=== PATIENT | male | born 1970 | race Caucasian/White ===

== ENCOUNTER → 2017-03-02 | Outpatient (CLI) | payer BC ==
[2017-03-02 13:50] LABS: BASOPHILS # (AUTO) 0.1 10^3/uL (0.0-0.1); BASOPHILS % (AUTO) 1 % (0-10); EOSINOPHILS # (AUTO) 0.5 10^3/uL (0.0-0.3); EOSINOPHILS % (AUTO) 5 % (0-10); HEMATOCRIT 34 % (40-54); HEMOGLOBIN 11.5 G/DL (13.3-17.7); LYMPHOCYTES # (AUTO) 2.3 X 10^3 (1.0-4.0); LYMPHOCYTES % (AUTO) 20 % (12-44); MEAN CORPUSCULAR HEMOGLOBIN 29 PG (25-34); MEAN CORPUSCULAR HGB CONC 34 G/DL (32-36); MEAN CORPUSCULAR VOLUME 86 FL (80-99); MEAN PLATELET VOLUME 9.6 FL (7.4-10.4); MONOCYTES # (AUTO) 0.9 X 10^3 (0.0-1.0); MONOCYTES % (AUTO) 8 % (0-12); NEUTROPHILS # (AUTO) 7.7 X 10^3 (1.8-7.8); NEUTROPHILS % (AUTO) 67 % (42-75); PLATELET COUNT 373 10^3/uL (130-400); RED BLOOD COUNT 3.97 10^6/uL (4.35-5.85); RED CELL DISTRIBUTION WIDTH 14.9 % (10.0-14.5); WHITE BLOOD COUNT 11.4 10^3/uL (4.3-11.0)
[2017-03-02 14:13] LABS: ALBUMIN 3.8 GM/DL (3.2-4.5); BILIRUBIN,TOTAL 0.4 MG/DL (0.1-1.0); CALCIUM 10.4 MG/DL (8.5-10.1); CREATININE SERUM 1.51 MG/DL (0.60-1.30); POTASSIUM 4.1 MMOL/L (3.6-5.0)
== END ==
LOC: HH 07:00
PROVIDERS: ATTEND Internal Medicine Infectious Disease
DX: T87.43 Infection of amputation stump, right lower extremity (principal); B96.20 Unspecified Escherichia coli [E. coli] as the cause of diseases classified elsewhere
CPT/HCPCS: 80053; 85025; 86141

== ENCOUNTER → 2017-03-17 | Outpatient (CLI) | payer BC ==
[2017-03-17 11:42] LABS: BASOPHILS % (AUTO) 0 % (0-10); EOSINOPHILS # (AUTO) 0.3 10^3/uL (0.0-0.3); EOSINOPHILS % (AUTO) 3 % (0-10); HEMATOCRIT 36 % (40-54); HEMOGLOBIN 11.9 G/DL (13.3-17.7); LYMPHOCYTES % (AUTO) 21 % (12-44); MEAN CORPUSCULAR HEMOGLOBIN 30 PG (25-34); MEAN CORPUSCULAR HGB CONC 33 G/DL (32-36); MEAN CORPUSCULAR VOLUME 88 FL (80-99); MEAN PLATELET VOLUME 10.2 FL (7.4-10.4); MONOCYTES # (AUTO) 0.9 X 10^3 (0.0-1.0); MONOCYTES % (AUTO) 9 % (0-12); NEUTROPHILS # (AUTO) 6.7 X 10^3 (1.8-7.8); NEUTROPHILS % (AUTO) 68 % (42-75); PLATELET COUNT 408 10^3/uL (130-400); RED BLOOD COUNT 4.04 10^6/uL (4.35-5.85); RED CELL DISTRIBUTION WIDTH 15.1 % (10.0-14.5); WHITE BLOOD COUNT 9.9 10^3/uL (4.3-11.0)
[2017-03-17 12:02] LABS: ERYTHROCYTE SEDIMENTATION RATE 82 MM/HR (0-15)
[2017-03-17 12:03] LABS: ALBUMIN 4.2 GM/DL (3.2-4.5); BILIRUBIN,TOTAL 0.4 MG/DL (0.1-1.0); CALCIUM 10.6 MG/DL (8.5-10.1); CREATININE SERUM 2.01 MG/DL (0.60-1.30); POTASSIUM 4.9 MMOL/L (3.6-5.0); TOTAL PROTEIN 8.3 GM/DL (6.4-8.2)
== END ==
LOC: HH 07:00
PROVIDERS: ATTEND Internal Medicine Infectious Disease
DX: T87.43 Infection of amputation stump, right lower extremity (principal); B96.20 Unspecified Escherichia coli [E. coli] as the cause of diseases classified elsewhere; Z79.899 Other long term (current) drug therapy
CPT/HCPCS: 80053; 82550; 85025; 85652; 86141

== ENCOUNTER → 2017-03-23 | Outpatient (CLI) | payer BC | LOC: HH 07:00 | PROVIDERS: ATTEND Internal Medicine Infectious Disease | DX: T87.43 Infection of amputation stump, right lower extremity (principal); B96.20 Unspecified Escherichia coli [E. coli] as the cause of diseases classified elsewhere; Z79.899 Other long term (current) drug therapy ==

== ENCOUNTER → 2017-03-30 | Outpatient (CLI) | payer BC ==
[2017-03-30 14:32] LABS: BASOPHILS % (AUTO) 1 % (0-10); EOSINOPHILS # (AUTO) 0.3 10^3/uL (0.0-0.3); EOSINOPHILS % (AUTO) 3 % (0-10); HEMATOCRIT 35 % (40-54); HEMOGLOBIN 11.8 G/DL (13.3-17.7); LYMPHOCYTES # (AUTO) 1.9 X 10^3 (1.0-4.0); LYMPHOCYTES % (AUTO) 22 % (12-44); MEAN CORPUSCULAR HEMOGLOBIN 30 PG (25-34); MEAN CORPUSCULAR HGB CONC 34 G/DL (32-36); MEAN CORPUSCULAR VOLUME 89 FL (80-99); MEAN PLATELET VOLUME 10.5 FL (7.4-10.4); MONOCYTES # (AUTO) 0.8 X 10^3 (0.0-1.0); MONOCYTES % (AUTO) 10 % (0-12); NEUTROPHILS # (AUTO) 5.4 X 10^3 (1.8-7.8); NEUTROPHILS % (AUTO) 64 % (42-75); PLATELET COUNT 231 10^3/uL (130-400); RED BLOOD COUNT 3.92 10^6/uL (4.35-5.85); RED CELL DISTRIBUTION WIDTH 14.9 % (10.0-14.5); WHITE BLOOD COUNT 8.5 10^3/uL (4.3-11.0)
[2017-03-30 14:49] LABS: ALBUMIN 4.2 GM/DL (3.2-4.5); BILIRUBIN,TOTAL 0.4 MG/DL (0.1-1.0); CALCIUM 10.6 MG/DL (8.5-10.1); CREATININE SERUM 1.56 MG/DL (0.60-1.30); POTASSIUM 4.2 MMOL/L (3.6-5.0); TOTAL PROTEIN 8.3 GM/DL (6.4-8.2)
[2017-03-30 14:51] LABS: ERYTHROCYTE SEDIMENTATION RATE 80 MM/HR (0-15)
== END ==
LOC: HH 07:00
PROVIDERS: ATTEND Internal Medicine Infectious Disease
DX: T87.44 Infection of amputation stump, left lower extremity (principal); B96.20 Unspecified Escherichia coli [E. coli] as the cause of diseases classified elsewhere; Z79.899 Other long term (current) drug therapy
CPT/HCPCS: 80053; 82550; 85025; 85652; 86141

== ENCOUNTER → 2017-04-06 | Outpatient (CLI) | payer BC ==
[2017-04-06 09:50] LABS: BASOPHILS % (AUTO) 0 % (0-10); EOSINOPHILS # (AUTO) 0.2 10^3/uL (0.0-0.3); EOSINOPHILS % (AUTO) 3 % (0-10); HEMATOCRIT 35 % (40-54); HEMOGLOBIN 11.5 G/DL (13.3-17.7); LYMPHOCYTES # (AUTO) 1.6 X 10^3 (1.0-4.0); LYMPHOCYTES % (AUTO) 22 % (12-44); MEAN CORPUSCULAR HEMOGLOBIN 30 PG (25-34); MEAN CORPUSCULAR HGB CONC 33 G/DL (32-36); MEAN CORPUSCULAR VOLUME 90 FL (80-99); MONOCYTES # (AUTO) 0.7 X 10^3 (0.0-1.0); MONOCYTES % (AUTO) 9 % (0-12); NEUTROPHILS # (AUTO) 4.8 X 10^3 (1.8-7.8); NEUTROPHILS % (AUTO) 65 % (42-75); PLATELET COUNT 230 10^3/uL (130-400); RED BLOOD COUNT 3.83 10^6/uL (4.35-5.85); WHITE BLOOD COUNT 7.4 10^3/uL (4.3-11.0)
[2017-04-06 10:03] LABS: BILIRUBIN,TOTAL 0.4 MG/DL (0.1-1.0); CALCIUM 10.2 MG/DL (8.5-10.1); CREATININE SERUM 1.61 MG/DL (0.60-1.30); POTASSIUM 4.7 MMOL/L (3.6-5.0); TOTAL PROTEIN 7.6 GM/DL (6.4-8.2)
[2017-04-06 10:12] LABS: ERYTHROCYTE SEDIMENTATION RATE 76 MM/HR (0-15)
== END ==
LOC: HH 07:00
PROVIDERS: ATTEND Internal Medicine Infectious Disease
DX: T87.44 Infection of amputation stump, left lower extremity (principal); B96.20 Unspecified Escherichia coli [E. coli] as the cause of diseases classified elsewhere; Z79.899 Other long term (current) drug therapy
CPT/HCPCS: 80053; 82550; 85025; 85652; 86141

== ENCOUNTER → 2017-04-14 | Outpatient (CLI) | payer BC ==
[2017-04-14 14:05] LABS: HEMOGLOBIN 13.5 G/DL (13.3-17.7); MEAN PLATELET VOLUME 10.2 FL (7.4-10.4); RED BLOOD COUNT 4.52 10^6/uL (4.35-5.85); RED CELL DISTRIBUTION WIDTH 14.8 % (10.0-14.5); WHITE BLOOD COUNT 7.7 10^3/uL (4.3-11.0)
[2017-04-14 14:20] LABS: CALCIUM 10.4 MG/DL (8.5-10.1); CREATININE SERUM 1.64 MG/DL (0.60-1.30); POTASSIUM 4.3 MMOL/L (3.6-5.0)
== END ==
LOC: HH 07:00
PROVIDERS: ATTEND Internal Medicine Infectious Disease
DX: T87.44 Infection of amputation stump, left lower extremity (principal); B96.20 Unspecified Escherichia coli [E. coli] as the cause of diseases classified elsewhere; Z16.12 Extended spectrum beta lactamase (ESBL) resistance
CPT/HCPCS: 80048; 85027; 86141

== ENCOUNTER → 2017-04-20 | Outpatient (CLI) | payer BC ==
[2017-04-20 15:44] LABS: HEMOGLOBIN 12.1 G/DL (13.3-17.7); RED BLOOD COUNT 3.95 10^6/uL (4.35-5.85); RED CELL DISTRIBUTION WIDTH 14.5 % (10.0-14.5); WHITE BLOOD COUNT 8.5 10^3/uL (4.3-11.0)
[2017-04-20 15:55] LABS: ALBUMIN 4.1 GM/DL (3.2-4.5); BILIRUBIN,TOTAL 0.3 MG/DL (0.1-1.0); CALCIUM 9.8 MG/DL (8.5-10.1); CREATININE SERUM 1.59 MG/DL (0.60-1.30); POTASSIUM 4.2 MMOL/L (3.6-5.0); TOTAL PROTEIN 8.1 GM/DL (6.4-8.2)
== END ==
LOC: LAB 07:00
PROVIDERS: ATTEND Internal Medicine Infectious Disease
DX: T87.44 Infection of amputation stump, left lower extremity (principal)
CPT/HCPCS: 80053; 82550; 85027; 85652; 86141

== ENCOUNTER → 2017-04-20 | Outpatient (CLI) | payer BC ==
[2017-04-20 15:42] LABS: BILIRUBIN,URINE NEGATIVE (NEGATIVE); CLARITY,URINE CLEAR; COLOR,URINE YELLOW; GLUCOSE, URINE (UA) NEGATIVE (NEGATIVE); KETONES,URINE NEGATIVE (NEGATIVE); LEUKOCYTE ESTERASE ,URINE NEGATIVE (NEGATIVE); NITRITE,URINE NEGATIVE (NEGATIVE); PH,URINE 5 (5-9); PROTEIN,URINE NEGATIVE (NEGATIVE); UROBILINOGEN,URINE NORMAL (NORMAL)
[2017-04-20 16:03] LABS: CALCIUM 9.8 MG/DL (8.5-10.1); CREATININE SERUM 1.59 MG/DL (0.60-1.30); POTASSIUM 4.2 MMOL/L (3.6-5.0)
[2017-04-20 16:04] LABS: ALBUMIN 4.1 GM/DL (3.2-4.5)
[2017-04-20 16:05] LABS: BACTERIA,URINE NEGATIVE /HPF; SQUAMOUS EPITHELIAL CELL,UR RARE /HPF
== END ==
LOC: LAB 07:00
PROVIDERS: ATTEND Internal Medicine
DX: N18.3 Chronic kidney disease, stage 3 (moderate) (principal)
CPT/HCPCS: 80069; 81000; 82570; 84156

== ENCOUNTER 2018-09-11 15:49 | Emergency (ER) | payer BC | END 2018-09-11 17:58 | disposition home or self-care (01) | LOC: ER 15:49 ==

== ENCOUNTER 2018-11-07 17:35 | Emergency (ER) | payer BC ==
[~2018-11-07] VITALS: Ht 175 cm; Wt 120.0 kg
[~2018-11-07 17:35] MED LIST: ALLO100T; ATOR20TA66; CARV25TA; LIRA0.6P3; MONT10TA24; TERB250T16
[2018-11-07] MEDS ORDERED: IRON1CAP34 PO (18:06)
[2018-11-07] MEDS ORDERED: GEMF600T8 PO (18:06)
[2018-11-07] MEDS ORDERED: INSU100V16 SQ (18:06)
[2018-11-07] MEDS ORDERED: AMLO5TAB9 PO (18:06)
[2018-11-07] MEDS ORDERED: INSU300I SQ (18:06)
--- NOTE | 2018-11-07 19:00 | ED Cough/URI ---
General Chief Complaint: Cough/Cold/Flu Symptoms Stated Complaint: SINUS CONGESTION Nursing Triage Note: PT CO OF COLD COUGH FOR 3 WEEKS, PT STATES HAS BEEN SEEN BY EMT INTERMEDIATE APPROX 4 TIMES, HAS BEEN ON CEFDINIR, PT STATES FEELS LIKE HAS HAD FEVER, HAS CACERES, HAS NAUSEA Sepsis Screen: No Definite Risk Source: patient Exam Limitations: no limitations History of Present Illness Date Seen by Provider: Nov 07, 2018 Time Seen by Provider: 18:59 Initial Comments 48-year-old male patient presents to the emergency department with complaints of sinus congestion, sinus headache, and slight cough for 3 weeks. Patient states he was seen by his nurse practitioner at [facility] 4 times for this complaint. He was placed on cefdinir with mild improvement in symptoms. Patient reports this week he did follow-up with his EMT INTERMEDIATE with a nasal culture and CT head obtained. Patient states the CT showed sinusitis and the nasal culture have not come back yet. Timing/Duration: other (3 wk onset) Severity/Quality: dry cough Prior Episodes/Possible Cause: no prior episodes Modifying Factors: Worse With Other (no improvement with mucinex, afrin, saline rinses, vicks vapor.) Allergies and Home Medications Allergies Coded Allergies: No Known Drug Allergies (Unverified , 09/11/18) Home Medications Amlodipine Besylate 5 Mg Tablet, Unknown Dose PO DAILY, (Reported) Doxycycline Hyclate 100 Mg Tablet, 100 MG PO BID Prescribed by: STEPHANIE WATKINS on 11/07/181954 Fluticasone Furoate 5.9 Ml [place].susp, 2 SPRAYS NSEACH DAILY Prescribed by: STEPHANIE WATKINS on 11/07/181954 Insulin Aspart 100 Unit/1 Ml Susp, Unknown Dose SQ AC, (Reported) Patient Home Medication List Home Medication List Reviewed: Yes Review of Systems Review of Systems Constitutional: chills; No dizziness; malaise EENTM: see HPI, nose congestion, throat pain (slight throat pain), other (postnasal drainage); No ear discharge, No ear pain, No hoarseness, No mouth pain, No throat swelling Respiratory: cough; No dyspnea on exertion, No hemoptysis, No phlegm, No short of breath, No stridor, No wheezing Cardiovascular: no symptoms reported Gastrointestinal: No abdominal pain, No constipation, No diarrhea; loss of appetite, nausea; No vomiting Genitourinary: no symptoms reported Musculoskeletal: no symptoms reported Skin: no symptoms reported Psychiatric/Neurological: Headache All Other Systems Reviewed Negative Unless Noted: Yes (Negative excepted noted.) Past Sbjsmif-Huzxkw-Rtwcjr Hx Past Med/Social Hx: Reviewed Nursing Past Med/Soc Hx Patient Social History Alcohol Use: Denies Use Recreational Drug Use: No Smoking Status: Never a Smoker Recent Foreign Travel: No Contact w/Someone Who Travel: No Recent Infectious Disease Expo: No Recent Hopitalizations: No Past Medical History Adenoidectomy, Gallbladder, Orthopedic Respiratory: No Cardiac: Yes High Cholesterol, Hypertension Neurological: No Genitourinary: Yes Renal Failure (stage IV chronic kidney disease) Gastrointestinal: No Musculoskeletal: Yes Amputee Endocrine: Yes Diabetes, Insulin dep, Diabetes, Non-Insulin dep HEENT: No Cancer: No Psychosocial: No Integumentary: No Blood Disorders: No Adverse Reaction/Blood Tranf: No Family Medical History Reviewed Nursing Family Hx No Pertinent Family Hx Physical Exam Vital Signs - First Documented 11/07/18 17:50 Temp 36.6 Pulse 90 Resp 18 B/P (MAP) 131/81 (98) Pulse Ox 97 O2 Delivery Room Air Capillary Refill : Less Than 3 Seconds Height: 5'9.00" Weight: 252lbs. oz. 114.018168rs; 39.00 BMI Method:Stated General Appearance: WD/WN, no apparent distress HEENT: PERRL/EOMI, TMs normal, pharyngeal erythema, other (positive nasal congestion and sinus tenderness.) Neck: non-tender, full range of motion, supple, lymphadenopathy (R), lymphadenopathy (L) Respiratory: lungs clear, normal breath sounds, no respiratory distress, no accessory muscle use Cardiovascular: regular rate, rhythm, no murmur Gastrointestinal: normal bowel sounds, non tender, soft, no organomegaly; No distended Extremities: no pedal edema, normal capillary refill Neurologic/Psychiatric: alert, normal mood/affect, oriented x 3 Skin: normal color, warm/dry; No rash Progress/Results/Core Measures Suspected Sepsis Recent Fever Within 48 Hours: Yes Infection Criteria Present: Suspected New Infection New/Unexplained Altered Menta: No Sepsis Screen: No Definite Risk SIRS Temperature: Pulse: 90 Respiratory Rate: 18 Blood Pressure 131 /81 Mean: 98 Results/Orders My Orders Orders - STEPHANIE WATKINS Ceftriaxone For Im Use (Rocephin For Im (11/07/18 19:15) Lidocaine 1% Inj 20 Ml (Xylocaine 1% Inj (11/07/18 19:15) Rx-Doxycycline Tablet (Rx-Vibramycin Tab (11/07/18 19:12) Rx-Ondansetron Po (Rx-Zofran Po) (11/07/18 19:12) Prednisone Tablet (Deltasone Tablet) (11/07/18 19:15) Medications Given in ED Current Medications Medications Dose Ordered Sig/Ynes Route Start Time Stop Time Status Last Admin Dose Admin Ceftriaxone Sodium 1,000 mg ONCE ONCE IM 11/07/18 19:15 11/07/18 19:16 DC 11/07/18 19:57 1,000 MG Lidocaine HCl 2.1 ml ONCE ONCE INJ 11/07/18 19:15 11/07/18 19:16 DC 11/07/18 19:57 2.1 ML Prednisone 40 mg ONCE ONCE PO 11/07/18 19:15 11/07/18 19:16 DC 11/07/18 19:53 40 MG Vital Signs/I&O 11/07/18 11/07/18 11/07/18 17:50 17:50 20:02 Temp 36.6 36.6 Pulse 90 90 Resp 18 18 B/P (MAP) 131/81 (98) 131/81 (98) Pulse Ox 97 97 O2 Delivery Room Air Room Air Capillary Refill : Less Than 3 Seconds Blood Pressure Mean: 98 Departure Communication (Admissions) Patient seen and evaluated. Patient given 1 g of Rocephin, take home pack of doxycycline, and 1 dose of prednisone 40mg in the ED. plan for dsch to home with f/u as an outpatient with his PCP. Impression Primary Impression: Acute sinusitis Qualified Codes: J01.40 - Acute pansinusitis, unspecified Disposition: HOME, SELF-CARE Condition: Improved Departure-Patient Inst. Decision time for Depature: 19:20 Referrals: SERENITY LAMAR MD (PCP/Family) Primary Care Physician Patient Instructions: Sinusitis in Adults Add. Discharge Instructions: All discharge instructions reviewed with patient and/or family. Voiced understanding. Medications as instructed. Tylenol Extra Strength yuog-wob-ygwoyva as directed for pain or headache. Continue the saline nasal rinse with distilled water only. Nvvc-feb-yerztpe Afrin nasal spray and/or saline nasal spray for symptomatic relief. Follow-up with [facility] for recheck this week, call tomorrow morning for appointment time. Return to the emergency department for worsened symptoms or any other concerns. Scripts Fluticasone Furoate (Flonase Sensimist) 5.9 Ml [place].susp 2 SPRAYS NSEACH DAILY for 7 Days, #1 SPRAY 0 Refills Prov: STEPHANIE WATKINS 11/07/18 Doxycycline Hyclate (Doxycycline Hyclate) 100 Mg Tablet 100 MG PO BID, #20 TAB 0 Refills Prov: STEPHANIE WATKINS 11/07/18 STEPHANIE WATKINS Nov 07, 2018 18:59
--- NOTE | 2018-11-07 19:00 | NUR ---
report recieved from lori, adirana
[2018-11-07] MEDS ORDERED: RX-ONDANSETRON 4 MG ODT (ZOFRAN) PPK #4 PO STA (19:12)
[2018-11-07] MEDS ORDERED: RX-DOXYCYCLINE 100 MG (VIBRAMYCIN) TAB PPK#2 PO STA (19:12)
[2018-11-07] MEDS ORDERED: predniSONE 20 MG TAB PO ONE (19:15)
[2018-11-07] MEDS ORDERED: cefTRIAXone 1,000 MG/2.86 ml vial (IM ONLY) IM ONE (19:15)
[2018-11-07] MEDS ORDERED: LIDOCAINE 1% INJ 20 ML 20 ML VIAL INJ ONE (19:15)
[2018-11-07] MEDS ORDERED: FLUT9.9S16 NSEACH ×2 (19:25→19:55)
[2018-11-07] MEDS ORDERED: DOXY100T2 PO ×2 (19:25→19:55)
[2018-11-07 20:02] VITALS: BP 131/81
== END 2018-11-07 20:03 | disposition home or self-care (01) ==
LOC: EDUNIT# 17:35 → ER 17:37
DX: J01.90 Acute sinusitis, unspecified (principal); E11.22 Type 2 diabetes mellitus with diabetic chronic kidney disease; I12.9 Hypertensive chronic kidney disease with stage 1 through stage 4 chronic kidney disease, or unspecified chronic kidney disease; N18.4 Chronic kidney disease, stage 4 (severe); E78.00 Pure hypercholesterolemia, unspecified; Z79.4 Long term (current) use of insulin; Z90.89 Acquired absence of other organs
CPT/HCPCS: 96372

== ENCOUNTER 2018-12-08 12:21 | Emergency (ER) | payer BC ==
[~2018-12-08] VITALS: Ht 175 cm; Wt 110.5 kg
[~2018-12-08 12:21] MED LIST changes: +AMLO5TAB9 PO; +DOXY100T2 PO; +FLUT9.9S16 NSEACH; +GEMF600T8 PO; +INSU100V16 SQ; +INSU300I SQ; +IRON1CAP34 PO
--- NOTE | 2018-12-08 13:05 | NUR ---
NOTIFIED OF BUSY ER WITH LONG WAIT TIME.
[2018-12-08] MEDS ORDERED: NS IV 1000 ML 1,000 ML IV SCH ×2 (14:46→15:42)
[2018-12-08 14:57] LABS: BASOPHILS % (AUTO) 0 % (0-10); EOSINOPHILS # (AUTO) 0.1 10^3/uL (0.0-0.3); EOSINOPHILS % (AUTO) 0 % (0-10); HEMATOCRIT 36 % (40-54); LYMPHOCYTES # (AUTO) 1.6 X 10^3 (1.0-4.0); LYMPHOCYTES % (AUTO) 10 % (12-44); MEAN CORPUSCULAR HEMOGLOBIN 30 PG (25-34); MEAN CORPUSCULAR HGB CONC 33 G/DL (32-36); MEAN CORPUSCULAR VOLUME 92 FL (80-99); MEAN PLATELET VOLUME 9.6 FL (7.4-10.4); MONOCYTES # (AUTO) 1.8 X 10^3 (0.0-1.0); MONOCYTES % (AUTO) 11 % (0-12); NEUTROPHILS # (AUTO) 12.6 X 10^3 (1.8-7.8); NEUTROPHILS % (AUTO) 79 % (42-75); PLATELET COUNT 263 10^3/uL (130-400); RED CELL DISTRIBUTION WIDTH 15.3 % (10.0-14.5)
[2018-12-08] MEDS ORDERED: ONDANSETRON 4 MG/2 ML (SDV) Z0FRAN IVP ONE (15:00)
--- NOTE | 2018-12-08 15:03 | ED General ---
General Chief Complaint: Abdominal/GI Problems Stated Complaint: N/V;COUGH Nursing Triage Note: COUGH X3 DAYS ET N/V/D STARTING YESTERDAY. PT STATES HE IS VERY WEAK. Nursing Sepsis Screen: No Definite Risk Source of Information: Patient Exam Limitations: No Limitations History of Present Illness Date Seen by Provider: Dec 08, 2018 Time Seen by Provider: 14:50 Initial Comments 48-year-old male presents to the emergency room with 3 days OF nonproductive cough, nasal congestion and general malaise. Patient reports that at 0100 this morning he woke up to a coughing fit and subsequently vomited. Patient reports vomiting twice since then. Patient with reports of subjective fever at home but did not check his temperature with a thermometer. Patient reports was seen here, recently and given a prescription antibiotic which improved his upper respiratory and sinus symptoms. Patient reports completing this antibiotic completely and he felt fine last week. Timing/Duration: 2-3 Days Severity: Mild Associated Systoms: Cough, Malaise, Nausea/Vomiting, Weakness Allergies and Home Medications Allergies Coded Allergies: No Known Drug Allergies (Unverified , 09/11/18) Home Medications Amlodipine Besylate 5 Mg Tablet, Unknown Dose PO DAILY, (Reported) Doxycycline Hyclate 100 Mg Tablet, 100 MG PO BID Prescribed by: STEPHANIE WATKINS on 11/07/181954 Fluticasone Furoate 5.9 Ml [place].susp, 2 SPRAYS NSEACH DAILY Prescribed by: STEPHANIE WATKINS on 11/07/181954 Insulin Aspart 100 Unit/1 Ml Susp, Unknown Dose SQ AC, (Reported) Levalbuterol Tartrate 15 Gm Hfa.aer.ad, 1-2 PUFF INH Q6H Prescribed by: FERNANDO PERRIN on 12/08/181712 Prednisone 20 Mg Tab, 40 MG PO DAILY Prescribed by: FERNANDO PERRIN on 12/08/181712 Prochlorperazine Maleate 10 Mg Tablet, 10 MG PO Q6H Prescribed by: FERNANDO PERRIN on 12/08/181712 Patient Home Medication List Home Medication List Reviewed: Yes Review of Systems Review of Systems Constitutional: no symptoms reported, see HPI EENTM: nose congestion Respiratory: cough Cardiovascular: no symptoms reported, see HPI Gastrointestinal: nausea, vomiting Genitourinary: no symptoms reported, see HPI Musculoskeletal: muscle weakness Skin: no symptoms reported, see HPI Psychiatric/Neurological: No Symptoms Reported, See HPI Hematologic/Lymphatic: No Symptoms Reported, See HPI Immunological/Allergic: no symptoms reported, see HPI All Other Systems Reviewed Negative Unless Noted: Yes Past Tktoyaw-Kdmvnk-Kppxnr Hx Past Med/Social Hx: Reviewed Nursing Past Med/Soc Hx, Reviewed and Corrections made Patient Social History Alcohol Use: Denies Use Recreational Drug Use: No Smoking Status: Never a Smoker Recent Foreign Travel: No Contact w/Someone Who Travel: No Recent Infectious Disease Expo: No Recent Hopitalizations: No Past Medical History Surgeries: Yes (left dypgk-cux-tgvc amputation ) Adenoidectomy, Gallbladder, Orthopedic Respiratory: No Cardiac: Yes High Cholesterol, Hypertension Neurological: No Genitourinary: Yes Renal Failure Gastrointestinal: No Musculoskeletal: Yes Amputee Endocrine: Yes Diabetes, Insulin dep, Diabetes, Non-Insulin dep HEENT: No Cancer: No Psychosocial: No Integumentary: No Blood Disorders: No Adverse Reaction/Blood Tranf: No Family Medical History No Pertinent Family Hx Physical Exam Vital Signs Vital Signs - First Documented 12/08/18 13:05 Temp 36.7 Pulse 88 Resp 16 B/P (MAP) 108/69 (82) Pulse Ox 96 O2 Delivery Room Air Capillary Refill : Less Than 3 Seconds Height, Weight, BMI Height: 5'9.00" Weight: 252lbs. oz. 114.226984wp; 36.00 BMI Method:Stated General Appearance: No Apparent Distress, WD/WN Eyes: Bilateral Eye Normal Inspection, Bilateral Eye PERRL HEENT: PERRL/EOMI, TMs Normal, Normal ENT Inspection, Other (no maxillary or frontal sinus tenderness) Neck: Full Range of Motion, Normal Inspection, Non Tender Respiratory: Chest Non Tender, Lungs Clear, Normal Breath Sounds, No Accessory Muscle Use, No Respiratory Distress Cardiovascular: Regular Rate, Rhythm, No Edema, No JVD, No Murmur Gastrointestinal: Normal Bowel Sounds Rectal: Deferred Back: Normal Inspection Extremity: Normal Capillary Refill, Non Tender, No Calf Tenderness Neurologic/Psychiatric: Alert, Oriented x3, No Motor/Sensory Deficits, Normal Mood/Affect Skin: Normal Color, Warm/Dry Progress/Results/Core Measures Suspected Sepsis Recent Fever Within 48 Hours: No Infection Criteria Present: Suspected New Infection New/Unexplained Altered Menta: No Sepsis Screen: No Definite Risk SIRS Temperature: Pulse: 88 Respiratory Rate: 16 Laboratory Tests 10/30/19 14:30: White Blood Count 16.0H Blood Pressure 108 /69 Mean: 82 Laboratory Tests 12/08/18 14:30: Creatinine 2.71H, Platelet Count 263, Total Bilirubin 0.4 Results/Orders Lab Results Laboratory Tests Test 12/08/18 13:55 12/08/18 14:30 Range/Units Urine Color YELLOW Urine Clarity CLEAR Urine pH 5 5-9 Urine Specific [place] 1.020 1.016-1.022 Urine Protein 3+ H NEGATIVE Urine Glucose (UA) NEGATIVE NEGATIVE Urine Ketones NEGATIVE NEGATIVE Urine Nitrite NEGATIVE NEGATIVE Urine Bilirubin NEGATIVE NEGATIVE Urine Urobilinogen NORMAL NORMAL MG/DL Urine Leukocyte Esterase NEGATIVE NEGATIVE Urine RBC (Auto) NEGATIVE NEGATIVE Urine RBC NONE /HPF Urine WBC NONE /HPF Urine Crystals NONE /LPF Urine Bacteria NEGATIVE /HPF Urine Casts PRESENT /LPF Urine Hyaline Casts 5-10 H /LPF Urine Mucus NEGATIVE /LPF Urine Culture Indicated NO White Blood Count 16.0 H 4.3-11.0 10^3/uL Red Blood Count 3.95 L 4.35-5.85 10^6/uL Hemoglobin 12.0 L 13.3-17.7 G/DL Hematocrit 36 L 40-54 % Mean Corpuscular Volume 92 80-99 FL Mean Corpuscular Hemoglobin 30 25-34 PG Mean Corpuscular Hemoglobin Concent 33 32-36 G/DL Red Cell Distribution Width 15.3 H 10.0-14.5 % Platelet Count 263 130-400 10^3/uL Mean Platelet Volume 9.6 7.4-10.4 FL Neutrophils (%) (Auto) 79 H 42-75 % Lymphocytes (%) (Auto) 10 L 12-44 % Monocytes (%) (Auto) 11 0-12 % Eosinophils (%) (Auto) 0 0-10 % Basophils (%) (Auto) 0 0-10 % Neutrophils # (Auto) 12.6 H 1.8-7.8 X 10^3 Lymphocytes # (Auto) 1.6 1.0-4.0 X 10^3 Monocytes # (Auto) 1.8 H 0.0-1.0 X 10^3 Eosinophils # (Auto) 0.1 0.0-0.3 10^3/uL Basophils # (Auto) 0.0 0.0-0.1 10^3/uL Neutrophils % (Manual) 79 % Lymphocytes % (Manual) 8 % Monocytes % (Manual) 13 % Poikilocytosis SLIGHT Anisocytosis SLIGHT Microcytosis SLIGHT Macrocytosis SLIGHT Sodium Level 135 135-145 MMOL/L Potassium Level 5.1 H 3.6-5.0 MMOL/L Chloride Level 106 98-107 MMOL/L Carbon Dioxide Level 17 L 21-32 MMOL/L Anion Gap 12 5-14 MMOL/L Blood Urea Nitrogen 49 H 7-18 MG/DL Creatinine 2.71 H 0.60-1.30 MG/DL Estimat Glomerular Filtration Rate 25 BUN/Creatinine Ratio 18 Glucose Level 169 H 70-105 MG/DL Calcium Level 10.3 H 8.5-10.1 MG/DL Corrected Calcium 10.0 8.5-10.1 MG/DL Total Bilirubin 0.4 0.1-1.0 MG/DL Aspartate Amino Transf (AST/SGOT) 31 5-34 U/L Alanine Aminotransferase (ALT/SGPT) 51 0-55 U/L Alkaline Phosphatase 96 40-136 U/L Total Protein 8.7 H 6.4-8.2 GM/DL Albumin 4.4 3.2-4.5 GM/DL Amylase Level 66 25-125 U/L Lipase 24 8-78 U/L My Orders Orders - FERNANDO PERRIN [employer]ASS [employer] BENDER Ondansetron Injection (Zofran Injectio (12/08/18 15:00) Cbc With Automated Diff (12/08/18 14:46) Comprehensive Metabolic Panel (12/08/18 14:46) Ua Culture If Indicated (12/08/18 14:46) Ed Iv/Invasive Line Start (12/08/18 14:46) Ns Iv 1000 Ml (Sodium Chloride 0.9%) (12/08/18 14:46) Manual Differential (12/08/18 14:30) Amylase (12/08/18 15:41) Lipase (12/08/18 15:41) Ed Iv/Invasive Line Start (12/08/18 15:42) Ns Iv 1000 Ml (Sodium Chloride 0.9%) (12/08/18 15:42) Methylprednisolone Sod Succ (Solu-Medrol (12/08/18 17:30) Medications Given in ED Current Medications Medications Dose Ordered Sig/Ynes Route Start Time Stop Time Status Last Admin Dose Admin Methylprednisolone Sodium Succinate 125 mg ONCE ONCE IVP 12/08/18 17:30 12/08/18 17:31 DC 12/08/18 17:31 125 MG Ondansetron HCl 4 mg ONCE ONCE IVP 12/08/18 15:00 12/08/18 15:01 DC 12/08/18 15:05 4 MG Vital Signs/I&O 12/08/18 12/08/18 13:05 17:39 Temp 36.7 Pulse 88 86 Resp 16 18 B/P (MAP) 108/69 (82) 143/83 Pulse Ox 96 96 O2 Delivery Room Air Room Air Capillary Refill : Less Than 3 Seconds Blood Pressure Mean: 82 POS Progress Note : Time: 14:50 Progress Note Patient seen and evaluated, will obtain labs, Zofran 4 mg IV and normal saline 1 L per IV. 1545 labs are normal. Patient reports trace improvement in symptoms. We'll give second liter of normal saline per IV. 1650 we'll give Solu-Medrol 125 mg IV. Patient reports to be feeling better. Discussed this is probably viral in nature and no antibiotics are recommended at this point. The patient has not vomited since he has been here and is not coughing. Discharge instructions and return precautions are reviewed with the patient. Departure Impression Primary Impression: Viral URI Additional Impression: Nausea and vomiting Qualified Codes: R11.2 - Nausea with vomiting, unspecified Disposition: 01 HOME, SELF-CARE Condition: Improved Departure-Patient Inst. Decision time for Depature: 16:50 Referrals: SERENITY LAMAR MD (PCP/Family) Primary Care Physician Patient Instructions: Viral Upper Respiratory Infection, Adult (DC), Nausea and Vomiting, Adult (DC) Add. Discharge Instructions: Increase water intake. Adjust insulin demands while taking steroids. Monitor your glucose. Follow-up with your primary care provider if symptoms are not improving or worsen. Inhaler 2 puffs every 4-6 hours as needed. Take Compazine every 6-8 hours as needed for nausea. Return to the emergency department for new, urgent health care needs. All discharge instructions reviewed with patient and/or family. Voiced und erstanding. Scripts Prednisone (Prednisone) 20 Mg Tab 40 MG PO DAILY, #6 TAB 0 Refills Prov: FERNANDO PRERIN 12/08/18 Prochlorperazine Maleate (Compazine) 10 Mg Tablet 10 MG PO Q6H, #12 TAB 0 Refills Prov: FERNANDO PERRIN 12/08/18 Levalbuterol Tartrate (Xopenex Hfa) 15 Gm Hfa.aer.ad 1-2 PUFF INH Q6H, #1 INHALER 0 Refills Prov: FERNANDO PERRIN 12/08/18 FERNANDO PERRIN Dec 08, 2018 15:03 POS
[2018-12-08 15:08] LABS: ALBUMIN 4.4 GM/DL (3.2-4.5); BILIRUBIN,TOTAL 0.4 MG/DL (0.1-1.0); CALCIUM 10.3 MG/DL (8.5-10.1); CREATININE SERUM 2.71 MG/DL (0.60-1.30); POTASSIUM 5.1 MMOL/L (3.6-5.0); TOTAL PROTEIN 8.7 GM/DL (6.4-8.2)
[2018-12-08 15:31] LABS: LYMPHOCYTES % (MANUAL) 8 %; MONOCYTES % (MANUAL) 13 %; NEUTROPHILS % (MANUAL) 79 %
[2018-12-08 15:32] LABS: ANISOCYTOSIS SLIGHT; MICROCYTOSIS SLIGHT; POIKILOCYTOSIS SLIGHT
[2018-12-08 16:02] LABS: AMYLASE 66 U/L (25-125); LIPASE 24 U/L (8-78)
[2018-12-08 16:08] LABS: BILIRUBIN,URINE NEGATIVE (NEGATIVE); CLARITY,URINE CLEAR; COLOR,URINE YELLOW; GLUCOSE, URINE (UA) NEGATIVE (NEGATIVE); KETONES,URINE NEGATIVE (NEGATIVE); LEUKOCYTE ESTERASE ,URINE NEGATIVE (NEGATIVE); NITRITE,URINE NEGATIVE (NEGATIVE); PH,URINE 5 (5-9); PROTEIN,URINE 3+ (NEGATIVE)
[2018-12-08 16:25] LABS: BACTERIA,URINE NEGATIVE /HPF
[2018-12-08] MEDS ORDERED: PRD20T PO (17:13)
[2018-12-08] MEDS ORDERED: NF-XOP-HFA INH (17:13)
[2018-12-08] MEDS ORDERED: PROC-1 PO (17:13)
[2018-12-08] MEDS ORDERED: methylPREDNISolone 125 MG (Solu-MEDROL) VIAL IVP ONE (17:30)
[2018-12-08 17:39] VITALS: BP 143/83
== END 2018-12-08 17:39 | disposition home or self-care (01) ==
LOC: EDUNIT# 12:21 → ER 12:22
DX: J06.9 Acute upper respiratory infection, unspecified (principal); I10 Essential (primary) hypertension; E11.9 Type 2 diabetes mellitus without complications; E78.00 Pure hypercholesterolemia, unspecified; Z79.4 Long term (current) use of insulin; Z90.89 Acquired absence of other organs; Z89.512 Acquired absence of left leg below knee
CPT/HCPCS: 36415; 80053; 81000; 82150; 83690; 85007; 85027; 96361; 96374; 96375

== ENCOUNTER → 2019-09-01 | Outpatient (CLI) | payer MEDICARE, MEDICAID ==
[~2019-09-01] MED LIST changes: -MONT10TA24; +MONT10TA26; +NF-XOP-HFA INH; +PRD20T PO; +PROC-1 PO
== END ==
LOC: WOUNDCARE 13:02
PROVIDERS: ATTEND Orthopaedic Surgery Hand Surgery
DX: L97.212 Non-pressure chronic ulcer of right calf with fat layer exposed (principal); S81.801A Unspecified open wound, right lower leg, initial encounter; I87.2 Venous insufficiency (chronic) (peripheral); E11.622 Type 2 diabetes mellitus with other skin ulcer; D80.4 Selective deficiency of immunoglobulin M [IgM]
CPT/HCPCS: 11042; A6196; G0463

== ENCOUNTER 2019-09-05 14:35 | Emergency (ER) | payer MEDICARE, MEDICAID ==
[~2019-09-05] VITALS: Ht 175 cm; Wt 124.0 kg
[2019-09-05 15:34] LABS: BASOPHILS % (AUTO) 0 % (0-10); EOSINOPHILS # (AUTO) 0.2 10^3/uL (0.0-0.3); EOSINOPHILS % (AUTO) 2 % (0-10); HEMATOCRIT 32 % (40-54); HEMOGLOBIN 10.7 G/DL (13.3-17.7); LYMPHOCYTES # (AUTO) 1.5 X 10^3 (1.0-4.0); LYMPHOCYTES % (AUTO) 21 % (12-44); MEAN CORPUSCULAR HEMOGLOBIN 32 PG (25-34); MEAN CORPUSCULAR HGB CONC 33 G/DL (32-36); MEAN CORPUSCULAR VOLUME 97 FL (80-99); MEAN PLATELET VOLUME 10.6 FL (7.4-10.4); MONOCYTES # (AUTO) 0.6 X 10^3 (0.0-1.0); MONOCYTES % (AUTO) 9 % (0-12); NEUTROPHILS # (AUTO) 4.9 X 10^3 (1.8-7.8); NEUTROPHILS % (AUTO) 68 % (42-75); PLATELET COUNT 201 10^3/uL (130-400); RED CELL DISTRIBUTION WIDTH 13.9 % (10.0-14.5); WHITE BLOOD COUNT 7.2 10^3/uL (4.3-11.0)
--- NOTE | 2019-09-05 15:35 | NUR ---
SEE LIST FOR CURRENT MEDS AND HX
[2019-09-05 15:46] LABS: ALBUMIN 3.9 GM/DL (3.2-4.5); POTASSIUM 5.5 MMOL/L (3.6-5.0)
[2019-09-05 15:47] LABS: CALCIUM 9.8 MG/DL (8.5-10.1)
[2019-09-05 15:48] LABS: TOTAL PROTEIN 7.3 GM/DL (6.4-8.2)
[2019-09-05 15:50] LABS: BILIRUBIN,TOTAL 0.2 MG/DL (0.1-1.0)
[2019-09-05 15:52] LABS: CREATININE SERUM 3.59 MG/DL (0.60-1.30)
--- NOTE | 2019-09-05 15:58 | ED General ---
General Chief Complaint: General Problems/Pain Stated Complaint: SOB;KIDNEY PROBLEMS Nursing Triage Note: PT TO ROOM 3 PT CO OF SOA, TIREDNESS, HAS KIDNEY FAILURE AND HAD TAKEN BACTRIM DS AND SENT TO ED BY NEUROLOGIST TO BE CHECKED. PT HAS L BKA, HAS WOUNDS ON R CALF AND SEES WOUND CARE. Nursing Sepsis Screen: No Definite Risk Source of Information: Patient Exam Limitations: No Limitations History of Present Illness Date Seen by Provider: Sep 05, 2019 Time Seen by Provider: 15:28 Initial Comments Here with report of tiredness and concerned about kidney failure. Does have history of stage III/stage IV kidney disease. Recently he was put on Bactrim DS for skin wound on his right lower extremity. That wound is actually getting better and he is following with wound care. He is feeling a little bit more tired today and talked with his manager library who recommended he follow up for outpatient labs or follow-up in the emergency department as needed. Patient was concerned due to his history and presented here for further evaluation. Denies fever or chills. Timing/Duration: 1-2 Days Severity: Mild Associated Systoms: No Chest Pain, No Cough, No Fever/Chills, No Nausea/Vomiting; Shortness of Air, Other (diarrhea) Allergies and Home Medications Allergies Coded Allergies: No Known Drug Allergies (Unverified , 09/11/18) Home Medications Amlodipine Besylate 5 Mg Tablet, Unknown Dose PO DAILY, (Reported) Doxycycline Hyclate 100 Mg Tablet, 100 MG PO BID Prescribed by: STEPHANIE WATKINS on 11/07/181954 Fluticasone Furoate 5.9 Ml [place].susp, 2 SPRAYS NSEACH DAILY Prescribed by: STEPHANIE WATKINS on 11/07/181954 Insulin Aspart 100 Unit/1 Ml Susp, Unknown Dose SQ AC, (Reported) Levalbuterol Tartrate 15 Gm Hfa.aer.ad, 1-2 PUFF INH Q6H Prescribed by: FERNANDO PERRIN on 12/08/181712 Prednisone 20 Mg Tab, 40 MG PO DAILY Prescribed by: FERNANDO PERRIN on 12/08/181712 Prochlorperazine Maleate 10 Mg Tablet, 10 MG PO Q6H Prescribed by: FERNANDO PERRIN on 12/08/181712 Patient Home Medication List Home Medication List Reviewed: Yes Review of Systems Review of Systems Constitutional: see HPI; No chills, No fever Respiratory: No cough; short of breath Cardiovascular: No chest pain, No edema Gastrointestinal: No abdominal pain; diarrhea; No nausea, No vomiting Genitourinary: No dysuria, No pain Musculoskeletal: no symptoms reported Skin: no symptoms reported All Other Systems Reviewed Negative Unless Noted: Yes Past Nxfrcjv-Ulryyx-Jsztsp Hx Past Med/Social Hx: Reviewed Nursing Past Med/Soc Hx Patient Social History Alcohol Use: Denies Use Recreational Drug Use: No Smoking Status: Never a Smoker Recent Foreign Travel: No Contact w/Someone Who Travel: No Recent Infectious Disease Expo: No Recent Hopitalizations: No Physical Abuse: No Sexual Abuse: No Past Medical History Surgeries: Yes (left [id number] amputation ) Adenoidectomy, Gallbladder, Orthopedic Respiratory: No Cardiac: Yes High Cholesterol, Hypertension Neurological: No Genitourinary: Yes Renal Failure Gastrointestinal: No Musculoskeletal: Yes Amputee Endocrine: Yes Diabetes, Insulin dep, Diabetes, Non-Insulin dep HEENT: No Cancer: No Psychosocial: No Integumentary: No Blood Disorders: No Adverse Reaction/Blood Tranf: No Family Medical History Reviewed Nursing Family Hx No Pertinent Family Hx Physical Exam Vital Signs Vital Signs - First Documented 09/05/19 15:05 Temp 37.2 Pulse 85 Resp 15 B/P (MAP) 113/67 (82) Pulse Ox 98 Capillary Refill : Less Than 3 Seconds Height, Weight, BMI Height: 5'9.00" Weight: 252lbs. oz. [id number]; 40.00 BMI Method:Stated General Appearance: No Apparent Distress, WD/WN HEENT: PERRL/EOMI, Pharynx Normal Neck: Non Tender, Supple Respiratory: Lungs Clear, Normal Breath Sounds Cardiovascular: Regular Rate, Rhythm, No Murmur Gastrointestinal: Non Tender, Soft Neurologic/Psychiatric: Alert, Oriented x3 Skin: Normal Color, Warm/Dry, Other (dressing and compression stocking to the right lower extremity but no red streaks or foul-smelling drainage noted.) Progress/Results/Core Measures Suspected Sepsis Recent Fever Within 48 Hours: No Infection Criteria Present: None New/Unexplained Altered Menta: No Sepsis Screen: No Definite Risk SIRS Temperature: Pulse: 85 Respiratory Rate: 15 Laboratory Tests 09/05/19 15:15: White Blood Count 7.2 Blood Pressure 113 /67 Mean: 82 Laboratory Tests 09/05/19 15:15: Creatinine 3.59H, Platelet Count 201, Total Bilirubin 0.2 Results/Orders Lab Results Laboratory Tests Test 09/05/19 15:15 Range/Units White Blood Count 7.2 4.3-11.0 10^3/uL Red Blood Count 3.32 L 4.35-5.85 10^6/uL Hemoglobin 10.7 L 13.3-17.7 G/DL Hematocrit 32 L 40-54 % Mean Corpuscular Volume 97 80-99 FL Mean Corpuscular Hemoglobin 32 25-34 PG Mean Corpuscular Hemoglobin Concent 33 32-36 G/DL Red Cell Distribution Width 13.9 10.0-14.5 % Platelet Count 201 130-400 10^3/uL Mean Platelet Volume 10.6 H 7.4-10.4 FL Neutrophils (%) (Auto) 68 42-75 % Lymphocytes (%) (Auto) 21 12-44 % Monocytes (%) (Auto) 9 0-12 % Eosinophils (%) (Auto) 2 0-10 % Basophils (%) (Auto) 0 0-10 % Neutrophils # (Auto) 4.9 1.8-7.8 X 10^3 Lymphocytes # (Auto) 1.5 1.0-4.0 X 10^3 Monocytes # (Auto) 0.6 0.0-1.0 X 10^3 Eosinophils # (Auto) 0.2 0.0-0.3 10^3/uL Basophils # (Auto) 0.0 0.0-0.1 10^3/uL Sodium Level 137 135-145 MMOL/L Potassium Level 5.5 H 3.6-5.0 MMOL/L Chloride Level 108 H 98-107 MMOL/L Carbon Dioxide Level 16 L 21-32 MMOL/L Anion Gap 13 5-14 MMOL/L Blood Urea Nitrogen 60 H 7-18 MG/DL Creatinine 3.59 H 0.60-1.30 MG/DL Estimat Glomerular Filtration Rate 18 BUN/Creatinine Ratio 17 Glucose Level 181 H 70-105 MG/DL Calcium Level 9.8 8.5-10.1 MG/DL Corrected Calcium 9.9 8.5-10.1 MG/DL Total Bilirubin 0.2 0.1-1.0 MG/DL Aspartate Amino Transf (AST/SGOT) 59 H 5-34 U/L Alanine Aminotransferase (ALT/SGPT) 62 H 0-55 U/L Alkaline Phosphatase 90 40-136 U/L C-Reactive Protein High Sensitivity 2.13 H 0.00-0.50 MG/DL B-Type Natriuretic Peptide 23.1 <100.0 PG/ML Total Protein 7.3 6.4-8.2 GM/DL Albumin 3.9 3.2-4.5 GM/DL My Orders Orders - MITRA ABBASI MD Cbc With Automated Diff (09/05/19 15:26) Comprehensive Metabolic Panel (09/05/19 15:26) Hs C Reactive Protein (09/05/19 15:26) Ed Iv/Invasive Line Start (09/05/19 15:26) Ekg Tracing (09/05/19 15:) BNP (09/05/19 15:28) Ns Iv 1000 Ml (Sodium Chloride 0.9%) (09/05/19 16:22) Medications Given in ED Current Medications Medications Dose Ordered Sig/Ynes Route Start Time Stop Time Status Last Admin Dose Admin Sodium Chloride 1,000 ml @ 0 mls/hr Q0M ONCE IV 09/05/19 16:22 09/05/19 16:23 DC 09/05/19 16:53 1,000 MLS/HR Vital Signs/I&O 09/05/19 15:05 Temp 37.2 Pulse 85 Resp 15 B/P (MAP) 113/67 (82) Pulse Ox 98 Capillary Refill : Less Than 3 Seconds Blood Pressure Mean: 82 Progress Note : Progress Note Seen and evaluated. IV and labs ordered. EKG ordered. Monitor patient. 1615: Creatinine is elevated. Potassium of 5.5. This is likely related to Bactrim. He's also had some diarrhea which may be contributing with dehydration 2. He completed his Bactrim so will not take anymore of that. We will give a liter of fluid of normal saline IV. I did discuss with the patient regarding options including hydration and sent home with heat to follow-up with his manager library tomorrow versus admission and hydration versus transfer and he would like to try hydration here and then go home and he will continue to drink fluids. His cre atinine has been in a much better range than it is currently per the patient and he states he normally is 1.9-2.3 range. Monitor patient. 1743: Little better. Tolerated fluids well. No respiratory distress. Patient was still like to go home. Discharged home with return precautions. Patient verbalize understanding instructions and agreement with plan. ECG Initial ECG Impression Date: Sep 05, 2019 Initial ECG Impression Time: 15:35 Initial ECG Rate: 80 Initial ECG Rhythm: Normal Sinus Initial ECG Impression: Normal Comment Sinus rhythm with normal axis. No evidence of ST elevation NM. No previous available for comparison. Interpreted by me. Departure Impression Primary Impression: Acute on chronic renal failure Qualified Codes: N17.9 - Acute kidney failure, unspecified; N18.4 - Chronic kidney disease, stage 4 (severe) Disposition: 01 HOME, SELF-CARE Condition: Stable Departure-Patient Inst. Decision time for Depature: 17:44 Referrals: SERENITY LAMAR MD (PCP/Family) Primary Care Physician Patient Instructions: Chronic Kidney Disease (DC) Add. Discharge Instructions: All discharge instructions reviewed with patient and/or family. Voiced underst anding. You need to call your manager library first thing in the morning AND discuss your lab results. You do need repeat creatinine and potassium level ordered. Follow- up with your manager library as instructed. Return for worse pain, fever, vomiting, weakness, breathing problems or other concerns as needed. Drink plenty of fluids. MIRTA ABBASI MD Sep 05, 2019 15:57
[2019-09-05] MEDS ORDERED: NS IV 1000 ML 1,000 ML IV ONE (16:22)
--- OUTSIDE RECORDS SUMMARY | 2019-09-05 17:14 | XMS REPORT | Continuity of Care Document ---
Author Organization Unknown Address Unknown Phone Unavailable Allergies Active Description Code Type Severity Reaction Onset Reported/Identified Relationship to Patient Clinical Status Yes No Known Drug Allergies [id number] Drug Allergy Unknown N/A 09/11/2018 Medications There is no data. Problems Date Dx Coded Attending Type Code Diagnosis Diagnosed By 03/06/2017 SEBASTIÁN MACIAS MD Ot B96. 20 UNSP ESCHERICHIA COLI THE CAUSE OF DI 03/06/2017 SEBASTIÁN MACIAS MD Y Ot T87. 43 INFECTION OF AMPUTATION STUMP, RIGHT LOW 03/13/2017 SEBASTIÁN MACIAS MD Ot B96. 20 UNSP ESCHERICHIA COLI THE CAUSE OF DI 03/13/2017 SEBASTIÁN MACIAS MD Ot T87. 43 INFECTION OF AMPUTATION STUMP, RIGHT LOW 03/16/2017 SEBASTIÁN MACIAS MD Y Ot B96. 20 UNSP ESCHERICHIA COLI THE CAUSE OF DI 03/16/2017 SEBASTIÁN MACIAS MD Ot T87. 43 INFECTION OF AMPUTATION STUMP, RIGHT LOW 03/26/2017 SEBASTIÁN MACIAS MD Ot B96. 20 UNSP ESCHERICHIA COLI THE CAUSE OF DI 03/26/2017 SEBASTIÁN MACIAS MD Y Ot T87. 43 INFECTION OF AMPUTATION STUMP, RIGHT LOW 03/26/2017 SEBASTIÁN MACIAS MD Y Ot Z79.899 OTHER ASSISTED (CURRENT) DRUG THERAPY 03/26/2017 SEBASTIÁN MACIAS MD Y Ot B96. 20 UNSP ESCHERICHIA COLI THE CAUSE OF DI 03/26/2017 SEBASTIÁN MACIAS MD Ot T87. 43 INFECTION OF AMPUTATION STUMP, RIGHT LOW 03/26/2017 SEBASTIÁN MACIAS MD Y Ot Z79.899 OTHER DIRECTOR OF COMPENSATION (CURRENT) DRUG THERAPY 04/01/2017 SEBASTIÁN MACIAS MD Y Ot B96. 20 UNSP ESCHERICHIA COLI THE CAUSE OF DI 04/01/2017 SEBASTIÁN MACIAS MD Y Ot T87. 43 INFECTION OF AMPUTATION STUMP, RIGHT LOW 04/01/2017 NUBIA MACIAS MDORV Y Ot Z79.899 OTHER DIRECTOR OF COMPENSATION (CURRENT) DRUG THERAPY 04/09/2017 SEBASTIÁN MACIAS MD Y Ot B96. 20 UNSP ESCHERICHIA COLI THE CAUSE OF DI 04/09/2017 SEBASTIÁN MACIAS MD Y Ot T87. 44 INFECTION OF AMPUTATION STUMP, LEFT LOWE 04/09/2017 SEBASTIÁN MACIAS MD Y Ot Z79.899 OTHER DIRECTOR OF COMPENSATION (CURRENT) DRUG THERAPY 04/09/2017 SEBASTIÁN MACIAS MD Y Ot B96. 20 UNSP ESCHERICHIA COLI THE CAUSE OF DI 04/09/2017 SEBASTIÁN MACIAS MD Y Ot T87. 44 INFECTION OF AMPUTATION STUMP, LEFT LOWE 04/09/2017 SEBASTIÁN MACIAS MD Y Ot Z79.899 OTHER DIRECTOR OF COMPENSATION (CURRENT) DRUG THERAPY 04/13/2017 SEBASTIÁN MACIAS MD Y Ot B96. 20 UNSP ESCHERICHIA COLI THE CAUSE OF DI 04/13/2017 SEBASTIÁN MACIAS MD Y Ot T87. 44 INFECTION OF AMPUTATION STUMP, LEFT LOWE 04/13/2017 NUBIA MACIAS MDORV Y Ot Z79.899 OTHER ASSISTED (CURRENT) DRUG THERAPY 04/13/2017 SEBASTIÁN MACIAS MD Y Ot B96. 20 UNSP ESCHERICHIA COLI THE CAUSE OF DI 04/13/2017 SEBASTIÁN MACIAS MD Y Ot T87. 44 INFECTION OF AMPUTATION STUMP, LEFT LOWE 04/13/2017 NUBIA MACIAS MDORV Y Ot Z79.899 OTHER DIRECTOR OF COMPENSATION (CURRENT) DRUG THERAPY 04/15/2017 SEBASTIÁN MACIAS MD Y Ot B96. 20 UNSP ESCHERICHIA COLI THE CAUSE OF DI 04/15/2017 SEBASTIÁN MACIAS MD Y Ot T87. 44 INFECTION OF AMPUTATION STUMP, LEFT LOWE 04/15/2017 SEBASTIÁN MACIAS MD Y Ot Z79.899 OTHER ASSISTED (CURRENT) DRUG THERAPY 04/15/2017 SEBASTIÁN MACIAS MD Y Ot B96. 20 UNSP ESCHERICHIA COLI THE CAUSE OF DI 04/15/2017 SEBASTIÁN MACIAS MD Y Ot T87. 44 INFECTION OF AMPUTATION STUMP, LEFT LOWE 04/15/2017 SEBASTIÁN MACIAS MD Y Ot Z16. 12 EXTENDED SPECTRUM BETA LACTAMASE (ESBL) 04/21/2017 GILBERTO DANIELS SEBASTIÁN Y Ot T87. 44 INFECTION OF AMPUTATION STUMP, LEFT LOWE 04/21/2017 BAMBI DANIELS, FARIDA Newman Ot N18.3 CHRONIC KIDNEY DISEASE, STAGE 3 (MODERAT 04/24/2017 GILBERTO DANIELS, SEBASTIÁN Y Ot B96. 20 UNSP ESCHERICHIA COLI THE CAUSE OF DI 04/24/2017 NUBIA MACIAS MDORV Y Ot T87. 44 INFECTION OF AMPUTATION STUMP, LEFT LOWE 04/24/2017 GILBERTO DANIELS SEBASTIÁN Y Ot Z79.899 OTHER DIRECTOR OF COMPENSATION (CURRENT) DRUG THERAPY 04/24/2017 GILBERTO DANIELS SEBASTIÁN Y Ot B96. 20 UNSP ESCHERICHIA COLI THE CAUSE OF DI 04/24/2017 GILBERTO DANIELS SEBASTIÁN Y Ot T87. 44 INFECTION OF AMPUTATION STUMP, LEFT LOWE 04/24/2017 GILBERTO DANIELS SEBASTIÁN Y Ot Z79.899 OTHER ASSISTED (CURRENT) DRUG THERAPY 04/26/2017 GILBERTO DANIELS SEBASTIÁN Y Ot T87. 44 INFECTION OF AMPUTATION STUMP, LEFT LOWE 04/29/2017 GILBERTO DANIELS SEBASTIÁN Y Ot B96. 20 UNSP ESCHERICHIA COLI THE CAUSE OF DI 04/29/2017 NUBIA MACIAS MDORV Y Ot T87. 44 INFECTION OF AMPUTATION STUMP, LEFT LOWE 04/29/2017 GILBERTO DANIELS SEBASTIÁN Y Ot Z16. 12 EXTENDED SPECTRUM BETA LACTAMASE (ESBL) 05/06/2017 GILBERTO DANIELS SEBASTIÁN Y Ot T87. 44 INFECTION OF AMPUTATION STUMP, LEFT LOWE 05/06/2017 BAMBI DANIELS, FARIDA Newman Ot N18.3 CHRONIC KIDNEY DISEASE, STAGE 3 (MODERAT 11/26/2017 GILBERTO DANIELS SEBASTIÁN Y Ot B96. 20 UNSP ESCHERICHIA COLI THE CAUSE OF DI 11/26/2017 GILBERTO DANIELS SEBASTIÁN Y Ot T87. 44 INFECTION OF AMPUTATION STUMP, LEFT LOWE 11/26/2017 GILBERTO DANIELS SEBASTIÁN Y Ot Z16. 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 09/11/2018 DAVID ALAN MEDICAL RECORD ASSISTANT Ot E11.51 TYPE 2 DIABETES W DIABETIC PERIPHERAL AN 09/11/2018 DAVID ALAN APRN Ot E78.00 PURE HYPERCHOLESTEROLEMIA, UNSPECIFIED 09/11/2018 DAVID ALAN APRN Ot I12 .9 HYPERTENSIVE CHRONIC KIDNEY DISEASE W ST 09/11/2018 DAVID ALAN MEDICAL RECORD ASSISTANT Ot K85.90 ACUTE PANCREATITIS WITHOUT NECROSIS OR I 09/11/2018 DAVID ALAN APRN Ot N18 .9 CHRONIC KIDNEY DISEASE, UNSPECIFIED 09/11/2018 DAVID ALAN APRN Ot R11.10 VOMITING, UNSPECIFIED 09/11/2018 DAVID ALAN APRN Ot Z89.512 ACQUIRED ABSENCE OF LEFT LEG BELOW KNEE 09/11/2018 DAVID ALAN APRN Ot Z90.89 ACQUIRED ABSENCE OF OTHER ORGANS 09/11/2018 SEBASTIÁN MACIAS MD Ot B96. 20 UNSP ESCHERICHIA COLI THE CAUSE OF DI 09/11/2018 SEBASTIÁN MACIAS MD Ot T87. 44 INFECTION OF AMPUTATION STUMP, LEFT LOWE 09/11/2018 SEBASTIÁN MACIAS MD Ot B96. 20 UNSP ESCHERICHIA COLI THE CAUSE OF DI 09/11/2018 SEBASTIÁN MACIAS MD Ot T87. 44 INFECTION OF AMPUTATION STUMP, LEFT LOWE 09/11/2018 SEBASTIÁN MACIAS MD Ot Z16. 12 EXTENDED SPECTRUM BETA LACTAMASE (ESBL) 09/11/2018 SEBASTIÁN MACIAS MD Ot Z79.899 OTHER ASSISTED (CURRENT) DRUG THERAPY 09/11/2018 SEBASTIÁN MACIAS MD Ot B96. 20 UNSP ESCHERICHIA COLI THE CAUSE OF DI 09/11/2018 SEBASTIÁN MACIAS MD Ot T87. 44 INFECTION OF AMPUTATION STUMP, LEFT LOWE 09/11/2018 SEBASTIÁN MACIAS MD Ot Z79.899 OTHER ASSISTED (CURRENT) DRUG THERAPY 09/11/2018 SEBASTIÁN MACIAS MD Ot B96. 20 UNSP ESCHERICHIA COLI THE CAUSE OF DI 09/11/2018 SEBASTIÁN MACIAS MD Ot T87. 44 INFECTION OF AMPUTATION STUMP, LEFT LOWE 09/11/2018 SEBASTIÁN MACIAS MD Ot Z79.899 OTHER ASSISTED (CURRENT) DRUG THERAPY 09/11/2018 SEBASTIÁN MACIAS MD Ot B96. 20 UNSP ESCHERICHIA COLI THE CAUSE OF DI 09/11/2018 SEBASTIÁN MACIAS MD Ot T87. 44 INFECTION OF AMPUTATION STUMP, LEFT LOWE 09/11/2018 NUBIA MACIAS MDORV Y Ot Z79.899 OTHER ASSISTED (CURRENT) DRUG THERAPY 09/11/2018 SEBASTIÁN MACIAS MD Ot B96. 20 UNSP ESCHERICHIA COLI THE CAUSE OF DI 09/11/2018 SEBASTIÁN MACIAS MD Y Ot T87. 44 INFECTION OF AMPUTATION STUMP, LEFT LOWE 09/11/2018 NUBIA MACIAS MDORV Y Ot Z79.899 OTHER ASSISTED (CURRENT) DRUG THERAPY 09/11/2018 SEBASTIÁN MACIAS MD Ot B96. 20 UNSP ESCHERICHIA COLI THE CAUSE OF DI 09/11/2018 SEBASTIÁN MACIAS MD Y Ot T87. 44 INFECTION OF AMPUTATION STUMP, LEFT LOWE 09/11/2018 SEBASTIÁN MACIAS MD Y Ot Z16. 12 EXTENDED SPECTRUM BETA LACTAMASE (ESBL) 09/11/2018 NUBIA MACIAS MDORV Y Ot T87. 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 09/15/2018 DAVID ALAN APRN Ot E11.51 TYPE 2 DIABETES W DIABETIC PERIPHERAL AN 09/15/2018 DAVID ALAN APRN Ot E78.00 PURE HYPERCHOLESTEROLEMIA, UNSPECIFIED 09/15/2018 DAVID ALAN APRN Ot I12 .9 HYPERTENSIVE CHRONIC KIDNEY DISEASE W ST 09/15/2018 DAVID ALAN APRN Ot K85.90 ACUTE PANCREATITIS WITHOUT NECROSIS OR I 09/15/2018 DAVID ALAN APRN Ot N18 .9 CHRONIC KIDNEY DISEASE, UNSPECIFIED 09/15/2018 DAVID ALAN APRN Ot R11.10 VOMITING, UNSPECIFIED 09/15/2018 DAVID ALAN APRN Ot Z89.512 ACQUIRED ABSENCE OF LEFT LEG BELOW KNEE 09/15/2018 DAVID ALAN APRN Ot Z90.89 ACQUIRED ABSENCE OF OTHER ORGANS 11/07/2018 STEPHANIE NG Ot 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 11/07/2018 STEPHANIE NG Ot E78.00 PURE HYPERCHOLESTEROLEMIA, UNSPECIFIED 11/07/2018 STEPHANIE NG Ot I12.9 HYPERTENSIVE CHRONIC KIDNEY DISEASE W ST 11/07/2018 STEPHANIE NG Ot J01.90 ACUTE SINUSITIS, UNSPECIFIED 11/07/2018 STEPHANIE NG Ot N18.4 CHRONIC KIDNEY DISEASE, STAGE 4 (SEVERE) 11/07/2018 STEPHANIE NG Ot R 05 COUGH 11/07/2018 STEPHANIE NG Ot Z79.4 ASSISTED (CURRENT) USE OF INSULIN 11/07/2018 STEPHANIE NG Ot Z90.89 ACQUIRED ABSENCE OF OTHER ORGANS 12/08/2018 MARYCHUY, FERNANDO CAFE COOK Ot E11.9 TYPE 2 DIABETES MELLITUS WITHOUT COMPLIC 12/08/2018 MARYCHUY, FERNANDO CAFE COOK Ot E78.00 PURE HYPERCHOLESTEROLEMIA, UNSPECIFIED 12/08/2018 MARYCHUY, FERNANDO CAFE COOK Ot I10 ESSENTIAL (PRIMARY) HYPERTENSION 12/08/2018 MARYCHUY, FERNANDO CAFE COOK Ot J06.9 ACUTE UPPER RESPIRATORY INFECTION, UNSPE 12/08/2018 MARYCHUY, FERNANDO CAFE COOK Ot R11.2 NAUSEA WITH VOMITING, UNSPECIFIED 12/08/2018 MARYCHUY, FERNANDO CAFE COOK Ot Z79.4 ASSISTED (CURRENT) USE OF INSULIN 12/08/2018 MARYCHUY, FERNANDO CAFE COOK Ot Z89.512 ACQUIRED ABSENCE OF LEFT LEG BELOW KNEE 12/08/2018 MARYCHUY, FERNANDO CAFE COOK Ot Z90.89 ACQUIRED ABSENCE OF OTHER ORGANS 12/13/2018 MARYCHUY, FERNANDO CAFE COOK Ot E11.9 TYPE 2 DIABETES MELLITUS WITHOUT COMPLIC 12/13/2018 MARYCHUY, FERNANDO CAFE COOK Ot E78.00 PURE HYPERCHOLESTEROLEMIA, UNSPECIFIED 12/13/2018 MARYCHUY, FERNANDO CAFE COOK Ot I10 ESSENTIAL (PRIMARY) HYPERTENSION 12/13/2018 MARYCHUY, FERNANDO CAFE COOK Ot J06.9 ACUTE UPPER RESPIRATORY INFECTION, UNSPE 12/13/2018 MARYCHUY, FERNANDO CAFE COOK Ot R11.2 NAUSEA WITH VOMITING, UNSPECIFIED 12/13/2018 MARYCHUY, FERNANDO CAFE COOK Ot Z79.4 DIRECTOR OF COMPENSATION (CURRENT) USE OF INSULIN 12/13/2018 MARYCHUY, FERNANDO CAFE COOK Ot Z89.512 ACQUIRED ABSENCE OF LEFT LEG BELOW KNEE 12/13/2018 FERNANDO PERRIN CAFE COOK Ot Z90.89 ACQUIRED ABSENCE OF OTHER ORGANS 09/01/2019 SEBASTIÁN MACAIS MD Y Ot B96. 20 UNSP ESCHERICHIA COLI THE CAUSE OF DI 09/01/2019 NUBIA MACIAS MDORV Y Ot T87. 44 INFECTION OF AMPUTATION STUMP, LEFT LOWE 09/01/2019 SEBASTIÁN MACIAS MD Y Ot B96. 20 UNSP ESCHERICHIA COLI THE CAUSE OF DI 09/01/2019 NUBIA MACIAS MDORV Y Ot T87. 44 INFECTION OF AMPUTATION STUMP, LEFT LOWE 09/01/2019 NUBIA MACIAS MDORV Y Ot Z16. 12 EXTENDED SPECTRUM BETA LACTAMASE (ESBL) 09/01/2019 SEBASTIÁN MACIAS MD Y Ot Z79.899 OTHER DIRECTOR OF COMPENSATION (CURRENT) DRUG THERAPY 09/01/2019 SEBASTIÁN MACIAS MD Y Ot B96. 20 UNSP ESCHERICHIA COLI THE CAUSE OF DI 09/01/2019 SEBASTIÁN MACIAS MD Y Ot T87. 44 INFECTION OF AMPUTATION STUMP, LEFT LOWE 09/01/2019 NUBIA MACIAS MDORV Y Ot Z79.899 OTHER ASSISTED (CURRENT) DRUG THERAPY 09/01/2019 SEBASTIÁN MACIAS MD Y Ot B96. 20 UNSP ESCHERICHIA COLI THE CAUSE OF DI 09/01/2019 NUBIA MACIAS MDORV Y Ot T87. 44 INFECTION OF AMPUTATION STUMP, LEFT LOWE 09/01/2019 NUBIA MACIAS MDORV Y Ot Z79.899 OTHER ASSISTED (CURRENT) DRUG THERAPY 09/01/2019 SEBASTIÁN MACIAS MD Y Ot B96. 20 UNSP ESCHERICHIA COLI THE CAUSE OF DI 09/01/2019 NUBIA MACIAS MDORV Y Ot T87. 44 INFECTION OF AMPUTATION STUMP, LEFT LOWE 09/01/2019 GILBERTO DANIELS SEBASTIÁN Y Ot Z79.899 OTHER ASSISTED (CURRENT) DRUG THERAPY 09/01/2019 NUBIA MACIAS MDORV Y Ot B96. 20 UNSP ESCHERICHIA COLI THE CAUSE OF DI 09/01/2019 GILBERTO DANIELS SEBASTIÁN Y Ot T87. 44 INFECTION OF AMPUTATION STUMP, LEFT LOWE 09/01/2019 NUBIA MACIAS MDORV Y Ot Z79.899 OTHER ASSISTED (CURRENT) DRUG THERAPY 09/01/2019 GILBERTO DANIELS SEBASTIÁN Y Ot B96. 20 UNSP ESCHERICHIA COLI THE CAUSE OF DI 09/01/2019 GILBERTO DANIELS SEBASTIÁN Y Ot T87. 44 INFECTION OF AMPUTATION STUMP, LEFT LOWE 09/01/2019 GILBERTO DANIELS SEBASTIÁN Y Ot Z16. 12 EXTENDED SPECTRUM BETA LACTAMASE (ESBL) 09/01/2019 GILBERTO DANIELS SEBASTIÁN Y Ot T87. 44 INFECTION OF AMPUTATION STUMP, LEFT LOWE 09/01/2019 BAMBI DANIELS, FARIDA Newman Ot N18.3 CHRONIC KIDNEY DISEASE, STAGE 3 (MODERAT 09/01/2019 GILBERTO DANIELS, SEBASTIÁN Y Ot B96. 20 UNSP ESCHERICHIA COLI THE CAUSE OF DI 09/01/2019 GILBERTO DANIELS SEBASTIÁN Y Ot T87. 44 INFECTION OF AMPUTATION STUMP, LEFT LOWE 09/01/2019 GILBERTO DANIELS SEBASTIÁN Y Ot B96. 20 UNSP ESCHERICHIA COLI THE CAUSE OF DI 09/01/2019 GILBERTO DANIELS SEBASTIÁN Y Ot T87. 44 INFECTION OF AMPUTATION STUMP, LEFT LOWE 09/01/2019 GILBERTO DANIELS SEBASTIÁN Y Ot Z16. 12 EXTENDED SPECTRUM BETA LACTAMASE (ESBL) 09/01/2019 GILBERTO DANIELS SEBASTIÁN Y Ot Z79.899 OTHER ASSISTED (CURRENT) DRUG THERAPY 09/01/2019 GILBERTO DANIELS SEBASTIÁN Y Ot B96. 20 UNSP ESCHERICHIA COLI THE CAUSE OF DI 09/01/2019 NUBIA MACIAS MDORV Y Ot T87. 44 INFECTION OF AMPUTATION STUMP, LEFT LOWE 09/01/2019 GILBERTO DANIELS SEBASTIÁN Y Ot Z79.899 OTHER ASSISTED (CURRENT) DRUG THERAPY 09/01/2019 GILBERTO DANIELS SEBASTIÁN Y Ot B96. 20 UNSP ESCHERICHIA COLI THE CAUSE OF DI 09/01/2019 GILBERTO DANIELS SEBASTIÁN Y Ot T87. 44 INFECTION OF AMPUTATION STUMP, LEFT LOWE 09/01/2019 GILBERTO DANIELS SEBASTIÁN Y Ot Z79.899 OTHER DIRECTOR OF COMPENSATION (CURRENT) DRUG THERAPY 09/01/2019 GILBERTO DANIELS SEBASTIÁN Y Ot B96. 20 UNSP ESCHERICHIA COLI THE CAUSE OF DI 09/01/2019 GILBERTO DANIELS SEBASTIÁN Y Ot T87. 44 INFECTION OF AMPUTATION STUMP, LEFT LOWE 09/01/2019 SEBASTIÁN MACIAS MD Ot Z79.899 OTHER DIRECTOR OF COMPENSATION (CURRENT) DRUG THERAPY 09/01/2019 SEBASTIÁN MACIAS MD Ot B96. 20 UNSP ESCHERICHIA COLI THE CAUSE OF DI 09/01/2019 SEBASTIÁN MACIAS MD Ot T87. 44 INFECTION OF AMPUTATION STUMP, LEFT LOWE 09/01/2019 SEBASTIÁN MACIAS MD Ot Z79.899 OTHER DIRECTOR OF COMPENSATION (CURRENT) DRUG THERAPY 09/01/2019 SEBASTIÁN MACIAS MD Y Ot B96. 20 UNSP ESCHERICHIA COLI THE CAUSE OF DI 09/01/2019 SEBASTIÁN MACIAS MD Ot T87. 44 INFECTION OF AMPUTATION STUMP, LEFT LOWE 09/01/2019 SEBASTIÁN MACIAS MD Ot Z16. 12 EXTENDED SPECTRUM BETA LACTAMASE (ESBL) 09/01/2019 SEBASTIÁN MACIAS MD Ot T87. 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 20 UNSP ESCHERICHIA COLI THE CAUSE OF DI 09/05/2019 SEBASTIÁN MACIAS MD Ot T87. 44 INFECTION OF AMPUTATION STUMP, LEFT LOWE 09/05/2019 SEBASTIÁN MACIAS MD Ot B96. 20 UNSP ESCHERICHIA COLI THE CAUSE OF DI 09/05/2019 SEBASTIÁN MACIAS MD Y Ot T87. 44 INFECTION OF AMPUTATION STUMP, LEFT LOWE 09/05/2019 SEBASTIÁN MACIAS MD Ot Z16. 12 EXTENDED SPECTRUM BETA LACTAMASE (ESBL) 09/05/2019 GILBERTO MD, SEBASTIÁN Y Ot Z79.899 OTHER DIRECTOR OF COMPENSATION (CURRENT) DRUG THERAPY 09/05/2019 GILBERTO DANIELS SEBASTIÁN Y Ot B96. 20 UNSP ESCHERICHIA COLI THE CAUSE OF DI 09/05/2019 GILBERTO DANIELS SEBASTIÁN Y Ot T87. 44 INFECTION OF AMPUTATION STUMP, LEFT LOWE 09/05/2019 GILBERTO DANIELS SEBASTIÁN Y Ot Z79.899 OTHER ASSISTED (CURRENT) DRUG THERAPY 09/05/2019 GILBERTO DANIELS SEBASTIÁN Y Ot B96. 20 UNSP ESCHERICHIA COLI THE CAUSE OF DI 09/05/2019 GILBERTO DANIELS SEBASTIÁN Y Ot T87. 44 INFECTION OF AMPUTATION STUMP, LEFT LOWE 09/05/2019 GILBERTO DANIELS SEBASTIÁN Y Ot Z79.899 OTHER DIRECTOR OF COMPENSATION (CURRENT) DRUG THERAPY 09/05/2019 GILBERTO DANIELS SEBASTIÁN Y Ot B96. 20 UNSP ESCHERICHIA COLI THE CAUSE OF DI 09/05/2019 NUBIA MACIAS MDORV Y Ot T87. 44 INFECTION OF AMPUTATION STUMP, LEFT LOWE 09/05/2019 GILBERTO DANIELS SEBASTIÁN Y Ot Z79.899 OTHER DIRECTOR OF COMPENSATION (CURRENT) DRUG THERAPY 09/05/2019 GILBERTO DANIELS SEBASTIÁN Y Ot B96. 20 UNSP ESCHERICHIA COLI THE CAUSE OF DI 09/05/2019 NUBIA MACIAS MDORV Y Ot T87. 44 INFECTION OF AMPUTATION STUMP, LEFT LOWE 09/05/2019 GILBERTO DANIELS SEBASTIÁN Y Ot Z79.899 OTHER ASSISTED (CURRENT) DRUG THERAPY 09/05/2019 GILBERTO DANIELS SEBASTIÁN Y Ot B96. 20 UNSP ESCHERICHIA COLI THE CAUSE OF DI 09/05/2019 GILBERTO DANIELS SEBASTIÁN Y Ot T87. 44 INFECTION OF AMPUTATION STUMP, LEFT LOWE 09/05/2019 GILBERTO DANIELS SEBASTIÁN Y Ot Z16. 12 EXTENDED SPECTRUM BETA LACTAMASE (ESBL) 09/05/2019 NUBIA MACIAS MDORV Y Ot T87. 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 Results Test Result Range Complete blood count (CBC) with automate d white blood cell (WBC) differential - 03/02/17 12:45 Blood leukocytes automated count (number/volume) 11.4 10*3/uL 4.3-11.0 Blood erythrocytes automated count (number/volume) 3.97 10*6/uL 4.35-5.85 Venous blood hemoglobin measurement (mass/volume) 11.5 g/dL 13.3-17.7 Blood hematocrit (volume fraction) 34 % 40-54 Automated erythrocyte mean corpuscular volume 86 [ foz_us] 80-99 Automated erythrocyte mean corpuscular h emoglobin (mass per erythrocyte) 29 pg 25-34 Automated erythrocyte mean corpuscular h emoglobin concentration measurement (mass/volume) 34 g/dL 32-36 Automated erythrocyte distribution width ratio 14. 9 % 10.0- 14.5 Automated blood platelet count (count/volume) 373 10*3/uL 130-400 Automated blood platelet mean volume measurement 9.6 [foz_us] 7.4-10.4 Automated blood neutrophils/100 leukocytes 67 % 42-75 Automated blood lymphocytes/100 leukocytes 20 % 12-44 Blood monocytes/100 leukocytes 8 % 0-12 Automated blood eosinophils/100 leukocytes 5 % 0-10 Automated blood basophils/100 leukocytes 1 % 0-10 Blood neutrophils automated count (number/volume) 7.7 10*3 1.8-7.8 Blood lymphocytes automated count (number/volume) 2.3 10*3 1.0-4.0 Blood monocytes automated count (number/volume) 0. 9 10*3 0.0-1.0 Automated eosinophil count 0.5 10*3/uL 0 .0-0.3 Automated blood basophil count (count/volume) 0.1 10*3/uL 0.0-0.1 Comprehensive metabolic panel - 03/02/17 12:45 Serum or plasma sodium measurement (moles/volume) 139 mmol/L 135-145 Serum or plasma potassium measurement (moles/volume) 4.1 mmol/L 3.6-5.0 Serum or plasma chloride measurement (moles/volume) 103 mmol/L 98-107 Carbon dioxide 21 mmol/L 21-32 Serum or plasma anion gap determination (moles/volume) 15 mmol/L 5-14 Serum or plasma urea nitrogen measurement (mass/volume ) 48 mg/dL 7-18 Serum or plasma creatinine measurement (mass/volume) 1.51 mg/dL 0.60-1.30 Serum or plasma urea nitrogen/creatinine mass ratio 32 NRG Serum or plasma creatinine measurement w ith calculation of estimated glomerular filtration rate 50 NRG Serum or plasma glucose measurement (mass/volume) 80 mg/dL 70-105 Serum or plasma calcium measurement (mass/volume) 10.4 mg/dL 8.5-10.1 Serum or plasma total bilirubin measurement (mass/volu me) 0.4 mg/dL 0.1-1.0 Serum or plasma alkaline phosphatase angelina surement (enzymatic activity/volume) 61 U/L 40-136 Serum or plasma aspartate aminotransfera se measurement (enzymatic activity/volume) 24 U/L 5-34 Serum or plasma alanine aminotransferase measurement (enzymatic activity/volume) 38 U/L 0-55 Serum or plasma protein measurement (mass/volume) 8.0 g/dL 6.4-8.2 Serum or plasma albumin measurement (mass/volume) 3.8 g/dL 3.2-4.5 Serum or plasma C reactive protein measu rement (mass/volume) - 03/02/17 12:45 Serum or plasma C reactive protein measurement (mass/v olume) 2.12 mg/dL 0.00-0.50 Complete blood count (CBC) with automate d white blood cell (WBC) differential - 03/09/17 10:30 Blood leukocytes automated count (number/volume) 7.5 10*3/uL 4.3-11.0 Blood erythrocytes automated count (number/volume) 3.94 10*6/uL 4.35-5.85 Venous blood hemoglobin measurement (mass/volume) 11.4 g/dL 13.3-17.7 Blood hematocrit (volume fraction) 35 % 40-54 Automated erythrocyte mean corpuscular volume 89 [ foz_us] 80-99 Automated erythrocyte mean corpuscular h emoglobin (mass per erythrocyte) 29 pg 25-34 Automated erythrocyte mean corpuscular h emoglobin concentration measurement (mass/volume) 33 g/dL 32-36 Automated erythrocyte distribution width ratio 15. 4 % 10.0- 14.5 Automated blood platelet count (count/volume) 432 10*3/uL 130-400 Automated blood platelet mean volume measurement 9.7 [foz_us] 7.4-10.4 Automated blood neutrophils/100 leukocytes 62 % 42-75 Automated blood lymphocytes/100 leukocytes 23 % 12-44 Blood monocytes/100 leukocytes 10 % 0-12 Automated blood eosinophils/100 leukocytes 4 % 0-10 Automated blood basophils/100 leukocytes 1 % 0-10 Blood neutrophils automated count (number/volume) 4.6 10*3 1.8-7.8 Blood lymphocytes automated count (number/volume) 1.7 10*3 1.0-4.0 Blood monocytes automated count (number/volume) 0. 7 10*3 0.0-1.0 Automated eosinophil count 0.3 10*3/uL 0 .0-0.3 Automated blood basophil count (count/volume) 0.1 10*3/uL 0.0-0.1 Comprehensive metabolic panel - 03/09/17 10:30 Serum or plasma sodium measurement (moles/volume) 140 mmol/L 135-145 Serum or plasma potassium measurement (moles/volume) 4.6 mmol/L 3.6-5.0 Serum or plasma chloride measurement (moles/volume) 105 mmol/L 98-107 Carbon dioxide 22 mmol/L 21-32 Serum or plasma anion gap determination (moles/volume) 13 mmol/L 5-14 Serum or plasma urea nitrogen measurement (mass/volume ) 51 mg/dL 7-18 Serum or plasma creatinine measurement (mass/volume) 1.92 mg/dL 0.60-1.30 Serum or plasma urea nitrogen/creatinine mass ratio 27 NRG Serum or plasma creatinine measurement w ith calculation of estimated glomerular filtration rate 38 NRG Serum or plasma glucose measurement (mass/volume) 112 mg/dL 70-105 Serum or plasma calcium measurement (mass/volume) 10.2 mg/dL 8.5-10.1 Serum or plasma total bilirubin measurement (mass/volu me) 0.4 mg/dL 0.1-1.0 Serum or plasma alkaline phosphatase angelina surement (enzymatic activity/volume) 65 U/L 40-136 Serum or plasma aspartate aminotransfera se measurement (enzymatic activity/volume) 21 U/L 5-34 Serum or plasma alanine aminotransferase measurement (enzymatic activity/volume) 35 U/L 0-55 Serum or plasma protein measurement (mass/volume) 8.1 g/dL 6.4-8.2 Serum or plasma albumin measurement (mass/volume) 3.9 g/dL 3.2-4.5 Serum or plasma creatine kinase measurem ent (enzymatic activity/volume) - 03/09/17 10:30 Serum or plasma creatine kinase measurem ent (enzymatic activity/volume) 97 U/L 30-200 Serum or plasma C reactive protein measu rement (mass/volume) - 03/09/17 10:30 Serum or plasma C reactive protein measurement (mass/v olume) 2.05 mg/dL 0.00-0.50 Erythrocyte sedimentation rate by millie gren method - 03/09/17 10:30 Erythrocyte sedimentation rate by westergren method > mm 0- 15 Complete blood count (CBC) with automate d white blood cell (WBC) differential - 03/17/17 10:30 Blood leukocytes automated count (number/volume) 9.9 10*3/uL 4.3-11.0 Blood erythrocytes automated count (number/volume) 4.04 10*6/uL 4.35-5.85 Venous blood hemoglobin measurement (mass/volume) 11.9 g/dL 13.3-17.7 Blood hematocrit (volume fraction) 36 % 40-54 Automated erythrocyte mean corpuscular volume 88 [ foz_us] 80-99 Automated erythrocyte mean corpuscular h emoglobin (mass per erythrocyte) 30 pg 25-34 Automated erythrocyte mean corpuscular h emoglobin concentration measurement (mass/volume) 33 g/dL 32-36 Automated erythrocyte distribution width ratio 15. 1 % 10.0- 14.5 Automated blood platelet count (count/volume) 408 10*3/uL 130-400 Automated blood platelet mean volume measurement 10.2 [foz_us] 7.4-10.4 Automated blood neutrophils/100 leukocytes 68 % 42-75 Automated blood lymphocytes/100 leukocytes 21 % 12-44 Blood monocytes/100 leukocytes 9 % 0-12 Automated blood eosinophils/100 leukocytes 3 % 0-10 Automated blood basophils/100 leukocytes 0 % 0-10 Blood neutrophils automated count (number/volume) 6.7 10*3 1.8-7.8 Blood lymphocytes automated count (number/volume) 2.0 10*3 1.0-4.0 Blood monocytes automated count (number/volume) 0. 9 10*3 0.0-1.0 Automated eosinophil count 0.3 10*3/uL 0 .0-0.3 Automated blood basophil count (count/volume) 0.0 10*3/uL 0.0-0.1 Erythrocyte sedimentation rate by millie gren method - 03/17/17 10:30 Erythrocyte sedimentation rate by westergren method 82 mm 0- 15 Comprehensive metabolic panel - 03/17/17 10:30 Serum or plasma sodium measurement (moles/volume) 136 mmol/L 135-145 Serum or plasma potassium measurement (moles/volume) 4.9 mmol/L 3.6-5.0 Serum or plasma chloride measurement (moles/volume) 106 mmol/L 98-107 Carbon dioxide 18 mmol/L 21-32 Serum or plasma anion gap determination (moles/volume) 12 mmol/L 5-14 Serum or plasma urea nitrogen measurement (mass/volume ) 60 mg/dL 7-18 Serum or plasma creatinine measurement (mass/volume) 2.01 mg/dL 0.60-1.30 Serum or plasma urea nitrogen/creatinine mass ratio 30 NRG Serum or plasma creatinine measurement w ith calculation of estimated glomerular filtration rate 36 NRG Serum or plasma glucose measurement (mass/volume) 151 mg/dL 70-105 Serum or plasma calcium measurement (mass/volume) 10.6 mg/dL 8.5-10.1 Serum or plasma total bilirubin measurement (mass/volu me) 0.4 mg/dL 0.1-1.0 Serum or plasma alkaline phosphatase angelina surement (enzymatic activity/volume) 64 U/L 40-136 Serum or plasma aspartate aminotransfera se measurement (enzymatic activity/volume) 23 U/L 5-34 Serum or plasma alanine aminotransferase measurement (enzymatic activity/volume) 41 U/L 0-55 Serum or plasma protein measurement (mass/volume) 8.3 g/dL 6.4-8.2 Serum or plasma albumin measurement (mass/volume) 4.2 g/dL 3.2-4.5 Serum or plasma creatine kinase measurem ent (enzymatic activity/volume) - 03/17/17 10:30 Serum or plasma creatine kinase measurem ent (enzymatic activity/volume) 108 U/L 30-200 Serum or plasma C reactive protein measu rement (mass/volume) - 03/17/17 10:30 Serum or plasma C reactive protein measurement (mass/v olume) 0.47 mg/dL 0.00-0.50 Complete blood count (CBC) with automate d white blood cell (WBC) differential - 03/23/17 11:35 Blood leukocytes automated count (number/volume) 7.9 10*3/uL 4.3-11.0 Blood erythrocytes automated count (number/volume) 3.99 10*6/uL 4.35-5.85 Venous blood hemoglobin measurement (mass/volume) 11.9 g/dL 13.3-17.7 Blood hematocrit (volume fraction) 35 % 40-54 Automated erythrocyte mean corpuscular volume 88 [ foz_us] 80-99 Automated erythrocyte mean corpuscular h emoglobin (mass per erythrocyte) 30 pg 25-34 Automated erythrocyte mean corpuscular h emoglobin concentration measurement (mass/volume) 34 g/dL 32-36 Automated erythrocyte distribution width ratio 14. 9 % 10.0- 14.5 Automated blood platelet count (count/volume) 252 10*3/uL 130-400 Automated blood platelet mean volume measurement 10.2 [foz_us] 7.4-10.4 Automated blood neutrophils/100 leukocytes 67 % 42-75 Automated blood lymphocytes/100 leukocytes 22 % 12-44 Blood monocytes/100 leukocytes 7 % 0-12 Automated blood eosinophils/100 leukocytes 4 % 0-10 Automated blood basophils/100 leukocytes 1 % 0-10 Blood neutrophils automated count (number/volume) 5.3 10*3 1.8-7.8 Blood lymphocytes automated count (number/volume) 1.7 10*3 1.0-4.0 Blood monocytes automated count (number/volume) 0. 6 10*3 0.0-1.0 Automated eosinophil count 0.3 10*3/uL 0 .0-0.3 Automated blood basophil count (count/volume) 0.0 10*3/uL 0.0-0.1 Comprehensive metabolic panel - 03/23/17 11:35 Serum or plasma sodium measurement (moles/volume) 136 mmol/L 135-145 Serum or plasma potassium measurement (moles/volume) 4.9 mmol/L 3.6-5.0 Serum or plasma chloride measurement (moles/volume) 106 mmol/L 98-107 Carbon dioxide 19 mmol/L 21-32 Serum or plasma anion gap determination (moles/volume) 11 mmol/L 5-14 Serum or plasma urea nitrogen measurement (mass/volume ) 54 mg/dL 7-18 Serum or plasma creatinine measurement (mass/volume) 1.84 mg/dL 0.60-1.30 Serum or plasma urea nitrogen/creatinine mass ratio 29 NRG Serum or plasma creatinine measurement w ith calculation of estimated glomerular filtration rate 39 NRG Serum or plasma glucose measurement (mass/volume) 181 mg/dL 70-105 Serum or plasma calcium measurement (mass/volume) 10.4 mg/dL 8.5-10.1 Serum or plasma total bilirubin measurement (mass/volu me) 0.4 mg/dL 0.1-1.0 Serum or plasma alkaline phosphatase angelina surement (enzymatic activity/volume) 64 U/L 40-136 Serum or plasma aspartate aminotransfera se measurement (enzymatic activity/volume) 25 U/L 5-34 Serum or plasma alanine aminotransferase measurement (enzymatic activity/volume) 47 U/L 0-55 Serum or plasma protein measurement (mass/volume) 7.9 g/dL 6.4-8.2 Serum or plasma albumin measurement (mass/volume) 4.1 g/dL 3.2-4.5 Serum or plasma creatine kinase measurem ent (enzymatic activity/volume) - 03/23/17 11:35 Serum or plasma creatine kinase measurem ent (enzymatic activity/volume) 120 U/L 30-200 Serum or plasma C reactive protein measu rement (mass/volume) - 03/23/17 11:35 Serum or plasma C reactive protein measurement (mass/v olume) 0.46 mg/dL 0.00-0.50 Erythrocyte sedimentation rate by millie gren method - 03/23/17 11:35 Erythrocyte sedimentation rate by westergren method 69 mm 0- 15 Complete blood count (CBC) with automate d white blood cell (WBC) differential - 03/30/17 13:30 Blood leukocytes automated count (number/volume) 8.5 10*3/uL 4.3-11.0 Blood erythrocytes automated count (number/volume) 3.92 10*6/uL 4.35-5.85 Venous blood hemoglobin measurement (mass/volume) 11.8 g/dL 13.3-17.7 Blood hematocrit (volume fraction) 35 % 40-54 Automated erythrocyte mean corpuscular volume 89 [ foz_us] 80-99 Automated erythrocyte mean corpuscular h emoglobin (mass per erythrocyte) 30 pg 25-34 Automated erythrocyte mean corpuscular h emoglobin concentration measurement (mass/volume) 34 g/dL 32-36 Automated erythrocyte distribution width ratio 14. 9 % 10.0- 14.5 Automated blood platelet count (count/volume) 231 10*3/uL 130-400 Automated blood platelet mean volume measurement 10.5 [foz_us] 7.4-10.4 Automated blood neutrophils/100 leukocytes 64 % 42-75 Automated blood lymphocytes/100 leukocytes 22 % 12-44 Blood monocytes/100 leukocytes 10 % 0-12 Automated blood eosinophils/100 leukocytes 3 % 0-10 Automated blood basophils/100 leukocytes 1 % 0-10 Blood neutrophils automated count (number/volume) 5.4 10*3 1.8-7.8 Blood lymphocytes automated count (number/volume) 1.9 10*3 1.0-4.0 Blood monocytes automated count (number/volume) 0. 8 10*3 0.0-1.0 Automated eosinophil count 0.3 10*3/uL 0 .0-0.3 Automated blood basophil count (count/volume) 0.0 10*3/uL 0.0-0.1 Comprehensive metabolic panel - 03/30/17 13:30 Serum or plasma sodium measurement (moles/volume) 138 mmol/L 135-145 Serum or plasma potassium measurement (moles/volume) 4.2 mmol/L 3.6-5.0 Serum or plasma chloride measurement (moles/volume) 106 mmol/L 98-107 Carbon dioxide 21 mmol/L 21-32 Serum or plasma anion gap determination (moles/volume) 11 mmol/L 5-14 Serum or plasma urea nitrogen measurement (mass/volume ) 44 mg/dL 7-18 Serum or plasma creatinine measurement (mass/volume) 1.56 mg/dL 0.60-1.30 Serum or plasma urea nitrogen/creatinine mass ratio 28 NRG Serum or plasma creatinine measurement w ith calculation of estimated glomerular filtration rate 48 NRG Serum or plasma glucose measurement (mass/volume) 117 mg/dL 70-105 Serum or plasma calcium measurement (mass/volume) 10.6 mg/dL 8.5-10.1 Serum or plasma total bilirubin measurement (mass/volu me) 0.4 mg/dL 0.1-1.0 Serum or plasma alkaline phosphatase angelina surement (enzymatic activity/volume) 62 U/L 40-136 Serum or plasma aspartate aminotransfera se measurement (enzymatic activity/volume) 24 U/L 5-34 Serum or plasma alanine aminotransferase measurement (enzymatic activity/volume) 41 U/L 0-55 Serum or plasma protein measurement (mass/volume) 8.3 g/dL 6.4-8.2 Serum or plasma albumin measurement (mass/volume) 4.2 g/dL 3.2-4.5 Serum or plasma creatine kinase measurem ent (enzymatic activity/volume) - 03/30/17 13:30 Serum or plasma creatine kinase measurem ent (enzymatic activity/volume) 105 U/L 30-200 Serum or plasma C reactive protein measu rement (mass/volume) - 03/30/17 13:30 Serum or plasma C reactive protein measurement (mass/v olume) 1.19 mg/dL 0.00-0.50 Erythrocyte sedimentation rate by millie gren method - 03/30/17 13:30 Erythrocyte sedimentation rate by westergren method 80 mm 0- 15 Complete blood count (CBC) with automate d white blood cell (WBC) differential - 04/06/17 08:59 Blood leukocytes automated count (number/volume) 7.4 10*3/uL 4.3-11.0 Blood erythrocytes automated count (number/volume) 3.83 10*6/uL 4.35-5.85 Venous blood hemoglobin measurement (mass/volume) 11.5 g/dL 13.3-17.7 Blood hematocrit (volume fraction) 35 % 40-54 Automated erythrocyte mean corpuscular volume 90 [ foz_us] 80-99 Automated erythrocyte mean corpuscular h emoglobin (mass per erythrocyte) 30 pg 25-34 Automated erythrocyte mean corpuscular h emoglobin concentration measurement (mass/volume) 33 g/dL 32-36 Automated erythrocyte distribution width ratio 15. 0 % 10.0- 14.5 Automated blood platelet count (count/volume) 230 10*3/uL 130-400 Automated blood platelet mean volume measurement 10.0 [foz_us] 7.4-10.4 Automated blood neutrophils/100 leukocytes 65 % 42-75 Automated blood lymphocytes/100 leukocytes 22 % 12-44 Blood monocytes/100 leukocytes 9 % 0-12 Automated blood eosinophils/100 leukocytes 3 % 0-10 Automated blood basophils/100 leukocytes 0 % 0-10 Blood neutrophils automated count (number/volume) 4.8 10*3 1.8-7.8 Blood lymphocytes automated count (number/volume) 1.6 10*3 1.0-4.0 Blood monocytes automated count (number/volume) 0. 7 10*3 0.0-1.0 Automated eosinophil count 0.2 10*3/uL 0 .0-0.3 Automated blood basophil count (count/volume) 0.0 10*3/uL 0.0-0.1 Comprehensive metabolic panel - 04/06/17 08:59 Serum or plasma sodium measurement (moles/volume) 139 mmol/L 135-145 Serum or plasma potassium measurement (moles/volume) 4.7 mmol/L 3.6-5.0 Serum or plasma chloride measurement (moles/volume) 110 mmol/L 98-107 Carbon dioxide 19 mmol/L 21-32 Serum or plasma anion gap determination (moles/volume) 10 mmol/L 5-14 Serum or plasma urea nitrogen measurement (mass/volume ) 35 mg/dL 7-18 Serum or plasma creatinine measurement (mass/volume) 1.61 mg/dL 0.60-1.30 Serum or plasma urea nitrogen/creatinine mass ratio 22 NRG Serum or plasma creatinine measurement w ith calculation of estimated glomerular filtration rate 46 NRG Serum or plasma glucose measurement (mass/volume) 153 mg/dL 70-105 Serum or plasma calcium measurement (mass/volume) 10.2 mg/dL 8.5-10.1 Serum or plasma total bilirubin measurement (mass/volu me) 0.4 mg/dL 0.1-1.0 Serum or plasma alkaline phosphatase angelina surement (enzymatic activity/volume) 61 U/L 40-136 Serum or plasma aspartate aminotransfera se measurement (enzymatic activity/volume) 26 U/L 5-34 Serum or plasma alanine aminotransferase measurement (enzymatic activity/volume) 36 U/L 0-55 Serum or plasma protein measurement (mass/volume) 7.6 g/dL 6.4-8.2 Serum or plasma albumin measurement (mass/volume) 4.0 g/dL 3.2-4.5 Serum or plasma creatine kinase measurem ent (enzymatic activity/volume) - 04/06/17 08:59 Serum or plasma creatine kinase measurem ent (enzymatic activity/volume) 378 U/L 30-200 Serum or plasma C reactive protein measu rement (mass/volume) - 04/06/17 08:59 Serum or plasma C reactive protein measurement (mass/v olume) 1.03 mg/dL 0.00-0.50 Erythrocyte sedimentation rate by millie gren method - 04/06/17 08:59 Erythrocyte sedimentation rate by westergren method 76 mm 0- 15 Automated blood complete blood count (he mogram) panel - 04/14/17 12:30 Blood leukocytes automated count (number/volume) 7.7 10*3/uL 4.3-11.0 Blood erythrocytes automated count (number/volume) 4.52 10*6/uL 4.35-5.85 Venous blood hemoglobin measurement (mass/volume) 13.5 g/dL 13.3-17.7 Blood hematocrit (volume fraction) 40 % 40-54 Automated erythrocyte mean corpuscular volume 89 [ foz_us] 80-99 Automated erythrocyte mean corpuscular h emoglobin (mass per erythrocyte) 30 pg 25-34 Automated erythrocyte mean corpuscular h emoglobin concentration measurement (mass/volume) 34 g/dL 32-36 Automated erythrocyte distribution width ratio 14. 8 % 10.0- 14.5 Automated blood platelet count (count/volume) 290 10*3/uL 130-400 Automated blood platelet mean volume measurement 10.2 [foz_us] 7.4-10.4 Whole blood basic metabolic panel - 07/27 12:30 Serum or plasma sodium measurement (moles/volume) 138 mmol/L 135-145 Serum or plasma potassium measurement (moles/volume) 4.3 mmol/L 3.6-5.0 Serum or plasma chloride measurement (moles/volume) 105 mmol/L 98-107 Carbon dioxide 20 mmol/L 21-32 Serum or plasma anion gap determination (moles/volume) 13 mmol/L 5-14 Serum or plasma urea nitrogen measurement (mass/volume ) 45 mg/dL 7-18 Serum or plasma creatinine measurement (mass/volume) 1.64 mg/dL 0.60-1.30 Serum or plasma urea nitrogen/creatinine mass ratio 27 NRG Serum or plasma creatinine measurement w ith calculation of estimated glomerular filtration rate 45 NRG Serum or plasma glucose measurement (mass/volume) 129 mg/dL 70-105 Serum or plasma calcium measurement (mass/volume) 10.4 mg/dL 8.5-10.1 Serum or plasma C reactive protein measu rement (mass/volume) - 04/14/17 12:30 Serum or plasma C reactive protein measurement (mass/v olume) 0.59 mg/dL 0.00-0.50 Urine protein/creatinine mass ratio - 11:15 Urine protein measurement (mass/volume) 11 mg/dL 6-12 Urine creatinine measurement (mass/volume) 47 mg/d L 30-125 Urine protein/creatinine mass ratio 0.23 NRG Complete urinalysis with reflex to cultu re - 04/20/17 11:15 Urine color determination YELLOW NRG Urine clarity determination CLEAR NR G Urine pH measurement by test strip 5 5-9 Specific gravity of urine by test strip 1.015 1.016-1.022 Urine protein assay by test strip, semi-quantitative NEGATIVE NEGATIVE Urine glucose detection by automated test strip NE GATIVE NEGATIVE Erythrocytes detection in urine sediment by light micr oscopy NEGATIVE NEGATIVE Urine ketones detection by automated test strip NE GATIVE NEGATIVE Urine nitrite detection by test strip NEGATIVE NEGATIVE Urine total bilirubin detection by test strip NEGA TIVE NEGATIVE Urine urobilinogen measurement by automated test strip (mass/volume) NORMAL NORMAL Urine leukocyte esterase detection by dipstick NEG ATIVE NEGATIVE Automated urine sediment erythrocyte cou nt by microscopy (number/high power field) NONE NRG Automated urine sediment leukocyte count by microscopy (number/high power field) NONE NRG Bacteria detection in urine sediment by light microsco py NEGATIVE NRG Squamous epithelial cells detection in u rine sediment by light microscopy RARE NRG Crystals detection in urine sediment by light microsco py NONE NRG Casts detection in urine sediment by light microscopy NONE NRG Mucus detection in urine sediment by light microscopy NEGATIVE NRG Complete urinalysis with reflex to culture NO NRG Automated blood complete blood count (he mogram) panel - 04/20/17 11:30 Blood leukocytes automated count (number/volume) 8.5 10*3/uL 4.3-11.0 Blood erythrocytes automated count (number/volume) 3.95 10*6/uL 4.35-5.85 Venous blood hemoglobin measurement (mass/volume) 12.1 g/dL 13.3-17.7 Blood hematocrit (volume fraction) 36 % 40-54 Automated erythrocyte mean corpuscular volume 92 [ foz_us] 80-99 Automated erythrocyte mean corpuscular h emoglobin (mass per erythrocyte) 31 pg 25-34 Automated erythrocyte mean corpuscular h emoglobin concentration measurement (mass/volume) 33 g/dL 32-36 Automated erythrocyte distribution width ratio 14. 5 % 10.0- 14.5 Automated blood platelet count (count/volume) 312 10*3/uL 130-400 Automated blood platelet mean volume measurement 11.0 [foz_us] 7.4-10.4 Comprehensive metabolic panel - 04/20/17 11:30 Serum or plasma sodium measurement (moles/volume) 137 mmol/L 135-145 Serum or plasma potassium measurement (moles/volume) 4.2 mmol/L 3.6-5.0 Serum or plasma chloride measurement (moles/volume) 103 mmol/L 98-107 Carbon dioxide 22 mmol/L 21-32 Serum or plasma anion gap determination (moles/volume) 12 mmol/L 5-14 Serum or plasma urea nitrogen measurement (mass/volume ) 43 mg/dL 7-18 Serum or plasma creatinine measurement (mass/volume) 1.59 mg/dL 0.60-1.30 Serum or plasma urea nitrogen/creatinine mass ratio 27 NRG Serum or plasma creatinine measurement w ith calculation of estimated glomerular filtration rate 47 NRG Serum or plasma glucose measurement (mass/volume) 153 mg/dL 70-105 Serum or plasma calcium measurement (mass/volume) 9.8 mg/dL 8.5-10.1 Serum or plasma total bilirubin measurement (mass/volu me) 0.3 mg/dL 0.1-1.0 Serum or plasma alkaline phosphatase angelina surement (enzymatic activity/volume) 67 U/L 40-136 Serum or plasma aspartate aminotransfera se measurement (enzymatic activity/volume) 22 U/L 5-34 Serum or plasma alanine aminotransferase measurement (enzymatic activity/volume) 35 U/L 0-55 Serum or plasma protein measurement (mass/volume) 8.1 g/dL 6.4-8.2 Serum or plasma albumin measurement (mass/volume) 4.1 g/dL 3.2-4.5 Serum or plasma creatine kinase measurem ent (enzymatic activity/volume) - 04/20/17 11:30 Serum or plasma creatine kinase measurem ent (enzymatic activity/volume) 154 U/L 30-200 Serum or plasma C reactive protein measu rement (mass/volume) - 04/20/17 11:30 Serum or plasma C reactive protein measurement (mass/v olume) 0.45 mg/dL 0.00-0.50 Serum or plasma renal function panel (Na , K, Cl, CO2, BUN, Cr, glucose,Ca, phos, alb) - 04/20/17 11:30 Serum or plasma sodium measurement (moles/volume) 137 mmol/L 135-145 Serum or plasma potassium measurement (moles/volume) 4.2 mmol/L 3.6-5.0 Serum or plasma chloride measurement (moles/volume) 103 mmol/L 98-107 Carbon dioxide 22 mmol/L 21-32 Serum or plasma anion gap determination (moles/volume) 12 mmol/L 5-14 Serum or plasma urea nitrogen measurement (mass/volume ) 43 mg/dL 7-18 Serum or plasma creatinine measurement (mass/volume) 1.59 mg/dL 0.60-1.30 Serum or plasma urea nitrogen/creatinine mass ratio 27 NRG Serum or plasma creatinine measurement w ith calculation of estimated glomerular filtration rate 47 NRG Serum or plasma glucose measurement (mass/volume) 153 mg/dL 70-105 Serum or plasma calcium measurement (mass/volume) 9.8 mg/dL 8.5-10.1 Serum or plasma albumin measurement (mass/volume) 4.1 g/dL 3.2-4.5 Serum or plasma phosphate measurement (mass/volume) 3.0 mg/dL 2.3-4.7 Erythrocyte sedimentation rate by millie gren method - 04/20/17 11:30 Erythrocyte sedimentation rate by westergren method 59 mm 0- 15 Complete blood count (CBC) with automate d white blood cell (WBC) differential - 09/11/18 16:20 Blood leukocytes automated count (number/volume) 10.7 10*3/uL 4.3-11.0 Blood erythrocytes automated count (number/volume) 3.86 10*6/uL 4.35-5.85 Venous blood hemoglobin measurement (mass/volume) 12.0 g/dL 13.3-17.7 Blood hematocrit (volume fraction) 36 % 40-54 Automated erythrocyte mean corpuscular volume 94 [ foz_us] 80-99 Automated erythrocyte mean corpuscular h emoglobin (mass per erythrocyte) 31 pg 25-34 Automated erythrocyte mean corpuscular h emoglobin concentration measurement (mass/volume) 33 g/dL 32-36 Automated erythrocyte distribution width ratio 14. 4 % 10.0- 14.5 Automated blood platelet count (count/volume) 271 10*3/uL 130-400 Automated blood platelet mean volume measurement 9.4 [foz_us] 7.4-10.4 Automated blood neutrophils/100 leukocytes 69 % 42-75 Automated blood lymphocytes/100 leukocytes 21 % 12-44 Blood monocytes/100 leukocytes 9 % 0-12 Automated blood eosinophils/100 leukocytes 1 % 0-10 Automated blood basophils/100 leukocytes 0 % 0-10 Blood neutrophils automated count (number/volume) 7.4 10*3 1.8-7.8 Blood lymphocytes automated count (number/volume) 2.2 10*3 1.0-4.0 Blood monocytes automated count (number/volume) 1. 0 10*3 0.0-1.0 Automated eosinophil count 0.1 10*3/uL 0 .0-0.3 Automated blood basophil count (count/volume) 0.0 10*3/uL 0.0-0.1 Comprehensive metabolic panel - 09/11/18 16:20 Serum or plasma sodium measurement (moles/volume) 141 mmol/L 135-145 Serum or plasma potassium measurement (moles/volume) 3.8 mmol/L 3.6-5.0 Serum or plasma chloride measurement (moles/volume) 105 mmol/L 98-107 Carbon dioxide 22 mmol/L 21-32 Serum or plasma anion gap determination (moles/volume) 14 mmol/L 5-14 Serum or plasma urea nitrogen measurement (mass/volume ) 24 mg/dL 7-18 Serum or plasma creatinine measurement (mass/volume) 1.68 mg/dL 0.60-1.30 Serum or plasma urea nitrogen/creatinine mass ratio 14 NRG Serum or plasma creatinine measurement w ith calculation of estimated glomerular filtration rate 44 NRG Serum or plasma glucose measurement (mass/volume) 86 mg/dL 70-105 Serum or plasma calcium measurement (mass/volume) 10.5 mg/dL 8.5-10.1 Serum or plasma total bilirubin measurement (mass/volu me) 0.3 mg/dL 0.1-1.0 Serum or plasma alkaline phosphatase angelina surement (enzymatic activity/volume) 90 U/L 40-136 Serum or plasma aspartate aminotransfera se measurement (enzymatic activity/volume) 82 U/L 5-34 Serum or plasma alanine aminotransferase measurement (enzymatic activity/volume) 79 U/L 0-55 Serum or plasma protein measurement (mass/volume) 8.2 g/dL 6.4-8.2 Serum or plasma albumin measurement (mass/volume) 4.1 g/dL 3.2-4.5 CALCIUM CORRECTED 10.4 mg/dL 8.5-10.1 Lipase - 09/11/18 16:20 Lipase 415 U/L 8-78 Complete urinalysis with reflex to cultu re - 09/11/18 16:23 Urine color determination YELLOW NRG Urine clarity determination CLEAR NR G Urine pH measurement by test strip 5 5-9 Specific gravity of urine by test strip 1.015 1.016-1.022 Urine protein assay by test strip, semi-quantitative 3+ NEGATIVE Urine glucose detection by automated test strip NE GATIVE NEGATIVE Erythrocytes detection in urine sediment by light micr oscopy NEGATIVE NEGATIVE Urine ketones detection by automated test strip NE GATIVE NEGATIVE Urine nitrite detection by test strip NEGATIVE NEGATIVE Urine total bilirubin detection by test strip NEGA TIVE NEGATIVE Urine urobilinogen measurement by automated test strip (mass/volume) NORMAL NORMAL Urine leukocyte esterase detection by dipstick NEG ATIVE NEGATIVE Automated urine sediment erythrocyte cou nt by microscopy (number/high power field) NONE NRG Automated urine sediment leukocyte count by microscopy (number/high power field) RARE NRG Bacteria detection in urine sediment by light microsco py NEGATIVE NRG Squamous epithelial cells detection in u rine sediment by light microscopy RARE NRG Crystals detection in urine sediment by light microsco py NONE NRG Casts detection in urine sediment by light microscopy PRESENT NRG Mucus detection in urine sediment by light microscopy SMALL NRG Complete urinalysis with reflex to culture NO NRG Hyaline casts detection in urine sediment by light ann marie roscopy RARE NRG Complete urinalysis with reflex to cultu re - 12/08/18 13:55 Urine color determination YELLOW NRG Urine clarity determination CLEAR NR G Urine pH measurement by test strip 5 5-9 Specific gravity of urine by test strip 1.020 1.016-1.022 Urine protein assay by test strip, semi-quantitative 3+ NEGATIVE Urine glucose detection by automated test strip NE GATIVE NEGATIVE Erythrocytes detection in urine sediment by light micr oscopy NEGATIVE NEGATIVE Urine ketones detection by automated test strip NE GATIVE NEGATIVE Urine nitrite detection by test strip NEGATIVE NEGATIVE Urine total bilirubin detection by test strip NEGA TIVE NEGATIVE Urine urobilinogen measurement by automated test strip (mass/volume) NORMAL NORMAL Urine leukocyte esterase detection by dipstick NEG ATIVE NEGATIVE Automated urine sediment erythrocyte cou nt by microscopy (number/high power field) NONE NRG Automated urine sediment leukocyte count by microscopy (number/high power field) NONE NRG Bacteria detection in urine sediment by light microsco py NEGATIVE NRG Crystals detection in urine sediment by light microsco py NONE NRG Casts detection in urine sediment by light microscopy PRESENT NRG Mucus detection in urine sediment by light microscopy NEGATIVE NRG Complete urinalysis with reflex to culture NO NRG Hyaline casts detection in urine sediment by light ann marie roscopy 5-10 NRG Complete blood count (CBC) with automate d white blood cell (WBC) differential - 12/08/18 14:30 Blood leukocytes automated count (number/volume) 16.0 10*3/uL 4.3-11.0 Blood erythrocytes automated count (number/volume) 3.95 10*6/uL 4.35-5.85 Venous blood hemoglobin measurement (mass/volume) 12.0 g/dL 13.3-17.7 Blood hematocrit (volume fraction) 36 % 40-54 Automated erythrocyte mean corpuscular volume 92 [ foz_us] 80-99 Automated erythrocyte mean corpuscular h emoglobin (mass per erythrocyte) 30 pg 25-34 Automated erythrocyte mean corpuscular h emoglobin concentration measurement (mass/volume) 33 g/dL 32-36 Automated erythrocyte distribution width ratio 15. 3 % 10.0- 14.5 Automated blood platelet count (count/volume) 263 10*3/uL 130-400 Automated blood platelet mean volume measurement 9.6 [foz_us] 7.4-10.4 Automated blood neutrophils/100 leukocytes 79 % 42-75 Automated blood lymphocytes/100 leukocytes 10 % 12-44 Blood monocytes/100 leukocytes 11 % 0-12 Automated blood eosinophils/100 leukocytes 0 % 0-10 Automated blood basophils/100 leukocytes 0 % 0-10 Blood neutrophils automated count (number/volume) 12.6 10*3 1.8-7.8 Blood lymphocytes automated count (number/volume) 1.6 10*3 1.0-4.0 Blood monocytes automated count (number/volume) 1. 8 10*3 0.0-1.0 Automated eosinophil count 0.1 10*3/uL 0 .0-0.3 Automated blood basophil count (count/volume) 0.0 10*3/uL 0.0-0.1 Comprehensive metabolic panel - 12/08/18 14:30 Serum or plasma sodium measurement (moles/volume) 135 mmol/L 135-145 Serum or plasma potassium measurement (moles/volume) 5.1 mmol/L 3.6-5.0 Serum or plasma chloride measurement (moles/volume) 106 mmol/L 98-107 Carbon dioxide 17 mmol/L 21-32 Serum or plasma anion gap determination (moles/volume) 12 mmol/L 5-14 Serum or plasma urea nitrogen measurement (mass/volume ) 49 mg/dL 7-18 Serum or plasma creatinine measurement (mass/volume) 2.71 mg/dL 0.60-1.30 Serum or plasma urea nitrogen/creatinine mass ratio 18 NRG Serum or plasma creatinine measurement w ith calculation of estimated glomerular filtration rate 25 NRG Serum or plasma glucose measurement (mass/volume) 169 mg/dL 70-105 Serum or plasma calcium measurement (mass/volume) 10.3 mg/dL 8.5-10.1 Serum or plasma total bilirubin measurement (mass/volu me) 0.4 mg/dL 0.1-1.0 Serum or plasma alkaline phosphatase angelina surement (enzymatic activity/volume) 96 U/L 40-136 Serum or plasma aspartate aminotransfera se measurement (enzymatic activity/volume) 31 U/L 5-34 Serum or plasma alanine aminotransferase measurement (enzymatic activity/volume) 51 U/L 0-55 Serum or plasma protein measurement (mass/volume) 8.7 g/dL 6.4-8.2 Serum or plasma albumin measurement (mass/volume) 4.4 g/dL 3.2-4.5 CALCIUM CORRECTED 10.0 mg/dL 8.5-10.1 Manual absolute plasma cell count - 11/11 14:30 Blood monocytes/100 leukocytes 13 % NRG Manual blood segmented neutrophils/100 leukocytes 79 % NRG Manual blood lymphocytes/100 leukocytes 8 % NRG Blood anisocytosis detection by light microscopy S LIGHT NRG Blood macrocytes detection by light microscopy [facility] NRG Blood poikilocytosis detection by light microscopy SLIGHT NRG Blood microcytes detection by light microscopy [facility] NRG Serum or plasma amylase measurement (enz ymatic activity/volume) - 12/08/18 14:30 Serum or plasma amylase measurement (enzymatic activit y/volume) 66 U/L 25-125 Lipase - 12/08/18 14:30 Lipase 24 U/L 8-78 Complete blood count (CBC) with automate d white blood cell (WBC) differential - 09/05/19 15:15 Blood leukocytes automated count (number/volume) 7.2 10*3/uL 4.3-11.0 Blood erythrocytes automated count (number/volume) 3.32 10*6/uL 4.35-5.85 Venous blood hemoglobin measurement (mass/volume) 10.7 g/dL 13.3-17.7 Blood hematocrit (volume fraction) 32 % 40-54 Automated erythrocyte mean corpuscular volume 97 [ foz_us] 80-99 Automated erythrocyte mean corpuscular h emoglobin (mass per erythrocyte) 32 pg 25-34 Automated erythrocyte mean corpuscular h emoglobin concentration measurement (mass/volume) 33 g/dL 32-36 Automated erythrocyte distribution width ratio 13. 9 % 10.0- 14.5 Automated blood platelet count (count/volume) 201 10*3/uL 130-400 Automated blood platelet mean volume measurement 10.6 [foz_us] 7.4-10.4 Automated blood neutrophils/100 leukocytes 68 % 42-75 Automated blood lymphocytes/100 leukocytes 21 % 12-44 Blood monocytes/100 leukocytes 9 % 0-12 Automated blood eosinophils/100 leukocytes 2 % 0-10 Automated blood basophils/100 leukocytes 0 % 0-10 Blood neutrophils automated count (number/volume) 4.9 10*3 1.8-7.8 Blood lymphocytes automated count (number/volume) 1.5 10*3 1.0-4.0 Blood monocytes automated count (number/volume) 0. 6 10*3 0.0-1.0 Automated eosinophil count 0.2 10*3/uL 0 .0-0.3 Automated blood basophil count (count/volume) 0.0 10*3/uL 0.0-0.1 Comprehensive metabolic panel - 09/05/19 15:15 Serum or plasma sodium measurement (moles/volume) 137 mmol/L 135-145 Serum or plasma potassium measurement (moles/volume) 5.5 mmol/L 3.6-5.0 Serum or plasma chloride measurement (moles/volume) 108 mmol/L 98-107 Carbon dioxide 16 mmol/L 21-32 Serum or plasma anion gap determination (moles/volume) 13 mmol/L 5-14 Serum or plasma urea nitrogen measurement (mass/volume ) 60 mg/dL 7-18 Serum or plasma creatinine measurement (mass/volume) 3.59 mg/dL 0.60-1.30 Serum or plasma urea nitrogen/creatinine mass ratio 17 NRG Serum or plasma creatinine measurement w ith calculation of estimated glomerular filtration rate 18 NRG Serum or plasma glucose measurement (mass/volume) 181 mg/dL 70-105 Serum or plasma calcium measurement (mass/volume) 9.8 mg/dL 8.5-10.1 Serum or plasma total bilirubin measurement (mass/volu me) 0.2 mg/dL 0.1-1.0 Serum or plasma alkaline phosphatase angelina surement (enzymatic activity/volume) 90 U/L 40-136 Serum or plasma aspartate aminotransfera se measurement (enzymatic activity/volume) 59 U/L 5-34 Serum or plasma alanine aminotransferase measurement (enzymatic activity/volume) 62 U/L 0-55 Serum or plasma protein measurement (mass/volume) 7.3 g/dL 6.4-8.2 Serum or plasma albumin measurement (mass/volume) 3.9 g/dL 3.2-4.5 CALCIUM CORRECTED 9.9 mg/dL 8.5-10.1 Serum or plasma C reactive protein measu rement (mass/volume) - 09/05/19 15:15 Serum or plasma C reactive protein measurement (mass/v olume) 2.13 mg/dL 0.00-0.50 Serum or plasma lithium measurement (mol es/volume) - 09/05/19 15:15 BNP PT 23.1 pg/mL <100.0 Encounters ACCT No. Visit Date/Time Discharge Status Pt. Type Provider Facility Loc./Unit Complaint [id number] 09/01/2019 13:02:00 23:59:59 CLS Outpatient ZECHARIAH NIETO MD [facility] WOUNDCARE [id number] 12/08/2018 12:22:00 17:39:00 DIS Emergency FERNANDO PERRINP [facility] ER N/V;COUGH [id number] 11/07/2018 17:37:00 20:03:00 DIS Emergency STEPHANIE NG [facility] ER SINUS CONGESTION [id number] 09/11/2018 15:49:00 17:58:00 DIS Emergency DAVID ALAN APRN [facility] ER VOMITING / BACK PAIN [id number] 04/20/2017 07:00:00 018 23:59:59 CLS Outpatient SEBASTIÁN MACIAS MD [facility] INFECTION OF AMPUTATION STUMP LL EXTREMITY [id number] 04/20/2017 07:00:00 018 23:59:59 CLS Outpatient FARIDA LACY MD [facility] CHRONIC KIDNEY DISEASE STG 3 [id number] 04/14/2017 07:00:00 018 23:59:59 CLS Outpatient SEBASTIÁN MACIAS MD [facility] B96.20 [id number] 04/06/2017 07:00:00 018 23:59:59 CLS Outpatient SEBASTIÁN MACIAS MD [facility] LEFT BKA INFECTION,ECOL I,ESBL [id number] 03/30/2017 07:00:00 018 23:59:59 CLS Outpatient SEBASTIÁN MACIAS MD [facility] LT MOE INFECTION,ECOLI [id number] 03/23/2017 07:00:00 018 23:59:59 CLS Outpatient SEBASTIÁN MACIAS MD [facility] LT RKA INFECTION,ECOLI, ESBL, IV THERAPY [id number] 03/17/2017 07:00:00 018 23:59:59 CLS Outpatient SEBASTIÁN MACIAS MD [facility] LEFT BKA INFECTION, ECO LI, ESBL,IV DAPTOMYCIN THER [id number] 03/09/2017 08:00:00 23:59:59 CLS Outpatient SEBASTIÁN MACIAS MD [facility] LEFT BKA INFECTION;E CO LI;ESBL [id number] 03/02/2017 07:00:00 018 23:59:59 CLS Outpatient SEBASTIÁN MACIAS MD [facility] LEFT BKA INFECTION [id number] 09/05/2019 14:37:[address] Emergency MIRTA ABBASI MD [facility] ER SOB;KIDNEY PROBLEMS
[2019-09-05 18:07] VITALS: BP 115/63
== END 2019-09-05 18:05 | disposition home or self-care (01) ==
LOC: EDUNIT# 14:35 → ER 14:37
DX: N17.9 Acute kidney failure, unspecified (principal); E11.22 Type 2 diabetes mellitus with diabetic chronic kidney disease; I12.9 Hypertensive chronic kidney disease with stage 1 through stage 4 chronic kidney disease, or unspecified chronic kidney disease; N18.4 Chronic kidney disease, stage 4 (severe); Z79.51 Long term (current) use of inhaled steroids; Z79.4 Long term (current) use of insulin; Z79.52 Long term (current) use of systemic steroids
CPT/HCPCS: 36415; 80053; 83880; 85025; 86141; 93005

== ENCOUNTER → 2019-09-07 | Outpatient (CLI) | payer MEDICARE, MEDICAID | LOC: WOUNDCARE 13:10 | PROVIDERS: ATTEND Surgery | DX: E11.622 Type 2 diabetes mellitus with other skin ulcer (principal); L97.212 Non-pressure chronic ulcer of right calf with fat layer exposed; I70.232 Atherosclerosis of native arteries of right leg with ulceration of calf; D80.4 Selective deficiency of immunoglobulin M [IgM]; E11.22 Type 2 diabetes mellitus with diabetic chronic kidney disease; N18.4 Chronic kidney disease, stage 4 (severe); E66.01 Morbid (severe) obesity due to excess calories; E11.52 Type 2 diabetes mellitus with diabetic peripheral angiopathy with gangrene | CPT/HCPCS: 11042; G0463 ==

== ENCOUNTER → 2019-09-13 | Outpatient (CLI) | payer MEDICARE, MEDICAID | LOC: WOUNDCARE 13:28 | PROVIDERS: ATTEND Surgery | DX: E11.622 Type 2 diabetes mellitus with other skin ulcer (principal); L97.212 Non-pressure chronic ulcer of right calf with fat layer exposed; D80.4 Selective deficiency of immunoglobulin M [IgM]; E11.22 Type 2 diabetes mellitus with diabetic chronic kidney disease; N18.4 Chronic kidney disease, stage 4 (severe); E66.01 Morbid (severe) obesity due to excess calories; E11.52 Type 2 diabetes mellitus with diabetic peripheral angiopathy with gangrene | CPT/HCPCS: 99213 ==

== ENCOUNTER → 2019-09-27 | Outpatient (CLI) | payer MEDICARE, MEDICAID | LOC: WOUNDCARE 13:15 | PROVIDERS: ATTEND Surgery | DX: E11.622 Type 2 diabetes mellitus with other skin ulcer (principal); E11.22 Type 2 diabetes mellitus with diabetic chronic kidney disease; I87.331 Chronic venous hypertension (idiopathic) with ulcer and inflammation of right lower extremity; L97.212 Non-pressure chronic ulcer of right calf with fat layer exposed; D80.4 Selective deficiency of immunoglobulin M [IgM]; N18.4 Chronic kidney disease, stage 4 (severe); E66.01 Morbid (severe) obesity due to excess calories; Z68.41 Body mass index [BMI] 40.0-44.9, adult | CPT/HCPCS: 99212 ==

== ENCOUNTER 2019-09-29 13:13 | Emergency (ER) | payer MEDICARE, MEDICAID ==
[~2019-09-29] VITALS: Ht 175.2 cm; Wt 122.4 kg
--- NOTE | 2019-09-29 15:07 | Diagnostic Imaging Report ---
INDICATION: Fall. FINDINGS: There is nwupt-vux-ozmu amputation performed. No fracture or dislocation. IMPRESSION: Rflxs-pzb-rpko amputation but no acute abnormality or injury apparent. Dictated by: Dictated on workstation # [id number]
--- NOTE | 2019-09-29 15:19 | ED Lower Extremity ---
General Chief Complaint: Lower Extremity Stated Complaint: FALL INJURY Nursing Triage Note: Pt to ED in wheelchair. Pt has L below the knee amputation. Pt reports prosthetic came apart causing pt to fall directly onto end of amputation. Pt complains of swelling and pain. Nursing Sepsis Screen: No Definite Risk Source: patient Exam Limitations: no limitations History of Present Illness Date Seen by Provider: Sep 29, 2019 Time Seen by Provider: 14:30 Initial Comments 48-year-old male who presents to the emergency room with complaints of left below the knee amputation pain after falling directly onto the stump. He reports that his prosthetic came apart causing him to fall today. Denies other injuries from the fall. Mild swelling to the distal stump. Onset: just prior to arrival Allergies and Home Medications Allergies Coded Allergies: No Known Drug Allergies (Unverified , 09/11/18) Home Medications Amlodipine Besylate 5 Mg Tablet, Unknown Dose PO DAILY, (Reported) Doxycycline Hyclate 100 Mg Tablet, 100 MG PO BID Prescribed by: STEPHANIE WATKINS on 11/07/181954 Fluticasone Furoate 5.9 Ml Troy.susp, 2 SPRAYS NSEACH DAILY Prescribed by: STEPHANIE WATKINS on 11/07/181954 Insulin Aspart 100 Unit/1 Ml Susp, Unknown Dose SQ AC, (Reported) Levalbuterol Tartrate 15 Gm Hfa.aer.ad, 1-2 PUFF INH Q6H Prescribed by: FERNANDO PERRIN on 12/08/181712 Prednisone 20 Mg Tab, 40 MG PO DAILY Prescribed by: FERNANDO PERRIN on 12/08/181712 Prochlorperazine Maleate 10 Mg Tablet, 10 MG PO Q6H Prescribed by: FERNANDO PERRIN on 12/08/181712 Patient Home Medication List Home Medication List Reviewed: Yes Review of Systems Constitutional: see HPI; No chills, No fever Musculoskeletal: see HPI, joint pain (below the knee stump pain) All Other Systems Reviewed Negative Unless Noted: Yes Past Dabzlyd-Mvytju-Ljdbak Hx Past Med/Social Hx: Reviewed Nursing Past Med/Soc Hx Patient Social History Alcohol Use: Denies Use Recreational Drug Use: No 2nd Hand Smoke Exposure: No Recent Foreign Travel: No Contact w/Someone Who Travel: No Recent Infectious Disease Expo: No Recent Hopitalizations: No Past Medical History Surgeries: Yes (left swudj-qwg-pous amputation ) Adenoidectomy, Gallbladder, Orthopedic Respiratory: No Cardiac: Yes High Cholesterol, Hypertension Neurological: No Genitourinary: Yes Renal Failure Gastrointestinal: No Musculoskeletal: Yes Amputee Endocrine: Yes Diabetes, Insulin dep, Diabetes, Non-Insulin dep HEENT: No Cancer: No Psychosocial: No Integumentary: No Blood Disorders: No Adverse Reaction/Blood Tranf: No Family Medical History Reviewed Nursing Family Hx No Pertinent Family Hx Physical Exam Vital Signs Vital Signs - First Documented 09/29/19 13:55 Temp 36.7 Pulse 84 Resp 20 B/P (MAP) 114/66 (82) Pulse Ox 98 O2 Delivery Room Air Capillary Refill : Less Than 3 Seconds Height, Weight, BMI Height: 5'9.00" Weight: 252lbs. oz. 114.148163dt; 39.00 BMI Method:Stated General Appearance: WD/WN, no apparent distress Cardiovascular: normal peripheral pulses, regular rate, rhythm, no edema, no gallop, no JVD, no murmur Respiratory: chest non-tender, lungs clear, normal breath sounds, no respiratory distress, no accessory muscle use Knees: left knee swelling (to the below the knee amputation normal range of motion of the knee) Neurologic/Psychiatric: alert, normal mood/affect, oriented x 3 Skin: normal color, warm/dry Progress/Results/Core Measures Results/Orders My Orders Orders - BEAN BLUM Knee, Left, 3 Views (09/29/19 14:29) Vital Signs/I&O 09/29/19 13:55 Temp 36.7 Pulse 84 Resp 20 B/P (MAP) 114/66 (82) Pulse Ox 98 O2 Delivery Room Air Blood Pressure Mean: 82 Departure Impression Primary Impression: Contusion of knee Disposition: 01 HOME, SELF-CARE Condition: Stable/Unchanged Departure-Patient Inst. Decision time for Depature: 15:17 Referrals: SERENITY LAMAR MD (PCP/Family) Primary Care Physician Patient Instructions: Contusion (DC) Add. Discharge Instructions: You may use ibuprofen and Tylenol as needed for pain relief. Ice to the sore areas at 20 minute intervals. Continue to wear your sleeve to prevent any deformities of the stump. Return back to the emergency room for worsening symptoms or concerns as needed. Follow-up with your primary care provider within 1 week for recheck. All discharge instructions reviewed with patient and/or family. Voiced understanding. BEAN BLUM Sep 29, 2019 15:19
[2019-09-29 15:25] VITALS: BP 114/66
== END 2019-09-29 15:25 | disposition home or self-care (01) ==
LOC: EDUNIT# 13:13 → ER 13:15
DX: S80.02XA Contusion of left knee, initial encounter (principal); E11.9 Type 2 diabetes mellitus without complications; I10 Essential (primary) hypertension; N19 Unspecified kidney failure; Z79.4 Long term (current) use of insulin; Z79.52 Long term (current) use of systemic steroids; Z89.512 Acquired absence of left leg below knee; W18.39XA Other fall on same level, initial encounter
CPT/HCPCS: 73562

== ENCOUNTER → 2019-10-31 | Outpatient (CLI) | payer MEDICARE, MEDICAID ==
[~2019-10-31] VITALS: Ht 175 cm; Wt 123.0 kg
[~2019-10-31] MED LIST changes: +CATHETER FLUSH 10 ML SYR IV PRN; +REGADENOSON 0.4 MG/5 ML SYR (LEXISCAN) IV ONE
[2019-10-31 08:47] VITALS: BP 141/78
--- NOTE | 2019-10-31 11:53 | Cardiology Stress Test Report ---
Stress Test Report Date of Procedure/Referring: Date of Procedure: Oct 31, 2019 PCP Criselda Spangler Aprn Admitting Physician Kd Russ MD Indications: Chest pain Baseline Heart Rate: 81 Baseline Blood Pressure: Blood Pressure Systolic: 141 Blood Pressure Diastolic: 78 Baseline Vitals Vital Signs Date Time Temp Pulse Resp B/P (MAP) Pulse Ox O2 Delivery O2 Flow Rate FiO2 10/31/19 08:47 81 141/78 (99) 99 Baseline EKG: Baseline EKG: normal sinus rhythm Summary After explaining the procedure to the patient, he signed a consent and then brought to the stress nuclear laboratory. Patient received 0.4 mg Lexiscan for stress test, ECG, heart rate and blood pressure were monitored continuously. Resting and stress dose of radio tracer were injected, imaging was acquired and reviewed in short axis, horizontal long axis and vertical long axis views. TID: 1.06 SSS: 1 SDS: 1 EF: 74 1. Patient tolerated Lexiscan well 2. Good radiotracer uptake, no ischemia or infarction on SPECT images 3. Normal left ventricular size, EF 74 percent DHRUV JORDAN MD Oct 31, 2019 11:53
== END ==
LOC: CARD 08:00
PROVIDERS: ATTEND Nurse Practitioner Family
DX: R07.1 Chest pain on breathing (principal)
CPT/HCPCS: 78452; 93017; A9502

== ENCOUNTER 2021-09-09 14:53 | Emergency (ER) | payer MEDICARE, MEDICAID ==
[~2021-09-09] VITALS: Ht 177.8 cm; Wt 120.2 kg
[~2021-09-09 14:53] MED LIST changes: +AMLO-250 PO; -AMLO5TAB9 PO; -CATHETER FLUSH 10 ML SYR IV PRN; -GEMF600T8 PO; +GEMF600T88 PO; +MONT-40; -MONT10TA26; -REGADENOSON 0.4 MG/5 ML SYR (LEXISCAN) IV ONE; -TERB250T16; +TERB250T88
--- NOTE | 2021-09-09 15:14 | ED General ---
General Chief Complaint: General Problems/Pain Stated Complaint: FATIGUE / SORES ON BOTH LEGS Source of Information: Patient Exam Limitations: No Limitations History of Present Illness Date Seen by Provider: Sep 09, 2021 Time Seen by Provider: 15:14 Initial Comments Patient is a 50-year-old male with a history of chronic kidney disease, specific antibody deficiency who presents ED for fatigue. Patient states he was diagnosed with COVID 2 months ago and since then has been feeling fatigued. Worse over the past 2 days. Reports having some intermittent pain bilateral legs. Starts in the buttock and radiates to right lower leg over the past month. Patient states his primary care physician has given him steroids with improvement. 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 History of diabetes. History of kidney disease. Concerning for worsening kidney function. Reports nausea without vomiting, diarrhea. No cough, chest pain, abdominal pain, headache, dizziness or fever. Denies of any urinary symptoms. Concern for sore to his right leg over the past 2-1/2 weeks. Does take Keflex prophylactically and has been applying topical antibiotic ointment Silvadene. He states the wound is superficial. History of wounds in the past. Allergies and Home Medications Allergies Coded Allergies: No Known Drug Allergies (Unverified , 09/11/18) Patient Home Medication List Home Medication List Reviewed: Yes Allopurinol (Allopurinol) 100 Mg Tablet, (Reported) Entered as Reported by: TODD OSBORN on 09/11/181615 Amlodipine Besylate (Amlodipine Besylate) 5 Mg Tablet, Unknown Dose PO DAILY, (Reported) Entered as Reported by: IRINA BLUM on 11/07/18 180 Atorvastatin Calcium (Atorvastatin Calcium) 20 Mg Tablet, (Reported) Entered as Reported by: TODD OSBORN on 09/11/181615 Carvedilol (Carvedilol) 25 Mg Tablet, (Reported) Entered as Reported by: TODD OSBORN on 09/11/181615 Doxycycline Hyclate (Doxycycline Hyclate) 100 Mg Tablet, 100 MG PO BID Prescribed by: STEPHANIE WATKINS on 11/07/181954 Fluticasone Furoate (Flonase Sensimist) 5.9 Ml [place].susp, 2 SPRAYS NSEACH DAILY Prescribed by: STEPHANIE WATKINS on 11/07/181954 Gemfibrozil (Gemfibrozil) 600 Mg Tablet, 600 MG PO, (Reported) Entered as Reported by: IRINA BLUM on 11/07/181805 Insulin Aspart (Novolog) 100 Unit/1 Ml Susp, Unknown Dose SQ AC, (Reported) Entered as Reported by: IRINA BLUM on 11/07/181805 Insulin Glargine,Hum.rec.anlog (Toujeo Solostar) 300 Unit/1 Ml Insuln.pen, Unknown Dose SQ, (Reported) Entered as Reported by: IRINA BLUM on 11/07/181805 Iron Ps Cmplx/Vit B12/FA (Iferex 150 Forte Capsule) 1 Each Capsule, Unknown Dose PO, (Reported) Entered as Reported by: IRINA BLUM on 11/07/181805 Levalbuterol Tartrate (Xopenex Hfa) 15 Gm Hfa.aer.ad, 1-2 PUFF INH Q6H Prescribed by: FERNANDO PERRIN on 12/08/181712 Montelukast Sodium (Montelukast Sodium) 10 Mg Tablet, (Reported) Entered as Reported by: TODD OSBORN on 09/11/18 161 Prednisone (Prednisone) 20 Mg Tab, 40 MG PO DAILY Prescribed by: FERNANDO PERRIN on 12/08/181712 Prochlorperazine Maleate (Compazine) 10 Mg Tablet, 10 MG PO Q6H Prescribed by: FERNANDO PERRIN on 12/08/181712 Review of Systems Review of Systems Constitutional: No chills; malaise, weakness EENTM: No blurred vision, No double vision Respiratory: No cough, No dyspnea on exertion Cardiovascular: No chest pain, No edema Gastrointestinal: No abdominal pain, No diarrhea; nausea Genitourinary: No decreased output, No discharge Musculoskeletal: No back pain, No joint pain; muscle pain Skin: No change in color All Other Systems Reviewed Negative Unless Noted: Yes Past Vzkbqhp-Liczet-Vhkplv Hx Past Medical History Surgeries: Yes (left ozriv-hni-zxpp amputation ) Adenoidectomy, Gallbladder, Orthopedic Respiratory: No Cardiac: Yes High Cholesterol, Hypertension Neurological: No Genitourinary: Yes Renal Failure Gastrointestinal: No Musculoskeletal: Yes Amputee Endocrine: Yes Diabetes, Insulin dep, Diabetes, Non-Insulin dep HEENT: No Cancer: No Psychosocial: No Integumentary: No Blood Disorders: No Adverse Reaction/Blood Tranf: No Family Medical History No Pertinent Family Hx Physical Exam Vital Signs Vital Signs - First Documented 09/09/21 15:02 Temp 36.6 Pulse 92 Resp 18 B/P (MAP) 103/91 (95) Pulse Ox 97 Capillary Refill : Height, Weight, BMI Height: 5'9.00" Weight: 252lbs. oz. 114.732198mm; 40.16 BMI Method:Stated General Appearance: No Apparent Distress, WD/WN Eyes: Bilateral Eye Normal Inspection, Bilateral Eye PERRL, Bilateral Eye EOMI HEENT: PERRL/EOMI, TMs Normal, Normal ENT Inspection, Pharynx Normal Neck: Full Range of Motion, Normal Inspection, Non Tender, Supple Respiratory: Chest Non Tender, Lungs Clear, Normal Breath Sounds, No Accessory Muscle Use, No Respiratory Distress Cardiovascular: Regular Rate, Rhythm, No Edema, No Gallop, No JVD, No Murmur Gastrointestinal: Normal Bowel Sounds, No Organomegaly, No Pulsatile Mass, Non Tender Extremity: Other (Lgiyr-tpa-akcy left amputation. Superficial 4 cm wound to the right lower leg. Very minimal purulent drainage. No fluctuant mass. Normal active range of motion of the right ankle. Neurovascular intact) Neurologic/Psychiatric: Alert, Oriented x3, No Motor/Sensory Deficits, Normal Mood/Affect Skin: Other (Superficial wound to right lower extremity) Progress/Results/Core Measures Suspected Sepsis SIRS Temperature: Pulse: Respiratory Rate: Laboratory Tests 09/09/21 15:08: White Blood Count 11.1H Blood Pressure / Mean: Laboratory Tests 09/09/21 15:08: Creatinine 3.66H, Platelet Count 274, Total Bilirubin 0.3 Results/Orders Lab Results Laboratory Tests Test 09/09/21 15:08 09/09/21 15:46 Range/Units White Blood Count 11.1 H 4.3-11.0 10^3/uL Red Blood Count 4.34 4.30-5.52 10^6/uL Hemoglobin 13.7 13.3-17.7 g/dL Hematocrit 41 40-54 % Mean Corpuscular Volume 94 80-99 fL Mean Corpuscular Hemoglobin 32 25-34 pg Mean Corpuscular Hemoglobin Concent 34 32-36 g/dL Red Cell Distribution Width 13.8 10.0-14.5 % Platelet Count 274 130-400 10^3/uL Mean Platelet Volume 9.4 9.0-12.2 fL Immature Granulocyte % (Auto) 1 % Neutrophils (%) (Auto) 72 42-75 % Lymphocytes (%) (Auto) 19 12-44 % Monocytes (%) (Auto) 8 0-12 % Eosinophils (%) (Auto) 1 0-10 % Basophils (%) (Auto) 0 0-10 % Neutrophils # (Auto) 8.0 H 1.8-7.8 X 10^3 Lymphocytes # (Auto) 2.1 1.0-4.0 X 10^3 Monocytes # (Auto) 0.8 0.0-1.0 X 10^3 Eosinophils # (Auto) 0.1 0.0-0.3 10^3/uL Basophils # (Auto) 0.0 0.0-0.1 10^3/uL Immature Granulocyte # (Auto) 0.1 0.0-0.1 10^3/uL Erythrocyte Sedimentation Rate 45 H 0-30 MM/HR Sodium Level 136 135-145 MMOL/L Potassium Level 4.9 3.6-5.0 MMOL/L Chloride Level 99 98-107 MMOL/L Carbon Dioxide Level 23 21-32 MMOL/L Anion Gap 14 5-14 MMOL/L Blood Urea Nitrogen 77 H 7-18 MG/DL Creatinine 3.66 H 0.60-1.30 MG/DL Estimat Glomerular Filtration Rate 19 BUN/Creatinine Ratio 21 Glucose Level 90 70-105 MG/DL Calcium Level 9.8 8.5-10.1 MG/DL Corrected Calcium 9.6 8.5-10.1 MG/DL Magnesium Level 2.2 1.6-2.4 MG/DL Total Bilirubin 0.3 0.1-1.0 MG/DL Aspartate Amino Transf (AST/SGOT) 19 5-34 U/L Alanine Aminotransferase (ALT/SGPT) 22 0-55 U/L Alkaline Phosphatase 79 40-136 U/L C-Reactive Protein High Sensitivity 1.00 H 0.00-0.50 MG/DL Total Protein 7.5 6.4-8.2 GM/DL Albumin 4.2 3.2-4.5 GM/DL Lipase 19 8-78 U/L Urine Color YELLOW Urine Clarity CLEAR Urine pH 5.5 5-9 Urine Specific [place] 1.020 1.016-1.022 Urine Protein NEGATIVE NEGATIVE Urine Glucose (UA) NEGATIVE NEGATIVE Urine Ketones NEGATIVE NEGATIVE Urine Nitrite NEGATIVE NEGATIVE Urine Bilirubin NEGATIVE NEGATIVE Urine Urobilinogen 0.2 < = 1.0 MG/DL Urine Leukocyte Esterase NEGATIVE NEGATIVE Urine RBC (Auto) NEGATIVE NEGATIVE Urine RBC NONE /HPF Urine WBC NONE /HPF Urine Squamous Epithelial Cells NONE /HPF Urine Crystals NONE /LPF Urine Bacteria NEGATIVE /HPF Urine Casts PRESENT /LPF Urine Hyaline Casts 0-2 H /LPF Urine Mucus NEGATIVE /LPF Urine Culture Indicated NO My Orders Orders - SERA DE JESUS Cbc With Automated Diff (09/09/21 15:13) Comprehensive Metabolic Panel (09/09/21 15:13) Magnesium (09/09/21 15:13) Urinalysis (09/09/21 15:13) Lipase (09/09/21 15:13) Hs C Reactive Protein (09/09/21 15:13) Erythrocyte Sedimentation Rate (09/09/21 15:13) Ns Iv 1000 Ml (Sodium Chloride 0.9%) (09/09/21 15:44) Vital Signs/I&O 09/09/21 09/09/21 15:02 18:41 Temp 36.6 Pulse 92 81 Resp 18 B/P (MAP) 103/91 (95) 129/80 Pulse Ox 97 97 Capillary Refill : Departure Communication (PCP) Superficial wound to the right lower leg appears to be healing. He does take Keflex prophylactically. Does not appear cellulitic. Discussed wound care and dressing. Dorsalis pedis and posterior tibialis pulse noted right leg. Warm extremity, cap refill less than 2. No swelling noted. Stasis dermatitis noted to the right lower leg. Continue with wound care at this time. Patient showed lab work of a creatinine of 3.66 BUN 77, GFR 19. Had lab work drawn on 02 September that had a creatinine of 2.96, BUN of 76, GFR 25. Close to his normal baseline however slight worse today. Patient was given a liter of fluid. Symptoms may be result of his chronic kidney disease which may be worsening. He does have a financial administrative assistant Dr. Lund who he is scheduled to follow-up next month. He has no abdominal pain, chest pain, shortness of breath, cough. He reports some mild na usea. He has been having fatigue since diagnosed with COVID 2 months ago. Unlikely he has COVID at this time. Urinalysis was negative for infection. After discussing patient's results concern for his worsening kidney function which may be contributing to his fatigue. States he has had some fatigue since diagnosed COVID which may be residual. not currently a dialysis candidate. Normal electrolytes. Not concern for cellulitis of the right leg. Discussed following up with wound care which he has followed up in the past for wounds. He does have a wound that is very small but healing to his left amputation as he does have a current prosthetic. This area appears to be healing. Patient states he will follow-up outpatient with his financial administrative assistant. Discussed rechecking his kidney function in the next 2 days. If recommend staying hydrated. He states he is urinating. Due to no chest pain, short of breath or cardiac symptoms cardiac work-up was not drawn at this time. Neuro exam unremarkable. If any worsening symptoms return back to ED for further evaluation. Acute on chronic kidney disease. Patient states his creatinine has been fluctuating between 2 and 3. GFR close to normal baseline. Creatinine close to normal baseline however slightly worse today. Impression Primary Impression: Acute on chronic kidney failure Disposition: HOME, SELF-CARE Condition: Stable Departure-Patient Inst. Decision time for Depature: 17:24 Referrals: SERENITY LAMAR MD (PCP/Family) Primary Care Physician Patient Instructions: Kidney Failure (DC) Add. Discharge Instructions: Need to follow-up with your PCP in 2 to 3 days for recheck of your lab work. If any worsening symptoms return back to ED. Recommend follow-up with your financial administrative assistant. Recommend staying hydrated. If increased weakness return back to ED All discharge instructions reviewed with patient and/or family. Voiced understanding. SERA DE JESUS Sep 09, 2021 15:14
[2021-09-09 15:20] LABS: BASOPHILS % (AUTO) 0 % (0-10); EOSINOPHILS # (AUTO) 0.1 10^3/uL (0.0-0.3); EOSINOPHILS % (AUTO) 1 % (0-10); HEMATOCRIT 41 % (40-54); HEMOGLOBIN 13.7 g/dL (13.3-17.7); LYMPHOCYTES # (AUTO) 2.1 X 10^3 (1.0-4.0); LYMPHOCYTES % (AUTO) 19 % (12-44); MEAN CORPUSCULAR HEMOGLOBIN 32 pg (25-34); MEAN CORPUSCULAR HGB CONC 34 g/dL (32-36); MEAN CORPUSCULAR VOLUME 94 fL (80-99); MEAN PLATELET VOLUME 9.4 fL (9.0-12.2); MONOCYTES # (AUTO) 0.8 X 10^3 (0.0-1.0); MONOCYTES % (AUTO) 8 % (0-12); NEUTROPHILS % (AUTO) 72 % (42-75); PLATELET COUNT 274 10^3/uL (130-400); WHITE BLOOD COUNT 11.1 10^3/uL (4.3-11.0)
[2021-09-09 15:37] LABS: ALBUMIN 4.2 GM/DL (3.2-4.5); BILIRUBIN,TOTAL 0.3 MG/DL (0.1-1.0); CALCIUM 9.8 MG/DL (8.5-10.1); CREATININE SERUM 3.66 MG/DL (0.60-1.30); MAGNESIUM 2.2 MG/DL (1.6-2.4); POTASSIUM 4.9 MMOL/L (3.6-5.0); TOTAL PROTEIN 7.5 GM/DL (6.4-8.2)
[2021-09-09] MEDS ORDERED: NS IV 1000 ML 1,000 ML IV STA (15:44)
[2021-09-09 15:46] LABS: ERYTHROCYTE SEDIMENTATION RATE 45 MM/HR (0-30)
[2021-09-09 15:52] LABS: BILIRUBIN,URINE NEGATIVE (NEGATIVE); CLARITY,URINE CLEAR; COLOR,URINE YELLOW; GLUCOSE, URINE (UA) NEGATIVE (NEGATIVE); KETONES,URINE NEGATIVE (NEGATIVE); LEUKOCYTE ESTERASE ,URINE NEGATIVE (NEGATIVE); NITRITE,URINE NEGATIVE (NEGATIVE); PH,URINE 5.5 (5-9); PROTEIN,URINE NEGATIVE (NEGATIVE)
[2021-09-09 16:12] LABS: BACTERIA,URINE NEGATIVE /HPF
[2021-09-09 16:13] LABS: HYALINE CASTS, URINE 0-2 /LPF
[2021-09-09 18:41] VITALS: BP 129/80
== END 2021-09-09 18:41 | disposition home or self-care (01) ==
LOC: EDUNIT# 14:53 → ER 14:55
DX: N17.9 Acute kidney failure, unspecified (principal); I12.9 Hypertensive chronic kidney disease with stage 1 through stage 4 chronic kidney disease, or unspecified chronic kidney disease; E11.22 Type 2 diabetes mellitus with diabetic chronic kidney disease; N18.9 Chronic kidney disease, unspecified; I87.2 Venous insufficiency (chronic) (peripheral); Z86.16 Personal history of COVID-19; Z89.612 Acquired absence of left leg above knee; Z79.4 Long term (current) use of insulin; Z79.84 Long term (current) use of oral hypoglycemic drugs; Z79.899 Other long term (current) drug therapy
CPT/HCPCS: 36415; 80053; 81000; 83690; 83735; 85025; 85652; 86141

== ENCOUNTER → 2021-09-19 | Outpatient (CLI) | payer MEDICARE, MEDICAID ==
--- NOTE | 2021-09-19 16:21 | Diagnostic Imaging Report ---
INDICATION: Low back pain. FINDINGS: Three views of the lumbar spine demonstrate normal curvature. There appears to be some mild anterolisthesis of L5 on S1. Vertebral body heights are maintained. No acute compression fracture is seen. There is multilevel degenerative disc disease with variable disc space narrowing and marginal spurring. Postop changes of the left hip arthroplasty are noted. IMPRESSION: Lumbar spondylosis. No acute bony abnormality is detected. Dictated by: Dictated on workstation # [id number]
== END ==
LOC: RAD 14:11
PROVIDERS: ATTEND Nurse Practitioner Family
DX: M47.816 Spondylosis without myelopathy or radiculopathy, lumbar region (principal)
CPT/HCPCS: 72100

== ENCOUNTER 2021-11-09 12:47 | Emergency (ER) | payer MEDICARE, MEDICAID ==
[~2021-11-09] VITALS: Ht 175 cm; Wt 120.0 kg
[2021-11-09 13:31] LABS: BILIRUBIN,URINE NEGATIVE (NEGATIVE); CLARITY,URINE CLEAR; COLOR,URINE ORANGE; GLUCOSE, URINE (UA) NEGATIVE (NEGATIVE); KETONES,URINE 1+ (NEGATIVE); LEUKOCYTE ESTERASE ,URINE NEGATIVE (NEGATIVE); NITRITE,URINE NEGATIVE (NEGATIVE); PH,URINE 5.5 (5-9); PROTEIN,URINE TRACE (NEGATIVE)
[2021-11-09 13:39] LABS: BACTERIA,URINE TRACE /HPF; SQUAMOUS EPITHELIAL CELL,UR RARE /HPF
[2021-11-09] MEDS ORDERED: cefTRIAXone 1 GM PRE-MIX 50 ML IV ONE (13:45)
[2021-11-09] MEDS ORDERED: NS IV 1000 ML 1,000 ML IV SCH (13:45)
--- NOTE | 2021-11-09 13:47 | ED GU-Male ---
General Chief Complaint: - Reproductive Stated Complaint: UTI SYMPTOMS Nursing Triage Note: Pt here with burning with urination and hesitancy with urination. Pt also reports "feeling tired" for several days. Pt reports an immune disorder. Source: patient Exam Limitations: no limitations History of Present Illness Date Seen by Provider: Nov 09, 2021 Time Seen by Provider: 13:20 Initial Comments Patient is a 51-year-old male who presents to the emergency department today with a chief complaint of some generalized malaise, chills, mild nausea and burning with urination onset after work yesterday. Patient has never had symptoms like this in the past. He endorses some urgency to urinate. He denies any frequency. He is not sexually active and is not concerned for sexually transmitted infection. He does have a history of a "specific antibody disorder" as well as insulin-dependent diabetes. He is on doxycycline 100 mg daily for his antibiotic disorder. He has had no vomiting. No abdominal pain. No rashes, lesions/sores in his genitalia that he reports. Previous left rxzlr-vlx-loui amputation after a wound. He does get chronic skin wounds. He is a non-smoker, occasional alcohol no drug use. Denies any open wounds to any of his skin at this time. Appetite has been okay. No diarrhea. No blood in his stool or blood in his urine. All other review of systems reviewed and negative except as stated Timing/Duration: yesterday Severity/Quality: moderate Location: urethral Radiation: none Activities at Onset: other (after work) Prior Genitourinary Problems: none Sexual [place] History: not active Associated Symptoms: fever/chills, nausea/vomiting (nausea without vomiting) Allergies and Home Medications Allergies Coded Allergies: Sulfa (Sulfonamide Antibiotics) (Verified Allergy, Unknown, 11/09/21) Patient Home Medication List Home Medication List Reviewed: Yes Allopurinol (Allopurinol) 100 Mg Tablet, (Reported) Entered as Reported by: TODD OSBORN on 09/11/18 161 Amlodipine Besylate (Amlodipine Besylate) 5 Mg Tablet, Unknown Dose PO DAILY, (Reported) Entered as Reported by: IRINA BLUM on 11/07/18 1806 Atorvastatin Calcium (Atorvastatin Calcium) 20 Mg Tablet, (Reported) Entered as Reported by: TODD OSBORN on 09/11/18 1616 Carvedilol (Carvedilol) 25 Mg Tablet, (Reported) Entered as Reported by: TODD OSBORN on 09/11/18 161 Cefdinir (Cefdinir) 300 Mg Capsule, 300 MG PO BID Prescribed by: JERARDO REA on 11/09/21 1443 Doxycycline Hyclate (Doxycycline Hyclate) 100 Mg Tablet, 100 MG PO BID Prescribed by: STEPHANIE WATKINS on 11/07/181954 Fluticasone Furoate (Flonase Sensimist) 5.9 Ml [place].susp, 2 SPRAYS NSEACH DAILY Prescribed by: STEPHANIE WATKINS on 11/07/181954 Gemfibrozil (Gemfibrozil) 600 Mg Tablet, 600 MG PO, (Reported) Entered as Reported by: IRINA BLUM on 11/07/181805 Insulin Aspart (Novolog) 100 Unit/1 Ml Susp, Unknown Dose SQ AC, (Reported) Entered as Reported by: IRINA BLUM on 11/07/181805 Insulin Glargine,Hum.rec.anlog (Toujeo Solostar) 300 Unit/1 Ml Insuln.pen, Unknown Dose SQ, (Reported) Entered as Reported by: IRINA BLUM on 11/07/181805 Iron Ps Cmplx/Vit B12/FA (Iferex 150 Forte Capsule) 1 Each Capsule, Unknown Dose PO, (Reported) Entered as Reported by: IRINA BLUM on 11/07/181805 Levalbuterol Tartrate (Xopenex Hfa) 15 Gm Hfa.aer.ad, 1-2 PUFF INH Q6H Prescribed by: FERNANDO PERRIN on 12/08/181712 Montelukast Sodium (Montelukast Sodium) 10 Mg Tablet, (Reported) Entered as Reported by: TODD OSBORN on 09/11/18 161 Prednisone (Prednisone) 20 Mg Tab, 40 MG PO DAILY Prescribed by: FERNANDO PERRIN on 12/08/181712 Prochlorperazine Maleate (Compazine) 10 Mg Tablet, 10 MG PO Q6H Prescribed by: FERNANDO PERRIN on 12/08/181712 Review of Systems Review of Systems Constitutional: see HPI, chills, fever (subjective), malaise EENTM: no symptoms reported Respiratory: no symptoms reported Cardiovascular: no symptoms reported Gastrointestinal: no symptoms reported Genitourinary: burning Musculoskeletal: back pain (chronic) Skin: no symptoms reported Psychiatric/Neurological: No Symptoms Reported All Other Systemes Reviewed Negative Unless Noted: Yes Past Xsssacj-[place]oyukw-Rffdjt Hx Patient Social History Smoking Status: Never a Smoker Substance use?: No Alcohol Use?: No Past Medical History Surgeries: Yes (left iwppa-pch-eupt amputation ) Adenoidectomy, Gallbladder, Orthopedic Respiratory: No Cardiac: Yes High Cholesterol, Hypertension Neurological: No Genitourinary: Yes Renal Failure Gastrointestinal: No Musculoskeletal: Yes Amputee Endocrine: Yes Diabetes, Insulin dep, Diabetes, Non-Insulin dep HEENT: No Cancer: No Psychosocial: No Integumentary: No Blood Disorders: No Adverse Reaction/Blood Tranf: No Family Medical History No Pertinent Family Hx Physical Exam Vital Signs Vital Signs - First Documented 11/09/21 12:54 Temp 37.0 Pulse 92 Resp 20 B/P (MAP) 94/63 (73) Pulse Ox 95 O2 Delivery Room Air Capillary Refill : Less Than 3 Seconds Height, Weight, BMI Height: 5'9.00" Weight: 252lbs. oz. 114.952020ax; 39.00 BMI Method:Stated General Appearance: WD/WN, no apparent distress HEENT: PERRL/EOMI Neck: normal inspection Cardiovascular: regular rate, rhythm (HR 94), other (BP a little under 100 systolic) Respiratory: lungs clear, normal breath sounds, no respiratory distress, no accessory muscle use Gastrointestinal: normal bowel sounds, non tender, other (obese; ) Extremities: normal range of motion, other (left AKA) Neurologic/Psychiatric: alert, normal mood/affect, oriented x 3 Skin: normal color, warm/dry, pallor (slightly pale) Focused Exam Lactate Level 11/09/21 14:00: Lactic Acid Level 0.64 Lactic Acid Level Laboratory Tests Test 11/09/21 14:00 Lactic Acid Level 0.64 MMOL/L (0.50-2.00) Progress/Results/Core Measures Suspected Sepsis SIRS Temperature: Pulse: 92 Respiratory Rate: 20 Laboratory Tests 11/09/21 13:15: White Blood Count 13.4H Blood Pressure 94 /63 Mean: 73 11/09/21 14:00: Lactic Acid Level 0.64 Laboratory Tests 11/09/21 13:15: Creatinine 2.43H, INR Comment 1.2, Platelet Count 245, Total Bilirubin 0.5 Results/Orders Lab Results Laboratory Tests Test 11/09/21 13:00 11/09/21 13:15 11/09/21 14:00 Range/Units Urine Color ORANGE Urine Clarity CLEAR Urine pH 5.5 5-9 Urine Specific [place] 1.025 H 1.016-1.022 Urine Protein TRACE H NEGATIVE Urine Glucose (UA) NEGATIVE NEGATIVE Urine Ketones 1+ H NEGATIVE Urine Nitrite NEGATIVE NEGATIVE Urine Bilirubin NEGATIVE NEGATIVE Urine Urobilinogen 0.2 < = 1.0 MG/DL Urine Leukocyte Esterase NEGATIVE NEGATIVE Urine RBC (Auto) NEGATIVE NEGATIVE Urine RBC NONE /HPF Urine WBC 10-25 H /HPF Urine Squamous Epithelial Cells RARE /HPF Urine Crystals NONE /LPF Urine Bacteria TRACE /HPF Urine Casts NONE /LPF Urine Mucus NEGATIVE /LPF Urine Culture Indicated YES White Blood Count 13.4 H 4.3-11.0 10^3/uL Red Blood Count 4.07 L 4.30-5.52 10^6/uL Hemoglobin 12.9 L 13.3-17.7 g/dL Hematocrit 38 L 40-54 % Mean Corpuscular Volume 93 80-99 fL Mean Corpuscular Hemoglobin 32 25-34 pg Mean Corpuscular Hemoglobin Concent 34 32-36 g/dL Red Cell Distribution Width 14.1 10.0-14.5 % Platelet Count 245 130-400 10^3/uL Mean Platelet Volume 9.9 9.0-12.2 fL Immature Granulocyte % (Auto) 0 % Neutrophils (%) (Auto) 84 H 42-75 % Lymphocytes (%) (Auto) 9 L 12-44 % Monocytes (%) (Auto) 7 0-12 % Eosinophils (%) (Auto) 0 0-10 % Basophils (%) (Auto) 0 0-10 % Neutrophils # (Auto) 11.2 H 1.8-7.8 10^3/uL Lymphocytes # (Auto) 1.1 1.0-4.0 10^3/uL Monocytes # (Auto) 0.9 0.0-1.0 10^3/uL Eosinophils # (Auto) 0.1 0.0-0.3 10^3/uL Basophils # (Auto) 0.0 0.0-0.1 10^3/uL Immature Granulocyte # (Auto) 0.1 0.0-0.1 10^3/uL Prothrombin Time 15.1 H 12.2-14.7 SEC INR Comment 1.2 0.8-1.4 Activated Partial Thromboplast Time 40 H 24-35 SEC Sodium Level 135 135-145 MMOL/L Potassium Level 4.2 3.6-5.0 MMOL/L Chloride Level 103 98-107 MMOL/L Carbon Dioxide Level 18 L 21-32 MMOL/L Anion Gap 14 5-14 MMOL/L Blood Urea Nitrogen 51 H 7-18 MG/DL Creatinine 2.43 H 0.60-1.30 MG/DL Estimat Glomerular Filtration Rate 31 BUN/Creatinine Ratio 21 Glucose Level 195 H 70-105 MG/DL Calcium Level 10.2 H 8.5-10.1 MG/DL Corrected Calcium 10.2 H 8.5-10.1 MG/DL Total Bilirubin 0.5 0.1-1.0 MG/DL Aspartate Amino Transf (AST/SGOT) 15 5-34 U/L Alanine Aminotransferase (ALT/SGPT) 16 0-55 U/L Alkaline Phosphatase 78 40-136 U/L Total Protein 8.0 6.4-8.2 GM/DL Albumin 4.0 3.2-4.5 GM/DL Lactic Acid Level 0.64 0.50-2.00 MMOL/L My Orders Orders - JERARDO REA MD Ua Culture If Indicated (11/09/21 13:26) Urine Culture (11/09/21 13:00) Cbc With Automated Diff (11/09/21 13:44) Comprehensive Metabolic Panel (11/09/21 13:44) Blood Culture (11/09/21 13:44) Sputum Culture (11/09/21 13:44) Protime With Inr (11/09/21 13:44) Partial Thromboplastin Time (11/09/21 13:44) Chest 1 View, Ap/Pa Only (11/09/21 13:44) Ed Iv/Invasive Line Start (11/09/21 13:44) Ed Iv/Invasive Line Start (11/09/21 13:44) Vital Signs Adult Sepsis Patie Q15M (11/09/21 13:44) O2 (11/09/21 13:44) Remove Rings In Anticipation O (11/09/21 13:44) Lactic Acid Analyzer (11/09/21 13:44) Ns Iv 1000 Ml (Sodium Chloride 0.9%) (11/09/21 13:45) Ceftriaxone 1 Gm Pre-Mix (Rocephin 1 Gm (11/09/21 13:45) Medications Given in ED Current Medications Medications Dose Ordered Sig/Ynes Route Start Time Stop Time Status Last Admin Dose Admin Ceftriaxone Sodium/Dextrose 50 ml @ 100 mls/hr ONCE ONCE IV 11/09/21 13:45 11/09/21 14:14 DC 11/09/21 14:03 100 MLS/HR Vital Signs/I&O 11/09/21 12:54 Temp 37.0 Pulse 92 Resp 20 B/P (MAP) 94/63 (73) Pulse Ox 95 O2 Delivery Room Air Capillary Refill : Less Than 3 Seconds Blood Pressure Mean: 73 Progress Note : Time: 14:40 Progress Note Patient reassessed after fluids and antibiotics. He is comfortable, vitals are stable. I have communicated with him all of his lab results. He does have a mild leukocytosis with evidence of urinary tract infection on urinalysis. Chest x-ray is unremarkable. Lactic acid is 0.6. His renal function is actually a little improved from his last visit at the beginning of September 2021. I discussed the results also with his mother who is at the bedside. He has been given 1 g of Rocephin IV we will send him home on cefdinir 300 mg twice a day for 7 days. He is advised that we will call him if the sensitivities on his culture show a need for an antibiotic change. He has no clinical or objective findings to warrant further stufdy from the ED. No sepsis has been identified. Return precautions are also discussed. All questions are sought and answered. Patient is stable for discharge. Departure Impression Primary Impression: Urinary tract infection Qualified Codes: N30.00 - Acute cystitis without hematuria Additional Impressions: Hyperglycemia due to diabetes mellitus Chronic kidney disease (CKD) Qualified Codes: N18.9 - Chronic kidney disease, unspecified Disposition: 01 HOME, SELF-CARE Condition: Stable Departure-Patient Inst. Decision time for Depature: 14:42 Referrals: SERENITY LAMAR MD (PCP/Family) Primary Care Physician Patient Instructions: Urinary Tract Infection, Adult (DC) Add. Discharge Instructions: Drink plenty of fluids to stay well-hydrated over the next several days while you take your antibiotic course. Omnicef 300 mg twice a day for 7 days. You can start this medication tomorrow on November 10. Svvk-hbh-xyxcojq extra strength Tylenol 2 tablets every 6 hours as needed for any temperature over 100.4, body aches, etc. If after 2 days of antibiotics you are continuing to worsen, develop a fever, nausea vomiting or any other emergent, concerning symptoms please come back to the emergency room for reevaluation. Please follow-up with your kidney specialist as scheduled. Scripts Cefdinir (Cefdinir) 300 Mg Capsule 300 MG PO BID, #14 CAP Prov: JERARDO REA MD 11/09/21 JERARDO REA MD Nov 09, 2021 13:47
[2021-11-09 13:50] LABS: BASOPHILS % (AUTO) 0 % (0-10); EOSINOPHILS # (AUTO) 0.1 10^3/uL (0.0-0.3); EOSINOPHILS % (AUTO) 0 % (0-10); HEMATOCRIT 38 % (40-54); HEMOGLOBIN 12.9 g/dL (13.3-17.7); LYMPHOCYTES # (AUTO) 1.1 10^3/uL (1.0-4.0); LYMPHOCYTES % (AUTO) 9 % (12-44); MEAN CORPUSCULAR HEMOGLOBIN 32 pg (25-34); MEAN CORPUSCULAR HGB CONC 34 g/dL (32-36); MEAN CORPUSCULAR VOLUME 93 fL (80-99); MEAN PLATELET VOLUME 9.9 fL (9.0-12.2); MONOCYTES # (AUTO) 0.9 10^3/uL (0.0-1.0); MONOCYTES % (AUTO) 7 % (0-12); NEUTROPHILS # (AUTO) 11.2 10^3/uL (1.8-7.8); NEUTROPHILS % (AUTO) 84 % (42-75); PLATELET COUNT 245 10^3/uL (130-400); WHITE BLOOD COUNT 13.4 10^3/uL (4.3-11.0)
[2021-11-09 13:56] LABS: INR 1.2 (0.8-1.4); POTASSIUM 4.2 MMOL/L (3.6-5.0); PROTHROMBIN TIME PATIENT 15.1 SEC (12.2-14.7)
[2021-11-09 13:57] LABS: CALCIUM 10.2 MG/DL (8.5-10.1)
[2021-11-09 14:00] LABS: BILIRUBIN,TOTAL 0.5 MG/DL (0.1-1.0)
[2021-11-09 14:02] LABS: CREATININE SERUM 2.43 MG/DL (0.60-1.30)
--- NOTE | 2021-11-09 14:41 | Diagnostic Imaging Report ---
Indication: Dysuria. Comparison: None. Discussion: Single portable upright view of the chest was obtained. Low lung volumes. Cardiomegaly. No consolidation, pleural fluid or pneumothorax. No osseous abnormality. Impression: No acute cardiopulmonary process. Dictated by: Dictated on workstation # [id number]
[2021-11-09] MEDS ORDERED: CEFD300C3 PO ×2 (14:43→14:47)
[2021-11-09 14:52] VITALS: BP 124/67
== END 2021-11-09 14:52 | disposition home or self-care (01) ==
LOC: EDUNIT# 12:47 → ER 12:50
DX: E11.22 Type 2 diabetes mellitus with diabetic chronic kidney disease (principal); I12.9 Hypertensive chronic kidney disease with stage 1 through stage 4 chronic kidney disease, or unspecified chronic kidney disease; N18.9 Chronic kidney disease, unspecified; E11.65 Type 2 diabetes mellitus with hyperglycemia; N39.0 Urinary tract infection, site not specified; Z79.4 Long term (current) use of insulin
CPT/HCPCS: 36415; 71045; 80053; 81000; 83605; 85025; 85610; 85730; 87040; 87077; 87088; 87186

== ENCOUNTER 2021-12-06 22:05 | Observation (INO) | payer MEDICARE, MEDICAID ==
[~2021-12-06] VITALS: Ht 175.3 cm; Wt 115.9 kg
[~2021-12-06 22:05] MED LIST changes: +CEFD300C3 PO
[2021-12-06] MEDS ORDERED: ONDANSETRON 4 MG/2 ML (SDV) Z0FRAN IVP ONE (22:45)
[2021-12-06 22:49] LABS: BILIRUBIN,URINE NEGATIVE (NEGATIVE); CLARITY,URINE CLEAR; COLOR,URINE YELLOW; GLUCOSE, URINE (UA) NEGATIVE (NEGATIVE); KETONES,URINE NEGATIVE (NEGATIVE); LEUKOCYTE ESTERASE ,URINE NEGATIVE (NEGATIVE); NITRITE,URINE NEGATIVE (NEGATIVE); PH,URINE 5.5 (5-9); PROTEIN,URINE 1+ (NEGATIVE)
--- NOTE | 2021-12-06 22:49 | ED Abdominal Pain ---
General Chief Complaint: Abdominal/GI Problems Stated Complaint: MID BACK PAIN,ABD BLOATING/BELCHING,NAUSEA Nursing Triage Note: PT ARRIVAL TO ER VIA WHEELCHAIR VIA PRIVATE VEHICLE WITH COMPLAINTS OF ABDOMINAL PAIN, BACK PAIN, NAUSEA X3 DAYS. PAIN IS A 9/10 AND DESCRIBED SHARP. PATIENT HAS BEEN NAUSEATED, BUT NO VOMITING. NORMAL BOWELS, AND NO DIFFICULTY URINATING. Source of Information: Patient Exam Limitations: No Limitations History of Present Illness Date Seen by Provider: Dec 06, 2021 Time Seen by Provider: 22:40 Initial Comments This 51-year-old gentleman presents to the emergency room with complaints of 3 days of worsening back pain beneath the right shoulder, bloating, gas, belching, and upper abdominal pain. The abdominal pain feels like a constant cramp. He has taken Zofran at home. He has lost his appetite. He has no gallbladder and gives a history of pancreatitis after his cholecystectomy. Allergies and Home Medications Allergies Coded Allergies: Sulfa (Sulfonamide Antibiotics) (Verified Allergy, Unknown, 11/09/21) Patient Home Medication List Home Medication List Reviewed: Yes Allopurinol (Allopurinol) 100 Mg Tablet, (Reported) Entered as Reported by: TODD OSBORN on 09/11/18 161 Amlodipine Besylate (Amlodipine Besylate) 5 Mg Tablet, Unknown Dose PO DAILY, (Reported) Entered as Reported by: IRINA BLUM on 11/07/18 180 Atorvastatin Calcium (Atorvastatin Calcium) 20 Mg Tablet, (Reported) Entered as Reported by: TODD OSBORN on 09/11/18 161 Carvedilol (Carvedilol) 25 Mg Tablet, (Reported) Entered as Reported by: TODD OSBORN on 09/11/18 161 Cefdinir (Cefdinir) 300 Mg Capsule, 300 MG PO BID Prescribed by: JERARDO REA on 11/09/21 1447 Doxycycline Hyclate (Doxycycline Hyclate) 100 Mg Tablet, 100 MG PO BID Prescribed by: STEPHANIE WATKINS on 11/07/181954 Fluticasone Furoate (Flonase Sensimist) 5.9 Ml [place].susp, 2 SPRAYS NSEACH DAILY Prescribed by: STEPHANIE WATKINS on 11/07/181954 Gemfibrozil (Gemfibrozil) 600 Mg Tablet, 600 MG PO, (Reported) Entered as Reported by: IRINA BLUM on 11/07/181805 Insulin Aspart (Novolog) 100 Unit/1 Ml Susp, Unknown Dose SQ AC, (Reported) Entered as Reported by: IRINA BLUM on 11/07/181805 Insulin Glargine,Hum.rec.anlog (Toujeo Solostar) 300 Unit/1 Ml Insuln.pen, Unknown Dose SQ, (Reported) Entered as Reported by: IRINA BLUM on 11/07/181805 Iron Ps Cmplx/Vit B12/FA (Iferex 150 Forte Capsule) 1 Each Capsule, Unknown Dose PO, (Reported) Entered as Reported by: IRINA BLUM on 11/07/181805 Levalbuterol Tartrate (Xopenex Hfa) 15 Gm Hfa.aer.ad, 1-2 PUFF INH Q6H Prescribed by: FERNANDO PERRIN on 12/08/181712 Montelukast Sodium (Montelukast Sodium) 10 Mg Tablet, (Reported) Entered as Reported by: TODD OSBORN on 09/11/18 161 Prednisone (Prednisone) 20 Mg Tab, 40 MG PO DAILY Prescribed by: FERNANDO PERRIN on 12/08/181712 Prochlorperazine Maleate (Compazine) 10 Mg Tablet, 10 MG PO Q6H Prescribed by: FERNANDO PERRIN on 12/08/181712 Review of Systems Review of Systems Constitutional: no symptoms reported EENTM: No Symptoms Reported Respiratory: No Symptoms Reported Cardiovascular: No Symptoms Reported Gastrointestinal: See HPI Genitourinary: No Symptoms Reported Musculoskeletal: no symptoms reported Skin: no symptoms reported Psychiatric/Neurological: No Symptoms Reported Endocrine: No Symptoms Reported Hematologic/Lymphatic: No Symptoms Reported Past Bkwnkyd-Utxuqe-Aobfql Hx Patient Social History Tobacco Use?: No Use of E-Cig and/or Vaping dev: No Substance use?: No Alcohol Use?: No Pt feels they are or have been: No Immunizations Up To Date Influenza Vaccine Up-to-Date: No; Not Current COVID19 Vaccine 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: MODERNRaymundo Past Medical History Surgeries: Yes (left ogqtw-cak-pinw amputation ) Adenoidectomy, Amputation (Left BKA), Eye Surgery, Gallbladder, Orthopedic (Slipped femoral epiphysis, bilateral carpal tunnel) Respiratory: No Cardiac: Yes High Cholesterol, Hypertension Neurological: Yes Neuropathy Genitourinary: Yes Renal Failure (Chronic kidney disease) Gastrointestinal: Yes Pancreatitis Musculoskeletal: Yes Amputee, Arthritis (Psoriatic arthritis), Gout Endocrine: Yes Diabetes, Insulin dep, Diabetes, Non-Insulin dep HEENT: Yes (Diabetic retinopathy) Cancer: No Psychosocial: No Integumentary: Yes (Psoriatic arthritis) Blood Disorders: No Adverse Reaction/Blood Tranf: No Family Medical History No Pertinent Family Hx Physical Exam Vital Signs Vital Signs - First Documented 12/06/21 22:10 Temp 36.5 Pulse 84 Resp 20 B/P (MAP) 146/85 (105) Pulse Ox 98 O2 Delivery Room Air Capillary Refill : Less Than 3 Seconds Height/Weight/BMI Height: 5'9.00" Weight: 252lbs. oz. 114.365066ib; 39.00 BMI Method:Stated General Appearance: WD/WN, mild distress, obese HEENT: PERRL/EOMI, normal ENT inspection Neck: normal inspection Respiratory: lungs clear, normal breath sounds, no respiratory distress Cardiovascular: regular rate, rhythm, no edema, no murmur Gastrointestinal: tenderness (Across the upper abdomen), other (Obese abdomen, somewhat firm) Extremities: other (Left BKA) Back: normal inspection, CVA tenderness (R); No CVA tenderness (L) Neurologic/Psychiatric: no motor/sensory deficits, alert, normal mood/affect, oriented x 3 Skin: normal color, warm/dry Progress/Results/Core Measures Results/Orders Lab Results Laboratory Tests Test 12/06/21 22:20 Range/Units White Blood Count 9.1 4.3-11.0 10^3/uL Red Blood Count 4.12 L 4.30-5.52 10^6/uL Hemoglobin 13.0 L 13.3-17.7 g/dL Hematocrit 39 L 40-54 % Mean Corpuscular Volume 96 80-99 fL Mean Corpuscular Hemoglobin 32 25-34 pg Mean Corpuscular Hemoglobin Concent 33 32-36 g/dL Red Cell Distribution Width 14.8 H 10.0-14.5 % Platelet Count 264 130-400 10^3/uL Mean Platelet Volume 9.8 9.0-12.2 fL Immature Granulocyte % (Auto) 0 % Neutrophils (%) (Auto) 72 42-75 % Lymphocytes (%) (Auto) 16 12-44 % Monocytes (%) (Auto) 9 0-12 % Eosinophils (%) (Auto) 2 0-10 % Basophils (%) (Auto) 1 0-10 % Neutrophils # (Auto) 6.5 1.8-7.8 10^3/uL Lymphocytes # (Auto) 1.5 1.0-4.0 10^3/uL Monocytes # (Auto) 0.8 0.0-1.0 10^3/uL Eosinophils # (Auto) 0.2 0.0-0.3 10^3/uL Basophils # (Auto) 0.1 0.0-0.1 10^3/uL Immature Granulocyte # (Auto) 0.0 0.0-0.1 10^3/uL Urine Color YELLOW Urine Clarity CLEAR Urine pH 5.5 5-9 Urine Specific [place] 1.025 H 1.016-1.022 Urine Protein 1+ H NEGATIVE Urine Glucose (UA) NEGATIVE NEGATIVE Urine Ketones NEGATIVE NEGATIVE Urine Nitrite NEGATIVE NEGATIVE Urine Bilirubin NEGATIVE NEGATIVE Urine Urobilinogen 0.2 < = 1.0 MG/DL Urine Leukocyte Esterase NEGATIVE NEGATIVE Urine RBC (Auto) NEGATIVE NEGATIVE Urine RBC RARE /HPF Urine WBC 2-5 /HPF Urine Crystals NONE /LPF Urine Bacteria FEW H /HPF Urine Casts PRESENT /LPF Urine Hyaline Casts RARE /LPF Urine Mucus NEGATIVE /LPF Urine Culture Indicated YES Sodium Level 135 135-145 MMOL/L Potassium Level 4.8 3.6-5.0 MMOL/L Chloride Level 102 98-107 MMOL/L Carbon Dioxide Level 17 L 21-32 MMOL/L Anion Gap 16 H 5-14 MMOL/L Blood Urea Nitrogen 31 H 7-18 MG/DL Creatinine 1.90 H 0.60-1.30 MG/DL Estimat Glomerular Filtration Rate 42 BUN/Creatinine Ratio 16 Glucose Level 179 H 70-105 MG/DL Calcium Level 9.9 8.5-10.1 MG/DL Corrected Calcium 9.7 8.5-10.1 MG/DL Total Bilirubin 0.4 0.1-1.0 MG/DL Aspartate Amino Transf (AST/SGOT) 21 5-34 U/L Alanine Aminotransferase (ALT/SGPT) 19 0-55 U/L Alkaline Phosphatase 73 40-136 U/L C-Reactive Protein High Sensitivity 3.96 H 0.00-0.50 MG/DL Total Protein 7.4 6.4-8.2 GM/DL Albumin 4.3 3.2-4.5 GM/DL Lipase 226 H 8-78 U/L My Orders Orders - LORETA BAJWA MD Cbc With Automated Diff (12/06/21 22:40) Comprehensive Metabolic Panel (12/06/21 22:40) Hs C Reactive Protein (12/06/21 22:40) Lipase (12/06/21 22:40) Ua Culture If Indicated (12/06/21 22:40) Ed Iv/Invasive Line Start (12/06/21 22:40) Ondansetron Injection (Zofran Injectio (12/06/21 22:45) Fentanyl Inj (Sublimaze Injection) (12/06/21 23:00) Lactated Ringers (Lr 1000 Ml Iv Solution (12/06/21 23:00) Ct Abdomen/Pelvis Wo (12/06/21 22:49) Urine Culture (12/06/21 22:20) Medications Given in ED Current Medications Medications Dose Ordered Sig/Ynes Route Start Time Stop Time Status Last Admin Dose Admin Fentanyl Citrate 75 mcg ONCE ONCE IVP 12/06/21 23:00 12/06/21 23:01 DC 12/06/21 22:56 75 MCG Lactated Ringer's 1,000 ml @ 0 mls/hr Q0M ONCE IV 12/06/21 23:00 12/06/21 23:01 DC 12/06/21 22:55 1,000 MLS/HR Ondansetron HCl 8 mg ONCE ONCE IVP 12/06/21 22:45 12/06/21 22:46 DC 12/06/21 22:55 8 MG Vital Signs/I&O 12/06/21 22:10 Temp 36.5 Pulse 84 Resp 20 B/P (MAP) 146/85 (105) Pulse Ox 98 O2 Delivery Room Air Blood Pressure Mean: 105 Progress Progress Note : Progress Note Symptoms were treated with Zofran and fentanyl with much improvement. CT was obtained which demonstrated some slight perinephric stranding on the right. Although not identified by the radiologist, my interpretation suggests inflammatory changes around the pancreatic head. This correlates with patient's symptoms and elevated lipase. Patient was offered admission for symptom control which he accepted. He was concerned that he would not be able to manage symptoms at home. Patient requested modified CODE STATUS with no cardiac code but intubation permitted. Diagnostic Imaging Diagonstic Imaging: CT Plain Films/CT/US/NM/MRI: abdomen, pelvis Comments CT abdomen pelvis viewed by me and report reviewed. See report below: NAME: CARINA DOWNS III [facility] REC#: [id number] PT STATUS: ADM Mervin : 1970 PHYSICIAN: LORETA BAJWA MD ADMIT DATE: 12/07/21 Draft Date of Exam:12/06/21 CT ABDOMEN/PELVIS WO PROCEDURE: CT abdomen and pelvis without contrast. TECHNIQUE: Multiple contiguous axial images were obtained through the abdomen and pelvis without the use of intravenous contrast. Auto Exposure Controls were utilized during the CT exam to meet ALARA standards for radiation dose reduction. INDICATION: Abdominal pain. Nausea. COMPARISON: 09/11/2018. FINDINGS: Airspace consolidation in the left lung base likely due to atelectasis from elevation of left hemidiaphragm. Diffuse fatty infiltration of the liver. Cholecystectomy. The liver, pancreas, spleen, adrenals, collecting systems and bladder are negative on this noncontrast exam. Mild stranding about the kidneys. No evidence of appendicitis. No free intraperitoneal air or fluid. No lymphadenopathy. No evidence of bowel obstruction. Moderate to advanced spondylotic changes in the lumbar spine likely result in high-grade spinal canal stenosis including L3-L4 and L4-L5. No acute osseous findings. Left TERRANCE. IMPRESSION: 1. Elevation left hemidiaphragm and atelectasis in left lung base. 2. Hepatic steatosis. 3. Nonspecific mild stranding about both kidneys without hydronephrosis. Findings may be chronic or due to infectious/inflammatory process. Recommend correlation with urinalysis. 4. Spondylotic changes likely result in high-grade spinal canal stenosis in the lumbar spine. This could be better evaluated with MRI if clinically warranted. Dictated on workstation # [id number] Dict: 12/07/21720 Trans: 12/07/21730 [id number] Interpreted by: AKIKO SMITH MD Departure Communication (Admissions) Time/Spoke to Admitting Phy: 00:45 Dr. Do Impression Primary Impression: Acute pancreatitis Qualified Codes: K85.90 - Acute pancreatitis without necrosis or infection, unspecified Additional Impressions: Abdominal pain Qualified Codes: R10.10 - Upper abdominal pain, unspecified Nausea Disposition: ADMITTED INPATIENT Condition: Improved Admissions Decision to Admit Reason: Admit from ER (General) Decision to Admit/Date: Dec 07, 2021 Time/Decision to Admit Time: 00:45 Departure-Patient Inst. Referrals: SERENITY LAMAR MD (PCP/Family) Primary Care Physician Copy Copies To 1: SERENITY LAMAR MD, JOSHUA T MD Dec 06, 2021 22:49
[2021-12-06 22:51] LABS: BASOPHILS # (AUTO) 0.1 10^3/uL (0.0-0.1); BASOPHILS % (AUTO) 1 % (0-10); EOSINOPHILS # (AUTO) 0.2 10^3/uL (0.0-0.3); EOSINOPHILS % (AUTO) 2 % (0-10); HEMATOCRIT 39 % (40-54); LYMPHOCYTES # (AUTO) 1.5 10^3/uL (1.0-4.0); LYMPHOCYTES % (AUTO) 16 % (12-44); MEAN CORPUSCULAR HEMOGLOBIN 32 pg (25-34); MEAN CORPUSCULAR HGB CONC 33 g/dL (32-36); MEAN CORPUSCULAR VOLUME 96 fL (80-99); MEAN PLATELET VOLUME 9.8 fL (9.0-12.2); MONOCYTES # (AUTO) 0.8 10^3/uL (0.0-1.0); MONOCYTES % (AUTO) 9 % (0-12); NEUTROPHILS # (AUTO) 6.5 10^3/uL (1.8-7.8); NEUTROPHILS % (AUTO) 72 % (42-75); PLATELET COUNT 264 10^3/uL (130-400); WHITE BLOOD COUNT 9.1 10^3/uL (4.3-11.0)
[2021-12-06 22:59] LABS: BACTERIA,URINE FEW /HPF; HYALINE CASTS, URINE RARE /LPF; RBC,URINE RARE /HPF
[2021-12-06] MEDS ORDERED: fentaNYL INJ 100 MCG/2 ML AMP IVP ONE (23:00)
[2021-12-06] MEDS ORDERED: LACTATED RINGERS 1,000 ML IV ONE (23:00)
[2021-12-06 23:03] LABS: ALBUMIN 4.3 GM/DL (3.2-4.5); BILIRUBIN,TOTAL 0.4 MG/DL (0.1-1.0); CALCIUM 9.9 MG/DL (8.5-10.1); CREATININE SERUM 1.9 MG/DL (0.60-1.30); POTASSIUM 4.8 MMOL/L (3.6-5.0); TOTAL PROTEIN 7.4 GM/DL (6.4-8.2)
[2021-12-07 01:50] VITALS: BP 145/80
[2021-12-07] MEDS: ONDANSETRON 4 MG/2 ML (SDV) Z0FRAN IVP PRN ×5 (02:50→21:21)
[2021-12-07] MEDS: LACTATED RINGERS 1,000 ML IV SCH ×3 (02:50→18:04)
[2021-12-07] MEDS: fentaNYL INJ 100 MCG/2 ML AMP IVP PRN ×5 (02:51→12:12)
[2021-12-07 03:19] VITALS: BP 136/77
[2021-12-07 05:59] LABS: BASOPHILS % (AUTO) 1 % (0-10); EOSINOPHILS # (AUTO) 0.1 10^3/uL (0.0-0.3); EOSINOPHILS % (AUTO) 1 % (0-10); HEMATOCRIT 37 % (40-54); HEMOGLOBIN 12.2 g/dL (13.3-17.7); LYMPHOCYTES # (AUTO) 1.2 10^3/uL (1.0-4.0); LYMPHOCYTES % (AUTO) 17 % (12-44); MEAN CORPUSCULAR HEMOGLOBIN 31 pg (25-34); MEAN CORPUSCULAR HGB CONC 33 g/dL (32-36); MEAN CORPUSCULAR VOLUME 96 fL (80-99); MEAN PLATELET VOLUME 9.6 fL (9.0-12.2); MONOCYTES # (AUTO) 0.6 10^3/uL (0.0-1.0); MONOCYTES % (AUTO) 9 % (0-12); NEUTROPHILS % (AUTO) 72 % (42-75); PLATELET COUNT 216 10^3/uL (130-400)
[2021-12-07 06:15] LABS: ALBUMIN 3.9 GM/DL (3.2-4.5); POTASSIUM 4.6 MMOL/L (3.6-5.0)
[2021-12-07 06:16] LABS: CALCIUM 9.9 MG/DL (8.5-10.1)
[2021-12-07 06:17] LABS: TOTAL PROTEIN 7.4 GM/DL (6.4-8.2)
[2021-12-07 06:19] LABS: BILIRUBIN,TOTAL 0.3 MG/DL (0.1-1.0)
[2021-12-07 06:21] LABS: CREATININE SERUM 1.89 MG/DL (0.60-1.30)
--- NOTE | 2021-12-07 07:32 | Diagnostic Imaging Report ---
PROCEDURE: CT abdomen and pelvis without contrast. TECHNIQUE: Multiple contiguous axial images were obtained through the abdomen and pelvis without the use of intravenous contrast. Auto Exposure Controls were utilized during the CT exam to meet ALARA standards for radiation dose reduction. INDICATION: Abdominal pain. Nausea. COMPARISON: 09/11/2018. FINDINGS: Airspace consolidation in the left lung base likely due to atelectasis from elevation of left hemidiaphragm. Diffuse fatty infiltration of the liver. Cholecystectomy. The liver, pancreas, spleen, adrenals, collecting systems and bladder are negative on this noncontrast exam. Mild stranding about the kidneys. No evidence of appendicitis. No free intraperitoneal air or fluid. No lymphadenopathy. No evidence of bowel obstruction. Moderate to advanced spondylotic changes in the lumbar spine likely result in high-grade spinal canal stenosis including L3-L4 and L4-L5. No acute osseous findings. Left TERRANCE. IMPRESSION: 1. Elevation left hemidiaphragm and atelectasis in left lung base. 2. Hepatic steatosis. 3. Nonspecific mild stranding about both kidneys without hydronephrosis. Findings may be chronic or due to infectious/inflammatory process. Recommend correlation with urinalysis. 4. Spondylotic changes likely result in high-grade spinal canal stenosis in the lumbar spine. This could be better evaluated with MRI if clinically warranted. Dictated by: Dictated on workstation # [id number]
[2021-12-07 08:32] VITALS: BP 158/83
[2021-12-07] MEDS: PROMETHAZINE INJ 25 MG/ML (PHENERGAN) AMP IVP PRN ×2 (10:40→19:01)
[2021-12-07 12:23] VITALS: BP 153/87
[2021-12-07] MEDS: inSUlin ASPART (NovoLOG) 1 UNIT/0.01 ML (CHARGE PER UNIT) SC SCH ×2 (13:54→18:29)
[2021-12-07] MEDS: HYDROmorphone 2 MG/ML VIAL (DILAUDID) IV PRN ×3 (13:55→21:14)
[2021-12-07 15:52] VITALS: BP 137/83
--- NOTE | 2021-12-07 18:41 | History & Physical-Hospitalist ---
History of Present Illness HPI/Chief Complaint Gerardo Vaca III is a 51 year old male with PMH HTN, T2DM on insulin, HLD, CKD 3b, severe spinal stenosis, gout, psoriasis, immunodeficiency, who presented with abdominal pain. He reports a cramping pain in his mid abdomen. He also has had pain in his back. He does not think it was radiation of the abdominal pain. He has also had belching which improved the pain. He had a cholecystectomy in the past and developed pancreatitis afterward. Source: patient Exam Limitations: no limitations Date Seen 12/07/21 Time Seen by a Provider: 11:20 Attending Physician Kd Russ MD PCP Admitting Physician: Angel Luis Estrella MD Attending Physician: Angel Luis Estrella MD Referring Physician Date of Admission Dec 07, 2021 at 00:45 Home Medications & Allergies Home Medications Reviewed patient Home Medication Reconciliation performed by pharmacy medication reconciliations central service technician and/or nursing. Patients Allergies have been reviewed. Allergies Allergies Coded Allergies Sulfa (Sulfonamide Antibiotics) (Verified Allergy, Unknown, 11/09/21) Past Ocimsyp-Wqbomy-Lmxvaa Hx Patient Social History Tobacco Use?: No Smoking Status: Never a Smoker Smokeless Tobacco Frequency: Never a User Use of E-Cig and/or Vaping dev: No Substance use?: No Alcohol Use?: No Pt feels they are or have been: No Immunizations Up To Date Tetanus Booster (TDap): Unknown Hepatitis A: No Hepatitis B: No Current Status Advance Directives: No Communicates: Verbally Primary Language: Bolivian Preferred Spoken Language: Bolivian Is interpretation needed?: No Sensory deficits: Vision impairment Implanted or Applied Medical D: Orthopedic hardware Past Medical History Surgeries: Adenoidectomy, Amputation (Left BKA), Eye Surgery, Gallbladder, Orthopedic (Slipped femoral epiphysis, bilateral carpal tunnel) High Cholesterol, Hypertension Neuropathy Renal Failure (Chronic kidney disease) Pancreatitis Amputee, Arthritis (Psoriatic arthritis), Gout Diabetes, Insulin dep, Diabetes, Non-Insulin dep Blood Disorders: No Adverse Reaction/Blood Tranf: No Family Medical History No Pertinent Family Hx Review of Systems Constitutional: no symptoms reported EENTM: no symptoms reported Respiratory: no symptoms reported Cardiovascular: no symptoms reported Gastrointestinal: abdominal pain, nausea Physical Exam Physical Exam Vital Signs Vital Signs - First Documented 12/06/21 12/07/21 22:10 08:00 Temp 36.5 Pulse 84 Resp 20 B/P (MAP) 146/85 (105) Pulse Ox 98 O2 Delivery Room Air O2 Flow Rate 2.00 Capillary Refill : Less Than 3 Seconds Height, Weight, BMI Height: 5'9.00" Weight: 252lbs. oz. 114.257982ca; 37.71 BMI Method:Stated General Appearance: No Apparent Distress, Obese HEENT: PERRL/EOMI, Pharynx Normal Neck: Normal Inspection, Supple Respiratory: Lungs Clear, No Respiratory Distress Cardiovascular: Regular Rate, Rhythm, No Murmur Gastrointestinal: Normal Bowel Sounds, Soft, Tenderness Extremity: Pedal Edema, Other (left BKA) Neurologic/Psychiatric: Alert, Normal Mood/Affect Skin: Normal Color, Warm/Dry Results Results/Procedures Labs Laboratory Tests 12/06/21 22:20 12/07/21 05:47 Patient resulted labs reviewed. Imaging: Reviewed Imaging Report Assessment/Plan Admission Diagnosis Acute pancreatitis Admission Status: Observation Assessment and Plan Acute pancreatitis Epigastric pain and elevated lipase CT without evidence of pancreatitis, severe spinal stenosis, bilateral mild kidney stranding without hydronephrosis UA negative IV fluids Pain regimen Antiemetics NPO, advance to clears as tolerated Severe spinal stenosis Following with Dr. Damico Surgery planned in January CKD 3b IV fluids Monitor T2DM Sliding scale insulin HTN Gout Immunodeficiency Psoriasis Continue home meds DVT prophylaxis: Lovenox Diagnosis/Problems Diagnosis/Problems (1) Acute pancreatitis Status: Acute Qualifiers: Pancreatitis type: unspecified pancreatitis type Acute pancreatitis complication: no infection or necrosis Qualified Codes: K85.90 - Acute pancreatitis without necrosis or infection, unspecified (2) Spinal stenosis of lumbar region Status: Chronic Qualifiers: Neurogenic claudication status: with neurogenic claudication Qualified Codes: M48.062 - Spinal stenosis, lumbar region with neurogenic claudication (3) Stage 3b chronic kidney disease Status: Chronic (4) T2DM (type 2 diabetes mellitus) Status: Chronic Qualifiers: Diabetes mellitus terminologist insulin use: with terminologist use Diabetes mellitus complication status: with kidney complications Diabetes mellitus complication detail: with chronic kidney disease Chronic kidney disease stage: stage 3 (moderate) Chronic kidney disease stage 3 subtype: stage 3b (GFR 30- 44) Qualified Codes: E11.22 - Type 2 diabetes mellitus with diabetic chronic kidney disease; N18.32 - Chronic kidney disease, stage 3b; Z79.4 - director long term care (current) use of insulin (5) HTN (hypertension) Status: Chronic Qualifiers: Hypertension type: primary hypertension Qualified Codes: I10 - Essential (primary) hypertension (6) Gout Status: Chronic (7) Immunodeficiency Status: Chronic (8) Psoriasis Status: Chronic ANGEL LUIS ESTRELLA MD Dec 07, 2021 18:41
[2021-12-07 20:00] VITALS: BP 163/84
[2021-12-07] MEDS: GABAPENTIN 300 MG (NEURONTIN) CAP PO SCH (20:44)
[2021-12-07] MEDS ORDERED: ENOXAPARIN 40 MG/0.4 ML (LOVENOX) SYR SQ SCH (21:00)
[2021-12-07] MEDS ORDERED: MONTELUKAST 10 MG (SINGULAIR) TAB PO SCH (21:00)
[2021-12-08] MEDS: inSUlin ASPART (NovoLOG) 1 UNIT/0.01 ML (CHARGE PER UNIT) SC SCH ×3 (00:16→12:26)
[2021-12-08] MEDS: LACTATED RINGERS 1,000 ML IV SCH ×2 (00:18→06:53)
[2021-12-08 00:38] VITALS: BP 144/91
[2021-12-08] MEDS: ONDANSETRON 4 MG/2 ML (SDV) Z0FRAN IVP PRN ×3 (01:20→09:04)
[2021-12-08] MEDS: HYDROmorphone 2 MG/ML VIAL (DILAUDID) IV PRN ×2 (01:21→05:28)
[2021-12-08 04:26] VITALS: BP 145/84
[2021-12-08 06:13] LABS: POTASSIUM 4.3 MMOL/L (3.6-5.0)
[2021-12-08 06:14] LABS: BASOPHILS % (AUTO) 0 % (0-10); CALCIUM 10.1 MG/DL (8.5-10.1); EOSINOPHILS # (AUTO) 0.1 10^3/uL (0.0-0.3); EOSINOPHILS % (AUTO) 2 % (0-10); HEMATOCRIT 37 % (40-54); HEMOGLOBIN 12.2 g/dL (13.3-17.7); LYMPHOCYTES # (AUTO) 1.3 10^3/uL (1.0-4.0); LYMPHOCYTES % (AUTO) 23 % (12-44); MEAN CORPUSCULAR HEMOGLOBIN 31 pg (25-34); MEAN CORPUSCULAR HGB CONC 33 g/dL (32-36); MEAN CORPUSCULAR VOLUME 96 fL (80-99); MEAN PLATELET VOLUME 9.6 fL (9.0-12.2); MONOCYTES # (AUTO) 0.6 10^3/uL (0.0-1.0); MONOCYTES % (AUTO) 10 % (0-12); NEUTROPHILS # (AUTO) 3.7 10^3/uL (1.8-7.8); NEUTROPHILS % (AUTO) 64 % (42-75); PLATELET COUNT 227 10^3/uL (130-400); WHITE BLOOD COUNT 5.8 10^3/uL (4.3-11.0)
[2021-12-08 06:18] LABS: CREATININE SERUM 1.63 MG/DL (0.60-1.30)
[2021-12-08 08:00] VITALS: BP 163/95
[2021-12-08] MEDS ORDERED: HYDROXYCHLOROQUINE 200 MG (PLAQUENIL) TAB PO SCH (08:00)
[2021-12-08] MEDS ORDERED: ALLOPURINOL 100 MG (ZYLOPRIM) TAB PO SCH (09:00)
[2021-12-08] MEDS: GABAPENTIN 300 MG (NEURONTIN) CAP PO SCH (11:50)
[2021-12-08 12:00] VITALS: BP 142/85
[2021-12-08] MEDS ORDERED: OXC5T PO (13:03)
[2021-12-08] MEDS ORDERED: ONDA4TAB11 SL (13:03)
--- NOTE | 2021-12-08 21:59 | Discharge Summary ---
Discharge Summary Hospital Course Was the Problem List Reviewed?: Yes Problems/Dx: (1) Acute pancreatitis Status: Acute Qualifiers: Qualified Codes: K85.90 - Acute pancreatitis without necrosis or infection, unspecified (2) Spinal stenosis of lumbar region Status: Chronic Qualifiers: Qualified Codes: M48.062 - Spinal stenosis, lumbar region with neurogenic claudication (3) Stage 3b chronic kidney disease Status: Chronic (4) T2DM (type 2 diabetes mellitus) Status: Chronic Qualifiers: Qualified Codes: E11.22 - Type 2 diabetes mellitus with diabetic chronic kidney disease; N18.32 - Chronic kidney disease, stage 3b; Z79.4 - correction (current) use of insulin (5) HTN (hypertension) Status: Chronic Qualifiers: Qualified Codes: I10 - Essential (primary) hypertension (6) Gout Status: Chronic (7) Immunodeficiency Status: Chronic (8) Psoriasis Status: Chronic Hospital Course Date of Admission: Dec 07, 2021 at 00:45 Admission Diagnosis : Acute pancreatitis Family Physician/Provider: Serenity Russ MD Date of Discharge: 12/08/21 Discharge Diagnosis: Acute pancreatitis Hospital Course: Gerardo Vaca III is a 51 year old male with PMH HTN, T2DM, HLD, psoriasis, immunodeficiency, spinal stenosis, gout, obesity, who presented with abdominal pain and was admitted with acute pancreatitis. He was given IV fluids, pain medicine, antiemetics, and nothing by mouth. His symptoms improved. He was star dov on a clear liquid diet and tolerated this well. His diet was advanced without issue. He was given a small supply of oxycodone and zofran on discharge. He should decrease his Gabapentin dosing from three times daily to twice daily due to his impaired renal function. He should follow up with his PCP within a week. He should follow up with Ortho as scheduled for his spinal stenosis. He was discharged home in stable condition. Labs and Pending Lab Test: Laboratory Tests 12/08/21 00:06: Glucometer 195H 12/08/21 05:19: White Blood Count 5.8, Red Blood Count 3.90L, Hemoglobin 12.2L, Hematocrit 37L, Mean Corpuscular Volume 96, Mean Corpuscular Hemoglobin 31, Mean Corpuscular Hemoglobin Concent 33, Red Cell Distribution Width 14.6H, Platelet Count 227, Mean Platelet Volume 9.6, Immature Granulocyte % (Auto) 0, Neutrophils (%) (Auto) 64, Lymphocytes (%) (Auto) 23, Monocytes (%) (Auto) 10, Eosinophils (%) (Auto) 2, Basophils (%) (Auto) 0, Neutrophils # (Auto) 3.7, Lymphocytes # (Auto) 1.3, Monocytes # (Auto) 0.6, Eosinophils # (Auto) 0.1, Basophils # (Auto) 0.0, Immature Granulocyte # (Auto) 0.0, Sodium Level 136, Potassium Level 4.3, Chloride Level 102, Carbon Dioxide Level 21, Anion Gap 13, Blood Urea Nitrogen 20H, Creatinine 1.63H, Estimat Glomerular Filtration Rate 50, BUN/Creatinine Ratio 12, Glucose Level 176H, Calcium Level 10.1 12/08/21 11:55: Glucometer 193H Microbiology 12/06/21 Urine Culture - Final, Complete Mixed Bacterial Stacy Home Meds Active Ondansetron Odt (Ondansetron) 4 Mg Tab.rapdis 4 Mg SL Q4H PRN 7 Days Oxyir Tablet (Oxycodone HCl) 5 Mg Tab 5 Mg PO Q4H PRN 5 Days Prednisone 20 Mg Tab 40 Mg PO DAILY Compazine (Prochlorperazine Maleate) 10 Mg Tablet 10 Mg PO Q6H Xopenex Hfa (Levalbuterol Tartrate) 15 Gm Hfa.aer.ad 1-2 Puff INH Q6H Flonase Sensimist (Fluticasone Furoate) 5.9 Ml [place].susp 2 Sprays NSEACH DAILY 7 Days Reported Wilfred Delaneyostar (Insulin Glargine,Hum.rec.anlog) 300 Unit/1 Ml Insuln.pen Unknown Dose SQ Amlodipine Besylate 5 Mg Tablet Unknown Dose PO DAILY Iferex 150 Forte Capsule (Iron Ps Cmplx/Vit B12/FA) 1 Each Capsule Unknown Dose PO Gemfibrozil 600 Mg Tablet 600 Mg PO Novolog (Insulin Aspart) 100 Unit/1 Ml Susp Unknown Dose SQ AC Allopurinol 100 Mg Tablet Montelukast Sodium 10 Mg Tablet Carvedilol 25 Mg Tablet Atorvastatin Calcium 20 Mg Tablet Assessment/Pt Instructions See instructions Discharge Planning: >30 minutes discharge planning Discharge Instructions Discharge Diet: ADA Diet Activity as Tolerated: Yes Discharge Physical Examination Vital Signs Vital Signs Date Time Temp Pulse Resp B/P (MAP) Pulse Ox O2 Delivery O2 Flow Rate FiO2 12/08/21 12:00 36.9 99 18 142/85 (104) 95 12/08/21 08:40 NIV CPAP 12/07/21 08:32 2.00 General Appearance: No Apparent Distress, Obese HEENT: PERRL/EOMI, Pharynx Normal Respiratory: Lungs Clear, No Respiratory Distress Cardiovascular: Regular Rate, Rhythm, No Murmur Gastrointestinal: Normal Bowel Sounds, Soft Extremity: Normal Inspection, Pedal Edema Skin: Normal Color, Warm/Dry Neurologic/Psychiatric: Alert, Normal Mood/Affect Allergies: Coded Allergies: Sulfa (Sulfonamide Antibiotics) (Verified Allergy, Unknown, 11/09/21) Copy Copies To 1: SERENITY URSS MD Discharge Summary Date of Admission Dec 07, 2021 at 00:45 Date of Discharge Dec 08, 2021 at 15:30 Discharge Date: Dec 08, 2021 Discharge Time: 15:30 Admission Diagnosis Acute pancreatitis Discharge Diagnosis Acute pancreatitis Severe spinal stenosis CKD 3b T2DM HTN Gout Immunodeficiency Psoriasis (1) Acute pancreatitis Status: Acute Qualifiers: Qualified Codes: K85.90 - Acute pancreatitis without necrosis or infection, unspecified (2) Spinal stenosis of lumbar region Status: Chronic Qualifiers: Qualified Codes: M48.062 - Spinal stenosis, lumbar region with neurogenic claudication (3) Stage 3b chronic kidney disease Status: Chronic (4) T2DM (type 2 diabetes mellitus) Status: Chronic Qualifiers: Qualified Codes: E11.22 - Type 2 diabetes mellitus with diabetic chronic kidney disease; N18.32 - Chronic kidney disease, stage 3b; Z79.4 - medical terminologist (current) use of insulin (5) HTN (hypertension) Status: Chronic Qualifiers: Qualified Codes: I10 - Essential (primary) hypertension (6) Gout Status: Chronic (7) Immunodeficiency Status: Chronic (8) Psoriasis Status: Chronic ANGEL LUIS ESTRELLA MD Dec 08, 2021 21:58
== END 2021-12-08 12:59 | disposition home or self-care (01) ==
LOC: EDUNIT# 22:05 → ER 22:07 → 4TH 22:08 → UNDOADMOB 12-07 00:45 → 4TH 12-07 00:45 → UNDODISOB 12-08 12:59
PROVIDERS: ADMIT Internal Medicine; ATTEND Internal Medicine
DX: K85.90 Acute pancreatitis without necrosis or infection, unspecified (principal); M48.061 Spinal stenosis, lumbar region without neurogenic claudication; E11.40 Type 2 diabetes mellitus with diabetic neuropathy, unspecified; E11.22 Type 2 diabetes mellitus with diabetic chronic kidney disease; I12.9 Hypertensive chronic kidney disease with stage 1 through stage 4 chronic kidney disease, or unspecified chronic kidney disease; N18.32 Chronic kidney disease, stage 3b; M1A.9XX0 Chronic gout, unspecified, without tophus (tophi); D84.9 Immunodeficiency, unspecified; L40.9 Psoriasis, unspecified; E66.9 Obesity, unspecified; Z79.4 Long term (current) use of insulin; Z79.899 Other long term (current) drug therapy; Z68.37 Body mass index [BMI] 37.0-37.9, adult; J98.6 Disorders of diaphragm; J98.11 Atelectasis; K76.0 Fatty (change of) liver, not elsewhere classified; N28.89 Other specified disorders of kidney and ureter
CPT/HCPCS: 74176; 80048; 80053 ×2; 81000; 82947 ×2; 83690 ×2; 85025 ×3; 86141; 87088; 94760 ×2; 96361; 96372; 96375; 96376 ×2; 99284; G0378; 36415

== ENCOUNTER → 2021-12-25 | Outpatient (CLI) | payer MEDICARE, MEDICAID ==
[~2021-12-25] MED LIST changes: +ONDA4TAB11 SL; +OXC5T PO
--- NOTE | 2021-12-25 17:41 | Diagnostic Imaging Report ---
INDICATION: Foot pain. COMPARISON: None FINDINGS: Multiple radiographic views of the right foot were obtained. There is prominent calcified arterial sclerosis. Partially threaded screw is noted traversing the proximal midportion of the 5th metatarsal. The distal portion of the screw is fractured. No unexpected radiopaque foreign bodies are seen. Deformity to the 1st proximal phalanx is noted and has a mixed linear and curvilinear lucent appearance admixed with areas of sclerosis. This suggests nonacute partially healed fracture. There is, however, no prior available for comparison. Joint spaces are maintained. Prominent osteoarthritic changes of the midfoot are also noted. IMPRESSION: 1. Fractured indwelling orthopedic screw within the 5th metatarsal 2. Probable nonacute partially healed comminuted fracture of the 1st proximal phalanx 3. Prominent calcified arterial sclerosis. Correlation with risk factors such as diabetes is recommended. 4. Prominent osteoarthritic changes of the midfoot. Dictated by: Dictated on workstation # [id number]
--- NOTE | 2021-12-25 18:09 | Diagnostic Imaging Report ---
INDICATION: Arthritis, pain. COMPARISON: None available. TECHNIQUE: Six radiographs of bilateral hands dated December 25, 2021. FINDINGS: RIGHT: No acute fracture or dislocation. Tiny 2 mm lucency within the base of the second digit middle phalanx is noted without associated cortical breakthrough or periosteal reaction. Minimal scattered joint space narrowing. No significant osteophyte formation. Carpal alignment is well maintained. Background vascular calcifications. LEFT: No acute fracture or dislocation. 2 mm ovoid lucency is noted involving the base of the third digit middle phalanx without periosteal reaction or cortical breakthrough. Chronic appearing fracture involving the ulnar styloid. Widening of the scapholunate interval with mild proximal migration of the capitate. Background vascular calcifications. No suspicious radiopaque foreign body. IMPRESSION: No acute osseous abnormality with mild scattered degenerative changes present. Tiny lucencies involving the middle phalanges within the bilateral hands as described above. These are nonspecific. Findings may relate to subchondral cyst formation. Alternatively, this could relate to underlying erosive changes from underlying erosive arthropathy. SLAC wrist configuration on the left (scapholunate advanced collapse), consistent with prior injury to the scapholunate ligament. This is associated with a chronic ulnar styloid fracture. Dictated by: Dictated on workstation # [id number]
--- NOTE | 2021-12-25 18:17 | Diagnostic Imaging Report ---
EXAMINATION: Sacroiliac joint radiographs, 3 views. COMPARISON: CT abdomen and pelvis December 06, 2021. HISTORY: 51-year-old male, sacroiliac pain. FINDINGS: There is a left total hip prosthesis. There are very mild bilateral sacroiliac degenerative related changes. There is no identified bone erosion. There is no identified bone ankylosis. There is moderate to severe disc height loss at L4-L5. There are advanced facet degenerative changes of the lower lumbar spine. IMPRESSION: 1. Mild bilateral sacroiliac degenerative related changes. No findings to specifically suggest a seronegative spondyloarthropathy involving the sacroiliac joints. 2. Advanced disc and facet degenerative changes of the lower lumbar spine. Dictated by: Dictated on workstation # [id number]
== END ==
LOC: RAD 13:54
PROVIDERS: ATTEND Internal Medicine
DX: M53.3 Sacrococcygeal disorders, not elsewhere classified (principal); M47.816 Spondylosis without myelopathy or radiculopathy, lumbar region; L40.9 Psoriasis, unspecified; M19.041 Primary osteoarthritis, right hand; M19.042 Primary osteoarthritis, left hand; M19.071 Primary osteoarthritis, right ankle and foot; S92.351A Displaced fracture of fifth metatarsal bone, right foot, initial encounter for closed fracture; X58.XXXA Exposure to other specified factors, initial encounter; Z87.39 Personal history of other diseases of the musculoskeletal system and connective tissue
CPT/HCPCS: 72202; 73630

== ENCOUNTER 2022-01-17 | Inpatient (IN) | payer MEDICARE, MEDICAID ==
[~2022-01-17] VITALS: Ht 175.3 cm; Wt 118.6 kg
[~2022-01-17] MED LIST changes: -ALLO100T; +ALLO100T PO; -ATOR20TA66; +ATOR20TA66 PO; -CARV25TA; +CARV25TA PO; -MONT-40; +MONT-40 PO
[2022-01-17] MEDS ORDERED: ICOS1CAP PO (09:44)
[2022-01-17] MEDS ORDERED: FOSI40TA65 PO (09:44)
[2022-01-17] MEDS ORDERED: L.AC1CAP6 PO (09:44)
[2022-01-17] MEDS ORDERED: DOCU-143 PO (09:44)
[2022-01-17] MEDS ORDERED: CYCL10TA25 PO (09:44)
[2022-01-17] MEDS ORDERED: GABA300C PO (09:44)
[2022-01-17] MEDS ORDERED: GEMF600T88 PO (09:44)
[2022-01-17] MEDS ORDERED: TR1C15 TOP (09:44)
[2022-01-17] MEDS ORDERED: OMEP40CA6 PO (09:44)
[2022-01-17] MEDS ORDERED: IRON150C3 PO (09:44)
[2022-01-17] MEDS ORDERED: OXC5T PO (09:44)
[2022-01-17] MEDS ORDERED: PROM25TA14 PO (09:44)
[2022-01-17] MEDS ORDERED: ASCO-262 PO (09:44)
[2022-01-17] MEDS ORDERED: GUAI-367 PO (09:44)
[2022-01-17] MEDS ORDERED: FURO40TA4 PO (09:44)
[2022-01-17] MEDS ORDERED: INSU500I SC (09:44)
[2022-01-17] MEDS ORDERED: HYDR200T46 PO (09:44)
--- OUTSIDE RECORDS SUMMARY | 2022-01-17 11:05 | XMS REPORT | Encounter Summary ---
Author Author [facility] Organization [facility] Address Unknown Phone Unavailable Care Team Providers Care Adoption Specialist Name Role Phone Ignacio Justice MD PCP Encounter Details Care Team Description Date Type Department Provider, Not In System 01/15/2022 Documentation [facility] [address] [place], [place] [id number] Social History Date Tobacco Use Types Packs/Day Years Used Smoking Tobacco: Never Smokeless Tobacco: Never Comments Alcohol Use Standard Drinks/Week social Yes 0 (1 standard drink = 0.6 o z pure alcohol) Sex Assigned at Date Recorded Not on file documented as of this encounter Plan of Treatment Care Team Description Date Type Specialty Jessika Diaz, [address] [place] [address] 02/17/2022 Tele[place] [address] [place], [place] [address] 02/26/2022 Initial consult Medical Oncology documented as of this encounter Visit Diagnoses Not on filedocumented in this encounter Additional Health Concerns Onset Date Resolved Time Infection Last Indicated 02/22/2017 MRSA 02/22/2017 Comment: wound positive 02/18/2017 documented as of this encounter Care Teams Start Date End Date Adoption Specialist Relationship Specialty 03/23/17 Ignacio Justice MD PCP - General [facility] [address] [place] [address] documented as of this encounter
--- OUTSIDE RECORDS SUMMARY | 2022-01-17 11:05 | XMS REPORT | Encounter Summary ---
Author Author [facility] Organization [facility] Address Unknown Phone Unavailable Care Team Providers Care Chemical Manager Name Role Phone Kd Russ MD PCP Reason for Referral * Radiology Services (Routine) - Authorized Diagnoses / Procedures Referred By Contact Referred To Conta ct Specialty Diagnoses Disease of spinal cord (HCC) Procedures SCOLIOSIS EOS WHOLEBODY W/O LEG MEASUREMENT Vita Quiñonez MD [address] [place] [address] Radiology Referral ID Status Reason Start Date Expiration Visits Vi sits Date Requested Authorized [id number] Authorized 01/10/2022 01/10/2023 1 1 CAL ASSISTANT OB GYN Encounter Details Care Team Description Date Type Department Vita Quiñonez MD [address] [place] [address] Disease of spinal cord (HCC) (Primary Dx ) 01/10/2022 Orders Only [facility]: [address] [place], [facility] [address] [facility], [address] [place] [address] Social History Date Tobacco Use Types Packs/Day Years Used Smoking Tobacco: Never Smokeless Tobacco: Never Comments Alcohol Use Standard Drinks/Week No 0 (1 standard drink = 0.6 o z pure alcohol) Sex Assigned at Date Recorded Male 09/04/2019 8:02 AM CDT documented as of this encounter Functional Status Date of Assessment Functional Status Response 05/01/2016 Does the patient have a hearing impairment: No 05/01/2016 Does the patient have a visual impairment: No 05/01/2016 Does the patient have impaired ambulation: Yes 05/01/2016 Does the patient have an activity of daily living Ye s (ADL) impairment: 05/01/2016 Does the patient have an instrumental activity of Ye s daily living (IADL) impairment: Date of Assessment Cognitive Status Response 05/01/2016 Does the patient have a cognitive impairment: No documented as of this encounter Plan of Treatment Order Schedule Name Type Priority Associated Diag noses Expected: 02/04/2022 (Approximate), Expi res: 01/10/2023 SCOLIOSIS EOS WHOLEBODY Imaging Routine Diseas e of spinal cord W/O LEG MEASUREMENT (HCC) documented as of this encounter Visit Diagnoses Diagnosis Disease of spinal cord (HCC) - Primary Unspecified disease of spinal cord documented in this encounter Additional Health Concerns Noted Time Assessment 10/19/2018 10:49 AM CDT A fall risk assessment has been complet ed for the patient documented as of this encounter Care Teams Start Date End Date Chemical Manager Relationship Specialty 02/03/19 Kd Russ MD PCP - General Family [address] [facility] [place] [address] documented as of this encounter
--- OUTSIDE RECORDS SUMMARY | 2022-01-17 11:05 | XMS REPORT | Clinical Summary ---
Author Author [facility] Organization [facility] Address Unknown Phone Unavailable Care Team Providers Care Water Hauler Name Role Phone None PCP Unavailable Allergies Not on File Medications Not on file Active Problems Not on file Encounters Not on filefrom Last 3 Months Immunizations Not on file Social History Date Tobacco Use Types Packs/Day Years Used Smoking Tobacco: Never Assessed Sex Assigned at Date Recorded Not on file Last Filed Vital Signs Not on file Plan of Treatment Health Maintenance Due Date Last Done Comments [facility] COVID-19 Vaccine (#1) 04/13/1971 Annual FOBT: Colon Cancer 2018 Screening Colonoscopy 2018 Goals Not on file Medical Devices Not on file Procedures Not on filefrom Last 3 Months Results Not on filefrom Last 3 Months Additional Health Concerns Not on file Insurance Type Payer Benefit Subscriber ID Effective Phone Address Plan / Dates Group MC USE ONLY COVID19 MC USE Effective [address] [place]INS[place] ONLY for all [id number] COVID19 dates [place] [id number] Care Teams Start Date End Date Water Hauler Relationship Specialty 06/17/21 NONE PCP - General
--- OUTSIDE RECORDS SUMMARY | 2022-01-17 11:05 | XMS REPORT | Encounter Summary ---
Author Author [facility] Organization [facility] Address Unknown Phone Unavailable Care Team Providers Care Log Manager Name Role Phone Ignacio Justice MD PCP Reason for Referral * Consultation (Routine) - Authorized Diagnoses / Procedures Referred By [facility] Left sided sciatica Kd Russ MD [address] [facility] [address] [facility] Rheumatology Cl [address] [place] [address] Rheumatology Referral ID Status Reason Start Date Expiration Visits Vi sits Date Requested Authorized [id number] Authorized Specialty Services 12/26/2021 06/25/2022 1 1 Required BASKET MAKER Encounter Details Care Team Description Date Type Department Ni Salvador RN Left sided sciatica (Primary Dx) 12/26/2021 Transcribe [facility] [address] [place] [address] Social History Date Tobacco Use Types Packs/Day Years Used Smoking Tobacco: Never Smokeless Tobacco: Never Comments Alcohol Use Standard Drinks/Week social Yes 0 (1 standard drink = 0.6 o z pure alcohol) Sex Assigned at Date Recorded Not on file documented as of this encounter Plan of Treatment Care Team Description Date Type Specialty Jessika Diaz DO [address] [place] [address] 02/17/2022 Tele[place] [address] [facility] [address] [place] [address] 02/26/2022 Initial consult Medical Oncology Order Schedule Name Type Priority Associated Diag noses 1 Occurrences starting 12/26/2021 until 06/25/2022 Amb [facility] Referral documented as of this encounter Visit Diagnoses Diagnosis Left sided sciatica - Primary Sciatica documented in this encounter Additional Health Concerns Onset Date Resolved Time Infection Last Indicated 02/22/2017 MRSA 02/22/2017 Comment: wound positive 02/18/2017 documented as of this encounter Care Teams Start Date End Date Log Manager Relationship Specialty 03/23/17 Ignacio Justice MD PCP - General [address] [address] documented as of this encounter
--- OUTSIDE RECORDS SUMMARY | 2022-01-17 11:05 | XMS REPORT | Clinical Summary ---
Author Author [facility] Organization [facility] Address Unknown Phone Unavailable Care Team Providers Care Business Intelligence Analyst Name Role Phone Ignacio Justice MD PCP Allergies Comments Active Allergy Reactions Severity Noted Date Dyspnea and rash Hydrocodone Medium 02/17/2017 topical Sulfa (Sulfonamide Rash Low 07/22/2015 Antibiotics) Medications End Date Status Medication Sig Dispensed Refills Start Date Active furosemide (LASIX) 40 MG Take 40 mg by 11 07/10 tablet mouth daily. 6 Active fosinopril (MONOPRIL) 40 Take 40 mg by 1 07/10 MG tablet mouth daily. 6 Active cetirizine (ZYRTEC) 10 MG Take 10 mg by 0 tablet mouth daily. Active loratadine (CLARITIN) 10 Take 10 mg by 0 mg tablet mouth daily. Active ranitidine (ZANTAC) 150 TK 1 C PO QD 3 MG capsule 7 Active metformin (GLUCOPHAGE) TAKE 1 TABLET 180 tablet 3 0 1000 mg tablet BY MOUTH 7 TWICE DAILY WITH MEALS Active therapeutic multivitamin Take 1 tablet 0 (THERAGRAN) tablet by mouth daily. With zinc Active LACTOBAC NO.41/BIFIDOBACT Take 1 0 NO.7 (PROBIOTIC-10 ORAL) capsule by mouth daily. Active LACTOSE-REDUCED FOOD Take by mouth 0 (PROTEIN NUTRITIONAL 2 (two) times SHAKE ORAL) a day. 30grams protein shake BID Active acetaminophen (TYLENOL) Take 2 0 500 MG tablet tablets 8 (1,000 mg total) by mouth every 8 (eight) hours as needed. Active polyethylene glycol Take 1 packet 14 each 0 02/09 (GLYCOLAX) 17 gram packet (17 g total) 8 by mouth 2 (two) times a day. Active oxyCODONE-acetaminophen Take 1 tablet 90 tablet 0 (PERCOCET) 5-325 mg per by mouth 8 tablet every 4 (four) hours as needed. Active atorvastatin (LIPITOR) 20 1 MG tablet 8 Active linezolid (ZYVOX) 600 mg 0 tablet 8 Active LORazepam (ATIVAN) 0.5 MG 1 tablet 8 Active NOVOLOG FLEXPEN U-100 INJECT 20 20 3 12/11 INSULIN 100 unit/mL pen UNITS Pre-filled 8 SUBCUTANEOUSL Pen Syringe Y THREE TIMES DAILY WITH MEALS Active carvedilol (COREG) 12.5 5 MG tablet 8 Active metformin (GLUCOPHAGE-XR) 0 24 hr tablet 500 mg 8 Active glimepiride (AMARYL) 2 MG 4 tablet 8 Active TOUJEO SOLOSTAR U-300 INJECT 40 12 0 01/10 INSULIN 300 unit/mL (1.5 UNITS SUB-Q Pre-filled 8 mL) pen TWICE DAILY Pen Syringe Active Problems Problem Noted Date Slow transit constipation 02/20/2017 Last Assessment & Plan: Formatting of t his note might be different from the original. Likely due to poor mobility and narcoti cs BM Thursday -Encouraged oral fluid intake. Bowel re gimen with miralax and pericolace BID -Increase fluids/fiber Immunosuppression 02/18/2017 Overview: some type of hereditary immunosuppessio n, follows with [facility] Last Assessment & Plan: Formatting of t his note might be different from the original. Follows with Dr. Yosis Sanford with [facility]. 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 Attempting to get insurance coverage for outpatient IVIG, denied initially but attempting appeal. Low grade fever, normal WBC -Patient would like all records sent to Dr. Sanford's office at completion of hospitalization. -ID ordered IVIG on 02/19 at the recomme ndation of Dr. Sanford's office. 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 POD 2 I&D WBC normal -ID consulted, appreciate recs: - Continue vancomycin while in the hosp ital - PICC line placement. Risks and benefi ts were discussed. - When D/C, switch antibiotic to daptom ycin 420mg IV daily, through 03/22/17 (4 weeks) - Weekly labs - CBC, CMP, CRP - Fax to [phone] Dimitry Zamudio MD - Routine PICC line care - Follow up with Dr. Zamudio by 03/22/17 Stage 3 chronic kidney disease 02/18/2017 Last Assessment & Plan: Formatting of t his note might be different from the original. Chronic, stable Baseline Cr 1.3-1.6. . Avoid nephrotoxic agents Keep MAP>65 to maintain adequate renal perfusion. Pharmacy to [place] dose all medication s. Obesity (BMI 30-39.9) 07/27/2015 Last Assessment & Plan: Formatting of t his note might be different from the original. Counseled on importance of weight loss with diet and exercise Essential hypertension Last Assessment & Plan: Formatting of t his note might be different from the original. Normotensive. Continue fosinopril -Planning to hold lasix on DC and f/u w [facility] PCP Hyperlipidemia Last Assessment & Plan: Formatting of t his note might be different from the original. Continue statin Type 2 diabetes mellitus with complicat ion, with long-term current use of insulin Last Assessment & Plan: Formatting of t his note might be different from the original. Patient concerned glucose elevated, rev iewed with him: most < 180 few elevated over 200s Plan: -Increase Lispro from 5u AC to 7 units AC +SSI#4 AC and Lantus 16u BID -ACHS accu checks, Hypoglycemia protoco l, CC diet -Trend BS closely and titrate as needed . -Continue metformin (resumed 02/23) Resolved Problems Problem Noted Date Resolved Date Periorbital edema of left eye 02/20/2017 02/23/19 Last Assessment & Plan: Formatting of t his note might be different from the original. May relate to recent laser retinopathy surgery. No conjunctival hyperemia or scleral injection, or purulent drain age to suggest infection. Suspect inflammatory process. -Instructed patient to inform ID and [facility] office for recommendations -Monitor, on exam has EOMI, no signs of any ocular emergency H/O eye surgery 02/18/2017 02/24/2017 Last Assessment & Plan: Formatting of t his note might be different from the original. 02/17 right eye; last week left eye for d iabetic retinopathy. -patient to discuss further management with outpatient eye surgeon Hyperkalemia 02/18/2017 02/19/2017 Last Assessment & Plan: Formatting of t his note might be different from the original. K 5.4. Suspect due to dehydration +/- A CEi -Hold fosinopril, IVF, trend with repea t BMP in AM Chronic right shoulder pain 02/18/2017 02/23/2017 Last Assessment & Plan: Formatting of t his note might be different from the original. Worse in the past month, suspect r/t OA +/- use of walker/pushing wheelchair with new amputation. -Hold NSAIDS with CKD -Pain control per primary team. Add top ical agents (heat/ice, sarna lotion and lidocaine patch prn) -Recommended f/u with PCP for further m anagement. Encounters Care Team Description Date Type Specialty Provider, Not In System 01/15/2022 Documentation Medical Oncology Ni Salvador RN Left sided sciatica (Primary Dx) 12/26/2021 Transcribe Infusion Therapy Orders from Last 3 Months Family History Medical History Relation Name Comments Diabetes Father Heart disease Father Hypertension Father Myelodysplastic syndrome Father Relation Name Status Comments Father Social History Date Tobacco Use Types Packs/Day Years Used Smoking Tobacco: Never Smokeless Tobacco: Never Tobacco Cessation: Counseling Given: No Comments Alcohol Use Standard Drinks/Week social Yes 0 (1 standard drink = 0.6 o z pure alcohol) Sex Assigned at Date Recorded Not on file Last Filed Vital Signs Reading Time Taken Comments Vital Sign 157/86 01/18/2018 4:54 PM ANSWERER Blood Pressure 77 02/03/2019 2:53 PM ANSWERER Pulse 36.8 C (98.2 F) 02/03/2019 2:53 PM ANSWERER Temperature 19 02/24/2017 8:06 AM ANSWERER Respiratory Rate 98% 02/03/2019 2:53 PM ANSWERER Oxygen Saturation - - Inhaled Oxygen Concentration 114.3 kg (252 lb) 02/03/2019 2:53 PM ANSWERER Weight 175.3 cm (5' 9") 02/03/2019 2:53 PM ANSWERER Height 37.21 02/03/2019 2:53 PM ANSWERER Body Mass Index Plan of Treatment Care Team Description Date Type Specialty Jessika Diaz DO [address] [place], [place] [id number] 02/17/2022 Telemedicine [place] [id number] [address] [place] [address] 02/26/2022 Initial consult Medical Oncology Health Maintenance Due Date Last Done Comments Colonoscopy 1968 Colorectal Cancer 1968 Screening FIT-DNA 1968 Fecal Occult Blood or FIT 1968 Hepatitis C Screen 1968 Medicare Annual Wellness 1968 Sigmoidoscopy 1968 Td/Tdap# 1968 COVID-19 Vaccine (#1) 04/13/1969 Pneumococcal Vaccine: 1974 Pediatrics (0 to 5 Years) and At-Risk Patients (6 to 64 Years) (1 - PCV) Zoster Vaccine# (1 of 2) 10/15/1987 Diabetes Mellitus 07/11/2015 07/10/2014 Ophthalmology Exam (Previously Completed at Different Location) Lipid Screening 09/04/2016 09/05/2015 Diabetes Mellitus 11/07/2017 05/07/2017, Hemoglobin A1C 08/19/2016, 03/07/2016 Diabetes Mellitus Foot 05/07/2018 05/07/2017, Exam 08/19/2016, 11/13/2015, Additional history exists Social Determinants of 02/09/2021 Health# Influenza Vaccine (#1) 2021 11/19/2007 Results Not on filefrom Last 3 Months Additional Health Concerns Onset Date Last Indicated Infection 02/22/2017 02/22/2017 MRSA Comment: wound positive 02/18/2017 Insurance Type Payer Benefit Subscriber ID Effective Phone Address Plan / Dates Group Medicare MEDICARE MEDICARE [id number] 2019- [phone] [employer] A B Present ATTN CLAIMS DEPT [address] [place] [address] Advance Directives For more information, please contact: [phone] Date Inactivated Comments Code Status Date Activated 02/24/2017 5:52 PM Full Code 02/18/2017 6:35 AM Care Teams Start Date End Date Business Intelligence Analyst Relationship Specialty 03/23/17 Ignacio Justice MD PCP - General Family [address] [place] [address]
--- OUTSIDE RECORDS SUMMARY | 2022-01-17 11:05 | XMS REPORT | Clinical Summary ---
Author Author [facility] Organization [facility] Address Unknown Phone Unavailable Care Team Providers Care Clinical Dietician Name Role Phone Kd Russ MD PCP Source Comments Some departments are not documenting in the electronic medical record. If you d o not see the information that you expected, contact Release of Information in [facility] [employer] Information Management department at [phone] for further assistan ce in locating additional records.[facility] Allergies Comments Active Allergy Reactions Severity Noted Date Topical product Bacitracin REDNESS Low 04/22/2016 Dyspnea and rash Dyspnea and rash Hydrocodone UNKNOWN Medium 02/17/2017 Ulilb-Udfak-Jdymvti-Pramo RASH Medium 06/09 xine Arthralgia, myalgia Seasonal Allergies SNEEZING Low 04/22/2016 Renal failure Sulfa (Sulfonamide RASH, SEE Medium 03/04/2019 Antibiotics) COMMENTS Medications End Date Status Medication Sig Dispensed Refills Start Date Active insulin glargine (TOUJEO Inject 40 0 SOLOSTAR) 300 unit/mL Units under (1.5 mL) injectable the skin twice daily. Active fosinopril (MONOPRIL) 40 Take 40 mg by 0 mg tablet mouth daily. Active furosemide (LASIX) 40 mg Take 40 mg by 0 tablet mouth daily. Active atorvastatin (LIPITOR) 20 Take 20 mg by 0 mg tablet mouth daily. Active cetirizine (ZYRTEC) 10 mg Take 10 mg by 0 tablet mouth daily. Active insulin aspart (NOVOLOG Inject 0-10 0 FLEXPEN) 100 unit/mL Units under injection PEN the skin three times daily with meals. Sliding scale Active Ranitidine HCl 150 mg cap Take 1 Cap by 0 mouth daily. Active loratadine (CLARITIN) 10 Take 10 mg by 0 mg tablet mouth daily. Active docusate sodium (COLACE) Take 50 mg by 0 50 mg capsule mouth twice daily. Active naproxen sodium (ALEVE) Take 2 Tabs 0 220 mg tablet by mouth twice daily. Take with food. Active ketoconazole (NIZORAL) 2 Apply 0 % topical cream topically to affected area daily as needed. Active naloxegol (MOVANTIK) 25 Take 25 mg by 0 mg tablet mouth daily. Active polyethylene glycol 3350 Take 1 Packet 12 Each 0 (MIRALAX) 17 g packet by mouth 7 twice daily as needed (constipation ). To be picked up at preferred pharmacy over the counter Active acetaminophen (TYLENOL) Take 2 Tabs 0 500 mg tablet by mouth four 7 times daily. AFTER one week taking it as scheduled, you may transition to use as needed. Do not take more than 4 grams (4,000 mg) in 24 hours. Active oxyCODONE (ROXICODONE, Take 1-2 Tabs 30 Tab 0 0 OXY-IR) 5 mg tablet by mouth 7 every 3 hours as needed for Pain Active nepafenac (ILEVRO) 0.3 % Place 1 drop 3 mL 1 drps into or 0 around eye(s) daily. Operative eye - start 1 day prior to surgery Active difluprednate (DUREZOL) Place one 5 mL 1 0.05 % ophthalmic drop drop into or 0 around eye(s) four times daily. Start 1 day prior to surgery in operative eye Active gemfibrozil (LOPID) 600 Take 600 mg 0 mg tablet by mouth twice daily. Pt unsure of dosage Active doxycycline (VIBRAMYCIN) Take one 30 capsule 3 0 100 mg capsule capsule by 0 mouth daily. Active insulin regular U-500 0 (HUMULIN R U-500 (CONC) 0 KWIKPEN) 500 unit/mL (3 mL) injection PEN Active Problems Problem Noted Date Vitreous degeneration, right 06/21/2019 Last Assessment & Plan: Formatting of t his note might be different from the original. New floater OD after CEIOL Dilated exam performed today to evaluat e for tear or RD, no new hemorrhage The findings were discussed with the luis ronquillo. Examination today reveals no retinal te ar or detachment The patient was educated on the signs/s ymptoms of retinal detachment, and will call immediately with any changes or concerns Pseudophakia 03/22/2019 Overview: OD: 03/22/19 - SA60WF 20.0 - goal -1.50 OS: 04/05/19 - SA60WF 19.5 - goal -1.50 Last Assessment & Plan: Formatting of t his note might be different from the original. ASSESSMENT: POW#1 s/p CEIOL OS -lens implant is centered -VA at goal PLAN: Continue durezol twice daily and ilevro once daily for one more week and stop No shield needed NEXT VISIT: See Dr. 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 Does the patient have Diabetes? Yes, a nd the patient HAS evidence of retinopathy and/or macular edema today. Good visual acuity, non centered edema (mild) OD, mild thickening OS Recommend glucose/BP control and return if symptoms worse 6 months Exophoria of right eye 02/12/2018 Overview: Diagnosed with double vision 15 years a go and wore prisms - only for a short period Last Assessment & Plan: Formatting of t his note might be different from the original. Alternating - pt understands this will not be resolved after cataract surgery, but may help control Recurrent infections 07/08/2017 Overview: Formatting of this note is di fferent from the original. H/o recurrent lower extremity non-heali ng wounds that then become infected and sometimes, but not always, lead to osteomyelitis, sepsis, and/or other need for hospitalizations for IV antibi otics and amputations. These infections are newly occurring in the p ast few years with no prior h/o recurrent, severe, or unusual infection s previously. He has a h/o DM with multiple complications of diabetes incl uding nephropathy with CKD, retinopathy, and neuropathy. At this time, his immune evaluation is unremarkable except for a low, but not absent, IgM level. - CBC with differential normal except f or mild normocytic anemia with hemoglobin 12.3 - CMP normal except for creatinine 2.15 and GFR reduced at 33 mL/min - IgG normal, actual value was 1266 mg/ DL and in the upper half of our labs normal reference range - IgA normal - IgE normal - IgM 12 mg/DL (more range 38-328) - Neutrophil oxidative burst normal - Total hemolytic complement normal - Absolute CD19 and CD3 counts were nor mal - Tetanus toxoid IgG antibody appropria tely positive - He makes 17/23 pneumococcal IgG serot ypes above the reference range at [facility]. This is considered a jude l response per our practice parameters. (Emilia Ziegler et al. "Prac wu parameters for the diagnosis and management of primary immunodeficie ncy." EUSEBIO Vol 136. No 5 (2015): 1205.e34).) We discussed that our practice paramete rs, referenced above, does not list "selective IgM deficiency" as a separat e primary immune deficiency. We discussed that a common textbook used b y her allergists/immunologists in training and in practice, [employer], only mentions selective IgM deficiency a couple of times in passing , primarily when in reference to association with increased risk of lupu s or other autoimmune disorders, but does not discuss it in detail, includin g no diagnostic criteria or management recommendations of low IgM l evels. We discussed I have reviewed the up-to-date article "selective IgM d eficiency", and the few journal articles I could find on selective IgM deficiency as well, and it is my understanding from everything I could r ead about this, that the majority of patients with selective IgM deficiency do not seem to be particularly bothered by recurrent/severe/unusual in fections, but when they are the most common manifestation is recurrent, main ly bacterial, otosinopulmonary infections, as opposed to recurrent ski n infections or non-healing wounds on distal extremities. If patients hav e this lab abnormality and do seem to be bothered by recurrent infections, the primary management recommendation in these articles seems to be prophylactic antibiotics, at least by these authors were writing the se articles. There is mention of IgG supplementation only if the patient fails prophylactic antibiotics, but when I tried to review the original art icles that mention use of IgG supplementation in patients with low Ig M levels, it appeared to me that those patients in those articles also s eem to have concurrent Specific Antibody Deficiency, which is suboptima l response to vaccinations, which is a separate kind of immune issue for [facility] prophylactic antibiotics and/or IgG supplementation are established rec ommendations for in practice guidelines. Mr. Vaca has a robust lev el of IgG on his own, in the upper half of normal already, and normal resp onses to vaccinations, so it's not clear to me if the information regardin g use of IVIG in low IgM can be extrapolated to patients who have isola dov low IgM levels, and normal IgG and normal response to vaccinations. U nfortunately, there is no replacement product on the [place] market fo r low IgM, and IVIG is only supplementing IgG levels, not IgM, and he has normal IgG. IVIG has numerous potential risks including radha k box warning for kidney failure which may be increased risk in patients with pre-existing kidney disease like Mr. Vaca has, black box warning f or thromboembolic diseases such as PE/DVT/CVA, aseptic meningitis, TRALI, chills, fever, flushing, flu-like muscle pains or joint pains, feeling ti red, having nausea, vomiting, headache, and allergic-type reactions, rashes, and low blood counts. Because it's not clear to me that IgG s upplementation is a recommended therapy for low IgM with normal levels/ functioning IgG by experts who write articles on low IgM, at this juncture I wonder if the potential risks of IgG supplementation would outweigh the potential benefits? We also discussed that given his history of kno wn diabetes with multiple complications of such (diabetic retinop athy, diabetic nephropathy, diabetic neuropathy, etc.), and although I am no t a specialist in diabetes, it is my understanding that patients who have di abetes can develop complications of nonhealing wounds of their extremities that can become infected, I wonder if perhaps his history of nonhealing wo unds to get infected could be related to his history of diabetes? Junaid maria this being discussed, if he feels very concerned that his low IgM level i s pre-disposing him to recurrent infections, particularly skin or non-he aling wounds, and he wouldn't feel satisfied with his visit with me unless we tried a therapeutic intervention, we could trial prophylact ic antibiotics. We had a long discussion regarding potential risks an d merits of prophylactic antibiotics including side effects, allergic reacti ons, induction of bacterial resistance, or induction of secondary i nfections such as Candidiasis or C.diff colitis. There's no 1 best known prophylactic antibiotic regimen, several are proposed in the literature. The goal of using these would be to reduce frequency of bacterial, mainly o tosinopulmonary, infections, and may not reduce frequency of non-healing wou nds or skin infections, which may not be related to his low IgM level. I answered all of Mr. Vaca's questions and concerns to his satisfact ion. He wished to trial doxycycline 100 mg daily as a prophylactic antibiot ic regimen, but hasn't found it to be helpful to reduce skin infections. He doesn't wish to trial a different prophylactic antibiotic regimen at this juncture. He feels strongly that IVIG prescribed by Dr. Sanford in the p ast was helpful, and it's his preference today to reach out to Dr. Mark melendez to transfer care back to him, and for consideration of resuming IVIG with Dr. Sanford. S/P total hip arthroplasty 04/28/2016 Resolved Problems Problem Noted Date Resolved Date Combined form of age-related cataract, left eye 03/04/2019 04/13/2019 Last Assessment & Plan: Formatting of t his note might be different from the original. I am recommending that we proceed with cataract extraction with intraocular lens implantation. I reviewed the risks benefits and alternatives of this procedure which include but are not goel ited to bleeding, pain, infection, loss of vision, anesthesia related risk s, and the potential need for further surgery. The use of eyeglasses after cataract surgery is also reviewed. The patient understands these risks and agrees to surgery. The surgery will be scheduled for the near future. Trauma: NN LASIK: N Flomax: N Anticoagulation: N Vigamox allergy: N Dilates: good but will use shugar Other Considerations: PDR OU - will nee d injection prior if >10 weeks from last injection 02/15/2019; IgM deficiency , low possibility of blue Target: -1.50 - pt understands he still may need glasses for best vision near and far and there could be refract rodrigo surprise due to PDR ILEVRO/durezol We will operate on the both eyes. Anest hesia: topical Y Right eye first Neel Jensen MD, PGY-3 Primary osteoarthritis of left hip 03/14/201603/2016 Encounters Care Team Description Date Type Specialty Vita Quiñonez MD Disease of spinal cord (HCC) (Primary Dx ) 01/10/2022 Orders Only Neurosurgery from Last 3 Months Immunizations Name Administration Dates Next Due FLU VACCINE >3YO 11/19/2007 (Preservative Free) Surgical History Surgery Date Site/Laterality Comments FOOT FRACTURE SURGERY Right HIP SURGERY Left pinned femoral head ; hardware later removed HX ADENOIDECTOMY REVISION TOTAL HIP 04/28/2016 Hip/Left LEFT UNCEME NTED TOTAL HIP ARTHROPLASTY performed ARTHROPLASTY by Jeff Tavares MD at [facility] Medical devices from this surgery are i n the Medical Devices section. HX BELOW KNEE AMPUTATION 02/10/2016 - Left 02/08/2017 CHOLECYSTECTOMY CATARACT REMOVAL 02/09/2019 - Right 02/09/2020 CATARACT REMOVAL WITH 03/22/2019 Eye/Right MANUAL/ MECHANICAL EXTRACAPSULAR CATARACT REMOVAL IMPLANT WITH INSERTION INTRAOCULAR LENS PROSTHESIS - 1 STAGE performed by Verenice Augustin MD a t [facility] Medical devices from this surgery are i n the Medical Devices section. CATARACT REMOVAL WITH 04/05/2019 Eye/Left MANUAL/ MECHANICAL EXTRACAPSULAR CATARACT REMOVAL IMPLANT WITH INSERTION INTRAOCULAR LENS PROSTHESIS - 1 STAGE performed by Verenice Augustin MD a t [facility] Medical devices from this surgery are i n the Medical Devices section. Medical History Medical History Date Comments Hypertension Hyperlipidemia Arthritis DM (diabetes mellitus) (HCC) fasting sugars 107-130 's VIVI on CPAP Psoriasis Neuropathy feet and ankles CKD (chronic kidney disease), stage II Diabetic retinopathy associated with type 2 diabetes mellitus (HCC) IgM deficiency (HCC) Gout Covid-19 Family History Medical History Relation Name Comments Bleeding Disorders Father myelodysplastic syn drome Stroke Maternal Grandfather Arthritis-rheumatoid Mother Relation Name Status Comments Father Maternal Grandfather Mother Social History Date Tobacco Use Types Packs/Day Years Used Smoking Tobacco: Never Smokeless Tobacco: Never Tobacco Cessation: Counseling Given: Yes Comments Alcohol Use Standard Drinks/Week No 0 (1 standard drink = 0.6 o z pure alcohol) Sex Assigned at Date Recorded Male 09/04/2019 8:02 AM CDT Obstetrics History Last Filed Vital Signs Reading Time Taken Comments Vital Sign 113/71 04/05/2019 11:45 AM CREATIVE ARTS THERAPIST Blood Pressure 72 04/05/2019 11:45 AM CREATIVE ARTS THERAPIST Pulse 36.7 C (98 F) 04/05/2019 11:45 AM CREATIVE ARTS THERAPIST Temperature 17 02/03/2019 11:19 AM CREATIVE ARTS THERAPIST Respiratory Rate 98% 04/05/2019 11:45 AM CREATIVE ARTS THERAPIST Oxygen Saturation - - Inhaled Oxygen Concentration 117.9 kg (260 lb) 08/09/2021 1:30 PM CDT Weight 177.8 cm (5' 10") 08/09/2021 1:30 PM CDT Height 37.31 08/09/2021 1:30 PM CDT Body Mass Index Plan of Treatment Health Maintenance Due Date Last Done Comments MEDICARE ANNUAL WELLNESS 1968 VISIT HIV SCREENING 10/15/1983 DTAP/TDAP VACCINES (1 - 1986 Tdap) FOOT EXAM 1986 HEPATITIS C SCREENING 1986 PHYSICAL (COMPREHENSIVE) 1986 EXAM COLORECTAL CANCER 2013 SCREENING HBA1C 10/23/2016 04/22/2016, 03/14/2016 SHINGLES RECOMBINANT 2018 VACCINE (1 of 2) DEPRESSION SCREENING 02/09/2021 COVID-19 VACCINE (4 - 04/26/2021 03/01/2021, Booster for Moderna 06/29/2020, series) 05/31/2020 INFLUENZA VACCINE (#1) 2021 DILATED EYE EXAM 08/09/2022 08/09/2021, 08/09/2021, 12/25/2020, Additional history exists PNEUMOCOCCAL VACCINE (DM) Completed 02/23/2019 Medical Devices Device Identifier Shelf Expiration Date Model / Serial / L ot Implanted Type Area Manufactur er Hip Hip Scew Screw Right: Foot 01/08/2021 [id number] / N/A / [id number] Head Femoral Articul/Salvador Biolox Left: Hip JandJ :DEPU Delta +5mm 12/14 Taper Od36mm Hip Y:DEPUY Implanted: Qty: 1 on 04/28/2016 by ORTHOPEDIC Jeff Tavares MD at [facility] 07/10/2023 SA60WF.200 / [id number] / NA Lens Iol 0 D +20 Diopter Mod L Right: Eye ALEIDA Biconvex 13mm 6mm Uv Absorb - LABORATORI [id number] [employer] Implanted: Qty: 1 on 03/22/2019 by Verenice Augustin MD at [place] 08/09/2023 SA60WF.195 / [id number] / NA Lens Iol 0 D +19.5 Diopter Mod L Left: Eye ALCO N Biconvex 13mm 6mm Uv Absorb - LAB[employer]ATOR[employer] [id number] [employer] Implanted: Qty: 1 on 04/05/2019 by Verenice Augustin MD at [place] Results Not on filefrom Last 3 Months Insurance Type Payer Benefit Subscriber ID Effective Phone Address Plan / Dates Group Medicare MEDICARE MEDICARE [id number] 2018- [phone] Present [address] [place] [address] [employer] [id number] 2021-P [phone] BENEFITS-A resent [address] [facility] [address] AETNA MEDICAID AETNA [id number] 2018- [phone] [address] [address] [place] [phone] Advance Directives Patient Community Organization Director Explanation Type Date Recorded Advance 04/28/2016 7:55 AM Directive/DPOA Date Inactivated Comments Code Status Date Activated 05/01/2016 7:39 PM Full Code 04/28/2016 8:34 AM Provider has discussed Code Status Yes w/Patient or Family? Care Teams Start Date End Date Clinical Dietician Relationship Specialty 02/03/19 Kd Russ MD PCP - General Family [address] [place] [address]
--- OUTSIDE RECORDS SUMMARY | 2022-01-17 11:06 | XMS REPORT ---
Author Author [facility] Organization [facility] Address Unknown Phone Unavailable Care Team Providers Care Clinic Manager Name Role Phone CLAUDIA BLANC MD, FACP Unavailable [phone] PROBLEMS Type Condition ICD9-CM Code MOO75-QZ Code Onset Dates Condition S tatus W/U Status Risk SNOMED Code Notes Problem Chronic kidney disease, stage 4 (severe) N18.4 confirmed 138595703 Problem Essential (primary) hypertension I10 conf irmed [id number] Problem Type 2 diabetes mellitus with diabetic chronic kidney disease E11.22 confirmed 144409052227 Problem 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 con firmed 866009181 Problem Hyperparathyroidism, secondary renal N25.81 confirmed [id number] ALLERGIES Allergen (clinical drug ingredient) Drug/Non Drug Allergy do cumented on EMR Reaction Allergy Type Onset Date Status sulfamethoxazole / trimethoprim Sulfamethoxazole/Trimethoprim Un known Drug Allergy Active Sulfonamide (substance) Sulfa Antibiotics Unknown Drug Allergy Active ENCOUNTERS from 1968 to 2021-12-24 Encounter Location Date Provider Diagnosis [facility], [place] [address] [place] [address] Dec, CLAUDIA PINO IMMUNIZATIONS No Information SOCIAL HISTORY Sex Assigned At : Social History Observation Description Sex Assigned At Unknown REASON FOR REFERRAL No Information VITAL SIGNS No information MEDICATIONS Medication SIG (Take, Route, Frequency, Duration) Notes Start Da te End Date Status Cetirizine HCl 10 MG 1 tablet Orally Once a day Active Hydroxychloroquine Sulfate 200 MG 1 (one) Orally Twice a Day Active Fexofenadine HCl 180 MG 1 tablet Orally Once a day Active methylPREDNISolone 4 MG 3 tablets Orally Every day Not-Taking Allopurinol 100 MG 1 tablet Orally Twice a Day Active Doxycycline Hyclate 100 MG 1 capsule Orally Once a day Not-Taking Furosemide 40 MG 1 tablet Orally Once a day Not-Taking Multivitamins Plus Zinc One per day Active Sildenafil Citrate 25 MG 1 tablet as needed Orally Once a day Not-Taking Atorvastatin Calcium 20 MG 1 tablet Orally Once a day Active Omeprazole 40 MG 1 capsule 30 minutes before morning meal Orally On ce a day Active Coreg 25 MG 1 tablet with food Orally Twice a day Active Stool Softener 100 MG 1 capsule as needed Orally Once a day Active HumuLIN R U-500 (CONCENTRATED) 500 UNIT/ML 110ml Subcutaneous with me als Active Montelukast Sodium 10 MG 1 tablet Orally Once a day Active Probiotic - as directed Orally Activ e Fosinopril Sodium 40 MG 1 tablet Orally Once a day Active Mucinex 600 MG 1 tablet as needed Orally every 12 hrs Not-Taking Gemfibrozil 600 MG 1 tablet 30 minutes before m orning and evening meals Orally Twice a day Active Lasix 20 MG 0.5(1/2) Orally Twice a Day Active Toujeo SoloStar 300 UNIT/ML as directed Subcutaneous Not-Taking Vascepa 1 GM 2 capsules with meals Orally Twice a day Active Vitamin C 500 MG 1 (one) Orally Twice a day Active Ferrex 150 150 MG 1 capsule Orally BID Active PROCEDURES No Information RESULTS No Results REASON FOR VISIT CT? MEDICAL (GENERAL) HISTORY Type Description Date Medical History Rectal bleeding Medical History Anxiety Medical History Hearing loss Medical History Tinnitus Medical History Psoriasis Medical History Type 2 diabetes mellitus Medical History Gout/hyperuricemia Medical History Psoriatic arthritis Medical History CKD, Stage 4 Medical History Gastroesophageal reflux disease Medical History Erectile dysfunction Medical History Anemia Medical History Hypertension Medical History Edema Medical History Hyperlipidemia Medical History Diabetic retinopathy Medical History Diabetic neuropathy Medical History Hyperkalemia Medical History Hyperparathyroidism Medical History Common variable immunodeficiency Medical History Secondary hyperparathyroidism Medical History Metabolic acidosis Medical History Obstructive sleep apnea Medical History Pancreatitis, Oct, 2018 Surgical History Surgery for right foot fracture, 2009 Surgical History Left hip replacement, 04/2016 Surgical History Amputation of multiple left toes, 2016 Surgical History Adenoidectomy, 1974 Surgical History Left [id number] amputation, 10/2016 Surgical History Cholecystectomy, 11/2016 Surgical History Laser eye surgery, bilateral Surgical History Revision of left stump, 11/2016, 02/2017 Surgical History Cataract surgery, 2019 Surgical History Carpal tunnel release, bilateral Hospitalization History No Hospitalization history informati on Goals Section No Information Health Concerns No Information MEDICAL EQUIPMENT No Information MENTAL STATUS No Information FUNCTIONAL STATUS No Information ASSESSMENTS No Information PLAN OF TREATMENT Next Appt Details Provider Name:CLAUDIA HUFFMAN MD [facility], 2022-03-27 02:45:00 PM, [address], [place], [address], Insurance Providers Payer Name Payer Address Payer Phone Insured Name Patient Relati onship to Insured Coverage Start Date Coverage End Date Subscriber Number Group Nu mber AETNA [facility] [address] [address] [facility] [phone] Gerardo Vaca Self - patient is the insured 2020 [id number] MEDICARE [address] [facility] [phone] Gerardo Vaca Self - patient is the insured 2018 [id number]
--- OUTSIDE RECORDS SUMMARY | 2022-01-17 11:06 | XMS REPORT ---
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 [id number] Problem 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 con firmed [id number] Problem Hyperparathyroidism, secondary renal N25.81 confirmed [id number] ALLERGIES Allergen (clinical drug ingredient) Drug/Non Drug Allergy do cumented on EMR Reaction Allergy Type Onset Date Status sulfamethoxazole / trimethoprim Sulfamethoxazole/Trimethoprim Un known Drug Allergy Active Sulfonamide (substance) Sulfa Antibiotics Unknown Drug Allergy Active ENCOUNTERS from 1968 to 2021-12-19 Encounter Location Date Provider Diagnosis [facility] [address] [facility] [address] [place] [id number] Dec, CLAUDIA PINO Type 2 diabetes mellitus wit h diabetic chronic kidney disease E11.22 ; Chronic kidney disease, stage 4 (severe) N18.4 ; 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 ; Hyperuricemia without signs of inflammatory arthritis and tophaceous disease E79.0 ; Hyperparathyroidism, secondary renal N25.81 ; Essential (primary) hypertension I10 and Hyperkalemia E87.5 IMMUNIZATIONS No Information SOCIAL HISTORY Sex Assigned At : Social History Observation Description Sex Assigned At Unknown REASON FOR REFERRAL No Information VITAL SIGNS Height 69 in Dec, Weight 256 lbs Dec, BMI 37.8 kg/m2 Dec, MEDICATIONS Medication SIG (Take, Route, Frequency, Duration) [...] Information RESULTS No Results REASON FOR VISIT [place]/3mo CKD, DM MEDICAL (GENERAL) HISTORY Type Description Date Medical [...] Surgical History Adenoidectomy, 1974 Surgical History Left wjari-ffh-bjaf amputation, 10/2016 Surgical History Cholecystectomy, 11/2016 Surgical History Laser eye surgery, bilateral Surgical History Revision of left stump, 11/2016, 02/2017 Surgical History Cataract surgery, 2019 Surgical History Carpal tunnel release, bilateral Hospitalization History No Hospitalization history informati on Goals Section No Information Health Concerns No Information MEDICAL EQUIPMENT No Information MENTAL STATUS No Information FUNCTIONAL STATUS No Information ASSESSMENTS Encounter Date Diagnosis Assessment Notes Treatment Notes Treatm ent Clinical Notes Dec, Type 2 diabetes mellitus wit h diabetic chronic kidney disease (ICD- 10 - E11.22) Dec, Chronic kidney disease, stage 4 (severe) (ICD-10 - N18.4) Dec, Anemia secondary to renal failure (ICD-1 0 - D63.1) Dec, Hyperuricemia without signs of inflammatory arthritis and tophaceous disease (ICD-10 - E79.0) Dec, Hyperparathyroidism, secondary renal (IC D-10 - N25.81) Dec, Essential (primary) hypertension (ICD-10 - I10) Dec, Hyperkalemia (ICD-10 - E87.5) PLAN OF TREATMENT Pending Tests Test Name Order Date IRON PROFILE 2021-12-19 ALBUMIN, RANDOM URINE (W/CREATININE) 2021-12-19 PROTEIN, TOTAL W/CREAT, RANDOM URINE 2021-12-19 CBC (H/H, RBC, INDICES, WBC, PLT) 2021-12-19 FERRITIN 2021-12-19 RENAL FUNCTION PANEL 2021-12-19 URIC ACID 2021-12-19 URINALYSIS, COMPLETE W/REFLEX TO CULTURE 2021-12-19 PTH, INTACT WITHOUT CALCIUM 2021-12-19 Next Appt Details 3 Months Reason: Insurance Providers Payer Name Payer Address Payer Phone Insured Name Patient Relati onship to Insured Coverage Start Date Coverage End Date Subscriber Number Group Nu mber MEDICARE [address] [facility] [id number] Gerardo Vaca Self - patient is the insured 2018 [id number] [facility] [address] [address] [facility] [id number] Gerarod Vaca Self - patient is the insured 2020 [id number] 36
--- NOTE | 2022-01-17 11:18 | Physical Therapy Evaluation ---
PT Evaluation-General Medical Diagnosis Admission Date Jan 17, 2022 at 10:35 Medical Diagnosis: S/P L4,L5, TLIF Onset Date: Jan 15, 2022 Therapy Diagnosis Therapy Diagnosis: Impaired Mobility Height/Weight Height (Feet): 5 Height (Inches): 9.00 Weight (Pounds): 252 Precautions Precautions/Isolations: Standard Precautions Weight Bear Status Right Lower Extremity: Right Full Weight Bearing Left Lower Extremity: Left Full Weight Bearing Referral Physician: Eboni Reason for Referral: Evaluation/Treatment Medical History Additional Medical History Surgeries: Yes (left uwafn-bae-rubw amputation ) Adenoidectomy, Amputation (Left BKA), Eye Surgery, Gallbladder, Orthopedic (Slipped femoral epiphysis, bilateral carpal tunnel) Respiratory: No Cardiac: Yes High Cholesterol, Hypertension Neurological: Yes Neuropathy Genitourinary: Yes Renal Failure (Chronic kidney disease) Gastrointestinal: Yes Pancreatitis Musculoskeletal: Yes Amputee, Arthritis (Psoriatic arthritis), Gout Endocrine: Yes Diabetes, Insulin dep, Diabetes, Non-Insulin dep HEENT: Yes (Diabetic retinopathy) Cancer: No Psychosocial: No Integumentary: Yes (Psoriatic arthritis) Blood Disorders: No Adverse Reaction/Blood Tranf: No Current History Patient came from [place] by car transport by his mother. Reviewed History: Yes Social History Home: Single Level Current Living Status: Other Family (mother) Entry Into Home: Ramp Prior Prior Level of Function SCALE: Activities may be completed with or without assistive devices. 7-Hdmnfdicxj-pwqqbsg completes the activity by him/herself with no assistance from a helper. 5-Set-up or Clean-up Assistance-helper sets up or cleans up; patient completes activity. [place] assists only prior to or following the activity. 4-Supervision or Touching Assistance-helper provides verbal cues and/or touching/steadying and/or contact guard assistance as patient completes activity. Assistance may be provided throughout the activity or intermittently. 3-Partial/Moderate Assistance-helper does LESS THAN HALF the effort. [place] lifts, holds or supports trunk or limbs, but provides less than half the effort. 2-Substantial/Maximal Assistance-helper does MORE THAN HALF the effort. [place] lifts or holds trunk or limbs and provides more than half the effort. 2-Qifljsqtb-jwbgsj does ALL the effort. Patient does none of the effort to complete the activity. Or, the assistance of 2 or more helpers is required for the patient to complete the activity. If activity was not attempted, code reason: 7-Patient Refused. 9-Not Applicable-not attempted and the patient did not perform the activity before the current illness, exacerbation or injury. 10-Not Attempted due to Environmental Limitations-(lack of equipment, weather restraints, etc.). 88-Not Attempted due to Medical Conditions or Safety Concerns. Bed Mobility: 6 Transfers (B,C,W/C): 6 Gait: 6 Stairs: 6 Indoor Mobility (Ambulation): Independent Stairs: Independent Prior Devices Use: Orthotics/Prosthetics (transtibial prosthetic) Prior Device Use: cane and has used a walker before too PT Evaluation-Current Subjective Patient met at hospital front driven by mother, reports pain in LB 8/10, agrees to PT. Will co-treat with OT due to patient's increase risk of fall, previous L transtibial amputation, recent back Sx, decreased endurance, and safety. Pain Section J - Health Conditions 1. Rarely or not at all 2. Occasionally 3. Frequently 4. Almost constantly 8. Unable to answer Pain Effect on Sleep: 1 Pain Interference with Therapy: 1 Pain Interference w/Day-to-Day: 1 Pt/Family Goals Return to independence at home Objective Patient Orientation: Person, Place, Situation Attachments: Drains (back) ROM/Strength ROM Lower Extremities RLE grossly WNL, LLE WNL knee and above Strength Lower Extremities RLE grossly 5/5, LLE (hip flexion 3+/5, knee flexion 4+/5, knee extension 4+/5) Neuromuscular (Tone, Coordination, Reflexes) coordination intact Sensory Vision: Wears Glasses Hearing: Functional Sensation Right Lower Extremit: Impaired ( diminshed below knee, absent below ankle) Sensation Left Lower Extremity: Intact Transfers Roll Left & Right (QC): 4 (SBA) Sit to Lying (QC): 3 (Min A with prosthesis on, SBA without prosthesis on) Lying to Sitting/Side of Bed(Q: 4 (SBA) Sit to Stand (QC): 3 (Mod A erd-vy-glskx out of a car, CGA out of a regular chair or W/C) Chair/Fzm-dh-Lmgqm Xfer(QC): 4 (CGA) Toilet Transfer (QC): 3 (Min A) Car Transfer (QC): 3 (Mod A) Gait Does the Patient Walk?: Yes Mode of Locomotion: Walk Anticipated Mode of Locomotion: Walk Walk 10 feet (QC): 4 Walk 50 ft with 2 Turns(QC): 4 Walk 150 ft (QC): 88 Walking 10ft/uneven surface-QC: 4 Distance: 100' Gait Assistive Device: FWW Comments/Gait Description CGA with ambulation, patient walks steady with FWW and slow gait speed. Wheelchair Training Does the Pt Use a Wheelchair?: Yes Distance: 150' Wheel 50 ft with 2 turns (QC): 4 (SBA) Wheel 150 ft (QC): 4 (SBA) Type of Wheelchair: Manual SBA Stairs #of Steps: 1 1 Step (curb) (QC): 4 4 Steps (QC): 88 12 Steps (QC): 88 Walking Assistive Device: Walker CGA with stairs Balance Sitting Static: Normal Sitting Dynamic: Normal Standing Static: Normal Standing Dynamic: Fair Picking up an Object (QC): 4 Treatment PT did ambulation, W/C mobility, bed mobility, stairs, transfers, tinetti 22/28 Moderate Fall Risk, LE positioning, and safety while OT did safety and UE positioning. OT did bathing, toileting, oral hygiene, UE positioning and safety, while PT did LE positoning and safety. Assessment/Needs Patient walks steady with FWW, good with W/C mobility, good posture, but has decreased endurance and strength BLE. Patient in recliner post-tx with Speech Therapist in room, nurse call in reach, phone, tray, all needs met. Rehab Potential: Fair PT Short Term Goals Short Term Goals Time Frame: Jan 24, 2022 Sit to lyin (SBA) Sit to stand: 4 (SBA) Chair/pnb-yi-nggof transfer: 4 (SBA) Toilet transfer: 4 (SBA) Car transfer: 4 (SBA) Walk 10 feet: 4 (SBA) Walk 50 feet with two turns: 4 (SBA) Walk 150 feet: 4 (SBA) Walking 10ft on uneven surface: 4 (SBA) 1 step (curb): 4 (SBA) 4 steps: 4 (CGA) Picking up objects: 4 (SBA with long term care pharmacist) PT Snf Goals Escrow Manager Goals PT Escrow Manager Goals Time Frame: Feb 07, 2022 Roll Left to Right (QC): 6 Sit to Lying (QC): 6 Lying-Sitting on Side/Bed(QC): 6 Sit to Stand (QC): 6 Chair/Usd-xd-[place]ak[place] Xfer(QC): 6 Toilet/Commode Transfer (QC): 6 Car Transfer (QC): 6 Walk 10 feet (QC): 6 Walk 10ft-Uneven Surface(QC): 6 Walk 50ft with 2 Turns (QC): 6 Walk 150 ft (QC): 6 Wheel 50 feet with 2 turns (QC: 6 Wheel 150 feet: 6 Type: Manual 1 Step (curb) (QC): 6 4 Steps (QC): 6 12 Steps (QC): 4 (SBA-CGA) Picking up an Object (QC): 6 (independent with long term care pharmacist) PT Plan Problem List Problem List: Activity Tolerance, Functional Strength, Safety, Balance, Gait, Transfer, Bed Mobility, ROM Treatment/Plan Treatment Plan: Continue Plan of Care Treatment Plan: Bed Mobility, Education, Functional Activity Jane, Functional Strength, Group Therapy, Gait, Safety, Therapeutic Exercise, Transfers Treatment Duration: Feb 07, 2022 Frequency: At least 5 of 7 days/Wk (IRF) Estimated Hrs Per Day: 1.5 hours per day Patient and/or Family Agrees t: Yes Safety Risks/Education Patient Education: Gait Training, Transfer Techniques, Steps, Correct Positioning, W/C Management, Safety Issues Teaching Recipient: Patient Teaching Methods: Demonstration, Discussion Response to Teaching: Reinforcement Needed Discharge Recommendations Therapy Discharge Recommendati: Home & Family, Post Acute PT Time Time In: 1025 Time Out: 1150 DATE: Jan 17, 2022 Total Billed Treatment Time: 75 Total Billed Treatment 1 visit EV 10' PT Eval [id number] OT Eval [id number] Co-treat from [id number] FA x 4 65 min KAI LEBLANC PT Jan 17, 2022 11:18
--- NOTE | 2022-01-17 11:23 | PM&R Post Admission Assessment ---
PM&R HP Date of Visit: Jan 17, 2022 Time of Visit: 12:00 History of Present Illness CC: Debility S/P spinal fusion HPI: Gerardo Vaca (Eddie) is a 51yo M admitted to ARU room 229, with an admitting diagnosis of Lumbar Fusion, on 01/17/2022 from [facility]. He has a H/o Diabetic neuropathy, and amputation(BKA) of left leg. He was in good spirits and ready to start therapy, he hasnt had a bowel movement for a couple days. He said his pain is pretty severe at around 8/10 and on pain medication its still around 4/10. Denied any n/v/d but mentioned low grade fever and chills last night. PMH: Cardiac: High Cholesterol, Hypertension Neurological: Neuropathy Genitourinary: Renal Failure Gastrointestinal: Pancreatitis Musculoskeletal: Amputee, Arthritis, Gout Endocrine: Diabetes, Insulin dep, Diabetes, Non-Insulin dep History of Blood Disorders: No Adverse Reaction to Blood [place]: No PSH: Adenoidectomy, Amputation (Left BKA), Eye Surgery(diabetic retinopathy), Gallbladder, Orthopedic (Slipped femoral epiphysis, bilateral carpal tunnel) All: Sulfa (Sulfonamide Antibiotics) (Verified Allergy, Unknown, 11/09/21) Meds: Allopurinol (Allopurinol), 100 MG PO DAILY, (Reported) Ascorbate Calcium (Vitamin C), 500 MG PO DAILY, (Reported) Atorvastatin Calcium (Atorvastatin Calcium), 20 MG PO DAILY, (Reported) Carvedilol (Carvedilol), 25 MG PO BID WITH MEALS, (Reported) Cyclobenzaprine HCl (Cyclobenzaprine HCl), 10 MG PO HS, (Reported) Fosinopril Sodium (Fosinopril Sodium), 40 MG PO DAILY, (Reported) Furosemide (Furosemide), 20 MG PO BID, (Reported) Gabapentin (Neurontin), 300 MG PO TID, (Reported) Gemfibrozil (Gemfibrozil), 600 MG PO BID, (Reported) Guaifenesin/Dextromethorphan (Mucinex Dm ER 600-30 mg Tablet), 1 EACH PO Q12H, (Reported) Hydroxychloroquine Sulfate (Hydroxychloroquine Sulfate), 200 MG PO BID, (Reported) Icosapent Ethyl (Vascepa), 2 GM PO BID WITH MEALS, (Reported) Insulin Regular, Human (Humulin R U-500 Kwikpen), UNITS SC ACHS, (Reported) Iron Polysaccharide Complex (Ferrex 150), 150 MG PO BID, (Reported) L.acidoph & Paracasei,B.lactis (Probiotic), 1 EACH PO DAILY, (Reported) Montelukast Sodium (Montelukast Sodium), 10 MG PO DAILY, (Reported) Omeprazole (Omeprazole), 40 MG PO DAILY, (Reported) Scheduled PRN Docusate Sodium (Colace), 100 MG PO BID PRN for CONSTIPATION-1ST LINE, (Reported) Oxycodone Hcl (Oxyir Tablet), 5 MG PO Q4H PRN for PAIN-SEVERE (8-10), (Reported) Promethazine HCl (Promethazine Tablet), 25 MG PO Q6H PRN for NAUSEA/VOMITING-2ND LINE, (Reported) Triamcinolone Acet (Triamcinolone Acetonide 0.1% Cream), 1 APPLIC TOP BID PRN for SKIN CONDITION, (Reported) SH: 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 FH: no pertinent family Hx ROS: Constitutional: see HPI EENTM: No blurred vision, No double vision Respiratory: No cough, short of breath with exertion Cardiovascular: No chest pain, No palpitations, Gastrointestinal: constipation, No diarrhea; no melena, no vomiting Genitourinary: had catheter removed after surgery still not voiding as much as he used to. Musculoskeletal: back pain 2/2 surgery Skin: Diabetic lesions/discoloration on right leg Psychiatric/Neurological: Neuropathy of left leg, Denies Headache, Denies [place], admits to slight anxiety. Exams: V/S: T(36.9) HR(111) RR(18) BP(130/66) SpO2(98 RA) General Appearance: no acute Distress, WD/WN Neck: Full Range of Motion, Normal Inspection Respiratory: Chest Non Tender, Lungs Clear Cardiovascular: Regular Rate, Rhythm, No Murmur,rubs, or gallops Gastrointestinal: Normal Bowel Sounds, Non Tender, Soft Extremity: Normal Capillary Refill, Non Tender, No Pedal Edema, 2+ distal pulses, numbness to entire right leg Neurologic/Psychiatric: Alert, Oriented x3, NL mood, anxious affect Skin: Warm/Dry, Labs: glucometer(318) A: S/P spinal fusion DM w/ hyperglycemia Back pain Debility P: Aggressive OT/PT therapy insulin control w/ diet plan Pain regimen MACIEL MILIAN Jan 17, 2022 14:54 Past [id number]-Gysryz Hx Past Med/Social Hx: Reviewed Nursing Past Med/Soc Hx, Reviewed and Corrections made Patient Social History Marrital Status: single Employed/Student: part-time employed Alcohol Use: Denies Use Smoking Status: Former Smoker 2nd Hand Smoke Exposure: No Recent Hopitalizations: No Past Medical History Surgeries: Adenoidectomy, Amputation, Eye Surgery, Gallbladder, Orthopedic Cardiac: High Cholesterol, Hypertension Neurological: Neuropathy Genitourinary: Renal Failure Gastrointestinal: Pancreatitis Musculoskeletal: Amputee, Arthritis, Gout Endocrine: Diabetes, Insulin dep, Diabetes, Non-Insulin dep History of Blood Disorders: No Adverse Reaction to Blood [place]: No Family History No Pertinent Family Hx PM&R Allergy/Meds/Data Review Allergies Coded Allergies: bacitracin (Verified Allergy, Mild, Rash, 01/17/22) neomycin (Verified Allergy, Mild, Rash, 01/17/22) sulfamethoxazole (Verified Allergy, Mild, Rash, 01/17/22) trimethoprim (Verified Allergy, Mild, Rash, 01/17/22) Sulfa (Sulfonamide Antibiotics) (Verified Allergy, Unknown, 11/09/21) Home Medications Scheduled Allopurinol (Allopurinol), 100 MG PO DAILY, (Reported) Ascorbate Calcium (Vitamin C), 500 MG PO DAILY, (Reported) Atorvastatin Calcium (Atorvastatin Calcium), 20 MG PO DAILY, (Reported) Carvedilol (Carvedilol), 25 MG PO BID WITH MEALS, (Reported) Cyclobenzaprine HCl (Cyclobenzaprine HCl), 10 MG PO HS, (Reported) Fosinopril Sodium (Fosinopril Sodium), 40 MG PO DAILY, (Reported) Furosemide (Furosemide), 20 MG PO BID, (Reported) Gabapentin (Neurontin), 300 MG PO TID, (Reported) Gemfibrozil (Gemfibrozil), 600 MG PO BID, (Reported) Guaifenesin/Dextromethorphan (Mucinex Dm ER 600-30 mg Tablet), 1 EACH PO Q12H, (Reported) Hydroxychloroquine Sulfate (Hydroxychloroquine Sulfate), 200 MG PO BID, (Reported) Icosapent Ethyl (Vascepa), 2 GM PO BID WITH MEALS, (Reported) Insulin Regular, Human (Humulin R U-500 Kwikpen), UNITS SC ACHS, (Reported) Iron Polysaccharide Complex (Ferrex 150), 150 MG PO BID, (Reported) L.acidoph & Paracasei,B.lactis (Probiotic), 1 EACH PO DAILY, (Reported) Montelukast Sodium (Montelukast Sodium), 10 MG PO DAILY, (Reported) Omeprazole (Omeprazole), 40 MG PO DAILY, (Reported) Scheduled PRN Docusate Sodium (Colace), 100 MG PO BID PRN for CONSTIPATION-1ST LINE, (Reported) Oxycodone Hcl (Oxyir Tablet), 5 MG PO Q4H PRN for PAIN-SEVERE (8-10), (Reported) Promethazine HCl (Promethazine Tablet), 25 MG PO Q6H PRN for NAUSEA/VOMITING-2ND LINE, (Reported) Triamcinolone Acet (Triamcinolone Acetonide 0.1% Cream), 1 APPLIC TOP BID PRN for SKIN CONDITION, (Reported) Discontinued Medications Amlodipine Besylate (Amlodipine Besylate), Unknown Dose PO DAILY, (Reported) Discontinued Reason: Duplicate Order Fluticasone Furoate (Flonase Sensimist), 2 SPRAYS NSEACH DAILY Discontinued Reason: Duplicate Order Gemfibrozil (Gemfibrozil), 600 MG PO, (Reported) Discontinued Reason: Duplicate Order Insulin Aspart (Novolog), Unknown Dose SQ AC, (Reported) Discontinued Reason: Duplicate Order Insulin Glargine,Hum.rec.anlog (Toujeo Solostar), Unknown Dose SQ, (Reported) Discontinued Reason: Duplicate Order Iron Ps Cmplx/Vit B12/FA (Iferex 150 Forte Capsule), Unknown Dose PO, (Reported) Discontinued Reason: Duplicate Order Levalbuterol Tartrate (Xopenex Hfa), 1-2 PUFF INH Q6H Discontinued Reason: Duplicate Order Ondansetron (Ondansetron Odt), 4 MG SL Q4H PRN for NAUSEA/VOMITING Discontinued Reason: Duplicate Order Oxycodone Hcl (Oxyir Tablet), 5 MG PO Q4H PRN for PAIN-SEVERE (8-10) Discontinued Reason: Duplicate Order Prednisone (Prednisone), 40 MG PO DAILY Discontinued Reason: Duplicate Order Prochlorperazine Maleate (Compazine), 10 MG PO Q6H Discontinued Reason: Duplicate Order Current Medications Current Medications Reviewed Review of Systems Constitutional: see HPI, malaise, weakness EENTM: no symptoms reported Respiratory: no symptoms reported Cardiovascular: no symptoms reported Gastrointestinal: constipation Genitourinary: no symptoms reported Musculoskeletal: back pain, joint pain Psychiatric/Neurological: No Symptoms Reported All Other Systems Reviewed Negative Unless Noted: Yes Physical Exam Physical Exam Vital Signs Capillary Refill : Height, Weight, BMI Height: 5'9.00" Weight: 252lbs. oz. [phone]; 37.71 BMI Method:Stated General Appearance: No Apparent Distress, WD/WN, Chronically ill, Obese Eyes: Bilateral Eye Normal Inspection, Bilateral Eye PERRL HEENT: PERRL/EOMI, Normal ENT Inspection, Pharynx Normal Neck: Full Range of Motion, Normal Inspection, Non Tender, Supple, Carotid Bruit Respiratory: Chest Non Tender, Lungs Clear, Normal Breath Sounds, No Accessory Muscle Use, No Respiratory Distress Cardiovascular: Regular Rate, Rhythm, No Edema, No Gallop, No JVD, No Murmur, Normal Peripheral Pulses Gastrointestinal: Normal Bowel Sounds, No Organomegaly, No Pulsatile Mass, Non Tender, Soft Back: Normal Inspection, Decreased Range of Motion, Muscle Spasm, Vertebral Tenderness Extremity: Normal Capillary Refill, Normal Inspection, Normal Range of Motion, Non Tender, No Calf Tenderness, No Pedal Edema, Other (left BKA) Neurologic/Psychiatric: Alert, Oriented x3, No Motor/Sensory Deficits, Normal Mood/Affect Skin: Normal Color, Warm/Dry Lymphatic: No Adenopathy PM&R Medical Assessment & Plan REHAB/MEDICAL ASSESSMENT AND PLAN: REHAB IMPAIRMENT GROUP: Lumbar spine surgery ETIOLOGIC DIAGNOSIS: Lumbar spine surgery The comorbidities that impact the patients function and/or functional outcome b y: Left BKA, DM, CKD Stage IV, HTN, obesity REHAB PLAN: The patient is being admitted to our comprehensive inpatient rehabilitation facility and can tolerate the intensity of service consisting of at least: 180 minutes of therapy a day, 5 out of 7 days a week Rehab treatment will consist of: PT OT will focus on regaining function with use of AD in order to regain independence in ADL's in order to return home The patient/family has a good understanding of our discharge process and will benefit from an interdisciplinary inpatient rehabilitation program. The patient has potential to make improvement and is in need of at least two of the following multidisciplinary therapies including but not limited to physical, occupational, speech, and prosthetics and orthotics. Additionally the patient will need services from respiratory, nutritional services, wound care, psychology, etc. (Customize this to each patient). Given the patients complex condition and risk of further medical complications, rehabilitation services cannot be safely or effectively provided at a lower level of care such as a senior care facility. BARRIERS TO DISCHARGE: Left BKA with spine surgery recovery ESTIMATED LOS: 10 days DISPOSITION: Home RELEVANT CHANGES SINCE PREADMISSION SCREENING: I have compared the patients medical and functional status at the time of the preadmission screening and there are: no changes PROGNOSIS: Good REHABILITATION GOALS: 1. PT OT will focus on regaining function with use of AD in order to regain independence in ADL's in order to return home All the above goals were reviewed with the patient and he/she is in agreement. By signing this document, I acknowledge that I have personally performed a full physical examination on this patient within 24 hours of admission to this inpatient rehabilitation facility and have determined the patient to be able to tolerate the above course of treatment at an intensive level for a reasonable period of time. I will be completing a detailed individualized Plan of Care for this patient by day #4 of the patients stay based upon the Preadmission Screen, the Post-Admission Evaluation, and the therapy evaluations. Admission Dx/Comorbidities: (1) H/O lumbosacral spine surgery ICD Codes: Z98.890 - Other specified postprocedural states (2) Stage 3b chronic kidney disease Status: Chronic ICD Codes: N18.32 - Chronic kidney disease, stage 3b (3) Psoriasis Status: Chronic ICD Codes: L40.9 - Psoriasis, unspecified (4) Gout Status: Chronic ICD Codes: M10.9 - Gout, unspecified (5) T2DM (type 2 diabetes mellitus) Status: Chronic ICD Codes: E11.9 - Type 2 diabetes mellitus without complications (6) HTN (hypertension) Status: Chronic ICD Codes: I10 - Essential (primary) hypertension (7) Spinal stenosis of lumbar region Status: Chronic ICD Codes: M48.061 - Spinal stenosis, lumbar region without neurogenic claudication Assessment/Plan Assessment and Plan Assess & Plan/Chief Complaint Assessment: s/p lumbar spine surgery due to spinal stenosis with myelopathy CKD Stage IV DM Obesity Post op constipation HTN HLP Psoriasis h/o pancreatitis Gout h/o left BKA Plan: PT OT Monitor creat Pain control KATINA MORAN DO Jan 17, 2022 11:23
[2022-01-17] MEDS ORDERED: MELATONIN 3 MG TABLET PO PRN (11:30)
[2022-01-17] MEDS ORDERED: LOPERAMIDE 2 MG (IMODIUM) TABLET PO PRN (11:30)
[2022-01-17] MEDS ORDERED: FLEET ENEMA ADULT 1 EA BTL PR PRN (11:30)
[2022-01-17] MEDS ORDERED: diphenhydrAMINE 25 MG TAB (BENADRYL) PO PRN (11:30)
[2022-01-17] MEDS ORDERED: guaiFENesin/CODEINE (ROBITUSSIN AC) 10ML UDC PO PRN (11:30)
[2022-01-17] MEDS ORDERED: LACTULOSE SYRUP 10GM/15ML (ENULOSE) 30ML UDC PO PRN (11:30)
[2022-01-17] MEDS ORDERED: ALPRAZolam 0.25 MG (XANAX) TAB PO PRN (11:30)
[2022-01-17] MEDS ORDERED: ACETAMINOPHEN 325 MG TABLET PO PRN (11:30)
[2022-01-17] MEDS ORDERED: CALCIUM CARBONATE 500 MG (TUMS) TAB.CHEW PO PRN (11:30)
[2022-01-17] MEDS ORDERED: DOCUSATE SODIUM 100 MG (COLACE) CAP PO PRN ×2 (11:30→11:45)
[2022-01-17] MEDS ORDERED: NON-FORMULARY MEDICATION 1 EA EA (Guaifenesin/Dextromethorphan (Mucinex Dm ER 600-30 mg Ta PO SCH (11:45)
[2022-01-17] MEDS ORDERED: TRIAMCINOLONE 0.1% CR (KENALOG) 15 GM TUBE TOP PRN (11:45)
--- NOTE | 2022-01-17 11:45 | ST Cognitive Linguistic Eval ---
Speech Evaluation-General Medical Diagnosis Acute Pancreatitis Onset Date: Jan 17, 2022 Therapy Diagnosis Therapy Diagnosis: Intact (Baseline) Cognitive Linguistic Skills Precautions Precautions: Fall Precautions/Isolations: Fall Prevention, Standard Precautions Referral Referring Physician: Dr. Lyn Reason for Referral: Evaluation/Treatment Medical History Current History The patient is a 51 year-old male with a past medical history of a left BKA, left hip replacement, CKD, DM, gout, HTN, neuropathy, and arthritis, who present ed to the acute rehabilitation unit following a TILF/PSIF L4-5 on 01/15/22. Reviewed History: Yes Social History Current Living Status: Other Family (mother) Speech PLF-Current Status Prior Level of Function The patient denied concerns or difficulties with his current speech, language, cognition or swallowing skills. Subjective The patient was seated upright in his recliner, awake and alert, upon entrance to his room by the clinician. The patient greeted the clinician appropriately and was agreeable to participation in the cognitive linguistic treatment session. Language Eval: Auditory Comprehends Simple Yes/No Ques: Functional Indent/Objects Multiple Ponce: Functional Follows 1-Step Commands: Functional Follows Complex Directions: Functional Follows General Conversations: Functional Language Eval: Verbal Language Completes Spontaneous Greeting: Functional Produces Auto, Serial Info: Functional Imitates Simple Words/Phrases: Functional Word Finding: Functional Requests Basic Needs: Functional States Basic Personal Info: Functional Expresses Complex Ideas: Functional Language Evaluation: Reading Follows Simple Written Direct: Functional Language Evaluation: Writing Writes to Simple Dictation: Functional Cognitive Patient Orientation The patient was independently oriented to self, location, month, day of the week, and year. Objective Cognitive Domain Attention: WNL Memory: WNL Problem Solving: Functional Executive Functions: WNL Visuospatial Skills: WNL Composite Severity Rating: WNL Clock Drawing Severity Rating: WNL Objective Formal/Standardized Tests [facility] Mental Status Exam (UMS) Results The patient demonstrated a result of +30/30 on the SLUMS correlating to a score within normal limits. Oral Motor/Speech Production The patient does not display dysarthria or apraxia of speech at this time. The patient is 100% intelligible in known and unknown contexts. Impression The patient demonstrated intact and baseline neurocognitive skills. Speech-Plan Treatment Plan Speech Therapy Treatment Plan: Discontinue ST Treatment Duration: Jan 17, 2022 Frequency: 1 time per week Estimated Hrs Per Day: .5 hour per day Rehab Potential: Good Pt/Family Agrees to Plan: Yes Safety Risks/Education Teaching Recipient: Patient Teaching Methods: Discussion Response to Teaching: Verbalize Understanding Education Topics Provided: Results, Recommendations, Plan of Care Time Speech Therapy Time In: 11:50 Speech Therapy Time Out: 12:20 DATE: Jan 17, 2022 Total Billed Time: 30 Billed Treatment Time 1, AMY ARREDONDO ELIZAB[address] ST Jan 17, 2022 11:45
[2022-01-17 11:47] VITALS: BP 130/66
[2022-01-17 12:50] VITALS: BP 113/71
--- NOTE | 2022-01-17 12:53 | Occupational Therapy Eval ---
OT Evaluation-General/PLF Medical Diagnosis Admission Date Jan 17, 2022 at 10:35 Medical Diagnosis: S/P L4,L5, TLIF Onset Date: Jan 15, 2022 Therapy Diagnosis Therapy Diagnosis: decreased ADL status Height/Weight Height (Feet): 5 Height (Inches): 9.00 Weight (Pounds): 252 Precautions Precautions/Isolations: Fall Prevention, Standard Precautions Comments Back brace when OOB, back precautions. No showering instructions in pt's discharge paperwork from [facility], clarification needed from surgeon on instructions. Referral Physician: Eboni Referral Reason: Evaluation/Treatment Medical History Additional Medical History adenoidectomy, L BKA, L hip replacement, CKD, DM, Gout, HTN, neuropathy, arthritis Current History 01/15/22 s/p TILF/PSIF L4-5 Social History Home: Single Level Current Living Status: Other Family (mother & sister) Entry Into Home: [facility] ADL-Prior Level of Function SCALE: Activities may be completed with or without assistive devices. 7-Pszcgdufrz-gmcqeow completes the activity by him/herself with no assistance from a helper. 5-Set-up or Clean-up Assistance-helper sets up or cleans up; patient completes activity. [place] assists only prior to or following the activity. 4-Supervision or Touching Assistance-helper provides verbal cues and/or touching/steadying and/or contact guard assistance as patient completes activity. Assistance may be provided throughout the activity or intermittently. 3-Partial/Moderate Assistance-helper does LESS THAN HALF the effort. [place] lifts, holds or supports trunk or limbs, but provides less than half the effort. 2-Substantial/Maximal Assistance-helper does MORE THAN HALF the effort. [place] lifts or holds trunk or limbs and provides more than half the effort. 4-Hkoqbnlue-kfbodp does ALL the effort. Patient does none of the effort to complete the activity. Or, the assistance of 2 or more helpers is required for the patient to complete the activity. If activity was not attempted, code reason: 7-Patient Refused. 9-Not Applicable-not attempted and the patient did not perform the activity before the current illness, exacerbation or injury. 10-Not Attempted due to Environmental Limitations-(lack of equipment, weather restraints, etc.). 88-Not Attempted due to Medical Conditions or Safety Concerns. ADL PLOF Comments Pt reports IND with ADLs and functional mobility at [facility]. He has a LLE prosthesis after his BKA. He typically doesn't ambulate with a walker/cane, and is able to manage with just LLE prosthesis. Over the last several months pt has been using a cane due to worsening back pain. When pt is home in the evenings, he sometimes manages with a w/c, no LLE prosthesis. He has a tub/shower with a SC. Typically he doffs the LLE prosthesis at w/c level, then slides from w/c to tub ledge, then tub ledge to SC. Self Care: Independent Functional Cognition: Independent DME/Equipment: Bath Chair, Tub/Shower DME/Equipment Comments w/c, FWW, cane, LLE prosthesis, SC OT Current Status Subjective Pt agreeable to OT evaluation followed by OT/PT cotreat. Mental Status/Objective Patient Orientation: Person, Place, Time, Situation Attachments: Other-See Comments (LLE prosthesis) Current Glasses/Contacts: Yes Hearing Aids: No Dentures/Partials: No Hand Dominance: Right Upper Extremity ROM WFL, BUE shoulder flexion to approx 160 degrees Upper Extremity Coordination WFL Upper Extremity Sensation pt reports some numbness in fingertips due to neuropathy Upper Extremity Strength not formally tested due to back precautions, grossly WFL. ADL-Treatment Eating (QC): 6 Oral Hygiene (QC): 6 Shower/Bathe Self (QC): 3 (Min A overall.) Upper Body Dressing (QC): 3 (Min A with back brace.) Lower Body Dressing (QC): 3 (Min A with pant hike.) On/Off Footwear (QC): 2 (Max A with RLE sock/shoe, and LLE prosthesis) Toileting Hygiene (QC): 3 (Min A with clothing management.) Other Treatments OT evaluation complete. OT/PT cotreat due to skill of 2 clinicians required which a cardiac rehab nurse could not perform in order to coordinate UE/LEs, decrease fall risk, and due to pt's limitations in strength, activity tolerance, mobility. OT focused on ADLs, UE placement, and cues for sequencing/safety, PT focused on LE placement, gross overall movement, transfers and mobility. Pt completed functional transfers including steps, bed mobility and w/c mobility. Pt then completed ADLs at [facility] including dressing and sponge bath. Nurse present to assess back dressing and laceration to anterior portion of RLE. Pt reports laceration was from tape at the other hospital, his skin is very thing and tears easily. Pt had difficulty completing footwear, RLE he is able to use figure 4 method but difficulty reaching toes for threading sock/shoe. LLE he is unable to perform external rotation due to prior hip replacement, causing difficulty reaching forward far enough to don LLE socks/prosthesis, and difficulty with using knobs/buttons on prosthesis to don/doff. With donning pants, pt stood at FWW, CGA, standing on RLE only (pt had not donned LLE prosthesis yet), min A with pant hike. Pt transferred to recliner. Post tx, pt in recliner, call light in reach and all needs met. Min A supine to/from sit, CGA sit to/from stand from regular surfaces, mod A from lower surfaces, SBA w/c mobility. Education OT Patient Education: Correct positioning, Energy conservation, Instructions don/doff splint/brace, Modified ADL techniques, Progress toward Goal/Update tx plan, Purpose of tx/functional activities, Reviewed precautions, Safety issues, Transfer techniques, W/C management Teaching Recipient: Patient Teaching Methods: Discussion Response to Teaching: Verbalize Understanding BIMS CAM BIMS Expression of Ideas and Wants: Without Difficulty Understanding Verbal Content: Understands Brief Interview/Mental Status: Yes IRF SINDHU BIMS: IRF SINDHU BIMS Response (Comments) Value Repitition of Three Words Three 3 Recalls Socks Yes, No Cue Required 2 Recalls Blue Yes, No Cue Required 2 Recalls Bed Yes, No Cue Required 2 Year Correct 3 Month Accurate Within 5 Days 2 Day Correct 1 Total 15 Should Staff Asses. Mental St[address] No CAM Mental Status Change/Baseline: 0 Inattention: 0 Disorganized thinkin Altered level of consciousness: 0 OT Short Term Goals Short Term Goals Time Frame: Jan 24, 2022 Toileting hygiene: 4 Shower/bathe self: 4 Upper body dressin Lower body dressin Putting on/taking off footwear: 4 OT Correction Goals Correction Goals Time Frame: Feb 07, 2022 Acute change in mental status: 0 Inattention: 0 Disorganized thinkin Altered level of consciousness: 0 Eating (QC): 6 Oral Hygiene (QC): 6 Toileting Hygiene (QC): 6 Shower/Bathe Self (QC): 5 Upper Body Dressing (QC): 6 Lower Body Dressing (QC): 6 On/Off Footwear (QC): 6 Additional Goals: 1-Demonstrate ADL Tasks, 2-Verbalize Understanding, 3-ImproveStrength/Jane 1=Demonstrate adherence to instructed precautions during ADL tasks. 2=Patient will verbalize/demonstrate understanding of assistive devices/modifications for ADL. 3=Patient will improve strength/tolerance for activity to enable patient to perform ADL's. OT Education/Plan Problem List/Assessment Assessment: Decreased Activ Tolerance, Decreased UE Strength, Impaired Funct Balance, Impaired I ADL's, Impaired Self-Care Skills Discharge Recommendations Plan/Recommendations: Continue POC Treatment Plan/Plan of Care Patient would benefit from OT for education, treatment and training to promote independence in ADL's, mobility, safety and/or upper extremity function for ADL's. Plan of Care: ADL Retraining, Functional Mobility, Group Exercise/Act as Ind, UE Funct Exercise/Act Treatment Duration: Feb 07, 2022 Frequency: At least 5 of 7 days/Wk (IRF) Estimated Hrs Per Day: 1.5 hours per day Agreement: Yes Rehab Potential: Fair Time Start Time: 10:35 Stop Time: 11:50 DATE: Jan 17, 2022 Total Time Billed (hr/min): 75 Billed Treatment Time 9989-9790 OT eval (10'), [id number] Cotreat (65') 1, EVM (10'), FA (15'), ADL 3 (50') DANIEL HERNANDEZ OT Jan 17, 2022 12:53
[2022-01-17] MEDS: GABAPENTIN 300 MG (NEURONTIN) CAP PO SCH ×2 (13:18→20:29)
--- NOTE | 2022-01-17 14:54 | Progress Note ---
MACIEL MILIAN 01/17/22 1454: Progress Note CC: Debility S/P spinal fusion HPI: Gerardo Vaca (Eddie) is a 51yo M admitted to ARU room 229, with an admitting diagnosis of Lumbar Fusion, on 01/17/2022 from [facility]. He has a H/o Diabetic neuropathy, and amputation(BKA) of left leg. He was in good spirits and ready to start therapy, he hasnt had a bowel movement for a couple days. He said his pain is pretty severe at around 8/10 and on pain medication its still around 4/10. Denied any n/v/d but mentioned low grade fever and chills last night. PMH: Cardiac: High Cholesterol, Hypertension Neurological: Neuropathy Genitourinary: Renal Failure Gastrointestinal: Pancreatitis Musculoskeletal: Amputee, Arthritis, Gout Endocrine: Diabetes, Insulin dep, Diabetes, Non-Insulin dep History of Blood Disorders: No Adverse Reaction to Blood [place]: No PSH: Adenoidectomy, Amputation (Left BKA), Eye Surgery(diabetic retinopathy), Gallbladder, Orthopedic (Slipped femoral epiphysis, bilateral carpal tunnel) All: Sulfa (Sulfonamide Antibiotics) (Verified Allergy, Unknown, 11/09/21) Meds: Allopurinol (Allopurinol), 100 MG PO DAILY, (Reported) Ascorbate Calcium (Vitamin C), 500 MG PO DAILY, (Reported) Atorvastatin Calcium (Atorvastatin Calcium), 20 MG PO DAILY, (Reported) Carvedilol (Carvedilol), 25 MG PO BID WITH MEALS, (Reported) Cyclobenzaprine HCl (Cyclobenzaprine HCl), 10 MG PO HS, (Reported) Fosinopril Sodium (Fosinopril Sodium), 40 MG PO DAILY, (Reported) Furosemide (Furosemide), 20 MG PO BID, (Reported) Gabapentin (Neurontin), 300 MG PO TID, (Reported) Gemfibrozil (Gemfibrozil), 600 MG PO BID, (Reported) Guaifenesin/Dextromethorphan (Mucinex Dm ER 600-30 mg Tablet), 1 EACH PO Q12H, (Reported) Hydroxychloroquine Sulfate (Hydroxychloroquine Sulfate), 200 MG PO BID, (Reported) Icosapent Ethyl (Vascepa), 2 GM PO BID WITH MEALS, (Reported) Insulin Regular, Human (Humulin R U-500 Kwikpen), UNITS SC ACHS, (Reported) Iron Polysaccharide Complex (Ferrex 150), 150 MG PO BID, (Reported) L.acidoph & Paracasei,B.lactis (Probiotic), 1 EACH PO DAILY, (Reported) Montelukast Sodium (Montelukast Sodium), 10 MG PO DAILY, (Reported) Omeprazole (Omeprazole), 40 MG PO DAILY, (Reported) Scheduled PRN Docusate Sodium (Colace), 100 MG PO BID PRN for CONSTIPATION-1ST LINE, (Reported) Oxycodone Hcl (Oxyir Tablet), 5 MG PO Q4H PRN for PAIN-SEVERE (8-10), (Reported) Promethazine HCl (Promethazine Tablet), 25 MG PO Q6H PRN for NAUSEA/VOMITING-2ND LINE, (Reported) Triamcinolone Acet (Triamcinolone Acetonide 0.1% Cream), 1 APPLIC TOP BID PRN for SKIN CONDITION, (Reported) SH: 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 FH: no pertinent family Hx ROS: Constitutional: see HPI EENTM: No blurred vision, No double vision Respiratory: No cough, short of breath with exertion Cardiovascular: No chest pain, No palpitations, Gastrointestinal: constipation, No diarrhea; no melena, no vomiting Genitourinary: had catheter removed after surgery still not voiding as much as he used to. Musculoskeletal: back pain 2/2 surgery Skin: Diabetic lesions/discoloration on right leg Psychiatric/Neurological: Neuropathy of left leg, Denies Headache, Denies Weakness, admits to slight anxiety. Exams: V/S: T(36.9) HR(111) RR(18) BP(130/66) SpO2(98 RA) General Appearance: no acute Distress, WD/WN Neck: Full Range of Motion, Normal Inspection Respiratory: Chest Non Tender, Lungs Clear Cardiovascular: Regular Rate, Rhythm, No Murmur,rubs, or gallops Gastrointestinal: Normal Bowel Sounds, Non Tender, Soft Extremity: Normal Capillary Refill, Non Tender, No Pedal Edema, 2+ distal pulses, numbness to entire right leg Neurologic/Psychiatric: Alert, Oriented x3, NL mood, anxious affect Skin: Warm/Dry, Labs: glucometer(318) A: S/P spinal fusion DM w/ hyperglycemia Back pain Debility P: Aggressive OT/PT therapy insulin control w/ diet plan Pain regimen ANAHI MORAN DO 01/18/22 0618: Supervisory-Addendum Brief Verification & Attestation Participated in pt care: history, MDM, physical Personally performed: exam, history, MDM, supervision of care Care discussed with: Medical Student Procedures: n/a Results interpretation: Verified all documentation Verification and Attestation of Medical Student E/M Service A medical student performed and documented this service in my presence. I reviewed and verified all information documented by the medical student and made modifications to such information, when appropriate. I personally performed the physical exam and medical decision making. Anahi Moran Jan 18, 2022,06:18 MACIEL MILIAN Jan 17, 2022 14:54 ANAHI MORAN DO Jan 18, 2022 06:18
[2022-01-17] MEDS ORDERED: inSUlin (REGULAR) HUMAN 1 UNIT/0.01 ML (CHARGE PER UNIT) SC PRN (15:45)
[2022-01-17] MEDS ORDERED: PATIENT MAY USE OWN MEDS, ALL PO SCH (16:30)
[2022-01-17] MEDS: inSUlin (REGULAR) HUMAN 1 UNIT/0.01 ML (CHARGE PER UNIT) SC SCH ×2 (17:23→20:29)
[2022-01-17] MEDS: ICOSAPENT ETHYL 1 GM PO SCH (17:25)
[2022-01-17] MEDS: guaiFENesin/DM (ROBITUSSIN DM) 10 ML UDC PO SCH (17:53)
[2022-01-17] MEDS: GEMFIBROZIL 600 MG (LOPID) TAB PO SCH (20:29)
[2022-01-17] MEDS: SENNA W/DOCUSATE (SENOKOT S) TABLET PO SCH (20:29)
[2022-01-17] MEDS: IRON POLYSAC 150 MG CAP (NIFEREX) PO SCH (20:29)
[2022-01-17] MEDS: FUROSEMIDE 20 MG (LASIX) TAB PO SCH (20:29)
[2022-01-17 20:30] VITALS: BP 111/59
[2022-01-17] MEDS: CYCLOBENZAPRINE 10 MG (FLEXERIL) TAB PO SCH (20:30)
[2022-01-17] MEDS: HYDROXYCHLOROQUINE 200 MG (PLAQUENIL) TAB PO SCH (20:30)
[2022-01-17] MEDS: DOCUSATE SODIUM 100 MG (COLACE) CAP PO SCH (20:30)
[2022-01-17] MEDS: polyethylene glycoL POWDER 17 GM (MIRALAX) PACK PO SCH (20:30)
[2022-01-18 06:13] LABS: BASOPHILS % (AUTO) 0 % (0-10); EOSINOPHILS # (AUTO) 0.1 10^3/uL (0.0-0.3); EOSINOPHILS % (AUTO) 2 % (0-10); HEMATOCRIT 23 % (40-54); HEMOGLOBIN 7.6 g/dL (13.3-17.7); LYMPHOCYTES % (AUTO) 14 % (12-44); MEAN CORPUSCULAR HEMOGLOBIN 31 pg (25-34); MEAN CORPUSCULAR HGB CONC 33 g/dL (32-36); MEAN CORPUSCULAR VOLUME 95 fL (80-99); MEAN PLATELET VOLUME 9.7 fL (9.0-12.2); MONOCYTES # (AUTO) 0.8 10^3/uL (0.0-1.0); MONOCYTES % (AUTO) 11 % (0-12); NEUTROPHILS # (AUTO) 5.4 10^3/uL (1.8-7.8); NEUTROPHILS % (AUTO) 73 % (42-75); PLATELET COUNT 204 10^3/uL (130-400); WHITE BLOOD COUNT 7.3 10^3/uL (4.3-11.0)
[2022-01-18 06:38] LABS: ALBUMIN 3.2 GM/DL (3.2-4.5); BILIRUBIN,TOTAL 0.4 MG/DL (0.1-1.0); CALCIUM 9.1 MG/DL (8.5-10.1); CREATININE SERUM 3.44 MG/DL (0.60-1.30); POTASSIUM 3.9 MMOL/L (3.6-5.0); TOTAL PROTEIN 6.1 GM/DL (6.4-8.2)
--- NOTE | 2022-01-18 06:42 | PM&R Progress Note ---
Subjective HPI/CC On Admission Date Seen by Provider: Jan 18, 2022 Time Seen by Provider: 13:00 Subjective/Events-last exam 01/18/2022: Patient doing really well Settling into rehab Therapy had a good session with him Slept really well last night Pain is controlled Creatinine 3.4 Review of Systems General: Fatigue, Malaise Musculoskeletal: back pain Objective Exam Vital Signs Vital Signs Date Time Temp Pulse Resp B/P (MAP) Pulse Ox O2 Delivery O2 Flow Rate FiO2 01/18/22 09:00 Room Air 01/18/22 07:11 37.6 98 20 115/66 (82) 95 Capillary Refill : General Appearance: No Apparent Distress, WD/WN, Chronically ill, Obese HEENT: PERRL/EOMI, Normal ENT Inspection, Pharynx Normal Neck: Full Range of Motion, Normal Inspection, Non Tender, Supple, Carotid Bruit Respiratory: Chest Non Tender, Lungs Clear, Normal Breath Sounds, No Accessory Muscle Use, No Respiratory Distress Cardiovascular: Regular Rate, Rhythm, No Edema, No Gallop, No JVD, No Murmur, Normal Peripheral Pulses Gastrointestinal: Normal Bowel Sounds, No Organomegaly, No Pulsatile Mass, Non Tender, Soft Back: Normal Inspection, Decreased Range of Motion, Muscle Spasm, Vertebral Tenderness Extremity: Normal Capillary Refill, Normal Inspection, Normal Range of Motion, Non Tender, No Calf Tenderness, No Pedal Edema, Other (left BKA) Neurologic/Psychiatric: Alert, Oriented x3, No Motor/Sensory Deficits, Normal Mood/Affect Skin: Normal Color, Warm/Dry Lymphatic: No Adenopathy Results/Procedures Lab Laboratory Tests 01/18/22 05:51 Patient resulted labs reviewed. FIM Transfers Therapy Code Descriptions/Definitions Functional [place] Measure: 0=Not Assessed/NA 4=Minimal Assistance 1=Total Assistance 5=Supervision or Setup 2=Maximal Assistance 6=Modified [place] 3=Moderate Assistance 7=Complete IndependenceSCALE: Activities may be completed with or without assistive devices. 2-Mgdgqcoqhi-uvcdakw completes the activity by him/herself with no assistance from a helper. 5-Set-up or Clean-up Assistance-helper sets up or cleans up; patient completes activity. [place] assists only prior to or following the activity. 4-Supervision or Touching Assistance-helper provides verbal cues and/or touching/steadying and/or contact guard assistance as patient completes activity. Assistance may be provided throughout the activity or intermittently. 3-Partial/Moderate Assistance-helper does LESS THAN HALF the effort. [place] lifts, holds or supports trunk or limbs, but provides less than half the effort. 2-Substantial/Maximal Assistance-helper does MORE THAN HALF the effort. [place] lifts or holds trunk or limbs and provides more than half the effort. 7-Mymbclncc-qymeie does ALL the effort. Patient does none of the effort to complete the activity. Or, the assistance of 2 or more helpers is required for the patient to complete the activity. If activity was not attempted, code reason: 7-Patient Refused. 9-Not Applicable-not attempted and the patient did not perform the activity before the current illness, exacerbation or injury. 10-Not Attempted due to Environmental Limitations-(lack of equipment, weather restraints, etc.). 88-Not Attempted due to Medical Conditions or Safety Concerns. Roll Left to Right (QC): 4 (SBA) Sit to Lying (QC): 3 (Min A with prosthesis on, SBA without prosthesis on) Sit to Stand (QC): 3 (Mod A meu-mr-ebnwv out of a car, CGA out of a regular chair or W/C) Chair/Aij-kq-Qsxko Xfer(QC): 4 (CGA) Car Transfer (QC): 3 (Mod A) Gait Training Does the Patient Walk?: Yes Walk 10 feet (QC): 4 Walk 50 ft with 2 Turns(QC): 4 Walk 150 ft (QC): 88 Walking 10ft/uneven surface-QC: 4 Gait Assistive Device: FWW Wheelchair Training Does the Pt Use a Wheelchair?: Yes Distance: 150' Wheel 50 ft with 2 turns (QC): 4 (SBA) Wheel 150 ft (QC): 4 (SBA) Type of Wheelchair: Manual Stair Training #of Steps: 1 1 Step (curb) (QC): 4 4 Steps (QC): 88 12 Steps (QC): 88 Balance Picking up an Object (QC): 4 ADL-Treatment Eating (QC): 6 Oral Hygiene (QC): 6 Shower/Bathe Self (QC): 3 (Min A overall.) Upper Body Dressing (QC): 3 (Min A with back brace.) Lower Body Dressing (QC): 3 (Min A with pant hike.) On/Off Footwear (QC): 2 (Max A with RLE sock/shoe, and LLE prosthesis) Toileting Hygiene (QC): 3 (Min A with clothing management.) Assessment/Plan Assessment and Plan Assess & Plan/Chief Complaint Assessment: s/p lumbar spine surgery due to spinal stenosis with myelopathy CKD Stage IV DM Obesity Post op constipation HTN HLP Psoriasis h/o pancreatitis Gout h/o left BKA Plan: PT OT Monitor creat Pain control 01/18/2022: Aggressive bowel regimen Monitor creatinine (1) H/O lumbosacral spine surgery (2) Stage 3b chronic kidney disease Status: Chronic (3) Psoriasis Status: Chronic (4) Gout Status: Chronic (5) T2DM (type 2 diabetes mellitus) Status: Chronic (6) HTN (hypertension) Status: Chronic (7) Spinal stenosis of lumbar region Status: Chronic KATINA MORAN DO Jan 18, 2022 06:42
--- NOTE | 2022-01-18 06:42 | Individualized Plan of Care ---
Individualized Plan of Care Rehab Nursing IPOC Order Admission Date Jan 17, 2022 at 10:35 Current Orders Orders Admission Arrival Bed Request (01/17/22 10:35) Admission Order(Inpt,Obs,Sdc) (01/17/22 11:19) Vital Signs: Per Unit Policy ( 08,16,00 (01/17/22 11:19) Gui Gaitan (01/17/22 11:19) Sequential Compression Device (01/17/22 11:19) Oil Process [place]-Inpt Rehab Con (01/17/22 11:19) Rehab Nursing Orders-Ipoc (01/17/22 11:19) Physical Therapy Rehab Orders (01/17/22 11:19) Occupational Therapy Rehab Ord (01/17/22 11:19) Speech Therapy Rehab Orders (01/17/22 11:19) Cbc With Automated Diff (01/18/22 06:00) Comprehensive Metabolic Panel (01/18/22 06:00) Precautions (Aru) (01/17/22 11:19) Weekly Weight WEEK (01/17/22 11:19) Rehab-Intensity Of Therapy (01/17/22 11:19) Initiate Admission Nursing Pro .admission (01/17/22 11:19) Alprazolam Tablet (Xanax Tablet) (01/17/22 11:30) Calcium Carbonate Chew Tablet (Antacid C (01/17/22 11:30) Diphenhydramine Tablet (Benadryl Tablet) (01/17/22 11:30) Docusate Sodium Capsule (Colace Capsule) (01/17/22 21:00) Docusate Sodium Capsule (Colace Capsule) (01/17/22 11:30) Bisacodyl Suppository (Dulcolax Supposit (01/17/22 11:30) Lactulose Oral Solution (Enulose Oral So (01/17/22 11:30) Na Phos/Na Biphos Enema (Fleet Enema Timothy (01/17/22 11:30) Guaifenesin/Codeine Syrup (Robitussin Ac (01/17/22 11:30) Loperamide Tablet (Imodium Tablet) (01/17/22 11:30) Melatonin Tablet (Melatonin Tablet) (01/17/22 11:30) Polyethylene Glycol Powder Pkt (Miralax (01/17/22 21:00) Ondansetron Oral Dissolve Tab (Zofran (01/17/22 11:30) Senna S Tablet (Senokot S Tablet) (01/17/22 21:00) Acetaminophen Tablet/Caplet (Tylenol T (01/17/22 11:30) Code/Resuscitation (01/17/22 11:19) Initiate Admission Nursing Pro .admission (01/17/22 11:19) Allopurinol Tablet (Zyloprim Tablet) (01/18/22 09:00) Atorvastatin Tablet (Lipitor Tablet) (01/18/22 09:00) Docusate Sodium Capsule (Colace Capsule) (01/17/22 11:45) Gabapentin Capsule/Tablet (Neurontin Cap (01/17/22 13:00) Gemfibrozil Tablet (Lopid Tablet) (01/17/22 21:00) Hydroxychloroquine Sulfate (Plaquenil) (01/17/22 21:00) Icosapent Ethyl (Non-Formulary (Vascepa (01/17/22 18:00) Iron Polysaccaride Capsule (Niferex Caps (01/17/22 21:00) Montelukast Tablet (Singulair Tablet) (01/18/22 09:00) Oxycodone Immediate Rel Tablet (Oxyir Ta (01/17/22 11:45) Promethazine Tablet (Phenergan Tablet) (01/17/22 11:45) Triamcinolone 0.1% Cream 15 Gm (Kenalog (01/17/22 11:45) Ascorbic Acid Tablet (Vitamin C Tablet) (01/18/22 09:00) Carvedilol Tablet (Coreg Tablet) (01/17/22 18:00) (Nf) Fosinopril Sodium (01/18/22 09:00) (Nf) Guaifenesin/Dextromethorphan (Mucin (01/17/22 11:45) Lactobacillus Acidophilus Cap (Acidophil (01/18/22 09:00) (Nf) Omeprazole (01/18/22 09:00) Cyclobenzaprine Tablet (Flexeril Tablet) (01/17/22 21:00) Patient Visit (01/17/22 ) Speech Sound Lang Comp (01/17/22 ) Treat. Speech/Lang/Voice (01/17/22 ) Furosemide Tablet (Lasix Tablet) (01/17/22 21:00) Pantoprazole Tablet (Protonix Tablet) (01/18/22 09:00) Lisinopril Tablet (Zestril Tablet) (01/18/22 09:00) Accucheck Achs ACHS (01/17/22 12:58) Cho 60g/M 1snack (16-2000 Earle) (01/17/22 Lunch) Patient Visit (01/17/22 ) Pt Eval High Complexity (01/17/22 ) Functional Activities, Ea 15 (01/17/22 ) Insulin Determir (Per Unit) (Levemir (Pe (01/17/22 16:00) Insulin Determir (Per Unit) (Levemir (Pe (01/17/22 21:00) Insulin (Regular) Human (Novolin R (Per (01/17/22 16:00) Insulin (Regular) Human (Novolin R (Per (01/17/22 15:45) Patient May Use Own Meds, All (Patient M (01/17/22 16:30) Incentive Spirometry Initial (01/17/22 16:21) Incentive Spirometry (Nursing) Q2H (01/17/22 16:21) Incentive Spirometry (Nursing) Q2H (01/17/22 16:21) Communication For Respiratory (01/17/22 16:40) Guaifenesin/Dm Syrup (Robitussin Dm Syru (01/17/22 17:45) Bisacodyl Suppository (Dulcolax Supposit (01/18/22 11:45) Bisacodyl Suppository (Dulcolax Supposit (01/18/22 11:45) Insulin Determir (Per Unit) (Levemir (Pe (01/18/22 21:00) Iron Test (Fe) (01/18/22 11:44) Vitamin B 12 (01/18/22 11:44) Patient Visit (01/18/22 ) Gait Training, Ea 15 Min (01/18/22 ) Rehab Nursing Orders: Ongoing Assess. of Function Status, Bladder Management, Bladder Scan, Bladder Training, Bowel Management, Bowel Training, Disease Management & Educaiton, DVT Prophylaxis, Fall Prevention, Fluid/Electrolyte/Nutrition Mgmt, Infection Prevention, Medication Management & Education, Management of Risks & Complications, Management of Skin Intergrity, Nutrition Management, Pain Management, Safety Management, Weight Bearing Precaution, Wound Management Intensity of Therapy to be met Patient to be seen: Min.3h per day/5 of 7d PT IPOC Problem List: Activity Tolerance, Functional Strength, Safety, Balance, Gait, Transfer, Bed Mobility, ROM Treatment Plan: Continue Plan of Care Bed Mobility, Education, Functional Activity Jane, Functional Strength, Group Therapy, Gait, Safety, Therapeutic Exercise, Transfers Treatment Duration: Feb 07, 2022 Frequency: At least 5 of 7 days/Wk (IRF) Estimated Hrs Per Day: 1.5 hours per day OT IPOC Problems: Decreased Activ Tolerance, Decreased UE Strength, Impaired Funct Balance, Impaired I ADL's, Impaired Self-Care Skills OT Treatment, Training and Edu: Yes Plan of Care: ADL Retraining, Functional Mobility, Group Exercise/Act as Ind, UE Funct Exercise/Act Treatment Duration: Feb 07, 2022 Frequency: At least 5 of 7 days/Wk (IRF) Estimated Hrs Per Day: 1.[address] IPOC Speech Therapy Treatment Plan: Discontinue ST Treatment Duration: Jan 17, 2022 Frequency: 1 time per week Estimated Hrs Per Day: .5 hour per day Oil Process [place]/Case Mgmt Oil Process [place]/Case Managemen: Discharge Planning Dietitian/Honeycomb Blanket Maker Dietitian/Honeycomb Blanket Maker to monitor nutritional status and make changes and/or recommendations as needed and work with speech pathology on dietary upgrades as the occur. Physician IPOC Medical Issues being managed closely and that require the 24 hour availability of a physician: Patient with multiple comorbidities including diabetes iga-qw-hyqmkbq due to noncompliance and chronic kidney disease with creatinine of 3.4 with stage IIIb chronic kidney disease in addition to postop constipation and hypertension will require close monitoring to decrease chance of decompensation Medical Issues: Bowel/Bladder Function, DVT Prophylaxis, Falls Precautions, Fluid/Electrolyte/Nutrition Balance, Infection Protection, Pain Management, Wound Care Brief Synthesis of Preadmission Screen, Post-Admission Evaluation, and Therapy Evaluations: PT and OT will help focus on regaining function with assistive devices and accommodating the left BKA and choices of assistive devices in order to prevent falls and increase stamina and increase independence in ADLs in order to return home with mother Medical Prognosis: Good Anticipated Length of Stay: 7 days KATINA MORAN DO Jan 18, 2022 06:42
[2022-01-18] MEDS: guaiFENesin/DM (ROBITUSSIN DM) 10 ML UDC PO SCH ×2 (06:49→17:05)
[2022-01-18] MEDS: inSUlin (REGULAR) HUMAN 1 UNIT/0.01 ML (CHARGE PER UNIT) SC SCH ×4 (06:49→21:25)
[2022-01-18 07:11] VITALS: BP 115/66
[2022-01-18] MEDS: LACTOBACILLUS ACIDOPHILUS (PROBIOTIC) CAPSULE PO SCH (08:45)
[2022-01-18] MEDS: PANTOPRAZOLE 40 MG (PROTONIX) TAB PO SCH (08:45)
[2022-01-18] MEDS: SENNA W/DOCUSATE (SENOKOT S) TABLET PO SCH ×2 (08:45→19:46)
[2022-01-18] MEDS: lisINopril 40 MG (PRINIVIL) TABLET PO SCH (08:45)
[2022-01-18] MEDS: polyethylene glycoL POWDER 17 GM (MIRALAX) PACK PO SCH ×2 (08:45→19:46)
[2022-01-18] MEDS: DOCUSATE SODIUM 100 MG (COLACE) CAP PO SCH ×2 (08:45→19:45)
[2022-01-18] MEDS: GEMFIBROZIL 600 MG (LOPID) TAB PO SCH ×2 (08:45→19:45)
[2022-01-18] MEDS: MONTELUKAST 10 MG (SINGULAIR) TAB PO SCH (08:45)
[2022-01-18] MEDS: ALLOPURINOL 100 MG (ZYLOPRIM) TAB PO SCH (08:45)
[2022-01-18] MEDS: ASCORBIC ACID (VIT C) 500 MG TABLET PO SCH (08:45)
[2022-01-18] MEDS: HYDROXYCHLOROQUINE 200 MG (PLAQUENIL) TAB PO SCH ×2 (08:45→19:46)
[2022-01-18] MEDS: FUROSEMIDE 20 MG (LASIX) TAB PO SCH ×2 (08:45→19:46)
[2022-01-18] MEDS: GABAPENTIN 300 MG (NEURONTIN) CAP PO SCH ×3 (08:45→19:46)
[2022-01-18] MEDS: IRON POLYSAC 150 MG CAP (NIFEREX) PO SCH ×2 (08:46→19:45)
[2022-01-18] MEDS: ICOSAPENT ETHYL 1 GM PO SCH ×2 (08:49→17:05)
[2022-01-18] MEDS ORDERED: FOSINOPRIL SODIUM 40 MG PO SCH (09:00)
[2022-01-18] MEDS ORDERED: NON-FORMULARY MEDICATION 1 EA EA (Omeprazole 40 MG) PO SCH (09:00)
--- NOTE | 2022-01-18 11:16 | Physical Therapy Daily Note ---
PT Daily Note-Current Subjective Pt. and present. supportive. Pt agrees to Rx and up in chair. Pain Location: No Pain Reported Section J - Health Conditions 1. Rarely or not at all 2. Occasionally 3. Frequently 4. Almost constantly 8. Unable to answer Pain Effect on Sleep: 1 Pain Interference with Therapy: 1 Pain Interference w/Day-to-Day: 1 Mental Status Patient Orientation: Normal For Age Attachments: Gabriel Catheter Transfers SCALE: Activities may be completed with or without assistive devices. 7-Vsqectfeit-vqemmfx completes the activity by him/herself with no assistance from a helper. 5-Set-up or Clean-up Assistance-helper sets up or cleans up; patient completes activity. [place] assists only prior to or following the activity. 4-Supervision or Touching Assistance-helper provides verbal cues and/or touching/steadying and/or contact guard assistance as patient completes activity. Assistance may be provided throughout the activity or intermittently. 3-Partial/Moderate Assistance-helper does LESS THAN HALF the effort. [place] lifts, holds or supports trunk or limbs, but provides less than half the effort. 2-Substantial/Maximal Assistance-helper does MORE THAN HALF the effort. [place] lifts or holds trunk or limbs and provides more than half the effort. 2-Zfqarrwle-ghtpnu does ALL the effort. Patient does none of the effort to complete the activity. Or, the assistance of 2 or more helpers is required for the patient to complete the activity. If activity was not attempted, code reason: 7-Patient Refused. 9-Not Applicable-not attempted and the patient did not perform the activity before the current illness, exacerbation or injury. 10-Not Attempted due to Environmental Limitations-(lack of equipment, weather restraints, etc.). 88-Not Attempted due to Medical Conditions or Safety Concerns. Roll Left & Right (QC): 4 Lying to Sitting/Side of Bed(Q: 3 Sit to Stand (QC): 3 Chair/Ppy-qf-Ppygx Xfer(QC): 2 multiple sit to stand TRFs mod assist bilat with assist to stabilize left knee into extension as well as to prevent L foot from slipping/sliding out in front of pt. SPT toward left with pt. exhibiting" pusher syndrome" resisting the TRF to right right side, much education to pt, and regarding pts response etc. Weight Bearing Right Lower Extremity: Right Full Weight Bearing Left Lower Extremity: Left Full Weight Bearing Gait Training attempted side steps to left to end of bend with mod to max assist of 2 to align pt. stabilize left knee and advance left leg, pt. retropulsive and needs mod to max assist for alignment and balance Exercises Supine Ex: Ankle pumps, Quad Set, Rolling, Heel Slides, Short Arc Quads, Scooting, Straight leg raise, Hip abd/add Supine Reps: 15 Seated Therapy Exercises: Ankle pumps, Sit to stand, Long arc quads, Hip flexion Seated Reps: 15 Treatments bed mob, LE therex sup and sit, TRFs , sitting balance with min assist, sit to stands mod asst, standing balance mod asst, SPT mod to max assist.up in recliner after with education to pt. and regarding use of recliner /head back etc, some ex in recliner Assessment Current Status: Good Progress pt. gives good effort, supportive, retropulsive, pusher syndrome sometimes difficult to overcome, impulsive PT Short Term Goals Short Term Goals Time Frame: Jan 24, 2022 Sit to lyin (SBA) Sit to stand: 4 (SBA) Chair/hxe-rh-oqutz transfer: 4 (SBA) Toilet transfer: 4 (SBA) Car transfer: 4 (SBA) Walk 10 feet: 4 (SBA) Walk 50 feet with two turns: 4 (SBA) Walk 150 feet: 4 (SBA) Walking 10ft on uneven surface: 4 (SBA) 1 step (curb): 4 (SBA) 4 steps: 4 (CGA) Picking up objects: 4 (SBA with water jet operator) PT Upper Cutter Out Goals Upper Cutter Out Goals PT Half-Way Goals Time Frame: Feb 07, 2022 Roll Left & Right (QC): 6 Sit to Lying (QC): 6 Lying-Sitting on Side/Bed(QC): 6 Sit to Stand (QC): 6 Chair/Kvg-qv-Xwgqr Xfer(QC): 6 Toilet Transfer (QC): 6 Car Transfer (QC): 6 Does the Patient Walk: No and Walking Goal IS indicated Walk 10 feet (QC): 6 Walk 50ft with 2 Turns (QC): 6 Walk 150 ft (QC): 6 Walking 10ft on Uneven Surface: 6 1 Step (curb) (QC): 6 4 Steps (QC): 6 12 Steps (QC): 4 (SBA-CGA) Picking up an Object (QC): 6 (independent with water jet operator) Wheel 50 feet with 2 turns (QC: 6 Wheel 150 feet: 6 Type: Manual PT Plan Treatment/Plan Treatment Plan: Continue Plan of Care Treatment Plan: Bed Mobility, Education, Functional Activity Jane, Functional Strength, Group Therapy, Gait, Safety, Therapeutic Exercise, Transfers Treatment Duration: Feb 07, 2022 Frequency: At least 5 of 7 days/Wk (IRF) Estimated Hrs Per Day: 1.5 hours per day Patient and/or Family Agrees t: Yes Safety Risks/Education Patient Education: Transfer Techniques, Reviewed Precautions, Correct Positioning, Disease Process, Safety Issues Teaching Recipient: Patient, Significant Other Teaching Methods: Demonstration, Discussion Response to Teaching: Unable to Return Demonstration, Reinforcement Needed Time Time In: 1030 Time Out: 1110 DATE: Jan 18, 2022 Total Billed Treatment Time: 40 Total Billed Treatment 1,EX15m,FA25m JIGAR ELIZABETH STUNT DOUBLE Jan 18, 2022 11:16
--- NOTE | 2022-01-18 11:29 | Physical Therapy Daily Note ---
PT Daily Note-Current Subjective This inspiring gentleman agrees to Rx, knows himself and his challenges and goals and gives full effort. Pt. guides this therapist through donning of his prosthesis and states he realizes that his greatest challenge is going to be donning and doffing this prosthesis while following back precautions... Pain Numeric Pain Scale: 6 Location: Medial Location Body Site: Back Pain Description: Pressure Section J - Health Conditions 1. Rarely or not at all 2. Occasionally 3. Frequently 4. Almost constantly 8. Unable to answer Pain Effect on Sleep: 1 Pain Interference with Therapy: 2 Pain Interference w/Day-to-Day: 1 Mental Status Patient Orientation: Normal For Age Attachments: Other-See Comments (back brace, [place], prosth) Transfers SCALE: Activities may be completed with or without assistive devices. 7-Ykblseyhxd-gmptxde completes the activity by him/herself with no assistance from a helper. 5-Set-up or Clean-up Assistance-helper sets up or cleans up; patient completes activity. [place] assists only prior to or following the activity. 4-Supervision or Touching Assistance-helper provides verbal cues and/or touching/steadying and/or contact guard assistance as patient completes activity. Assistance may be provided throughout the activity or intermittently. 3-Partial/Moderate Assistance-helper does LESS THAN HALF the effort. [place] lifts, holds or supports trunk or limbs, but provides less than half the effort. 2-Substantial/Maximal Assistance-helper does MORE THAN HALF the effort. [place] lifts or holds trunk or limbs and provides more than half the effort. 2-Nzgqvpwrh-ynnpeb does ALL the effort. Patient does none of the effort to complete the activity. Or, the assistance of 2 or more helpers is required for the patient to complete the activity. If activity was not attempted, code reason: 7-Patient Refused. 9-Not Applicable-not attempted and the patient did not perform the activity before the current illness, exacerbation or injury. 10-Not Attempted due to Environmental Limitations-(lack of equipment, weather restraints, etc.). 88-Not Attempted due to Medical Conditions or Safety Concerns. Sit to Stand (QC): 4 Chair/Vrb-rx-Iaaiw Xfer(QC): 4 cushioning was provided in w/c and recliner to assist pt. with safer sit to stand and less bending , this was helpful Weight Bearing Right Lower Extremity: Right Full Weight Bearing Left Lower Extremity: Left Full Weight Bearing Gait Training Does the Patient Walk?: Yes Walk 10 feet (QC): 4 Walk 50 ft with 2 Turns(QC): 4 Walk 150 ft (QC): 4 Gait Persons Needed: 1 Gait Assistive Device: FWW good use of FWW no LOB, motivated to walk stating it feels the best Exercises Seated Therapy Exercises: Sit to stand, Long arc quads, Hip abd/add Seated Reps: 12 Treatments assisted pt in donning prosth, pt. explaining in detail. sup to sit min assist , sit to stand CGA, cushioning provided in w/c and chair for easier sit to stand, gait 50 ft x 4, 75 ft x 3, 100 ft x 1, pt. fatigues but no LOB or pain c/o Assessment Current Status: Good Progress gaining in function,motivated, biggest challenge is donning and doffing brace while trying to adhere to back restrictions of too much flexion and lateral flexion PT Short Term Goals Short Term Goals Time Frame: Jan 24, 2022 Sit to lyin (SBA) Sit to stand: 4 (SBA) Chair/ihm-yu-vcnuo transfer: 4 (SBA) Toilet transfer: 4 (SBA) Car transfer: 4 (SBA) Walk 10 feet: 4 (SBA) Walk 50 feet with two turns: 4 (SBA) Walk 150 feet: 4 (SBA) Walking 10ft on uneven surface: 4 (SBA) 1 step (curb): 4 (SBA) 4 steps: 4 (CGA) Picking up objects: 4 (SBA with quahogger) PT Detention Goals Embroidery Worker Goals PT Detention Goals Time Frame: Feb 07, 2022 Roll Left & Right (QC): 6 Sit to Lying (QC): 6 Lying-Sitting on Side/Bed(QC): 6 Sit to Stand (QC): 6 Chair/Uwx-so-Axxxu Xfer(QC): 6 Toilet Transfer (QC): 6 Car Transfer (QC): 6 Does the Patient Walk: No and Walking Goal IS indicated Walk 10 feet (QC): 6 Walk 50ft with 2 Turns (QC): 6 Walk 150 ft (QC): 6 Walking 10ft on Uneven Surface: 6 1 Step (curb) (QC): 6 4 Steps (QC): 6 12 Steps (QC): 4 (SBA-CGA) Picking up an Object (QC): 6 (independent with quahogger) Wheel 50 feet with 2 turns (QC: 6 Wheel 150 feet: 6 Type: Manual PT Plan Treatment/Plan Treatment Plan: Continue Plan of Care Treatment Plan: Bed Mobility, Education, Functional Activity Jane, Functional Strength, Group Therapy, Gait, Safety, Therapeutic Exercise, Transfers Treatment Duration: Feb 07, 2022 Frequency: At least 5 of 7 days/Wk (IRF) Estimated Hrs Per Day: 1.5 hours per day Patient and/or Family Agrees t: Yes Safety Risks/Education Patient Education: Gait Training, Transfer Techniques, Correct Positioning, Disease Process, Safety Issues Teaching Recipient: Patient Teaching Methods: Demonstration, Discussion Response to Teaching: Verbalize Understanding, Return Demonstration, Reinforcement Needed Time Time In: 950 Time Out: 1025 DATE: Jan 18, 2022 Total Billed Treatment Time: 35 Total Billed Treatment 1,GT35m JIGAR ELIZABETH HATCHERY MANAGER Jan 18, 2022 11:29
[2022-01-18] MEDS ORDERED: BISACODYL 10 MG SUPP (DULCOLAX) PR ONE (11:45)
[2022-01-18] MEDS ORDERED: BISACODYL 10 MG SUPP (DULCOLAX) PR PRN (11:45)
[2022-01-18] MEDS: CYCLOBENZAPRINE 10 MG (FLEXERIL) TAB PO SCH (19:46)
[2022-01-18 19:58] VITALS: BP 87/55
[2022-01-18 20:30] VITALS: BP 110/68
[2022-01-19] MEDS: inSUlin (REGULAR) HUMAN 1 UNIT/0.01 ML (CHARGE PER UNIT) SC SCH ×4 (06:24→20:55)
[2022-01-19] MEDS: guaiFENesin/DM (ROBITUSSIN DM) 10 ML UDC PO SCH ×2 (06:25→17:23)
--- NOTE | 2022-01-19 06:33 | PM&R Progress Note ---
Subjective HPI/CC On Admission Date Seen by Provider: Jan 19, 2022 Time Seen by Provider: 12:00 Subjective/Events-last exam 01/19/2022: Cant urinate Retention was noted last time he was in the hospital when he had pancreatitis Urecholine and Flomax and in/out caths ordered along with UA in case this is UTI Pain an issue Very weak at times Minimal BM 01/18/2022: Patient doing really well Settling into rehab Therapy had a good session with him Slept really well last night Pain is controlled Creatinine 3.4 Review of Systems General: Fatigue, Malaise Gastrointestinal: Constipation Genitourinary: Retention Musculoskeletal: back pain Objective Exam Vital Signs Vital Signs Date Time Temp Pulse Resp B/P (MAP) Pulse Ox O2 Delivery O2 Flow Rate FiO2 01/19/22 09:00 Room Air 01/19/22 08:00 36.5 80 20 109/58 (75) 96 Capillary Refill : General Appearance: No Apparent Distress, WD/WN, Chronically ill, Obese HEENT: PERRL/EOMI, Normal ENT Inspection, Pharynx Normal Neck: Full Range of Motion, Normal Inspection, Non Tender, Supple, Carotid Bruit Respiratory: Chest Non Tender, Lungs Clear, Normal Breath Sounds, No Accessory Muscle Use, No Respiratory Distress Cardiovascular: Regular Rate, Rhythm, No Edema, No Gallop, No JVD, No Murmur, Normal Peripheral Pulses Gastrointestinal: Normal Bowel Sounds, No Organomegaly, No Pulsatile Mass, Non Tender, Soft Back: Normal Inspection, Decreased Range of Motion, Muscle Spasm, Vertebral Tenderness Extremity: Normal Capillary Refill, Normal Inspection, Normal Range of Motion, Non Tender, No Calf Tenderness, No Pedal Edema, Other (left BKA) Neurologic/Psychiatric: Alert, Oriented x3, No Motor/Sensory Deficits, Normal Mood/Affect Skin: Normal Color, Warm/Dry Lymphatic: No Adenopathy Results/Procedures Lab Patient resulted labs reviewed. FIM Transfers Therapy Code Descriptions/Definitions Functional [place] Measure: 0=Not Assessed/NA 4=Minimal Assistance 1=Total Assistance 5=Supervision or Setup 2=Maximal Assistance 6=Modified [place] 3=Moderate Assistance 7=Complete IndependenceSCALE: Activities may be completed with or without assistive devices. 5-Ifuebwujkj-wnuueqr completes the activity by him/herself with no assistance from a helper. 5-Set-up or Clean-up Assistance-helper sets up or cleans up; patient completes activity. [place] assists only prior to or following the activity. 4-Supervision or Touching Assistance-helper provides verbal cues and/or touching/steadying and/or contact guard assistance as patient completes activity. Assistance may be provided throughout the activity or intermittently. 3-Partial/Moderate Assistance-helper does LESS THAN HALF the effort. [place] lifts, holds or supports trunk or limbs, but provides less than half the effort. 2-Substantial/Maximal Assistance-helper does MORE THAN HALF the effort. [place] lifts or holds trunk or limbs and provides more than half the effort. 4-Yejhcbrws-vqkbsn does ALL the effort. Patient does none of the effort to complete the activity. Or, the assistance of 2 or more helpers is required for the patient to complete the activity. If activity was not attempted, code reason: 7-Patient Refused. 9-Not Applicable-not attempted and the patient did not perform the activity before the current illness, exacerbation or injury. 10-Not Attempted due to Environmental Limitations-(lack of equipment, weather restraints, etc.). 88-Not Attempted due to Medical Conditions or Safety Concerns. Roll Left to Right (QC): 4 Sit to Lying (QC): 3 (Min A with prosthesis on, SBA without prosthesis on) Sit to Stand (QC): 4 Chair/Zcs-ps-Flnqb Xfer(QC): 4 Car Transfer (QC): 3 (Mod A) Gait Training Does the Patient Walk?: Yes Walk 10 feet (QC): 4 Walk 50 ft with 2 Turns(QC): 4 Walk 150 ft (QC): 4 Walking 10ft/uneven surface-QC: 4 Gait Persons Needed: 1 Gait Assistive Device: FWW Wheelchair Training Does the Pt Use a Wheelchair?: Yes Distance: 150' Wheel 50 ft with 2 turns (QC): 4 (SBA) Wheel 150 ft (QC): 4 (SBA) Type of Wheelchair: Manual Stair Training #of Steps: 1 1 Step (curb) (QC): 4 4 Steps (QC): 88 12 Steps (QC): 88 Balance Picking up an Object (QC): 4 ADL-Treatment Eating (QC): 6 Oral Hygiene (QC): 6 Shower/Bathe Self (QC): 3 (Min A overall.) Upper Body Dressing (QC): 3 (Min A with back brace.) Lower Body Dressing (QC): 3 (Min A with pant hike.) On/Off Footwear (QC): 2 (Max A with RLE sock/shoe, and LLE prosthesis) Toileting Hygiene (QC): 3 (Min A with clothing management.) Assessment/Plan Assessment and Plan Assess & Plan/Chief Complaint Assessment: s/p lumbar spine surgery due to spinal stenosis with myelopathy CKD Stage IV DM Obesity Post op constipation HTN HLP Psoriasis h/o pancreatitis Gout h/o left BKA Acute urinary retention 01/19/22 Plan: PT OT Monitor creat Pain control 01/18/2022: Aggressive bowel regimen Monitor creatinine 01/19/2022: In/out caths prn Urecholine and Flomax (1) H/O lumbosacral spine surgery (2) Stage 3b chronic kidney disease Status: Chronic (3) Psoriasis Status: Chronic (4) Gout Status: Chronic (5) T2DM (type 2 diabetes mellitus) Status: Chronic (6) HTN (hypertension) Status: Chronic (7) Spinal stenosis of lumbar region Status: Chronic KATINA MORAN DO Jan 19, 2022 06:33
[2022-01-19 08:00] VITALS: BP 109/58
[2022-01-19] MEDS: ONDANSETRON 4 MG (ZOFRAN) ORAL DISSOLVE TAB PO PRN (08:48)
[2022-01-19] MEDS: HYDROXYCHLOROQUINE 200 MG (PLAQUENIL) TAB PO SCH ×2 (09:00→21:32)
[2022-01-19] MEDS: GABAPENTIN 300 MG (NEURONTIN) CAP PO SCH ×3 (09:00→21:32)
[2022-01-19] MEDS ORDERED: SCOPOLAMINE 1.5 MG (TRANSDERM-SCOP) PATCH TD ONE (12:00)
[2022-01-19] MEDS ORDERED: CATHETER FLUSH 10 ML SYR IVP PRN (12:45)
[2022-01-19] MEDS: LACTOBACILLUS ACIDOPHILUS (PROBIOTIC) CAPSULE PO SCH (13:08)
[2022-01-19] MEDS: DOCUSATE SODIUM 100 MG (COLACE) CAP PO SCH ×2 (13:08→21:32)
[2022-01-19] MEDS: SENNA W/DOCUSATE (SENOKOT S) TABLET PO SCH ×2 (13:08→21:32)
[2022-01-19] MEDS: BETHANECHOL 25 MG (URECHOLINE) TAB PO SCH ×3 (13:08→21:32)
[2022-01-19] MEDS: PANTOPRAZOLE 40 MG (PROTONIX) TAB PO SCH (13:09)
[2022-01-19] MEDS: IRON POLYSAC 150 MG CAP (NIFEREX) PO SCH ×2 (13:09→21:32)
[2022-01-19] MEDS: FUROSEMIDE 20 MG (LASIX) TAB PO SCH ×2 (13:10→21:32)
[2022-01-19] MEDS: GEMFIBROZIL 600 MG (LOPID) TAB PO SCH ×2 (13:10→21:32)
[2022-01-19] MEDS: TAMSULOSIN 0.4 MG (FLOMAX) CAP PO SCH ×2 (13:10→21:32)
[2022-01-19] MEDS: ICOSAPENT ETHYL 1 GM PO SCH ×2 (13:11→17:34)
[2022-01-19] MEDS: ASCORBIC ACID (VIT C) 500 MG TABLET PO SCH (13:13)
[2022-01-19] MEDS: ALLOPURINOL 100 MG (ZYLOPRIM) TAB PO SCH (13:13)
[2022-01-19] MEDS: MONTELUKAST 10 MG (SINGULAIR) TAB PO SCH (13:13)
[2022-01-19] MEDS: PROMETHAZINE 25 MG (PHENERGAN) TAB PO PRN (13:20)
[2022-01-19] MEDS: CATHETER FLUSH 10 ML SYR IVP SCH ×2 (13:20→21:36)
[2022-01-19] MEDS: polyethylene glycoL POWDER 17 GM (MIRALAX) PACK PO SCH ×2 (13:24→21:30)
[2022-01-19] MEDS: lisINopril 40 MG (PRINIVIL) TABLET PO SCH (13:26)
[2022-01-19 14:48] LABS: CLARITY,URINE SL CLOUDY; COLOR,URINE ORANGE; GLUCOSE, URINE (UA) TRACE (NEGATIVE); KETONES,URINE NEGATIVE (NEGATIVE); LEUKOCYTE ESTERASE ,URINE NEGATIVE (NEGATIVE); NITRITE,URINE NEGATIVE (NEGATIVE); PH,URINE 5.5 (5-9); PROTEIN,URINE 1+ (NEGATIVE)
[2022-01-19 15:12] LABS: BILIRUBIN,URINE 1+ (NEGATIVE)
[2022-01-19 15:13] LABS: AMORPHOUS SEDIMENT,UR RARE AMOR URATES /LPF; BACTERIA,URINE NEGATIVE /HPF; SQUAMOUS EPITHELIAL CELL,UR RARE /HPF; WBC,URINE 0-2 /HPF
[2022-01-19 17:22] VITALS: BP 108/59
[2022-01-19 20:05] VITALS: BP 106/58
[2022-01-19] MEDS: CYCLOBENZAPRINE 10 MG (FLEXERIL) TAB PO SCH (21:32)
--- NOTE | 2022-01-20 04:26 | PM&R Progress Note ---
Subjective HPI/CC On Admission Date Seen by Provider: Jan 20, 2022 Time Seen by Provider: 08:30 Subjective/Events-last exam 01/20/2022: Patient having urinary retention Became drowsy over the afternoon check labs creatinine increased to 4.7 Patient requiring catheterizations and thus he is limiting his fluid intake Will reach out to nephrology in the morning Urology will see him in the morning 01/19/2022: Cant urinate Retention was noted last time he was in the hospital when he had pancreatitis Urecholine and Flomax and in/out caths ordered along with UA in case this is UTI Pain an issue Very weak at times Minimal BM 01/18/2022: Patient doing really well Settling into rehab Therapy had a good session with him Slept really well last night Pain is controlled Creatinine 3.4 Review of Systems General: Fatigue, Malaise Objective Exam Vital Signs Vital Signs Date Time Temp Pulse Resp B/P (MAP) Pulse Ox O2 Delivery O2 Flow Rate FiO2 01/20/22 20:40 NIV CPAP 01/20/22 20:15 36.6 86 16 114/62 (79 94 Capillary Refill : General Appearance: No Apparent Distress, WD/WN, Chronically ill, Obese HEENT: PERRL/EOMI, Normal ENT Inspection, Pharynx Normal Neck: Full Range of Motion, Normal Inspection, Non Tender, Supple, Carotid B ruit Respiratory: Chest Non Tender, Lungs Clear, Normal Breath Sounds, No Accessory Muscle Use, No Respiratory Distress Cardiovascular: Regular Rate, Rhythm, No Edema, No Gallop, No JVD, No Murmur, Normal Peripheral Pulses Gastrointestinal: Normal Bowel Sounds, No Organomegaly, No Pulsatile Mass, Non Tender, Soft Back: Normal Inspection, Decreased Range of Motion, Muscle Spasm, Vertebral Tenderness Extremity: Normal Capillary Refill, Normal Inspection, Normal Range of Motion, Non Tender, No Calf Tenderness, No Pedal Edema, Other (left BKA) Neurologic/Psychiatric: Alert, Oriented x3, No Motor/Sensory Deficits, Normal Mood/Affect Skin: Normal Color, Warm/Dry Lymphatic: No Adenopathy Results/Procedures Lab Laboratory Tests 01/20/22 15:24 Patient resulted labs reviewed. FIM Transfers Therapy Code Descriptions/Definitions Functional [place] Measure: 0=Not Assessed/NA 4=Minimal Assistance 1=Total Assistance 5=Supervision or Setup 2=Maximal Assistance 6=Modified [place] 3=Moderate Assistance 7=Complete IndependenceSCALE: Activities may be completed with or without assistive devices. 8-Njhsppsgth-rmctsbg completes the activity by him/herself with no assistance from a helper. 5-Set-up or Clean-up Assistance-helper sets up or cleans up; patient completes activity. [place] assists only prior to or following the activity. 4-Supervision or Touching Assistance-helper provides verbal cues and/or touching/steadying and/or contact guard assistance as patient completes activity. Assistance may be provided throughout the activity or intermittently. 3-Partial/Moderate Assistance-helper does LESS THAN HALF the effort. [place] lifts, holds or supports trunk or limbs, but provides less than half the effort. 2-Substantial/Maximal Assistance-helper does MORE THAN HALF the effort. [place] lifts or holds trunk or limbs and provides more than half the effort. 8-Jrsjfwrcc-fssudj does ALL the effort. Patient does none of the effort to complete the activity. Or, the assistance of 2 or more helpers is required for the patient to complete the activity. If activity was not attempted, code reason: 7-Patient Refused. 9-Not Applicable-not attempted and the patient did not perform the activity before the current illness, exacerbation or injury. 10-Not Attempted due to Environmental Limitations-(lack of equipment, weather re straints, etc.). 88-Not Attempted due to Medical Conditions or Safety Concerns. Roll Left to Right (QC): 4 Sit to Lying (QC): 3 (Min A with prosthesis on, SBA without prosthesis on) Sit to Stand (QC): 4 Chair/Ulo-ce-Liflj Xfer(QC): 4 Car Transfer (QC): 3 (Mod A) Gait Training Does the Patient Walk?: Yes Walk 10 feet (QC): 4 Walk 50 ft with 2 Turns(QC): 4 Walk 150 ft (QC): 4 Walking 10ft/uneven surface-QC: 4 Gait Persons Needed: 1 Gait Assistive Device: FWW Wheelchair Training Does the Pt Use a Wheelchair?: Yes Distance: 150' Wheel 50 ft with 2 turns (QC): 4 (SBA) Wheel 150 ft (QC): 4 (SBA) Type of Wheelchair: Manual Stair Training #of Steps: 1 1 Step (curb) (QC): 4 4 Steps (QC): 88 12 Steps (QC): 88 Balance Picking up an Object (QC): 4 ADL-Treatment Eating (QC): 6 Oral Hygiene (QC): 6 Shower/Bathe Self (QC): 3 (Min A overall.) Upper Body Dressing (QC): 3 (Min A with back brace.) Lower Body Dressing (QC): 3 (Min A with pant hike.) On/Off Footwear (QC): 2 (Max A with RLE sock/shoe, and LLE prosthesis) Toileting Hygiene (QC): 3 (Min A with clothing management.) Assessment/Plan Assessment and Plan Assess & Plan/Chief Complaint Assessment: s/p lumbar spine surgery due to spinal stenosis with myelopathy CKD Stage IV with worsening on 01/20/2022 with creatinine 4.7 nonoliguric due to poor intake DM Obesity Post op constipation HTN HLP Psoriasis h/o pancreatitis Gout h/o left BKA Acute urinary retention 01/19/22 Plan: PT OT Monitor creat Pain control 01/18/2022: Aggressive bowel regimen Monitor creatinine 01/19/2022: In/out caths prn Urecholine and Flomax 01/20/2022: Start gentle IV fluids Catheterization required (1) H/O lumbosacral spine surgery (2) Stage 3b chronic kidney disease Status: Chronic (3) Psoriasis Status: Chronic (4) Gout Status: Chronic (5) T2DM (type 2 diabetes mellitus) Status: Chronic (6) HTN (hypertension) Status: Chronic (7) Spinal stenosis of lumbar region Status: Chronic KATINA MORAN DO Jan 20, 2022 04:25
[2022-01-20] MEDS: BETHANECHOL 25 MG (URECHOLINE) TAB PO SCH ×4 (06:53→21:11)
[2022-01-20] MEDS: inSUlin (REGULAR) HUMAN 1 UNIT/0.01 ML (CHARGE PER UNIT) SC SCH ×4 (06:53→20:54)
[2022-01-20] MEDS: CATHETER FLUSH 10 ML SYR IVP SCH ×3 (06:53→21:15)
[2022-01-20] MEDS: guaiFENesin/DM (ROBITUSSIN DM) 10 ML UDC PO SCH ×2 (06:53→16:54)
[2022-01-20 07:36] VITALS: BP 122/61
[2022-01-20 07:51] VITALS: BP 122/61
[2022-01-20] MEDS: HYDROXYCHLOROQUINE 200 MG (PLAQUENIL) TAB PO SCH ×2 (08:32→21:13)
[2022-01-20] MEDS: FUROSEMIDE 20 MG (LASIX) TAB PO SCH ×2 (08:32→21:13)
[2022-01-20] MEDS: GEMFIBROZIL 600 MG (LOPID) TAB PO SCH ×2 (08:32→21:13)
[2022-01-20] MEDS: ALLOPURINOL 100 MG (ZYLOPRIM) TAB PO SCH (08:32)
[2022-01-20] MEDS: IRON POLYSAC 150 MG CAP (NIFEREX) PO SCH ×2 (08:32→21:13)
[2022-01-20] MEDS: GABAPENTIN 300 MG (NEURONTIN) CAP PO SCH ×3 (08:33→21:13)
[2022-01-20] MEDS: TAMSULOSIN 0.4 MG (FLOMAX) CAP PO SCH ×2 (08:33→21:11)
[2022-01-20] MEDS: MONTELUKAST 10 MG (SINGULAIR) TAB PO SCH (08:33)
[2022-01-20] MEDS: SENNA W/DOCUSATE (SENOKOT S) TABLET PO SCH ×2 (08:33→21:12)
[2022-01-20] MEDS: polyethylene glycoL POWDER 17 GM (MIRALAX) PACK PO SCH ×2 (08:33→21:15)
[2022-01-20] MEDS: lisINopril 40 MG (PRINIVIL) TABLET PO SCH (08:33)
[2022-01-20] MEDS: DOCUSATE SODIUM 100 MG (COLACE) CAP PO SCH ×2 (08:33→21:12)
[2022-01-20] MEDS: ASCORBIC ACID (VIT C) 500 MG TABLET PO SCH (08:33)
[2022-01-20] MEDS: LACTOBACILLUS ACIDOPHILUS (PROBIOTIC) CAPSULE PO SCH (08:33)
[2022-01-20] MEDS: PANTOPRAZOLE 40 MG (PROTONIX) TAB PO SCH (08:33)
[2022-01-20] MEDS: ICOSAPENT ETHYL 1 GM PO SCH ×2 (08:36→17:02)
--- NOTE | 2022-01-20 10:06 | Physical Therapy Daily Note ---
PT Daily Note-Current Subjective Pt had been given pain med before HIV NURSE arrives and pt is very drowsy. Pt agrees to PT. Pain Section J - Health Conditions 1. Rarely or not at all 2. Occasionally 3. Frequently 4. Almost constantly 8. Unable to answer Pain Effect on Sleep: 1 Pain Interference with Therapy: 2 Pain Interference w/Day-to-Day: 1 Mental Status Patient Orientation: Person, Place, Situation Attachments: Other-See Comments (TLSO Brace & Prosetic) Transfers SCALE: Activities may be completed with or without assistive devices. 2-Wauscznuum-uhmdoeb completes the activity by him/herself with no assistance from a helper. 5-Set-up or Clean-up Assistance-helper sets up or cleans up; patient completes activity. [place] assists only prior to or following the activity. 4-Supervision or Touching Assistance-helper provides verbal cues and/or touching/steadying and/or contact guard assistance as patient completes activity. Assistance may be provided throughout the activity or intermittently. 3-Partial/Moderate Assistance-helper does LESS THAN HALF the effort. [place] lifts, holds or supports trunk or limbs, but provides less than half the effort. 2-Substantial/Maximal Assistance-helper does MORE THAN HALF the effort. [place] lifts or holds trunk or limbs and provides more than half the effort. 6-Fbicdbmoj-cajppj does ALL the effort. Patient does none of the effort to complete the activity. Or, the assistance of 2 or more helpers is required for the patient to complete the activity. If activity was not attempted, code reason: 7-Patient Refused. 9-Not Applicable-not attempted and the patient did not perform the activity before the current illness, exacerbation or injury. 10-Not Attempted due to Environmental Limitations-(lack of equipment, weather restraints, etc.). 88-Not Attempted due to Medical Conditions or Safety Concerns. Sit to Stand (QC): 4 Elevated bed height for increased indep. of standing. Weight Bearing Right Lower Extremity: Right Full Weight Bearing Left Lower Extremity: Left Full Weight Bearing Gait Training Distance: 5' Gait Assistive Device: FWW Exercises Supine Ex: Ankle pumps, Quad Set, Glut sets, Heel Slides, Short Arc Quads, Hip abd/add Supine Reps: 15 Seated Therapy Exercises: Ankle pumps, Long arc quads, Hip flexion Seated Reps: 15 Treatments Pt practices Bed Mobility as well as sit to stands for improved mobility. Pt TF to recliner and completes both Seated & Supine EX as pt is very drowsy. Pt resting at end of tx w/all needs met, call light in hand. Assessment Current Status: Fair Progress Pt fatigues easily and takes extended time to complete tasks. Pt is also very drowsy today after rec. pain med. & difficult to keep awake. PT Short Term Goals Short Term Goals Time Frame: Jan 24, 2022 Sit to lyin (SBA) Sit to stand: 4 (SBA) Chair/auk-ga-sqopf transfer: 4 (SBA) Toilet transfer: 4 (SBA) Car transfer: 4 (SBA) Walk 10 feet: 4 (SBA) Walk 50 feet with two turns: 4 (SBA) Walk 150 feet: 4 (SBA) Walking 10ft on uneven surface: 4 (SBA) 1 step (curb): 4 (SBA) 4 steps: 4 (CGA) Picking up objects: 4 (SBA with electronics engineering technician) PT Environmental Inspector Goals Environmental Inspector Goals PT Environmental Inspector Goals Time Frame: Feb 07, 2022 Roll Left & Right (QC): 6 Sit to Lying (QC): 6 Lying-Sitting on Side/Bed(QC): 6 Sit to Stand (QC): 6 Chair/Jld-un-Ujagq Xfer(QC): 6 Toilet Transfer (QC): 6 Car Transfer (QC): 6 Does the Patient Walk: No and Walking Goal IS indicated Walk 10 feet (QC): 6 Walk 50ft with 2 Turns (QC): 6 Walk 150 ft (QC): 6 Walking 10ft on Uneven Surface: 6 1 Step (curb) (QC): 6 4 Steps (QC): 6 12 Steps (QC): 4 (SBA-CGA) Picking up an Object (QC): 6 (independent with electronics engineering technician) Wheel 50 feet with 2 turns (QC: 6 Wheel 150 feet: 6 Type: Manual PT Plan Problem List Problem List: Activity Tolerance, Functional Strength, Transfer Treatment/Plan Treatment Plan: Continue Plan of Care Treatment Plan: Bed Mobility, Education, Functional Activity Jane, Functional Strength, Group Therapy, Gait, Safety, Therapeutic Exercise, Transfers Treatment Duration: Feb 07, 2022 Frequency: At least 5 of 7 days/Wk (IRF) Estimated Hrs Per Day: 1.5 hours per day Patient and/or Family Agrees t: Yes Safety Risks/Education Patient Education: Transfer Techniques, Issued Written HEP, Reviewed Precautions, Correct Positioning, Reviewed Don/Doff Brace, Safety Issues Teaching Recipient: Patient Teaching Methods: Discussion Response to Teaching: Verbalize Understanding Time Time In: 900 Time Out: 1000 DATE: Jan 20, 2022 Total Billed Treatment Time: 60 Total Billed Treatment 1, FA x2 (30m) & EX x2 (30m) JESÚS MCCARTHY PTA Jan 20, 2022 10:06
[2022-01-20] MEDS ORDERED: HYPOCHLOROUS ACID/NaCl (VASHE) 250 ML IR PRN (11:00)
--- NOTE | 2022-01-20 12:02 | Occupational Ther Daily Note ---
OT Current Status-Daily Note Subjective Pt lethargic throughout tx, difficulty keeping his eyes open. Pt required frequent verbal and tactile cues to attend to task and keep eyes open. Pt required frequent cues for sequencing of tasks. Pt states he has already had lunch (pt had a late breakfast but no lunch yet), unable to redirect pt to it only being noon, and lunch has not been served yet. Pain Numeric Pain Scale: 8 Location: Lower Location Body Site: Back Mental Status/Objective Patient Orientation: Person, Place, Situation, Listless ADL-Treatment Therapy Code Descriptions/Definitions Functional [place] Measure: 0=Not Assessed/NA 4=Minimal Assistance 1=Total Assistance 5=Supervision or Setup 2=Maximal Assistance 6=Modified [place] 3=Moderate Assistance 7=Complete IndependenceSCALE: Activities may be completed with or without assistive devices. 8-Cymdjdwkav-vyfvtya completes the activity by him/herself with no assistance from a helper. 5-Set-up or Clean-up Assistance-helper sets up or cleans up; patient completes activity. [place] assists only prior to or following the activity. 4-Supervision or Touching Assistance-helper provides verbal cues and/or touching/steadying and/or contact guard assistance as patient completes ac tivity. Assistance may be provided throughout the activity or intermittently. 3-Partial/Moderate Assistance-helper does LESS THAN HALF the effort. [place] lifts, holds or supports trunk or limbs, but provides less than half the effort. 2-Substantial/Maximal Assistance-helper does MORE THAN HALF the effort. [place] lifts or holds trunk or limbs and provides more than half the effort. 6-Gonytlhqo-kckjbx does ALL the effort. Patient does none of the effort to complete the activity. Or, the assistance of 2 or more helpers is required for the patient to complete the activity. If activity was not attempted, code reason: 7-Patient Refused. 9-Not Applicable-not attempted and the patient did not perform the activity before the current illness, exacerbation or injury. 10-Not Attempted due to Environmental Limitations-(lack of equipment, weather restraints, etc.). 88-Not Attempted due to Medical Conditions or Safety Concerns. Upper Body Dressing (QC): 3 (Min A) Other Treatment Pt in recliner, agreeable to OT Tx. Pt lethargic throughout tx, difficulty keeping eyes open and attending to tx. Pt stood from recliner, taking 3 attempts to get upright, min A. Pt used FWW to perform functional mobility into bathroom, CGA, slow pace. Upon reaching the door to the bathroom, ~8', pt states urgent need to sit, sitting into w/c abruptly. Pt sat at sink to complete UE dressing and sponge bath. Pt required frequent cues to attend to task, and for sequencing of task. Nurse present to change dressings during sponge bath. Pt able to wash UEs, chest and abdomen, OT washed RLE. Other body parts not washed and LE dressing not attempted due to safety concerns with pt being lethargic. Pt then performed functional mobility in w/c around [facility] common area and back to his room. Pt frequently stopped and closed his eyes, requiring verbal and tactile cues to open eyes and continue with tx. Pt declined transferring to recliner, requests to stay up in w/c. OT informed pt of lunch arriving soon, he states he has already had lunch (pt has not had lunch, just a late breakfast). Post tx, pt in w/c, call light in reach and all needs met. Education OT Patient Education: Correct positioning, Modified ADL techniques, Progress toward Goal/Update tx plan, Purpose of tx/functional activities Teaching Recipient: Patient Teaching Methods: Discussion Response to Teaching: Reinforcement Needed OT Short Term Goals Short Term Goals Time Frame: Jan 24, 2022 Toileting hygiene: 4 Shower/bathe self: 4 Upper body dressin Lower body dressin Putting on/taking off footwear: 4 OT Processing Mgr Goals Processing Mgr Goals Time Frame: Feb 07, 2022 Acute change in mental status: 0 Inattention: 0 Disorganized thinkin Altered level of consciousness: 0 Eating (QC): 6 Oral Hygiene (QC): 6 Toileting Hygiene (QC): 6 Shower/Bathe Self (QC): 5 Upper Body Dressing (QC): 6 Lower Body Dressing (QC): 6 On/Off Footwear (QC): 6 Additional Goals: 1-Demonstrate ADL Tasks, 2-Verbalize Understanding, 3- ImproveStrength/Jane 1=Demonstrate adherence to instructed precautions during ADL tasks. 2=Patient will verbalize/demonstrate understanding of assistive devices/modifications for ADL. 3=Patient will improve strength/tolerance for activity to enable patient to perform ADL's. OT Education/Plan Problem List/Assessment Assessment: Decreased Activ Tolerance, Decreased Safety Aware, Decreased UE Strength, Impaired Cognition, Impaired Funct Balance, Impaired I ADL's, Impaired Self-Care Skills Discharge Recommendations Plan/Recommendations: Continue POC Treatment Plan/Plan of Care Patient would benefit from OT for education, treatment and training to promote independence in ADL's, mobility, safety and/or upper extremity function for ADL's. Plan of Care: ADL Retraining, Functional Mobility, Group Exercise/Act as Ind, UE Funct Exercise/Act Treatment Duration: Feb 07, 2022 Frequency: At least 5 of 7 days/Wk (IRF) Estimated Hrs Per Day: 1.5 hours per day Agreement: Yes Rehab Potential: Good Time Start Time: 10:30 Stop Time: 12:00 DATE: Jan 20, 2022 Total Time Billed (hr/min): 90 Billed Treatment Time 1, ADL 5 (70'), FA (20') DANIEL HERNANDEZ OT Jan 20, 2022 12:02
--- NOTE | 2022-01-20 12:03 | Progress Note ---
MACIEL MILIAN 01/20/22 1203: Progress Note S: Gerardo Vaca (Eddie) is a 51yo M admitted to ARU room 229, with an admitting diagnosis of Lumbar Fusion, on 01/17/2022 from [facility]. He has a H/o Diabetic neuropathy, and amputation(BKA) of left leg. He was in good spirits and ready to start therapy, he hasnt had a bowel movement for a couple days. He said his pain is pretty severe at around 8/10 and on pain medication its still around 4/10. Denied any n/v/d but mentioned low grade fever and chills last night. Today Buster was woken from sleeping and reported that hes feeling pretty good, but he has been having concerns for going to the bathroom. He had a BM yesterday, but said that he also had bad naseua and chills. Back is still in pain but he is managing treatments and says that he feels like hes recovering well. He will be continued to monitored for voiding frequency, anemia, and blood sugars. Said that his deputy commonwealth's attorney is Dr. Vaughn in [facility]. O: V/S: T(36.5) HR(87) RR(18) BP(122/61) SpO2(93 RA) General Appearance: no acute Distress, WD/WN Neck: Full Range of Motion, Normal Inspection Respiratory: Chest Non Tender, Lungs Clear Cardiovascular: Regular Rate, Rhythm, No Murmur,rubs, or gallops Gastrointestinal: Normal Bowel Sounds, Non Tender, Soft Extremity: Normal Capillary Refill, Non Tender, No Pedal Edema, 2+ distal pulses, numbness to entire right leg Neurologic/Psychiatric: Alert, Oriented x3, NL mood, anxious affect Skin: Warm/Dry, Labs: glucometer(150) Hgb(7.6) A: S/P spinal fusion DM w/ hyperglycemia Back pain Debility Urinary retention Nasuea P: Aggressive OT/PT therapy insulin control w/ diet plan Pain regimen Catheterization Zofran administration ANAHI MORAN DO 01/21/22 0457: Supervisory-Addendum Brief Verification & Attestation Participated in pt care: history, MDM, physical Personally performed: exam, history, MDM, supervision of care Care discussed with: Medical Student Procedures: n/a Results interpretation: Verified all documentation Verification and Attestation of Medical Student E/M Service A medical student performed and documented this service in my presence. I reviewed and verified all information documented by the medical student and made modifications to such information, when appropriate. I personally performed the physical exam and medical decision making. Anahi Moran, Jan 21, 2022,04:56 MACIEL MILIAN Jan 20, 2022 12:03 ANAHI MORAN DO Jan 21, 2022 04:57
--- NOTE | 2022-01-20 12:08 | Wound Care Assessment ---
Wound Care Assessment Date Seen by Provider: Jan 20, 2022 Time Seen by Provider: 12:02 Chief Complaint RLE ulcer HPI This pleasant 51 year old gentleman was admitted to our facility following lumbar fusion on 01-17-[address] PMH significant for DM2 (well controlled), h/o LLE amputation (osteomyelitis), IgM immunodeficiency, chronic refractory anemia, psoriasis (no recent flares), and CKD stage 4. He notes that the shallow wound on his anterior R. hansen began after some tape was removed following surgery. He does appear to have some hemosiderinosis, shiney skin and lack of hair in the area which would make venous hypertension a possibility. He does have some moderate lymphedema to this area as well. He has a long h/o DM2 but states that it is currently well controlled with continuous glucose monitoring. His latest A1C was <7. He does have a h/o psoriasis but has not had a flair to the area of concern in many years. He has significant anemia which is chronic. It is unclear how much of his current Hgb is due to renal dise ase, postop blood loss or other underlying medical ailments. Buster is quite fatigued during exam today, falling asleep on occasion mid-conversation. He has been treating the ulcer with Medihoney (which has worked well for him in the past). I will continue this currently with daily dressing changes. Should he fail to improve, will plan for outpatient follow up in our clinic. Past Medical History: Admits Diabetes Type II L. BKA, Gout, peripheral neuropathy, lymphedema, IgM immunodeficiency, refractory anemia (chronic), CKD stage 4, psoriasis Smoking Status: Former Smoker Recreational Drug Use: No Alcohol Use: Denies Use Review of Systems General: Fatigue Cardiovascular: Edema Neurological: Weakness Exam Vital Signs Date Time Temp Pulse Resp B/P (MAP) Pulse Ox O2 Delivery O2 Flow Rate FiO2 01/20/22 09:36 Room Air 01/20/22 07:51 36.7 87 18 122/61 (81) 93 Capillary Refill : General Appearance: WD/WN, no apparent distress, other (somnalent (falling asleep during conversation at times)) Neck: full range of motion Respiratory: no respiratory distress, no accessory muscle use Extremities: pedal edema Neurologic/Psychiatric: alert, normal mood/affect, oriented x 3 Skin: warm/dry Skin Problem Location: lower extremities Skin Character: swelling R. anterior tibia wound: The epithelialization is none. There is no tunneling or undermining. Drainage is medium and serous. Granulation is none. Necrotic is large and eschar. There is hyperpigmentation, shiney skin and lack of hair in the periwound. Results Laboratory Tests 01/19/22 14:30: Urine Color ORANGE, Urine Clarity SL CLOUDY, Urine pH 5.5, Urine Specific [place] >=1.030, Urine Protein 1+H, Urine Glucose (UA) TRACEH, Urine Ketones NEGATIVE, Urine Nitrite NEGATIVE, Urine Bilirubin 1+H, Urine Urobilinogen 0.2, Urine Leukocyte Esterase NEGATIVE, Urine RBC (Auto) NEGATIVE, Urine RBC NONE, Urine WBC 0-2, Urine Squamous Epithelial Cells RARE, Urine Crystals PRESENTH, Urine Amorphous Sediment RARE NAVI URATESH, Urine Bacteria NEGATIVE, Urine Casts PRESENT, Urine Hyaline Casts 10-25H, Urine Mucus NEGATIVE, Urine Culture Indicated NO 01/19/22 16:21: Glucometer 106 01/19/22 20:50: Glucometer 131H 01/20/22 05:52: Glucometer 164H 01/20/22 08:25: Glucometer 153H 01/20/22 10:51: Glucometer 150H Assessment/Plan/Dx Assessment: 1. Anterior R. tibial wound 2. DM2- well controlled per patient 3. CKD stage 4 4. Chronic refractory anemia 5. Lymphedema 6. H/o BKA on left 7. Obesity 8. h/o psoriasis 9. h/o IgM immunodeficiency Plan: 1. Cleanse daily with Vashe. Apply medihoney to wound bed daily, cover with gauze and secure with roller gauze and medipore tape. Change daily. 2. Agree with need for close monitoring and good glycemic control 3. Defer to primary team 4. Defer to primary team. Significant anemia likely to delay wound healing. 5. If ulcer fails to improve, further evaluation would be warranted and compression dressings if so indicated. We would be happy to follow as an outpatient if so desired 6. Defer to primary 7. Weight loss indicated 8. No current outbreak noted 9. Defer to primary. Close monitoring for signs infection. ISAC GREER MD Jan 20, 2022 12:07
--- NOTE | 2022-01-20 13:19 | Physical Therapy Daily Note ---
PT Daily Note-Current Subjective Pt asleep Supine in bed and had not finished lunch upon arrival. Pt agrees to PT but difficult to keep awake again in afternoon tx. Pain Location Body Site: Back Pain Description: Ache Comment: Reports but doesn't rate Section J - Health Conditions 1. Rarely or not at all 2. Occasionally 3. Frequently 4. Almost constantly 8. Unable to answer Pain Effect on Sleep: 1 Pain Interference with Therapy: 2 Pain Interference w/Day-to-Day: 1 Mental Status Patient Orientation: Person, Place, Time, Situation Attachments: Drains, Other-See Comments (TLSO Brace as well as Prosthetic) Transfers SCALE: Activities may be completed with or without assistive devices. 7-Ccgarsukuf-sodzqfv completes the activity by him/herself with no assistance from a helper. 5-Set-up or Clean-up Assistance-helper sets up or cleans up; patient completes activity. [place] assists only prior to or following the activity. 4-Supervision or Touching Assistance-helper provides verbal cues and/or touching/steadying and/or contact guard assistance as patient completes activity. Assistance may be provided throughout the activity or intermittently. 3-Partial/Moderate Assistance-helper does LESS THAN HALF the effort. [place] lifts, holds or supports trunk or limbs, but provides less than half the effort. 2-Substantial/Maximal Assistance-helper does MORE THAN HALF the effort. [place] lifts or holds trunk or limbs and provides more than half the effort. 5-Qnotedchl-bjynzt does ALL the effort. Patient does none of the effort to complete the activity. Or, the assistance of 2 or more helpers is required for the patient to complete the activity. If activity was not attempted, code reason: 7-Patient Refused. 9-Not Applicable-not attempted and the patient did not perform the activity before the current illness, exacerbation or injury. 10-Not Attempted due to Environmental Limitations-(lack of equipment, weather restraints, etc.). 88-Not Attempted due to Medical Conditions or Safety Concerns. Weight Bearing Right Lower Extremity: Right Full Weight Bearing Left Lower Extremity: Left Full Weight Bearing Exercises Supine Ex: Ankle pumps, Quad Set, Glut sets, Heel Slides, Short Arc Quads, Straight leg raise, Hip abd/add Supine Reps: 15 Treatments TRIMMER BUFFING WHEEL wakes pt although pt doesn't stay awake long. Pt completes Supine Ex in bed as TRIMMER BUFFING WHEEL continually has to awaken pt to complete. Pt resting at end of tx. All needs met, call light next to pt. Assessment Current Status: Fair Progress Pt has been very drowsy all day, difficult to keep awake and moves very slowly during tx. PT Short Term Goals Short Term Goals Time Frame: Jan 24, 2022 Sit to lyin (SBA) Sit to stand: 4 (SBA) Chair/zvb-ei-wdlzm transfer: 4 (SBA) Toilet transfer: 4 (SBA) Car transfer: 4 (SBA) Walk 10 feet: 4 (SBA) Walk 50 feet with two turns: 4 (SBA) Walk 150 feet: 4 (SBA) Walking 10ft on uneven surface: 4 (SBA) 1 step (curb): 4 (SBA) 4 steps: 4 (CGA) Picking up objects: 4 (SBA with chemical dependency nurse) PT Pta Goals Pta Goals PT Pta Goals Time Frame: Feb 07, 2022 Roll Left & Right (QC): 6 Sit to Lying (QC): 6 Lying-Sitting on Side/Bed(QC): 6 Sit to Stand (QC): 6 Chair/Cfr-zg-Oelqh Xfer(QC): 6 Toilet Transfer (QC): 6 Car Transfer (QC): 6 Does the Patient Walk: No and Walking Goal IS indicated Walk 10 feet (QC): 6 Walk 50ft with 2 Turns (QC): 6 Walk 150 ft (QC): 6 Walking 10ft on Uneven Surface: 6 1 Step (curb) (QC): 6 4 Steps (QC): 6 12 Steps (QC): 4 (SBA-CGA) Picking up an Object (QC): 6 (independent with chemical dependency nurse) Wheel 50 feet with 2 turns (QC: 6 Wheel 150 feet: 6 Type: Manual PT Plan Problem List Problem List: Activity Tolerance, Functional Strength, Transfer Treatment/Plan Treatment Plan: Continue Plan of Care Treatment Plan: Bed Mobility, Education, Functional Activity Jane, Functional Strength, Group Therapy, Gait, Safety, Therapeutic Exercise, Transfers Treatment Duration: Feb 07, 2022 Frequency: At least 5 of 7 days/Wk (IRF) Estimated Hrs Per Day: 1.5 hours per day Patient and/or Family Agrees t: Yes Safety Risks/Education Patient Education: Transfer Techniques, Correct Positioning Teaching Recipient: Patient Teaching Methods: Discussion Response to Teaching: Verbalize Understanding Time Time In: 1310 Time Out: 1340 DATE: Jan 20, 2022 Total Billed Treatment Time: 30 Total Billed Treatment 1, EX x2 (30m) JESÚS MCCARTHY PTA Jan 20, 2022 13:19
[2022-01-20 14:46] VITALS: BP 123/64
[2022-01-20] MEDS ORDERED: LIDOCAINE UROJET 2% GEL 10 ML PKG ONE (14:56)
[2022-01-20 15:33] LABS: BASOPHILS % (AUTO) 0 % (0-10); EOSINOPHILS # (AUTO) 0.1 10^3/uL (0.0-0.3); EOSINOPHILS % (AUTO) 2 % (0-10); HEMATOCRIT 22 % (40-54); HEMOGLOBIN 7.5 g/dL (13.3-17.7); LYMPHOCYTES # (AUTO) 0.8 X 10^3 (1.0-4.0); LYMPHOCYTES % (AUTO) 11 % (12-44); MEAN CORPUSCULAR HEMOGLOBIN 32 pg (25-34); MEAN CORPUSCULAR HGB CONC 34 g/dL (32-36); MEAN CORPUSCULAR VOLUME 95 fL (80-99); MONOCYTES # (AUTO) 0.8 X 10^3 (0.0-1.0); MONOCYTES % (AUTO) 11 % (0-12); NEUTROPHILS # (AUTO) 5.1 X 10^3 (1.8-7.8); NEUTROPHILS % (AUTO) 75 % (42-75); PLATELET COUNT 300 10^3/uL (130-400); WHITE BLOOD COUNT 6.9 10^3/uL (4.3-11.0)
[2022-01-20 15:38] LABS: ABG BASE EXCESS -6.5 MMOL/L (-2.5-2.5); ABG OXYGEN SATURATION 94 % (94-100); ABG PCO2 42 MMHG (35-45); ABG PO2 76 MMHG (79-93); ABG TCO2 20.4 MMOL/L (21.0-31.0)
[2022-01-20 15:40] LABS: ALBUMIN 3.3 GM/DL (3.2-4.5)
[2022-01-20 15:40] LABS: ABG PH 7.28 (7.37-7.43); ALLENS TEST YES-POS; INSPIRED O2 ROOM AIR; VENTILATOR NO
[2022-01-20 15:41] LABS: POTASSIUM 4.5 MMOL/L (3.6-5.0)
[2022-01-20 15:42] LABS: CALCIUM 9.5 MG/DL (8.5-10.1)
[2022-01-20 15:43] LABS: TOTAL PROTEIN 6.7 GM/DL (6.4-8.2)
[2022-01-20 15:45] LABS: BILIRUBIN,TOTAL 0.3 MG/DL (0.1-1.0)
[2022-01-20 15:46] LABS: CREATININE SERUM 4.77 MG/DL (0.60-1.30)
[2022-01-20] MEDS: NS IV 1000 ML 1,000 ML IV SCH (16:21)
[2022-01-20 17:03] VITALS: BP 112/60
[2022-01-20 20:15] VITALS: BP 114/62
[2022-01-20] MEDS: CYCLOBENZAPRINE 10 MG (FLEXERIL) TAB PO SCH (21:12)
[2022-01-21] MEDS: CATHETER FLUSH 10 ML SYR IVP SCH ×3 (05:03→20:01)
[2022-01-21] MEDS: BETHANECHOL 25 MG (URECHOLINE) TAB PO SCH ×4 (05:47→20:58)
[2022-01-21] MEDS: guaiFENesin/DM (ROBITUSSIN DM) 10 ML UDC PO SCH ×2 (05:47→17:22)
[2022-01-21] MEDS: NS IV 1000 ML 1,000 ML IV SCH ×2 (05:47→17:25)
[2022-01-21] MEDS: inSUlin (REGULAR) HUMAN 1 UNIT/0.01 ML (CHARGE PER UNIT) SC SCH ×4 (06:03→20:57)
--- NOTE | 2022-01-21 06:12 | PM&R Progress Note ---
Subjective HPI/CC On Admission Date Seen by Provider: Jan 21, 2022 Time Seen by Provider: 08:30 Subjective/Events-last exam 01/21/2022: Complications have occurred Urinary retention will require Gabriel catheter per nephrology Urology will see him also Pain is an issue Kidney function is slightly improved with IV fluid 01/20/2022: Patient having urinary retention Became drowsy over the afternoon check labs creatinine increased to 4.7 Patient requiring catheterizations and thus he is limiting his fluid intake Will reach out to nephrology in the morning Urology will see him in the morning 01/19/2022: Cant urinate Retention was noted last time he was in the hospital when he had pancreatitis Urecholine and Flomax and in/out caths ordered along with UA in case this is UTI Pain an issue Very weak at times Minimal BM 01/18/2022: Patient doing really well Settling into rehab Therapy had a good session with him Slept really well last night Pain is controlled Creatinine 3.4 Review of Systems General: Fatigue, Malaise Genitourinary: Retention Objective Exam Vital Signs Vital Signs Date Time Temp Pulse Resp B/P (MAP) Pulse Ox O2 Delivery O2 Flow Rate FiO2 01/21/22 20:19 36.8 93 16 113/56 (75) 94 Room Air Capillary Refill : General Appearance: No Apparent Distress, WD/WN, Chronically ill, Obese HEENT: PERRL/EOMI, Normal ENT Inspection, Pharynx Normal Neck: Full Range of Motion, Normal Inspection, Non Tender, Supple, Carotid Bruit Respiratory: Chest Non Tender, Lungs Clear, Normal Breath Sounds, No Accessory Muscle Use, No Respiratory Distress Cardiovascular: Regular Rate, Rhythm, No Edema, No Gallop, No JVD, No Murmur, Normal Peripheral Pulses Gastrointestinal: Normal Bowel Sounds, No Organomegaly, No Pulsatile Mass, Non Tender, Soft Back: Normal Inspection, Decreased Range of Motion, Muscle Spasm, Vertebral Te nderness Extremity: Normal Capillary Refill, Normal Inspection, Normal Range of Motion, Non Tender, No Calf Tenderness, No Pedal Edema, Other (left BKA) Neurologic/Psychiatric: Alert, Oriented x3, No Motor/Sensory Deficits, Normal Mood/Affect Skin: Normal Color, Warm/Dry Lymphatic: No Adenopathy Results/Procedures Lab Laboratory Tests 01/21/22 06:35 Patient resulted labs reviewed. FIM Transfers Therapy Code Descriptions/Definitions Functional [place] Measure: 0=Not Assessed/NA 4=Minimal Assistance 1=Total Assistance 5=Supervision or Setup 2=Maximal Assistance 6=Modified [place] 3=Moderate Assistance 7=Complete IndependenceSCALE: Activities may be completed with or without assistive devices. 4-Aioriolhhf-btjeuxs completes the activity by him/herself with no assistance from a helper. 5-Set-up or Clean-up Assistance-helper sets up or cleans up; patient completes activity. [place] assists only prior to or following the activity. 4-Supervision or Touching Assistance-helper provides verbal cues and/or touching/steadying and/or contact guard assistance as patient completes activity. Assistance may be provided throughout the activity or intermittently. 3-Partial/Moderate Assistance-helper does LESS THAN HALF the effort. [place] lifts, holds or supports trunk or limbs, but provides less than half the effort. 2-Substantial/Maximal Assistance-helper does MORE THAN HALF the effort. [place] lifts or holds trunk or limbs and provides more than half the effort. 2-Bhpsbmasl-prrhcc does ALL the effort. Patient does none of the effort to complete the activity. Or, the assistance of 2 or more helpers is required for the patient to complete the activity. If activity was not attempted, code reason: 7-Patient Refused. 9-Not Applicable-not attempted and the patient did not perform the activity before the current illness, exacerbation or injury. 10-Not Attempted due to Environmental Limitations-(lack of equipment, weather restraints, etc.). 88-Not Attempted due to Medical Conditions or Safety Concerns. Roll Left to Right (QC): 4 Sit to Lying (QC): 3 (Min A with prosthesis on, SBA without prosthesis on) Sit to Stand (QC): 4 Chair/Mul-tz-Ntisd Xfer(QC): 4 Car Transfer (QC): 3 (Mod A) Gait Training Does the Patient Walk?: Yes Distance: 5' Walk 10 feet (QC): 4 Walk 50 ft with 2 Turns(QC): 4 Walk 150 ft (QC): 4 Walking 10ft/uneven surface-QC: 4 Gait Persons Needed: 1 Gait Assistive Device: FWW Wheelchair Training Does the Pt Use a Wheelchair?: Yes Distance: 150' Wheel 50 ft with 2 turns (QC): 4 (SBA) Wheel 150 ft (QC): 4 (SBA) Type of Wheelchair: Manual Stair Training #of Steps: 1 1 Step (curb) (QC): 4 4 Steps (QC): 88 12 Steps (QC): 88 Balance Picking up an Object (QC): 4 ADL-Treatment Eating (QC): 6 Oral Hygiene (QC): 6 Shower/Bathe Self (QC): 3 (Min A overall.) Upper Body Dressing (QC): 3 (Min A) Lower Body Dressing (QC): 3 (Min A with pant hike.) On/Off Footwear (QC): 2 (Max A with RLE sock/shoe, and LLE prosthesis) Toileting Hygiene (QC): 3 (Min A with clothing management.) Assessment/Plan Assessment and Plan Assess & Plan/Chief Complaint Assessment: s/p lumbar spine surgery due to spinal stenosis with myelopathy CKD Stage IV with worsening on 01/20/2022 with creatinine 4.7 nonoliguric due to poor intake DM Obesity Post op constipation HTN HLP Psoriasis h/o pancreatitis Gout h/o left BKA Acute urinary retention 01/19/22 Plan: PT OT Monitor creat Pain control 01/18/2022: Aggressive bowel regimen Monitor creatinine 01/19/2022: In/out caths prn Urecholine and Flomax 01/20/2022: Start gentle IV fluids Catheterization required 01/21/2022: Nephrology consult Urology consult (1) H/O lumbosacral spine surgery (2) Stage 3b chronic kidney disease Status: Chronic (3) Psoriasis Status: Chronic (4) Gout Status: Chronic (5) T2DM (type 2 diabetes mellitus) Status: Chronic (6) HTN (hypertension) Status: Chronic (7) Spinal stenosis of lumbar region Status: Chronic KATINA MORAN DO Jan 21, 2022 06:12
[2022-01-21 06:46] LABS: BASOPHILS % (AUTO) 0 % (0-10); EOSINOPHILS # (AUTO) 0.1 10^3/uL (0.0-0.3); EOSINOPHILS % (AUTO) 2 % (0-10); HEMATOCRIT 21 % (40-54); HEMOGLOBIN 7.1 g/dL (13.3-17.7); LYMPHOCYTES # (AUTO) 1.2 10^3/uL (1.0-4.0); LYMPHOCYTES % (AUTO) 19 % (12-44); MEAN CORPUSCULAR HEMOGLOBIN 32 pg (25-34); MEAN CORPUSCULAR HGB CONC 34 g/dL (32-36); MEAN CORPUSCULAR VOLUME 94 fL (80-99); MEAN PLATELET VOLUME 9.2 fL (9.0-12.2); MONOCYTES # (AUTO) 0.8 10^3/uL (0.0-1.0); MONOCYTES % (AUTO) 12 % (0-12); NEUTROPHILS % (AUTO) 65 % (42-75); PLATELET COUNT 267 10^3/uL (130-400); WHITE BLOOD COUNT 6.1 10^3/uL (4.3-11.0)
[2022-01-21 06:55] LABS: ALBUMIN 2.9 GM/DL (3.2-4.5); POTASSIUM 4.2 MMOL/L (3.6-5.0)
[2022-01-21 06:57] LABS: TOTAL PROTEIN 5.9 GM/DL (6.4-8.2)
[2022-01-21 06:59] LABS: BILIRUBIN,TOTAL 0.2 MG/DL (0.1-1.0)
[2022-01-21 07:01] LABS: CREATININE SERUM 4.28 MG/DL (0.60-1.30)
[2022-01-21 07:36] VITALS: BP 100/62
[2022-01-21] MEDS: PANTOPRAZOLE 40 MG (PROTONIX) TAB PO SCH (08:13)
[2022-01-21] MEDS: DOCUSATE SODIUM 100 MG (COLACE) CAP PO SCH ×2 (08:13→20:58)
[2022-01-21] MEDS: LACTOBACILLUS ACIDOPHILUS (PROBIOTIC) CAPSULE PO SCH (08:13)
[2022-01-21] MEDS: GABAPENTIN 300 MG (NEURONTIN) CAP PO SCH ×3 (08:13→20:58)
[2022-01-21] MEDS: IRON POLYSAC 150 MG CAP (NIFEREX) PO SCH ×2 (08:13→20:58)
[2022-01-21] MEDS: GEMFIBROZIL 600 MG (LOPID) TAB PO SCH ×2 (08:13→20:58)
[2022-01-21] MEDS: ASCORBIC ACID (VIT C) 500 MG TABLET PO SCH (08:13)
[2022-01-21] MEDS: SENNA W/DOCUSATE (SENOKOT S) TABLET PO SCH ×2 (08:13→20:58)
[2022-01-21] MEDS: TAMSULOSIN 0.4 MG (FLOMAX) CAP PO SCH ×2 (08:14→20:58)
[2022-01-21] MEDS: MONTELUKAST 10 MG (SINGULAIR) TAB PO SCH (08:14)
[2022-01-21] MEDS: ALLOPURINOL 100 MG (ZYLOPRIM) TAB PO SCH (08:14)
[2022-01-21] MEDS: FUROSEMIDE 20 MG (LASIX) TAB PO SCH (08:14)
[2022-01-21] MEDS: polyethylene glycoL POWDER 17 GM (MIRALAX) PACK PO SCH ×2 (08:17→20:57)
[2022-01-21] MEDS: HYDROXYCHLOROQUINE 200 MG (PLAQUENIL) TAB PO SCH (08:33)
[2022-01-21] MEDS: lisINopril 40 MG (PRINIVIL) TABLET PO SCH (08:33)
[2022-01-21] MEDS: IRON SUCROSE 200 MG/10 ML (VENOFER) VIAL IV SCH ×3 (08:45→10:05)
[2022-01-21] MEDS ORDERED: LIDOCAINE JELLY 2% 6 ML SYRINGE ONE (09:33)
--- NOTE | 2022-01-21 09:44 | Physical Therapy Daily Note ---
PT Daily Note-Current Subjective Pt laying Supine in bed visiting with Mother upon arrival. Pt agrees to PT. Pt is much more awake during tx today. Pain Numeric Pain Scale: 7 Location: Incisional Location Body Site: Back Pain Description: Ache, Tightness Section J - Health Conditions 1. Rarely or not at all 2. Occasionally 3. Frequently 4. Almost constantly 8. Unable to answer Pain Effect on Sleep: 1 Pain Interference with Therapy: 2 Pain Interference w/Day-to-Day: 1 Mental Status Patient Orientation: Person, Place, Time, Situation Attachments: Drains, IV Transfers SCALE: Activities may be completed with or without assistive devices. 0-Huyvzzpnyi-upmmhvd completes the activity by him/herself with no assistance from a helper. 5-Set-up or Clean-up Assistance-helper sets up or cleans up; patient completes activity. [place] assists only prior to or following the activity. 4-Supervision or Touching Assistance-helper provides verbal cues and/or touching /steadying and/or contact guard assistance as patient completes activity. Assistance may be provided throughout the activity or intermittently. 3-Partial/Moderate Assistance-helper does LESS THAN HALF the effort. [place] lifts, holds or supports trunk or limbs, but provides less than half the effort. 2-Substantial/Maximal Assistance-helper does MORE THAN HALF the effort. [place] lifts or holds trunk or limbs and provides more than half the effort. 5-Myuxjutgx-zfacha does ALL the effort. Patient does none of the effort to complete the activity. Or, the assistance of 2 or more helpers is required for the patient to complete the activity. If activity was not attempted, code reason: 7-Patient Refused. 9-Not Applicable-not attempted and the patient did not perform the activity before the current illness, exacerbation or injury. 10-Not Attempted due to Environmental Limitations-(lack of equipment, weather restraints, etc.). 88-Not Attempted due to Medical Conditions or Safety Concerns. Sit to Lying (QC): 3 Lying to Sitting/Side of Bed(Q: 3 Sit to Stand (QC): 3 Weight Bearing Right Lower Extremity: Right Full Weight Bearing Left Lower Extremity: Left Full Weight Bearing Gait Training Does the Patient Walk?: Yes Distance: 5' Gait Assistive Device: FWW Exercises Seated Therapy Exercises: Ankle pumps, Long arc quads, Hip flexion, Glut set Seated Reps: 15 Standing: Sit to Stand Treatments Nurse gives morning meds to start tx. BP is monitored as pt reports it had been low in morning. BP in Supine is 117/63 & O2 is 93%. Pt TF from Supine to EOB. EQUITY STRUCTURER assists with donning prosthetic & TLSO brace. TF to standing and BP is 108/54 after short stand and return to sitting. This is repeated a couple times for practice and bed needs to be elevated for independence. TF to recliner and rests then Nursing asks for return to bed as pt needs cath. inserted. Pt returns to bed and EQUITY STRUCTURER assists w/lifting R LE into bed. All needs met, call light in hand. Assessment Current Status: Fair Progress Pt is much more awake during tx. today. Pt is gaining independence with transfe rs but elevated surfaces still needed. Still unable to come up with way for pt to keep back precautions and still don prosthetic independently. Mother is given instruction today. PT Short Term Goals Short Term Goals Time Frame: Jan 24, 2022 Sit to lyin (SBA) Sit to stand: 4 (SBA) Chair/cfp-ph-wkwte transfer: 4 (SBA) Toilet transfer: 4 (SBA) Car transfer: 4 (SBA) Walk 10 feet: 4 (SBA) Walk 50 feet with two turns: 4 (SBA) Walk 150 feet: 4 (SBA) Walking 10ft on uneven surface: 4 (SBA) 1 step (curb): 4 (SBA) 4 steps: 4 (CGA) Picking up objects: 4 (SBA with manager fast food) PT Group Home Goals Group Home Goals PT Group Home Goals Time Frame: Feb 07, 2022 Roll Left & Right (QC): 6 Sit to Lying (QC): 6 Lying-Sitting on Side/Bed(QC): 6 Sit to Stand (QC): 6 Chair/Pau-nv-Qktbq Xfer(QC): 6 Toilet Transfer (QC): 6 Car Transfer (QC): 6 Does the Patient Walk: No and Walking Goal IS indicated Walk 10 feet (QC): 6 Walk 50ft with 2 Turns (QC): 6 Walk 150 ft (QC): 6 Walking 10ft on Uneven Surface: 6 1 Step (curb) (QC): 6 4 Steps (QC): 6 12 Steps (QC): 4 (SBA-CGA) Picking up an Object (QC): 6 (independent with manager fast food) Wheel 50 feet with 2 turns (QC: 6 Wheel 150 feet: 6 Type: Manual PT Plan Problem List Problem List: Activity Tolerance, Functional Strength, Gait Treatment/Plan Treatment Plan: Continue Plan of Care Treatment Plan: Bed Mobility, Education, Functional Activity Jane, Functional Strength, Group Therapy, Gait, Safety, Therapeutic Exercise, Transfers Treatment Duration: Feb 07, 2022 Frequency: At least 5 of 7 days/Wk (IRF) Estimated Hrs Per Day: 1.5 hours per day Patient and/or Family Agrees t: Yes Safety Risks/Education Patient Education: Transfer Techniques, Reviewed Precautions, Correct Positioning, Reviewed Don/Doff Brace, Safety Issues Teaching Recipient: Patient, Family Teaching Methods: Demonstration, Discussion Response to Teaching: Verbalize Understanding, Return Demonstration Time Time In: 800 Time Out: 930 DATE: Jan 21, 2022 Total Billed Treatment Time: 90 Total Billed Treatment 1, EX x2 (35m), FA x3 (45m) & GT (10m) JESÚS MCCARTHY EQUITY STRUCTURER Jan 21, 2022 09:44
[2022-01-21] MEDS: ICOSAPENT ETHYL 1 GM PO SCH ×2 (09:59→17:54)
--- NOTE | 2022-01-21 11:15 | CONSULTATION REPORT ---
DATE OF SERVICE: 01/21/2022 ATTENDING PHYSICIAN: Dr. Lyn. SUMMARY: A 51-year-old man recovering from a spinal fusion complicated by urinary retention and renal failure. He has had Gabriel catheter that was removed, but he was voiding with small amounts and retention, catheter was reinserted. Dr. Lyn consulted Nephrology about the kidney functions. He had a previous history of retention with his pancreatitis apparently and did fine with Flomax b.i.d. and Urecholine [address] Lyn started him on these. Catheter was reinserted as mentioned. IMPRESSION: Urinary retention and renal failure. PLAN: Continue Nephrology care for the renal failure. Once he will not need a catheter, we will give him trial of voiding and manage accordingly. Job ID: [id number] DocumentID: [id number] Dictated Date: 01/21/2022 10:59:58 Advocacy Director Date: 01/21/2022 11:14:00 Dictated By: ARISTEO MELENDREZ MD
--- NOTE | 2022-01-21 11:23 | Occupational Ther Daily Note ---
OT Current Status-Daily Note Subjective Pt in bed, just had catheter placed due to difficulty voiding. Pt agreeable to OT Tx. ADL-Treatment Therapy Code Descriptions/Definitions Functional [place] Measure: 0=Not Assessed/NA 4=Minimal Assistance 1=Total Assistance 5=Supervision or Setup 2=Maximal Assistance 6=Modified [place] 3=Moderate Assistance 7=Complete IndependenceSCALE: Activities may be completed with or without assistive devices. 0-Teihgfiwws-gdtgmlf completes the activity by him/herself with no assistance from a helper. 5-Set-up or Clean-up Assistance-helper sets up or cleans up; patient completes activity. [place] assists only prior to or following the activity. 4-Supervision or Touching Assistance-helper provides verbal cues and/or touching/steadying and/or contact guard assistance as patient completes activity. Assistance may be provided throughout the activity or intermittently. 3-Partial/Moderate Assistance-helper does LESS THAN HALF the effort. [place] lift s, holds or supports trunk or limbs, but provides less than half the effort. 2-Substantial/Maximal Assistance-helper does MORE THAN HALF the effort. [place] lifts or holds trunk or limbs and provides more than half the effort. 0-Taghveqyv-ljybeb does ALL the effort. Patient does none of the effort to complete the activity. Or, the assistance of 2 or more helpers is required for the patient to complete the activity. If activity was not attempted, code reason: 7-Patient Refused. 9-Not Applicable-not attempted and the patient did not perform the activity before the current illness, exacerbation or injury. 10-Not Attempted due to Environmental Limitations-(lack of equipment, weather restraints, etc.). 88-Not Attempted due to Medical Conditions or Safety Concerns. Oral Hygiene (QC): 6 Shower/Bathe Self (QC): 3 (assist washing buttocks.) Upper Body Dressing (QC): 3 (Min A managing shirt down trunk.) Lower Body Dressing (QC): 3 (Mod A. Pt required assistance with pant hike, and slight assistance with threading RLE) On/Off Footwear: 2 (Max A overall R shoe and L prosthesis) Toileting Hygiene (QC): 3 (Mod A. Pt requires assistance with hygiene and pant hike.) Other Treatment Pt in bed, mod A supine to sit EOB with skilled instruction for UE placement and log roll technique. Pt transferred from EOB to W/C without LLE prosthesis, min A. Pt able to place L knee in w/c seat to assist with balance during transfer. Pt propelled w/c to bathroom, sat at sink to complete sponge bath and dressing. Pt required min-CGA with sit to stand transfers, skilled VCs and education provided for UE placement with transfers. He then propelled w/c around ARU common area. SPT from w/c to recliner, min A, pt again placed L knee in seat of chair during transfer. Post tx, pt in recliner, call light in reach and all needs met. Pt's mother present at start and end of tx, education provided on level of assistance with ADLs, and recommendation of assistance with LLE prosthesis upon returning home due to pt's back precautions. She verbalized understanding. Education OT Patient Education: Correct positioning, Energy conservation, Modified ADL techniques, Progress toward Goal/Update tx plan, Purpose of tx/functional activities, Rehab process, Safety issues Teaching Recipient: Patient Teaching Methods: Discussion Response to Teaching: Verbalize Understanding OT Short Term Goals Short Term Goals Time Frame: Jan 24, 2022 Toileting hygiene: 4 Shower/bathe self: 4 Upper body dressin Lower body dressin Putting on/taking off footwear: 4 OT Group Home Goals Group Home Goals Time Frame: Feb 07, 2022 Acute change in mental status: 0 Inattention: 0 Disorganized thinkin Altered level of consciousness: 0 Eating (QC): 6 Oral Hygiene (QC): 6 Toileting Hygiene (QC): 6 Shower/Bathe Self (QC): 5 Upper Body Dressing (QC): 6 Lower Body Dressing (QC): 6 On/Off Footwear (QC): 6 Additional Goals: 1-Demonstrate ADL Tasks, 2-Verbalize Understanding, 3- ImproveStrength/Jane 1=Demonstrate adherence to instructed precautions during ADL tasks. 2=Patient will verbalize/demonstrate understanding of assistive devices/modif ications for ADL. 3=Patient will improve strength/tolerance for activity to enable patient to perform ADL's. OT Education/Plan Problem List/Assessment Assessment: Decreased Activ Tolerance, Decreased Safety Aware, Decreased UE Strength, Impaired Bed Mobility, Impaired Funct Balance, Impaired I ADL's, Impaired Self-Care Skills Discharge Recommendations Plan/Recommendations: Continue POC Treatment Plan/Plan of Care Patient would benefit from OT for education, treatment and training to promote independence in ADL's, mobility, safety and/or upper extremity function for ADL's. Plan of Care: ADL Retraining, Functional Mobility, Group Exercise/Act as Ind, UE Funct Exercise/Act Treatment Duration: Feb 07, 2022 Frequency: At least 5 of 7 days/Wk (IRF) Estimated Hrs Per Day: 1.5 hours per day Agreement: Yes Rehab Potential: Good Time Start Time: 10:00 Stop Time: 11:30 DATE: Jan 21, 2022 Total Time Billed (hr/min): 90 Billed Treatment Time 1, ADL 5 (75'), FA (15') DANIEL HERNANDEZ OT Jan 21, 2022 11:23
--- NOTE | 2022-01-21 12:03 | Progress Note ---
MACIEL MILIAN 01/21/22 1203: Progress Note S: Gerardo Vaca (Eddie) is a 51yo M admitted to ARU room 229, with an admitting diagnosis of Lumbar Fusion, on 01/17/2022 from [facility]. He has a H/o Diabetic neuropathy, and amputation(BKA) of left leg. He was in good spirits and ready to start therapy, he hasnt had a bowel movement for a couple days. He said his pain is pretty severe at around 8/10 and on pain medication its still around 4/10. Denied any n/v/d but mentioned low grade fever and chills last night. Buster was seen today laying in bed he appeared to have a depressed affect, and was upset about having to have a catheter placed. He was seen with his mom, and both mentioned his low pain tolerance. He asked questions about his kidney functions and anemia, and was told that urology, nephrology would be consulted but that he looked stable for now. He is still tolerating therapy well, but we will monitor for depressive mood, and kidney injury. denies any chills n/v/d. O: V/S: T(36.4) HR(74) RR(20) BP(111/62) SpO2(96 RA) General Appearance: no acute Distress, WD/WN Neck: Full Range of Motion, Normal Inspection Respiratory: Chest Non Tender, Lungs Clear Cardiovascular: Regular Rate, Rhythm, No Murmur,rubs, or gallops Gastrointestinal: Normal Bowel Sounds, Non Tender, Soft Extremity: Normal Capillary Refill, Non Tender, No Pedal Edema, 2+ distal pulses, numbness to entire right leg Neurologic/Psychiatric: Alert, Oriented x3, NL mood, anxious affect Skin: Warm/Dry, Labs: glucometer(155) Hgb(7.1) blood pH(7.28) BUN(76) Creatinine(4.28) A: S/P spinal fusion DM w/ hyperglycemia Back pain Debility Urinary retention [place]uea Anemia CKD Metabolic Acidosis Gout(hyperuricemia) P: Aggressive OT/PT therapy insulin control w/ diet plan Pain regimen Catheterization Zofran administration IV fluids Consult nephrology and Urology Iron supplementation ANAHI LYN DO 01/21/222035: Supervisory-Addendum Brief Verification & Attestation Participated in pt care: history, MDM, physical Personally performed: exam, history, MDM, supervision of care Care discussed with: Medical Student Procedures: n/a Results interpretation: Verified all documentation Verification and Attestation of Medical Student E/M Service A medical student performed and documented this service in my presence. I reviewed and verified all information documented by the medical student and made modifications to such information, when appropriate. I personally performed the physical exam and medical decision making. Anahi Lyn, Jan 21, 2022,20:36 MACIEL MILIAN Jan 21, 2022 12:03 ANAHI LYN DO Jan 21, 2022 20:36
--- NOTE | 2022-01-21 12:42 | Consultation ---
History of Present Illness History of Present Illness Patient Consulted On(tamiko/time) 01/21/22 12:41 Date Seen by Provider: Jan 21, 2022 Time Seen by Provider: 12:41 Reason for Visit: jonathan on [id number] History of Present Illness Mr. Vaca is a very pleasant 51 y/o WM with h/o spinal fusion 01/17/22 complicated by urinary retention, h/o DM complicated by neuropathy/pvd s/p amputation, CKD 3b, and HTN who was noted to have a rise in creatinine in rehab. Based on labs, 12/06/21 creatinine was 1.9 with eGFR 42ml. Pt notes baseline is typically around 2.5 creatinine. He follows with Dr. Hendricks. Has not self cath'd in the past. Had to receive straight cath from Thursday to today. Creatinine is better after straight cath yesterday removed 1L of urine. Saldana was placed today. Allergies and Home Medications Allergies Coded Allergies: bacitracin (Verified Allergy, Mild, Rash, 01/17/22) hydrocodone (Verified Allergy, Mild, UNKNOWN, 01/20/22) neomycin (Verified Allergy, Mild, Rash, 01/17/22) sulfamethoxazole (Verified Allergy, Mild, Rash, 01/17/22) trimethoprim (Verified Allergy, Mild, Rash, 01/17/22) Sulfa (Sulfonamide Antibiotics) (Verified Allergy, Unknown, 11/09/21) Uncoded Allergies: [id number]-IQLASFO-PRAMOXINE (Allergy, Mild, RASH, 01/20/22) Patient Home Medication List Home Medication List Reviewed: Yes Allopurinol (Allopurinol) 100 Mg Tablet, 100 MG PO DAILY, (Reported) Entered as Reported by: TODD OSBORN on 09/11/181615 Last Action: Continued Ascorbate Calcium (Vitamin C) 500 Mg Tablet, 500 MG PO DAILY, (Reported) Entered as Reported by: SMITH MÁRQUEZ on 01/17/22 0944 Last Action: Converted Atorvastatin Calcium (Atorvastatin Calcium) 20 Mg Tablet, 20 MG PO DAILY, (Reported) Entered as Reported by: TODD OSBORN on 09/11/181615 Last Action: Continued Carvedilol (Carvedilol) 25 Mg Tablet, 25 MG PO BID WITH MEALS, (Reported) Entered as Reported by: TODD OSBORN on 09/11/181615 Last Action: Converted Cyclobenzaprine HCl (Cyclobenzaprine HCl) 10 Mg Tablet, 10 MG PO HS, (Reported) Entered as Reported by: SMITH MÁRQUEZ on 01/17/22943 Last Action: Continued Docusate Sodium (Colace) 100 Mg Capsule, 100 MG PO BID PRN for CONSTIPATION-1ST LINE, (Reported) Entered as Reported by: SMITH MÁRQUEZ on 01/17/22943 Last Action: Continued Fosinopril Sodium (Fosinopril Sodium) 40 Mg Tablet, 40 MG PO DAILY, (Reported) Entered as Reported by: SMITH MÁRQUEZ on 01/17/22943 Last Action: Converted Furosemide (Furosemide) 40 Mg Tablet, 20 MG PO BID, (Reported) Entered as Reported by: SMITH MÁRQUEZ on 01/17/22943 Last Action: Continued Gabapentin (Neurontin) 300 Mg Capsule, 300 MG PO TID, (Reported) Entered as Reported by: SMITH MÁRQUEZ on 01/17/22943 Last Action: Continued Gemfibrozil (Gemfibrozil) 600 Mg Tablet, 600 MG PO BID, (Reported) Entered as Reported by: SMITH MÁRQUEZ on 01/17/22943 Last Action: Continued Guaifenesin/Dextromethorphan (Mucinex Dm ER 600-30 mg Tablet) 600 Mg-30 Mg Tab.er.12h, 1 EACH PO Q12H, (Reported) Entered as Reported by: SMITH MÁRQUEZ on 01/17/22943 Last Action: Converted Hydroxychloroquine Sulfate (Hydroxychloroquine Sulfate) 200 Mg Tablet, 200 MG PO BID, (Reported) Entered as Reported by: SMITH MÁRQUEZ on 01/17/22943 Last Action: Continued Icosapent Ethyl (Vascepa) 1 Gram Capsule, 2 GM PO BID WITH MEALS, (Reported) Entered as Reported by: SMITH MÁRQUEZ on 01/17/22943 Last Action: Continued Insulin Regular, Human (Humulin R U-500 Kwikpen) 500/Ml (3) Insuln.pen, UNITS SC ACHS, (Reported) Entered as Reported by: SMITH MÁRQUEZ on 01/17/22943 Last Action: Held Iron Polysaccharide Complex (Ferrex 150) 150 Mg Iron Capsule, 150 MG PO BID, (Reported) Entered as Reported by: SMITH MÁRQUEZ on 01/17/22943 Last Action: Continued L.acidoph & Paracasei,B.lactis (Probiotic) 10 Billion Cell Capsule, 1 EACH PO DAILY, (Reported) Entered as Reported by: SMITH MÁRQUEZ on 01/17/22943 Last Action: Converted Montelukast Sodium (Montelukast Sodium) 10 Mg Tablet, 10 MG PO DAILY, (Reported) Entered as Reported by: TODD OSBORN on 09/11/181615 Last Action: Continued Omeprazole (Omeprazole) 40 Mg Capsule.dr, 40 MG PO DAILY, (Reported) Entered as Reported by: SMITH MÁRQUEZ on 01/17/22943 Last Action: Converted Oxycodone Hcl (Oxyir Tablet) 5 Mg Tab, 5 MG PO Q4H PRN for PAIN-SEVERE (8-10), (Reported) Entered as Reported by: SMITH MÁRQUEZ on 01/17/22943 Last Action: Continued Promethazine HCl (Promethazine Tablet) 25 Mg Tablet, 25 MG PO Q6H PRN for NAUSEA/VOMITING-2ND LINE, (Reported) Entered as Reported by: SMITH MÁRQUEZ on 01/17/22943 Last Action: Continued Triamcinolone Acet (Triamcinolone Acetonide 0.1% Cream) 0.1 % Cr, 1 APPLIC TOP BID PRN for SKIN CONDITION, (Reported) Entered as Reported by: SMITH MÁRQUEZ on 01/17/22943 Last Action: Continued Discontinued Medications Amlodipine Besylate (Amlodipine Besylate) 5 Mg Tablet, Unknown Dose PO DAILY, (Reported) Discontinued Reason: Duplicate Order Entered as Reported by: IRINA BLUM on 11/07/181805 Last Action: Discontinued Fluticasone Furoate (Flonase Sensimist) 5.9 Ml [place].susp, 2 SPRAYS NSEACH DAILY Discontinued Reason: Duplicate Order Prescribed by: STEPHANIE WATKINS on 11/07/181954 Last Action: Discontinued Gemfibrozil (Gemfibrozil) 600 Mg Tablet, 600 MG PO, (Reported) Discontinued Reason: Duplicate Order Entered as Reported by: IRINA BLUM on 11/07/181805 Last Action: Discontinued Insulin Aspart (Novolog) 100 Unit/1 Ml Susp, Unknown Dose SQ AC, (Reported) Discontinued Reason: Duplicate Order Entered as Reported by: IRINA BLUM on 11/07/181805 Last Action: Discontinued Insulin Glargine,Hum.rec.anlog ([place]le Solostar) 300 Unit/1 Ml Insuln.pen, Unknown Dose SQ, (Reported) Discontinued Reason: Duplicate Order Entered as Reported by: IRINA BLUM on 11/07/181805 Last Action: Discontinued Iron Ps Cmplx/Vit B12/FA (Iferex 150 Forte Capsule) 1 Each Capsule, Unknown Dose PO, (Reported) Discontinued Reason: Duplicate Order Entered as Reported by: IRINA BLUM on 11/07/181805 Last Action: Discontinued Levalbuterol Tartrate (Xopenex Hfa) 15 Gm Hfa.aer.ad, 1-2 PUFF INH Q6H Discontinued Reason: Duplicate Order Prescribed by: FERNANDO PERRIN on 12/08/181712 Last Action: Discontinued Ondansetron (Ondansetron Odt) 4 Mg Tab.rapdis, 4 MG SL Q4H PRN for NAUSEA/VOMITING Discontinued Reason: Duplicate Order Prescribed by: ANGEL LUIS ESTRELLA on 12/08/21 130 Last Action: Discontinued Oxycodone Hcl (Oxyir Tablet) 5 Mg Tab, 5 MG PO Q4H PRN for PAIN-SEVERE (8-10) Discontinued Reason: Duplicate Order Prescribed by: ANGEL LUIS ESTRELLA on 12/08/21 1304 Last Action: Discontinued Prednisone (Prednisone) 20 Mg Tab, 40 MG PO DAILY Discontinued Reason: Duplicate Order Prescribed by: FERNANDO PERRIN on 12/08/181712 Last Action: Discontinued Prochlorperazine Maleate (Compazine) 10 Mg Tablet, 10 MG PO Q6H Discontinued Reason: Duplicate Order Prescribed by: FERNANDO PERRIN on 12/08/181712 Last Action: Discontinued Past Ztjhyeh-Cecgog-Lriisl Hx Patient Social History Tobacco Use?: No Smoking Status: Former Smoker Use of E-Cig and/or Vaping dev: No Substance use?: No Alcohol Use?: No Pt feels they are or have been: No Immunizations Up To Date Influenza Vaccine Up-to-Date: No; Not Current Past Medical History Surgeries: Yes (left [id number] amputation ) Adenoidectomy, Amputation, Eye Surgery, Gallbladder, Orthopedic Respiratory: No Cardiac: Yes High Cholesterol, Hypertension Neurological: Yes Neuropathy Genitourinary: Yes Renal Failure Gastrointestinal: Yes Pancreatitis Musculoskeletal: Yes Amputee, Arthritis, Gout Endocrine: Yes Diabetes, Insulin dep, Diabetes, Non-Insulin dep HEENT: Yes (Diabetic retinopathy) Cancer: No Psychosocial: No Integumentary: Yes (Psoriatic arthritis) Blood Disorders: No Adverse Reaction/Blood Tranf: No Family Medical History No Pertinent Family Hx Review of Systems-General Constitutional: see HPI Physical Exam-General Problems Physical Exam Vital Signs Vital Signs - First Documented 01/17/22 11:47 Temp 36.9 Pulse 111 Resp 18 B/P (MAP) 130/66 (87) Pulse Ox 98 O2 Delivery Room Air Capillary Refill : General Appearance: no apparent distress HEENT: PERRL/EOMI Respiratory: no respiratory distress Cardiovascular: no JVD Neurologic/Psychiatric: oriented x 3 Assessment/Plan Assessment/Plan Admission Diagnosis/Plan CKD 3b with JONATHAN due to retention baseline creatinine 2.5 urinary retention after spinal fusion recommend saldana placement today and anticipate improvement match intake with outpt may have high outpt due to post obstructive diuresis pt is aware to avoid nsaids agree with urology consultation HTN low normal this am monitor for low bp avoid use of acei/arb monitor orthostatics spinal stenosis s/p spinal fusion rehab DM encourage adequate control JOSÉ MIGUEL MARTINEZ MD Jan 21, 2022 12:42
[2022-01-21 17:52] VITALS: BP 126/64
[2022-01-21] MEDS: BISACODYL 10 MG SUPP (DULCOLAX) PR PRN (17:55)
[2022-01-21 20:19] VITALS: BP 113/56
[2022-01-21] MEDS: CYCLOBENZAPRINE 10 MG (FLEXERIL) TAB PO SCH (20:57)
[2022-01-21] MEDS: SODIUM BICARBONATE 650 MG TABLET PO SCH (22:21)
[2022-01-22] MEDS: CATHETER FLUSH 10 ML SYR IVP SCH ×3 (05:47→21:05)
[2022-01-22] MEDS: guaiFENesin/DM (ROBITUSSIN DM) 10 ML UDC PO SCH ×2 (05:48→18:19)
[2022-01-22] MEDS: BETHANECHOL 25 MG (URECHOLINE) TAB PO SCH ×4 (05:48→21:01)
[2022-01-22] MEDS: inSUlin (REGULAR) HUMAN 1 UNIT/0.01 ML (CHARGE PER UNIT) SC SCH ×4 (05:48→21:05)
[2022-01-22] MEDS: NS IV 1000 ML 1,000 ML IV SCH (05:48)
--- NOTE | 2022-01-22 06:06 | PM&R Progress Note ---
Subjective HPI/CC On Admission Date Seen by Provider: Jan 22, 2022 Time Seen by Provider: 08:30 Subjective/Events-last exam 01/22/2022: Slower participation with therapy noted Patient began to have more difficulty with tasks when mother arrived 2 days ago Urinary retention managed with Gabriel catheter in order to monitor output Creat improved so will DC IVF 01/21/2022: Complications have occurred Urinary retention will require Gabriel catheter per nephrology Urology will see him also Pain is an issue Kidney function is slightly improved with IV fluid 01/20/2022: Patient having urinary retention Became drowsy over the afternoon check labs creatinine increased to 4.7 Patient requiring catheterizations and thus he is limiting his fluid intake Will reach out to nephrology in the morning Urology will see him in the morning 01/19/2022: Cant urinate Retention was noted last time he was in the hospital when he had pancreatitis Urecholine and Flomax and in/out caths ordered along with UA in case this is UTI Pain an issue Very weak at times Minimal BM 01/18/2022: Patient doing really well Settling into rehab Therapy had a good session with him Slept really well last night Pain is controlled Creatinine 3.4 Review of Systems General: Fatigue, Malaise Objective Exam Vital Signs Vital Signs Date Time Temp Pulse Resp B/P (MAP) Pulse Ox O2 Delivery O2 Flow Rate FiO2 01/22/22 19:11 36.5 89 20 151/69 (96) 93 Room Air Capillary Refill : General Appearance: No Apparent Distress, WD/WN, Chronically ill, Obese HEENT: PERRL/EOMI, Normal ENT Inspection, Pharynx Normal Neck: Full Range of Motion, Normal Inspection, Non Tender, Supple, Carotid Bruit Respiratory: Chest Non Tender, Lungs Clear, Normal Breath Sounds, No Accessory Muscle Use, No Respiratory Distress Cardiovascular: Regular Rate, Rhythm, No Edema, No Gallop, No JVD, No Murmur, Normal Peripheral Pulses Gastrointestinal: Normal Bowel Sounds, No Organomegaly, No Pulsatile Mass, Non Tender, Soft Back: Normal Inspection, Decreased Range of Motion, Muscle Spasm, Vertebral Tenderness Extremity: Normal Capillary Refill, Normal Inspection, Normal Range of Motion, Non Tender, No Calf Tenderness, No Pedal Edema, Other (left BKA) Neurologic/Psychiatric: Alert, Oriented x3, No Motor/Sensory Deficits, Normal Mood/Affect Skin: Normal Color, Warm/Dry Lymphatic: No Adenopathy Results/Procedures Lab Laboratory Tests 01/22/22 05:55 Patient resulted labs reviewed. FIM Transfers Therapy Code Descriptions/Definitions Functional [place] Measure: 0=Not Assessed/NA 4=Minimal Assistance 1=Total Assistance 5=Supervision or Setup 2=Maximal Assistance 6=Modified [place] 3=Moderate Assistance 7=Complete IndependenceSCALE: Activities may be completed with or without assistive devices. 0-Bsoftmqirx-ytslmdq completes the activity by him/herself with no assistance from a helper. 5-Set-up or Clean-up Assistance-helper sets up or cleans up; patient completes activity. [place] assists only prior to or following the activity. 4-Supervision or Touching Assistance-helper provides verbal cues and/or touching/steadying and/or contact guard assistance as patient completes activity. Assistance may be provided throughout the activity or intermittently. 3-Partial/Moderate Assistance-helper does LESS THAN HALF the effort. [place] lifts, holds or supports trunk or limbs, but provides less than half the effort. 2-Substantial/Maximal Assistance-helper does MORE THAN HALF the effort. [place] lifts or holds trunk or limbs and provides more than half the effort. 1-Ypkrswxaz-fjajuq does ALL the effort. Patient does none of the effort to complete the activity. Or, the assistance of 2 or more helpers is required for the patient to complete the activity. If activity was not attempted, code reason: 7-Patient Refused. 9-Not Applicable-not attempted and the patient did not perform the activity before the current illness, exacerbation or injury. 10-Not Attempted due to Environmental Limitations-(lack of equipment, weather restraints, etc.). 88-Not Attempted due to Medical Conditions or Safety Concerns. Roll Left to Right (QC): 4 Sit to Lying (QC): 3 Sit to Stand (QC): 3 Chair/Gcn-ov-Rqxsy Xfer(QC): 4 Car Transfer (QC): 3 (Mod A) Gait Training Does the Patient Walk?: Yes Distance: 5' Walk 10 feet (QC): 4 Walk 50 ft with 2 Turns(QC): 4 Walk 150 ft (QC): 4 Walking 10ft/uneven surface-QC: 4 Gait Persons Needed: 1 Gait Assistive Device: FWW Wheelchair Training Does the Pt Use a Wheelchair?: Yes Distance: 150' Wheel 50 ft with 2 turns (QC): 4 (SBA) Wheel 150 ft (QC): 4 (SBA) Type of Wheelchair: Manual Stair Training #of Steps: 1 1 Step (curb) (QC): 4 4 Steps (QC): 88 12 Steps (QC): 88 Balance Picking up an Object (QC): 4 ADL-Treatment Eating (QC): 6 Oral Hygiene (QC): 6 Shower/Bathe Self (QC): 3 (assist washing buttocks.) Upper Body Dressing (QC): 3 (Min A managing shirt down trunk.) Lower Body Dressing (QC): 3 (Mod A. Pt required assistance with pant hike, and slight assistance with threading RLE) On/Off Footwear (QC): 2 (Max A overall R shoe and L prosthesis) Toileting Hygiene (QC): 3 (Mod A. Pt requires assistance with hygiene and pant hike.) Assessment/Plan Assessment and Plan Assess & Plan/Chief Complaint Assessment: s/p lumbar spine surgery due to spinal stenosis with myelopathy CKD Stage IV with worsening on 01/20/2022 with creatinine 4.7 nonoliguric due to poor intake DM Obesity Post op constipation HTN HLP Psoriasis h/o pancreatitis Gout h/o left BKA Acute urinary retention 01/19/22 Plan: PT OT Monitor creat Pain control 01/18/2022: Aggressive bowel regimen Monitor creatinine 01/19/2022: In/out caths prn Urecholine and Flomax 01/20/2022: Start gentle IV fluids Catheterization required 01/21/2022: Nephrology consult Urology consult 01/22/2022: HLIVF Monitor creat (1) H/O lumbosacral spine surgery (2) Stage 3b chronic kidney disease Status: Chronic (3) Psoriasis Status: Chronic (4) Gout Status: Chronic (5) T2DM (type 2 diabetes mellitus) Status: Chronic (6) HTN (hypertension) Status: Chronic (7) Spinal stenosis of lumbar region Status: Chronic KATINA MORAN DO Jan 22, 2022 06:06
[2022-01-22 06:28] LABS: BASOPHILS % (AUTO) 0 % (0-10); EOSINOPHILS # (AUTO) 0.1 10^3/uL (0.0-0.3); EOSINOPHILS % (AUTO) 2 % (0-10); HEMATOCRIT 22 % (40-54); HEMOGLOBIN 7.4 g/dL (13.3-17.7); LYMPHOCYTES # (AUTO) 0.8 10^3/uL (1.0-4.0); LYMPHOCYTES % (AUTO) 13 % (12-44); MEAN CORPUSCULAR HEMOGLOBIN 31 pg (25-34); MEAN CORPUSCULAR HGB CONC 33 g/dL (32-36); MEAN CORPUSCULAR VOLUME 94 fL (80-99); MEAN PLATELET VOLUME 9.4 fL (9.0-12.2); MONOCYTES # (AUTO) 0.7 10^3/uL (0.0-1.0); MONOCYTES % (AUTO) 11 % (0-12); NEUTROPHILS # (AUTO) 4.8 10^3/uL (1.8-7.8); NEUTROPHILS % (AUTO) 73 % (42-75); PLATELET COUNT 321 10^3/uL (130-400); WHITE BLOOD COUNT 6.6 10^3/uL (4.3-11.0)
[2022-01-22 06:37] LABS: ALBUMIN 3.1 GM/DL (3.2-4.5); POTASSIUM 4.5 MMOL/L (3.6-5.0)
[2022-01-22 06:38] LABS: CALCIUM 9.2 MG/DL (8.5-10.1)
[2022-01-22 06:39] LABS: TOTAL PROTEIN 6.4 GM/DL (6.4-8.2)
[2022-01-22 06:41] LABS: BILIRUBIN,TOTAL 0.3 MG/DL (0.1-1.0)
[2022-01-22 06:43] LABS: CREATININE SERUM 3.64 MG/DL (0.60-1.30)
[2022-01-22] MEDS: ONDANSETRON 4 MG (ZOFRAN) ORAL DISSOLVE TAB PO PRN (07:41)
[2022-01-22 08:00] VITALS: BP 139/66
[2022-01-22] MEDS: LACTOBACILLUS ACIDOPHILUS (PROBIOTIC) CAPSULE PO SCH (08:47)
[2022-01-22] MEDS: SENNA W/DOCUSATE (SENOKOT S) TABLET PO SCH ×2 (08:47→21:02)
[2022-01-22] MEDS: TAMSULOSIN 0.4 MG (FLOMAX) CAP PO SCH ×2 (08:47→21:02)
[2022-01-22] MEDS: GABAPENTIN 300 MG (NEURONTIN) CAP PO SCH ×3 (08:47→21:03)
[2022-01-22] MEDS: DOCUSATE SODIUM 100 MG (COLACE) CAP PO SCH ×2 (08:47→21:04)
[2022-01-22] MEDS: ALLOPURINOL 100 MG (ZYLOPRIM) TAB PO SCH (08:47)
[2022-01-22] MEDS: ASCORBIC ACID (VIT C) 500 MG TABLET PO SCH (08:48)
[2022-01-22] MEDS: IRON POLYSAC 150 MG CAP (NIFEREX) PO SCH ×2 (08:48→21:03)
[2022-01-22] MEDS: MONTELUKAST 10 MG (SINGULAIR) TAB PO SCH (08:48)
[2022-01-22] MEDS: GEMFIBROZIL 600 MG (LOPID) TAB PO SCH ×2 (08:48→21:03)
[2022-01-22] MEDS: SODIUM BICARBONATE 650 MG TABLET PO SCH ×2 (08:48→21:02)
[2022-01-22] MEDS: PANTOPRAZOLE 40 MG (PROTONIX) TAB PO SCH (08:48)
[2022-01-22] MEDS: ICOSAPENT ETHYL 1 GM PO SCH ×2 (08:49→18:14)
[2022-01-22] MEDS: polyethylene glycoL POWDER 17 GM (MIRALAX) PACK PO SCH ×2 (08:55→21:04)
--- NOTE | 2022-01-22 10:08 | Progress Note ---
Progress Note Assessment/Plan Assessment/Plan CKD 3b with JONATHAN due to retention - improving with saldana baseline creatinine 2.5 urinary retention after spinal fusion recommend saldana placement today and anticipate improvement match intake with outpt may have high outpt due to post obstructive diuresis pt is aware to avoid nsaids agree with urology consultation HTN low normal this am monitor for low bp avoid use of acei/arb monitor orthostatics spinal stenosis s/p spinal fusion rehab DM encourage adequate control Vitals Last set of Vitals Signs Vital Signs Date Time Temp Pulse Resp B/P (MAP) Pulse Ox O2 Delivery O2 Flow Rate FiO2 01/22/22 08:00 36.5 88 16 139/66 (90) 92 Room Air I&O I&O Intake and Output 01/22/22 00:00 Intake Total 2225 ml Output Total 1325 ml Balance 900 ml Intake Oral 1225 ml IV Total 1000 ml Output Urine Total 1325 ml Drainage Total 0 ml Labs Laboratory Tests 01/21/22 10:47: Glucometer 155H 01/21/22 15:27: Glucometer 125H 01/21/22 20:21: Glucometer 158H 01/22/22 05:47: Glucometer 104 01/22/22 05:55: White Blood Count 6.6, Red Blood Count 2.37L, Hemoglobin 7.4L, Hematocrit 22L, Mean Corpuscular Volume 94, Mean Corpuscular Hemoglobin 31, Mean Corpuscular Hemoglobin Concent 33, Red Cell Distribution Width 14.3, Platelet Count 321, Mean Platelet Volume 9.4, Immature Granulocyte % (Auto) 1, Neutrophils (%) (Auto) 73, Lymphocytes (%) (Auto) 13, Monocytes (%) (Auto) 11, Eosinophils (%) (Auto) 2, Basophils (%) (Auto) 0, Neutrophils # (Auto) 4.8, Lymphocytes # (Auto) 0.8L, Monocytes # (Auto) 0.7, Eosinophils # (Auto) 0.1, Basophils # (Auto) 0.0, Immature Granulocyte # (Auto) 0.1, Sodium Level 132L, Potassium Level 4.5, Chloride Level 106, Carbon Dioxide Level 15L, Anion Gap 11, Blood Urea Nitrogen 78H, Creatinine 3.64#H, Estimat Glomerular Filtration Rate 19, BUN/Creatinine Ratio 21, Glucose Level 109H, Calcium Level 9.2, Corrected Calcium 9.9, Total Bilirubin 0.3, Aspartate Amino Transf (AST/SGOT) 16, Alanine Aminotransferase (ALT/SGPT) 21, Alkaline Phosphatase 77, Total Protein 6.4, Albumin 3.1L JOSÉ MIGUEL MARTINEZ MD Jan 22, 2022 10:08
--- NOTE | 2022-01-22 10:09 | Physical Therapy Daily Note ---
PT Daily Note-Current Subjective Pt laying Supine in bed upon arrival. Pt agrees to PT. Pain Location: Incisional Location Body Site: Back Pain Description: Ache Comment: Grimaces but does not rate Section J - Health Conditions 1. Rarely or not at all 2. Occasionally 3. Frequently 4. Almost constantly 8. Unable to answer Pain Effect on Sleep: 1 Pain Interference with Therapy: 2 Pain Interference w/Day-to-Day: 1 Mental Status Patient Orientation: Person, Place, Time, Situation Attachments: Gabriel Catheter, Other-See Comments (TLSO Brace & Prosthetic for L LE), IV Transfers SCALE: Activities may be completed with or without assistive devices. 9-Fjdwfjgsmc-meybwfg completes the activity by him/herself with no assistance from a helper. 5-Set-up or Clean-up Assistance-helper sets up or cleans up; patient completes activity. [place] assists only prior to or following the activity. 4-Supervision or Touching Assistance-helper provides verbal cues and/or franca keturah/steadying and/or contact guard assistance as patient completes activity. Assistance may be provided throughout the activity or intermittently. 3-Partial/Moderate Assistance-helper does LESS THAN HALF the effort. [place] lifts, holds or supports trunk or limbs, but provides less than half the effort. 2-Substantial/Maximal Assistance-helper does MORE THAN HALF the effort. [place] lifts or holds trunk or limbs and provides more than half the effort. 2-Axbnsysnl-gsrogn does ALL the effort. Patient does none of the effort to complete the activity. Or, the assistance of 2 or more helpers is required for the patient to complete the activity. If activity was not attempted, code reason: 7-Patient Refused. 9-Not Applicable-not attempted and the patient did not perform the activity before the current illness, exacerbation or injury. 10-Not Attempted due to Environmental Limitations-(lack of equipment, weather restraints, etc.). 88-Not Attempted due to Medical Conditions or Safety Concerns. Sit to Lying (QC): 3 Sit to Stand (QC): 3 Toilet Transfer (QC): 4 Weight Bearing Right Lower Extremity: Right Full Weight Bearing Left Lower Extremity: Left Full Weight Bearing Treatments TF from Supine to EOB at [facility] then dons prosthetic before TF via SPT to [facility] due to urgency. Pt has had difficulty having BM. After attempting BM, pt dons pants and Nurse fixes IV tubing then pt stands to pull shorts up. Pt amb. to recliner and sits to rest. Pt reviews need for continued work with EX as well as TF. Pt's mother will be in tx tomorrow morning to review donning footwear/prosthetic as well as car transfer. Pt is resting in recliner with all needs met, call light in hand. Assessment Current Status: Fair Progress Fatigue & back pain limit tx. & pt needs RB to recover. PT Short Term Goals Short Term Goals Time Frame: Jan 24, 2022 Sit to lyin (SBA) Sit to stand: 4 (SBA) Chair/dte-md-kqoga transfer: 4 (SBA) Toilet transfer: 4 (SBA) Car transfer: 4 (SBA) Walk 10 feet: 4 (SBA) Walk 50 feet with two turns: 4 (SBA) Walk 150 feet: 4 (SBA) Walking 10ft on uneven surface: 4 (SBA) 1 step (curb): 4 (SBA) 4 steps: 4 (CGA) Picking up objects: 4 (SBA with compressed yeast supervisor) PT Fdc Goals Newcomer Hostess Goals PT Fdc Goals Time Frame: Feb 07, 2022 Roll Left & Right (QC): 6 Sit to Lying (QC): 6 Lying-Sitting on Side/Bed(QC): 6 Sit to Stand (QC): 6 Chair/Oxo-jf-Zbkpp Xfer(QC): 6 Toilet Transfer (QC): 6 Car Transfer (QC): 6 Does the Patient Walk: No and Walking Goal IS indicated Walk 10 feet (QC): 6 Walk 50ft with 2 Turns (QC): 6 Walk 150 ft (QC): 6 Walking 10ft on Uneven Surface: 6 1 Step (curb) (QC): 6 4 Steps (QC): 6 12 Steps (QC): 4 (SBA-CGA) Picking up an Object (QC): 6 (independent with compressed yeast supervisor) Wheel 50 feet with 2 turns (QC: 6 Wheel 150 feet: 6 Type: Manual PT Plan Problem List Problem List: Activity Tolerance, Functional Strength, Gait, Transfer Treatment/Plan Treatment Plan: Continue Plan of Care Treatment Plan: Bed Mobility, Education, Functional Activity Jane, Functional Strength, Group Therapy, Gait, Safety, Therapeutic Exercise, Transfers Treatment Duration: Feb 07, 2022 Frequency: At least 5 of 7 days/Wk (IRF) Estimated Hrs Per Day: 1.5 hours per day Patient and/or Family Agrees t: Yes Safety Risks/Education Patient Education: Transfer Techniques, Correct Positioning, Safety Issues Teaching Recipient: Patient Teaching Methods: Discussion Response to Teaching: Verbalize Understanding Time Time In: 900 Time Out: 1000 DATE: Jan 22, 2022 Total Billed Treatment Time: 60 Total Billed Treatment 1, FA x4 (60m) JESÚS MCCARTHY PTA Jan 22, 2022 10:08
--- NOTE | 2022-01-22 10:37 | Occupational Ther Daily Note ---
OT Current Status-Daily Note Subjective Pt up in recliner, agreeable to OT Tx with focus on UE strengthening in order to improve performance with functional transfers/mobility and ADLS. Mental Status/Objective Patient Orientation: Normal For Age Attachments: Gabriel Catheter, IV ADL-Treatment Therapy Code Descriptions/Definitions Functional [place] Measure: 0=Not Assessed/NA 4=Minimal Assistance 1=Total Assistance 5=Supervision or Setup 2=Maximal Assistance 6=Modified [place] 3=Moderate Assistance 7=Complete IndependenceSCALE: Activities may be completed with or without assistive devices. 2-Pwgifwkaep-sdvsgel completes the activity by him/herself with no assistance from a helper. 5-Set-up or Clean-up Assistance-helper sets up or cleans up; patient completes activity. [place] assists only prior to or following the activity. 4-Supervision or Touching Assistance-helper provides verbal cues and/or touching/steadying and/or contact guard assistance as patient completes activity. Assistance may be provided throughout the activity or intermittently. 3-Partial/Moderate Assistance-helper does LESS THAN HALF the effort. [place] lifts, holds or supports trunk or limbs, but provides less than half the effort. 2-Substantial/Maximal Assistance-helper does MORE THAN HALF the effort. [place] lifts or holds trunk or limbs and provides more than half the effort. 6-Bngjuvkra-auxyhg does ALL the effort. Patient does none of the effort to com plete the activity. Or, the assistance of 2 or more helpers is required for the patient to complete the activity. If activity was not attempted, code reason: 7-Patient Refused. 9-Not Applicable-not attempted and the patient did not perform the activity before the current illness, exacerbation or injury. 10-Not Attempted due to Environmental Limitations-(lack of equipment, weather restraints, etc.). 88-Not Attempted due to Medical Conditions or Safety Concerns. Other Treatment Pt in recliner, sit to stand CGA, then transferred to w/c. Pt propelled w/c to therapy gym independently. In order to increase BUE Strength and activity tolerance, pt completed nut/bolt activity, 1lb wrist weights bilaterally. Pt able to manipulate nuts/bolts, remove from board, then place back onto the board, with min VCs. Pt then educated on UE exercises using min-mod resistance (red) theraband. Pt completed x10 reps each, 5/5 exercises, skilled VCs for technique and positioning. Pt propelled w/c back to his room independently, CGA transfer to recliner using FWW. Post tx, pt in recliner, call light in reach and all needs met. HEP and theraband left in pt's room. Education OT Patient Education: Correct positioning, Energy conservation, Modified ADL techniques, Progress toward Goal/Update tx plan, Purpose of tx/functional activities, Rehab process Teaching Recipient: Patient Teaching Methods: Discussion Response to Teaching: Verbalize Understanding OT Short Term Goals Short Term Goals Time Frame: Jan 24, 2022 Toileting hygiene: 4 Shower/bathe self: 4 Upper body dressin Lower body dressin Putting on/taking off footwear: 4 OT Halfway Goals Halfway Goals Time Frame: Feb 07, 2022 Acute change in mental status: 0 Inattention: 0 Disorganized thinkin Altered level of consciousness: 0 Eating (QC): 6 Oral Hygiene (QC): 6 Toileting Hygiene (QC): 6 Shower/Bathe Self (QC): 5 Upper Body Dressing (QC): 6 Lower Body Dressing (QC): 6 On/Off Footwear (QC): 6 Additional Goals: 1-Demonstrate ADL Tasks, 2-Verbalize Understanding, 3- ImproveStrength/Jane 1=Demonstrate adherence to instructed precautions during ADL tasks. 2=Patient will verbalize/demonstrate understanding of assistive devices/modifications for ADL. 3=Patient will improve strength/tolerance for activity to enable patient to perform ADL's. OT Education/Plan Problem List/Assessment Assessment: Decreased Activ Tolerance, Decreased UE Strength, Impaired Funct [place] lou[place], Impaired I ADL's, Impaired Self-Care Skills Discharge Recommendations Plan/Recommendations: Continue POC Treatment Plan/Plan of Care Patient would benefit from OT for education, treatment and training to promote independence in ADL's, mobility, safety and/or upper extremity function for ADL's. Plan of Care: ADL Retraining, Functional Mobility, Group Exercise/Act as Ind, UE Funct Exercise/Act Treatment Duration: Feb 07, 2022 Frequency: At least 5 of 7 days/Wk (IRF) Estimated Hrs Per Day: 1.5 hours per day Agreement: Yes Rehab Potential: Good Time Start Time: 10:10 Stop Time: 11:10 DATE: Jan 22, 2022 Total Time Billed (hr/min): 60 Billed Treatment Time 1, FA 3 (45'), EX (15') DANIEL HERNANDEZ OT Jan 22, 2022 10:37
[2022-01-22] MEDS ORDERED: PATCH REMOVAL TP ONE (12:00)
[2022-01-22] MEDS: PROMETHAZINE 25 MG (PHENERGAN) TAB PO PRN (12:16)
--- NOTE | 2022-01-22 12:34 | Progress Note - Urology ---
Progress Note-Urology Progress Notes/Assess & Plan Progress/Assessment & Plan WE WILL SEE AGAIN ONCE WISDOM OUT Final Diagnosis RETENTION ARISTEO MELENDREZ MD Jan 22, 2022 12:34
--- NOTE | 2022-01-22 13:03 | Progress Note ---
MACIEL MILIAN 01/22/22 1303: Progress Note S: Gerardo Vaca (Eddie) is a 51yo M admitted to ARU room 229, with an admitting diagnosis of Lumbar Fusion, on 01/17/2022 from [facility]. He has a H/o Diabetic neuropathy, and amputation(BKA) of left leg. He was in good spirits and ready to start therapy, he hasnt had a bowel movement for a couple days. He said his pain is pretty severe at around 8/10 and on pain medication its still around 4/10. Denied any n/v/d but mentioned low grade fever and chills last night. Buster on todays visit was seen laying in bed, he appeared a little depressed and frustrated. He has been worsening in his confidence in himself and is likely worse because his mother has been with him the last few days, she has played a role in shunting accountability that has led to the patients non compliance to treatments. He reported an onset of nasuea, vomiting, and diarrhea last night but says the zofran is helping him and he feels better again. His DC date was originally planned for 01/24 but due to his recent complications the date will be pushed out. Nephrologies Dr. Campo also consulted on the pt and noted "saldana placement today and anticipate improvement, match intake with output, may have high output due to post obstructive diuresis, pt is aware to avoid nsaids." He's otherwise doing well, his CPAP use with rest has yielded better results. O: V/S: T(36.5) HR(88) RR(16) BP(139/66) SpO2(92 RA) General Appearance: no acute Distress, WD/WN Neck: Full Range of Motion, Normal Inspection Respiratory: Chest Non Tender, Lungs Clear Cardiovascular: Regular Rate, Rhythm, No Murmur,rubs, or gallops Gastrointestinal: Normal Bowel Sounds, Non Tender, Soft Extremity: Normal Capillary Refill, Non Tender, No Pedal Edema, 2+ distal pulses, numbness to entire right leg Neurologic/Psychiatric: Alert, Oriented x3, NL mood, anxious affect Skin: Warm/Dry, Labs: glucometer(165) Hgb(7.4) blood pH(7.28) BUN(78) Creatinine(3.64) A: S/P spinal fusion DM w/ hyperglycemia Back pain Debility Urinary retention Nasuea Anemia CKD Metabolic Acidosis Gout(hyperuricemia) VIVI P: Aggressive OT/PT therapy insulin control w/ diet plan Pain regimen Catheterization Zofran administration IV fluids Consult nephrology and Urology Iron supplementation Nightly CPAP ANAHI MORAN DO 01/22/221955: Supervisory-Addendum Brief Verification & Attestation Participated in pt care: history, MDM, physical Personally performed: exam, history, MDM, supervision of care Care discussed with: Medical Student Procedures: n/a Results interpretation: Verified all documentation Verification and Attestation of Medical Student E/M Service A medical student performed and documented this service in my presence. I rev iewed and verified all information documented by the medical student and made modifications to such information, when appropriate. I personally performed the physical exam and medical decision making. Anahi Moran, Jan 22, 2022,19:56 MACIEL MILIAN Jan 22, 2022 13:03 ANAHI MORAN DO Jan 22, 2022 19:56
[2022-01-22] MEDS: BISACODYL 10 MG SUPP (DULCOLAX) PR PRN (14:45)
--- NOTE | 2022-01-22 15:19 | Therapy Group Daily Note ---
Therapy Daily Group Note Patient Education Topic Other List Below (ARU Expectations & Hospital Bed Safety/workings & transfers) Exercises LE Seated Exercise, UE Exercise Session Ratio (pt:therapist): 4:1 Goal of Session: Education on ARU Expectations, UE/LE Strengthing, Safety with Transfers Goal Met for this Session: Yes Pt Benefit of Group: Contributions to Others, Increased Functional Safety, Increased Functional Strength, Improved Cognition, Recognition of Peers, Socialization Other/Notes Pt transfers to [facility] and propels to [facility] area for OT/PT group. Group consisted of introductions(name, place, favorite wintertime activity), socialization, pt led B UE/LE seated activities, education on hospital bed function/mobility and ARU description/expectations. Pt introduced self appropriately and actively listened to peers. Pt able to complete B UE/LE seated exercises and give personal favorite exercise. Pt acknowledged understanding of educational topic by answering/asking questions and confirming understanding by nodding head in affirmation. After session, pt lying in bed with call light/phone in reach. All needs met in room. Start Time: 12:50 Stop Time: 14:15 Total Billed Treatment Time: 85 Total Billed Treatment 1, GRP (85m) FABIOZAYJESÚSKAISER RABAGO Jan 22, 2022 15:19
--- NOTE | 2022-01-22 16:28 | Progress Note ---
Progress Note Assessment/Plan Date Seen by Provider: Jan 22, 2022 Time Seen by Provider: 16:26 Events since last exam Pt's creatinine is improving. Saldana remains in place. Assessment/Plan CKD 3b with JONATHAN due to retention - improving with saldana placement 01/21/22 baseline creatinine 2.5 urinary retention after spinal fusion match intake with outpt monitor for post obstructive diuresis pt is aware to avoid nsaids after d/c will stop ivf to avoid overloading given slight edema Urinary retention f/u with Dr. Contreras Anemia iron def receiving venofer x 5 doses HTN monitor for low bp avoid use of acei/arb monitor orthostatics spinal stenosis s/p spinal fusion rehab DM encourage adequate control Vitals Last set of Vitals Signs Vital Signs Date Time Temp Pulse Resp B/P (MAP) Pulse Ox O2 Delivery O2 Flow Rate FiO2 01/22/22 09:00 Room Air 01/22/22 08:00 36.5 88 16 139/66 (90) 92 I&O I&O Intake and Output 01/22/22 00:00 Intake Total 2225 ml Output Total 1325 ml Balance 900 ml Intake Oral 1225 ml IV Total 1000 ml Output Urine Total 1325 ml Drainage Total 0 ml Labs Laboratory Tests 01/21/22 20:21: Glucometer 158H 01/22/22 05:47: Glucometer 104 01/22/22 05:55: White Blood Count 6.6, Red Blood Count 2.37L, Hemoglobin 7.4L, Hematocrit 22L, Mean Corpuscular Volume 94, Mean Corpuscular Hemoglobin 31, Mean Corpuscular Hemoglobin Concent 33, Red Cell Distribution Width 14.3, Platelet Count 321, Mean Platelet Volume 9.4, Immature Granulocyte % (Auto) 1, Neutrophils (%) (Auto) 73, Lymphocytes (%) (Auto) 13, Monocytes (%) (Auto) 11, Eosinophils (%) (Auto) 2, Basophils (%) (Auto) 0, Neutrophils # (Auto) 4.8, Lymphocytes # (Auto) 0.8L, Monocytes # (Auto) 0.7, Eosinophils # (Auto) 0.1, Basophils # (Auto) 0.0, Immature Granulocyte # (Auto) 0.1, Sodium Level 132L, Potassium Level 4.5, Chloride Level 106, Carbon Dioxide Level 15L, Anion Gap 11, Blood Urea Nitrogen 78H, Creatinine 3.64#H, Estimat Glomerular Filtration Rate 19, BUN/Creatinine Ratio 21, Glucose Level 109H, Calcium Level 9.2, Corrected Calcium 9.9, Total Bilirubin 0.3, Aspartate Amino Transf (AST/SGOT) 16, Alanine Aminotransferase (ALT/SGPT) 21, Alkaline Phosphatase 77, Total Protein 6.4, Albumin 3.1L 01/22/22 10:54: Glucometer 165H 01/22/22 15:08: Glucometer 187H JOSÉ MIGUEL MARTINEZ MD Jan 22, 2022 16:28
[2022-01-22 18:12] VITALS: BP 151/70
[2022-01-22 19:11] VITALS: BP 151/69
[2022-01-22] MEDS: CYCLOBENZAPRINE 10 MG (FLEXERIL) TAB PO SCH (21:01)
--- NOTE | 2022-01-23 05:00 | PM&R Progress Note ---
Subjective HPI/CC On Admission Date Seen by Provider: Jan 23, 2022 Time Seen by Provider: 12:00 Subjective/Events-last exam 01/23/2022: Patient doing well Much improved Gabriel catheter still in place Creatinine improved Blood sugars improved Pain is improved 01/22/2022: Slower participation with therapy noted Patient began to have more difficulty with tasks when mother arrived 2 days ago Urinary retention managed with Gabriel catheter in order to monitor output Creat improved so will DC IVF 01/21/2022: Complications have occurred Urinary retention will require Gabriel catheter per nephrology Urology will see him also Pain is an issue Kidney function is slightly improved with IV fluid 01/20/2022: Patient having urinary retention Became drowsy over the afternoon check labs creatinine increased to 4.7 Patient requiring catheterizations and thus he is limiting his fluid intake Will reach out to nephrology in the morning Urology will see him in the morning 01/19/2022: Cant urinate Retention was noted last time he was in the hospital when he had pancreatitis Urecholine and Flomax and in/out caths ordered along with UA in case this is UTI Pain an issue Very weak at times Minimal BM 01/18/2022: Patient doing really well Settling into rehab Therapy had a good session with him Slept really well last night Pain is controlled Creatinine 3.4 Review of Systems General: Fatigue, Malaise Musculoskeletal: back pain Objective Exam Vital Signs Vital Signs Date Time Temp Pulse Resp B/P (MAP) Pulse Ox O2 Delivery O2 Flow Rate FiO2 01/23/22 21:40 Room Air 01/23/22 20:30 36.5 82 18 132/67 (88) 91 Capillary Refill : General Appearance: No Apparent Distress, WD/WN, Chronically ill, Obese HEENT: PERRL/EOMI, Normal ENT Inspection, Pharynx Normal Neck: Full Range of Motion, Normal Inspection, Non Tender, Supple, Carotid Bruit Respiratory: Chest Non Tender, Lungs Clear, Normal Breath Sounds, No Accessory Muscle Use, No Respiratory Distress Cardiovascular: Regular Rate, Rhythm, No Edema, No Gallop, No JVD, No Murmur, Normal Peripheral Pulses Gastrointestinal: Normal Bowel Sounds, No Organomegaly, No Pulsatile Mass, Non Tender, Soft Back: Normal Inspection, Decreased Range of Motion, Muscle Spasm, Vertebral Te nderness Extremity: Normal Capillary Refill, Normal Inspection, Normal Range of Motion, Non Tender, No Calf Tenderness, No Pedal Edema, Other (left BKA) Neurologic/Psychiatric: Alert, Oriented x3, No Motor/Sensory Deficits, Normal Mood/Affect Skin: Normal Color, Warm/Dry Lymphatic: No Adenopathy Results/Procedures Lab Laboratory Tests 01/23/22 05:45 Patient resulted labs reviewed. FIM Transfers Therapy Code Descriptions/Definitions Functional [place] Measure: 0=Not Assessed/NA 4=Minimal Assistance 1=Total Assistance 5=Supervision or Setup 2=Maximal Assistance 6=Modified [place] 3=Moderate Assistance 7=Complete IndependenceSCALE: Activities may be completed with or without assistive devices. 7-Xbblrfoiyq-hsrbeie completes the activity by him/herself with no assistance from a helper. 5-Set-up or Clean-up Assistance-helper sets up or cleans up; patient completes activity. [place] assists only prior to or following the activity. 4-Supervision or Touching Assistance-helper provides verbal cues and/or touching/steadying and/or contact guard assistance as patient completes activity. Assistance may be provided throughout the activity or intermittently. 3-Partial/Moderate Assistance-helper does LESS THAN HALF the effort. [place] lifts, holds or supports trunk or limbs, but provides less than half the effort. 2-Substantial/Maximal Assistance-helper does MORE THAN HALF the effort. [place] lifts or holds trunk or limbs and provides more than half the effort. 8-Jngigxzwp-zehnbb does ALL the effort. Patient does none of the effort to complete the activity. Or, the assistance of 2 or more helpers is required for the patient to complete the activity. If activity was not attempted, code reason: 7-Patient Refused. 9-Not Applicable-not attempted and the patient did not perform the activity before the current illness, exacerbation or injury. 10-Not Attempted due to Environmental Limitations-(lack of equipment, weather restraints, etc.). 88-Not Attempted due to Medical Conditions or Safety Concerns. Roll Left to Right (QC): 4 Sit to Lying (QC): 3 Sit to Stand (QC): 3 Chair/Uqo-fp-Eygvn Xfer(QC): 4 Car Transfer (QC): 3 (Mod A) Gait Training Does the Patient Walk?: Yes Distance: 5' Walk 10 feet (QC): 4 Walk 50 ft with 2 Turns(QC): 4 Walk 150 ft (QC): 4 Walking 10ft/uneven surface-QC: 4 Gait Persons Needed: 1 Gait Assistive Device: FWW Wheelchair Training Does the Pt Use a Wheelchair?: Yes Distance: 150' Wheel 50 ft with 2 turns (QC): 4 (SBA) Wheel 150 ft (QC): 4 (SBA) Type of Wheelchair: Manual Stair Training #of Steps: 1 1 Step (curb) (QC): 4 4 Steps (QC): 88 12 Steps (QC): 88 Balance Picking up an Object (QC): 4 ADL-Treatment Eating (QC): 6 Oral Hygiene (QC): 6 Shower/Bathe Self (QC): 3 (assist washing buttocks.) Upper Body Dressing (QC): 3 (Min A managing shirt down trunk.) Lower Body Dressing (QC): 3 (Mod A. Pt required assistance with pant hike, and slight assistance with threading RLE) On/Off Footwear (QC): 2 (Max A overall R shoe and L prosthesis) Toileting Hygiene (QC): 3 (Mod A. Pt requires assistance with hygiene and pant hike.) Assessment/Plan Assessment and Plan Assess & Plan/Chief Complaint Assessment: s/p lumbar spine surgery due to spinal stenosis with myelopathy CKD Stage IV with worsening on 01/20/2022 with creatinine 4.7 nonoliguric due to poor intake and now much improved after IV fluids with nephrology consult DM Obesity Post op constipation HTN HLP Psoriasis h/o pancreatitis Gout h/o left BKA Acute urinary retention 01/19/22 requiring Gabriel catheter Metabolic acidosis placed on bicarb per nephrology Plan: PT OT Monitor creat Pain control 01/18/2022: Aggressive bowel regimen Monitor creatinine 01/19/2022: In/out caths prn Urecholine and Flomax 01/20/2022: Start gentle IV fluids Catheterization required 01/21/2022: Nephrology consult Urology consult 01/22/2022: HLIVF Monitor creat 01/23/2022: Bicarb Monitor (1) H/O lumbosacral spine surgery (2) Stage 3b chronic kidney disease Status: Chronic (3) Psoriasis Status: Chronic (4) Gout Status: Chronic (5) T2DM (type 2 diabetes mellitus) Status: Chronic (6) HTN (hypertension) Status: Chronic (7) Spinal stenosis of lumbar region Status: Chronic KATINA MORAN DO Jan 23, 2022 05:00
[2022-01-23] MEDS: inSUlin (REGULAR) HUMAN 1 UNIT/0.01 ML (CHARGE PER UNIT) SC SCH ×4 (05:40→21:47)
[2022-01-23] MEDS: guaiFENesin/DM (ROBITUSSIN DM) 10 ML UDC PO SCH ×2 (05:46→17:02)
[2022-01-23] MEDS: BETHANECHOL 25 MG (URECHOLINE) TAB PO SCH ×4 (05:46→21:44)
[2022-01-23] MEDS: CATHETER FLUSH 10 ML SYR IVP SCH ×3 (05:47→21:47)
[2022-01-23 06:23] LABS: ALBUMIN 2.9 GM/DL (3.2-4.5); POTASSIUM 4.6 MMOL/L (3.6-5.0)
[2022-01-23 06:24] LABS: CALCIUM 9.1 MG/DL (8.5-10.1)
[2022-01-23 06:29] LABS: CREATININE SERUM 2.89 MG/DL (0.60-1.30); PHOSPHORUS 3.7 MG/DL (2.3-4.7)
[2022-01-23 07:39] VITALS: BP 120/71
--- NOTE | 2022-01-23 08:41 | Progress Note ---
MACIEL MILIAN 01/23/22 1590: Progress Note S: Gerardo Vaca (Eddie) is a 51yo M admitted to ARU room 229, with an admitting diagnosis of Lumbar Fusion, on 01/17/2022 from [facility]. He has a H/o Diabetic neuropathy, and amputation(BKA) of left leg. He was in good spirits and ready to start therapy, he hasnt had a bowel movement for a couple days. He said his pain is pretty severe at around 8/10 and on pain medication its still around 4/10. Denied any n/v/d but mentioned low grade fever and chills last night. Buster was seen while doing his PT, he was accompanied by his mom, and they both said today has been a really good day. His renal labs have been improving which has alleviated a lot of their stress. Buster was taken off of his IV, but I/O shows that he is not drinking enough, and he was educated on the importance of staying hydrated. He denied any severe pain or return of his past nasuea. His DC has been moved to thursday01/27/22 which he feels better about. O: V/S: T(36.5) HR(86) RR(18) BP(120/71) SpO2(94 RA) General Appearance: no acute Distress, WD/WN Neck: Full Range of Motion, Normal Inspection Respiratory: Chest Non Tender, Lungs Clear Cardiovascular: Regular Rate, Rhythm, No Murmur,rubs, or gallops Gastrointestinal: Normal Bowel Sounds, Non Tender, Soft Extremity: Normal Capillary Refill, Non Tender, No Pedal Edema, 2+ distal pu lses, numbness to entire right leg Neurologic/Psychiatric: Alert, Oriented x3, NL mood, anxious affect Skin: Warm/Dry, Labs: glucometer(145-248) BUN(69) Creatinine(2.89) A: S/P spinal fusion DM w/ hyperglycemia Back pain Debility Urinary retention [place]a Anemia CKD Metabolic Acidosis Gout(hyperuricemia) VIVI P: Aggressive OT/PT therapy insulin control w/ diet plan Pain regimen Catheterization Zofran administration fluids Consult nephrology and Urology Iron supplementation Nightly CPAP ANAHI LYN DO 01/23/222036: Supervisory-Addendum Brief Verification & Attestation Participated in pt care: history, MDM, physical Personally performed: exam, history, MDM, supervision of care Care discussed with: Medical Student Procedures: n/a Results interpretation: Verified all documentation Verification and Attestation of Medical Student E/M Service A medical student performed and documented this service in my presence. I reviewed and verified all information documented by the medical student and made modifications to such information, when appropriate. I personally performed the physical exam and medical decision making. Anahi Lyn, Jan 23, 2022,20:37 MACIEL MILIAN Jan 23, 2022 08:41 ANAHI LYN DO Jan 23, 2022 20:37
--- NOTE | 2022-01-23 08:55 | Physical Therapy Daily Note ---
PT Daily Note-Current Subjective Patient in bed pre tx, agrees to PT, has unrated low back pain. Mother is here for education on donning prosthetic leg and general mobility Pain Section J - Health Conditions 1. Rarely or not at all 2. Occasionally 3. Frequently 4. Almost constantly 8. Unable to answer Pain Effect on Sleep: 1 Pain Interference with Therapy: 2 Pain Interference w/Day-to-Day: 1 Appearance Patient in recliner post tx with nurse call, phone, tray, all needs met. Mental Status Patient Orientation: Person, Place, Situation back brace Transfers SCALE: Activities may be completed with or without assistive devices. 5-Htxzbvzwan-pptiaey completes the activity by him/herself with no assistance from a helper. 5-Set-up or Clean-up Assistance-helper sets up or cleans up; patient completes activity. [place] assists only prior to or following the activity. 4-Supervision or Touching Assistance-helper provides verbal cues and/or touching/steadying and/or contact guard assistance as patient completes activity. Assistance may be provided throughout the activity or intermittently. 3-Partial/Moderate Assistance-helper does LESS THAN HALF the effort. [place] lifts, holds or supports trunk or limbs, but provides less than half the effort. 2-Substantial/Maximal Assistance-helper does MORE THAN HALF the effort. [place] lifts or holds trunk or limbs and provides more than half the effort. 6-Xgludacjy-uyltyt does ALL the effort. Patient does none of the effort to complete the activity. Or, the assistance of 2 or more helpers is required for the patient to complete the activity. If activity was not attempted, code reason: 7-Patient Refused. 9-Not Applicable-not attempted and the patient did not perform the activity before the current illness, exacerbation or injury. 10-Not Attempted due to Environmental Limitations-(lack of equipment, weather restraints, etc.). 88-Not Attempted due to Medical Conditions or Safety Concerns. Roll Left & Right (QC): 6 Lying to Sitting/Side of Bed(Q: 4 Sit to Stand (QC): 4 Chair/Xvk-hm-Uohow Xfer(QC): 4 CGA for supine to sit and sit to stand, patient has more difficulty standing from lower surfaces. Mother educated on getting patient's shoe and prosthetic leg on because patient cannot bend over to do it because of his back precautions. Also reviewed donning back brace. Weight Bearing Right Lower Extremity: Right Full Weight Bearing Left Lower Extremity: Left Full Weight Bearing Gait Training Distance: 120', 60'x2 Walk 10 feet (QC): 4 Walk 50 ft with 2 Turns(QC): 4 Gait Persons Needed: 1 Gait Assistive Device: FWW slow but steady ambulation, patient occasionally lets his walker get too far in front Exercises Standing: Marching, Mini squats Standing Reps: 15 NuStep Minutes: 15 NuStep Workload: 5 Treatments bed mobility and transfers, ambulation, strengthening, donning prosthetic leg Assessment Current Status: Fair Progress improved general mobility, patient more alert today PT Short Term Goals Short Term Goals Time Frame: Jan 24, 2022 Sit to lyin (SBA) Sit to stand: 4 (SBA) Chair/kwu-kh-ynnko transfer: 4 (SBA) Toilet transfer: 4 (SBA) Car transfer: 4 (SBA) Walk 10 feet: 4 (SBA) Walk 50 feet with two turns: 4 (SBA) Walk 150 feet: 4 (SBA) Walking 10ft on uneven surface: 4 (SBA) 1 step (curb): 4 (SBA) 4 steps: 4 (CGA) Picking up objects: 4 (SBA with special service representative) PT [employer]ist [employer] Goals Group Home Goals PT Group Home Goals Time Frame: Feb 07, 2022 Roll Left & Right (QC): 6 Sit to Lying (QC): 6 Lying-Sitting on Side/Bed(QC): 6 Sit to Stand (QC): 6 Chair/Xoa-yk-Vovou Xfer(QC): 6 Toilet Transfer (QC): 6 Car Transfer (QC): 6 Does the Patient Walk: No and Walking Goal IS indicated Walk 10 feet (QC): 6 Walk 50ft with 2 Turns (QC): 6 Walk 150 ft (QC): 6 Walking 10ft on Uneven Surface: 6 1 Step (curb) (QC): 6 4 Steps (QC): 6 12 Steps (QC): 4 (SBA-CGA) Picking up an Object (QC): 6 (independent with special service representative) Wheel 50 feet with 2 turns (QC: 6 Wheel 150 feet: 6 Type: Manual PT Plan Problem List Problem List: Activity Tolerance, Functional Strength, Safety, Balance, Gait, Transfer, Bed Mobility, ROM Treatment/Plan Treatment Plan: Continue Plan of Care Treatment Plan: Bed Mobility, Education, Functional Activity Jane, Functional Strength, Group Therapy, Gait, Safety, Therapeutic Exercise, Transfers Treatment Duration: Feb 07, 2022 Frequency: At least 5 of 7 days/Wk (IRF) Estimated Hrs Per Day: 1.5 hours per day Patient and/or Family Agrees t: Yes Safety Risks/Education Patient Education: Gait Training, Transfer Techniques, Correct Positioning, Reviewed Don/Doff Brace, Safety Issues Teaching Recipient: Patient Teaching Methods: Demonstration, Discussion Response to Teaching: Reinforcement Needed donning prosthetic leg Time Time In: 0800 Time Out: 0900 DATE: Jan 23, 2022 Total Billed Treatment Time: 60 Total Billed Treatment 1 visit EX 20' FA 40' JOSTIN GUTIÉRREZ PT Jan 23, 2022 08:55
[2022-01-23] MEDS: PANTOPRAZOLE 40 MG (PROTONIX) TAB PO SCH (10:10)
[2022-01-23] MEDS: GABAPENTIN 300 MG (NEURONTIN) CAP PO SCH ×3 (10:10→21:43)
[2022-01-23] MEDS: ALLOPURINOL 100 MG (ZYLOPRIM) TAB PO SCH (10:10)
[2022-01-23] MEDS: DOCUSATE SODIUM 100 MG (COLACE) CAP PO SCH ×2 (10:10→21:44)
[2022-01-23] MEDS: GEMFIBROZIL 600 MG (LOPID) TAB PO SCH ×2 (10:10→21:44)
[2022-01-23] MEDS: MONTELUKAST 10 MG (SINGULAIR) TAB PO SCH (10:10)
[2022-01-23] MEDS: ASCORBIC ACID (VIT C) 500 MG TABLET PO SCH (10:10)
[2022-01-23] MEDS: SENNA W/DOCUSATE (SENOKOT S) TABLET PO SCH ×2 (10:10→21:43)
[2022-01-23] MEDS: TAMSULOSIN 0.4 MG (FLOMAX) CAP PO SCH ×2 (10:10→21:43)
[2022-01-23] MEDS: LACTOBACILLUS ACIDOPHILUS (PROBIOTIC) CAPSULE PO SCH (10:10)
[2022-01-23] MEDS: IRON POLYSAC 150 MG CAP (NIFEREX) PO SCH ×2 (10:10→21:44)
[2022-01-23] MEDS: IRON SUCROSE 200 MG/10 ML (VENOFER) VIAL IV SCH (10:11)
[2022-01-23] MEDS: SODIUM BICARBONATE 650 MG TABLET PO SCH ×2 (10:11→21:42)
--- NOTE | 2022-01-23 10:12 | Occupational Ther Daily Note ---
OT Current Status-Daily Note Subjective Pt in recliner, agreeable to OT Tx. Pt's mother present for family education with focus on ADLs. Post tx, pt's mother states understanding of assistance required with ADLS, and has no further questions/concerns. Mental Status/Objective Patient Orientation: Normal For Age Attachments: Gabriel Catheter, Other-See Comments (Back brace) ADL-Treatment Therapy Code Descriptions/Definitions Functional [place] Measure: 0=Not Assessed/NA 4=Minimal Assistance 1=Total Assistance 5=Supervision or Setup 2=Maximal Assistance 6=Modified [place] 3=Moderate Assistance 7=Complete IndependenceSCALE: Activities may be completed with or without assistive devices. 4-Ssnjdzxubl-ovudbbw completes the activity by him/herself with no assistance from a helper. 5-Set-up or Clean-up Assistance-helper sets up or cleans up; patient completes activity. [place] assists only prior to or following the activity. 4-Supervision or Touching Assistance-helper provides verbal cues and/or touching/steadying and/or contact guard assistance as patient completes activity. Assistance may be provided throughout the activity or intermittently. 3-Partial/Moderate Assistance-helper does LESS THAN HALF the effort. [place] lifts, holds or supports trunk or limbs, but provides less than half the effort. 2-Substantial/Maximal Assistance-helper does MORE THAN HALF the effort. [place] lifts or holds trunk or limbs and provides more than half the effort. 6-Cnrmlpwco-opyjzy does ALL the effort. Patient does none of the effort to complete the activity. Or, the assistance of 2 or more helpers is required for the patient to complete the activity. If activity was not attempted, code reason: 7-Patient Refused. 9-Not Applicable-not attempted and the patient did not perform the activity before the current illness, exacerbation or injury. 10-Not Attempted due to Environmental Limitations-(lack of equipment, weather restraints, etc.). 88-Not Attempted due to Medical Conditions or Safety Concerns. Eating (QC): 6 Oral Hygiene (QC): 6 Shower/Bathe Self (QC): 3 (Min A required to wash buttocks for thoroughness. Pt completed shower 100% seated on SC.) Upper Body Dressing (QC): 4 (Min VCs with back brace) Lower Body Dressing (QC): 3 (Min A with donning/doffing shorts) On/Off Footwear: 2 (Max A with RLE prosthesis and L sock/shoe) Toileting Hygiene (QC): 3 (Pt requires min A with pant hike.) Other Treatment Pt in recliner, used FWW to transfer into bathroom and onto SC. Pt doffed clothes, mother shown how to cover dressings/wounds, she verbalized understanding. Pt completed showering and dressing, then transferred to w/c. Pt sat at sink to complete grooming tasks independently. Pt performed functional mobiltiy around [facility] common area/2nd floor in w/c, independently. Pt completed fine motor strengthening task, removing beads from heavy resistance (Green) theraputty, able to locate ~ 2/3 of beads without cues. Pt propelled w/c back to his room, transferred to recliner using FWW, CGA. Post tx, pt in recliner, call light in reach and all needs met. CGA transfers and functional mobility using FWW. Education OT Patient Education: Correct positioning, Energy conservation, Modified ADL techniques, Progress toward Goal/Update tx plan, Purpose of tx/functional activities, Rehab process Teaching Recipient: Patient, Family Teaching Methods: Demonstration OT Short Term Goals Short Term Goals Time Frame: Jan 24, 2022 Toileting hygiene: 4 Shower/bathe self: 4 Upper body dressin Lower body dressin Putting on/taking off footwear: 4 OT Long-Term Goals Long-Term Goals Time Frame: Feb 07, 2022 Acute change in mental status: 0 Inattention: 0 Disorganized thinkin Altered level of consciousness: 0 Eating (QC): 6 Oral Hygiene (QC): 6 Toileting Hygiene (QC): 6 Shower/Bathe Self (QC): 5 Upper Body Dressing (QC): 6 Lower Body Dressing (QC): 6 On/Off Footwear (QC): 6 Additional Goals: 1-Demonstrate ADL Tasks, 2-Verbalize Understanding, 3- ImproveStrength/Jane 1=Demonstrate adherence to instructed precautions during ADL tasks. 2=Patient will verbalize/demonstrate understanding of assistive devices/modifications for ADL. 3=Patient will improve strength/tolerance for activity to enable patient to perform ADL's. OT Education/Plan Problem List/Assessment Assessment: Decreased Activ Tolerance, Decreased UE Strength, Impaired Funct Balance, Impaired I ADL's, Impaired Self-Care Skills Discharge Recommendations Plan/Recommendations: Continue POC Treatment Plan/Plan of Care Patient would benefit from OT for education, treatment and training to promote independence in ADL's, mobility, safety and/or upper extremity function for ADL's. Plan of Care: ADL Retraining, Functional Mobility, Group Exercise/Act as Ind, UE Funct Exercise/Act Treatment Duration: Feb 07, 2022 Frequency: At least 5 of 7 days/Wk (IRF) Estimated Hrs Per Day: 1.5 hours per day Agreement: Yes Rehab Potential: Good Time Start Time: 09:00 Stop Time: 10:30 DATE: Jan 23, 2022 Total Time Billed (hr/min): 90 Billed Treatment Time 1, ADL 4 (60'), FA 2 (30') DANIEL HERNANDEZ OT Jan 23, 2022 10:12
[2022-01-23] MEDS: ICOSAPENT ETHYL 1 GM PO SCH ×2 (10:15→17:03)
[2022-01-23] MEDS: polyethylene glycoL POWDER 17 GM (MIRALAX) PACK PO SCH ×2 (10:15→22:05)
[2022-01-23 20:30] VITALS: BP 132/67
[2022-01-23] MEDS: CYCLOBENZAPRINE 10 MG (FLEXERIL) TAB PO SCH (21:44)
[2022-01-24] MEDS: inSUlin (REGULAR) HUMAN 1 UNIT/0.01 ML (CHARGE PER UNIT) SC SCH ×4 (05:35→21:47)
--- NOTE | 2022-01-24 06:03 | PM&R Progress Note ---
Subjective HPI/CC On Admission Date Seen by Provider: Jan 24, 2022 Time Seen by Provider: 12:00 Subjective/Events-last exam 01/24/2022: Patient doing a lot better Talked to patient and mother and answered their list of questions May need to ultimately go home with catheter Creatinine is much better and hemoglobin stable at 7.0 01/23/2022: Patient doing well Much improved Gabriel catheter still in place Creatinine improved Blood sugars improved Pain is improved 01/22/2022: Slower participation with therapy noted Patient began to have more difficulty with tasks when mother arrived 2 days ago Urinary retention managed with Gabriel catheter in order to monitor output Creat improved so will DC IVF 01/21/2022: Complications have occurred Urinary retention will require Gabriel catheter per nephrology Urology will see him also Pain is an issue Kidney function is slightly improved with IV fluid 01/20/2022: Patient having urinary retention Became drowsy over the afternoon check labs creatinine increased to 4.7 Patient requiring catheterizations and thus he is limiting his fluid intake Will reach out to nephrology in the morning Urology will see him in the morning 01/19/2022: Cant urinate Retention was noted last time he was in the hospital when he had pancreatitis Urecholine and Flomax and in/out caths ordered along with UA in case this is UTI Pain an issue Very weak at times Minimal BM 01/18/2022: Patient doing really well Settling into rehab Therapy had a good session with him Slept really well last night Pain is controlled Creatinine 3.4 Review of Systems General: Fatigue, Malaise Objective Exam Vital Signs Vital Signs Date Time Temp Pulse Resp B/P (MAP) Pulse Ox O2 Delivery O2 Flow Rate FiO2 01/24/22 20:30 Room Air 01/24/22 20:18 36.4 82 16 148/78 (101) 97 Capillary Refill : General Appearance: No Apparent Distress, WD/WN, Chronically ill, Obese HEENT: PERRL/EOMI, Normal ENT Inspection, Pharynx Normal Neck: Full Range of Motion, Normal Inspection, Non Tender, Supple, Carotid Bruit Respiratory: Chest Non Tender, Lungs Clear, Normal Breath Sounds, No Accessory Muscle Use, No Respiratory Distress Cardiovascular: Regular Rate, Rhythm, No Edema, No Gallop, No JVD, No Murmur, Normal Peripheral Pulses Gastrointestinal: Normal Bowel Sounds, No Organomegaly, No Pulsatile Mass, Non Tender, Soft Back: Normal Inspection, Decreased Range of Motion, Muscle Spasm, Vertebral Tenderness Extremity: Normal Capillary Refill, Normal Inspection, Normal Range of Motion, Non Tender, No Calf Tenderness, No Pedal Edema, Other (left BKA) Neurologic/Psychiatric: Alert, Oriented x3, No Motor/Sensory Deficits, Normal Mood/Affect Skin: Normal Color, Warm/Dry Lymphatic: No Adenopathy Results/Procedures Lab Laboratory Tests 01/24/22 06:05 Patient resulted labs reviewed. FIM Transfers Therapy Code Descriptions/Definitions Functional [place] Measure: 0=Not Assessed/NA 4=Minimal Assistance 1=Total Assistance 5=Supervision or Setup 2=Maximal Assistance 6=Modified [place] 3=Moderate Assistance 7=Complete IndependenceSCALE: Activities may be completed with or without assistive devices. 8-Cgyoacdgma-wfjqfkm completes the activity by him/herself with no assistance from a helper. 5-Set-up or Clean-up Assistance-helper sets up or cleans up; patient completes activity. [place] assists only prior to or following the activity. 4-Supervision or Touching Assistance-helper provides verbal cues and/or touching/steadying and/or contact guard assistance as patient completes activity. Assistance may be provided throughout the activity or intermittently. 3-Partial/Moderate Assistance-helper does LESS THAN HALF the effort. [place] lifts, holds or supports trunk or limbs, but provides less than half the effort. 2-Substantial/Maximal Assistance-helper does MORE THAN HALF the effort. [place] lifts or holds trunk or limbs and provides more than half the effort. 7-Ujpreckdy-qefwzc does ALL the effort. Patient does none of the effort to complete the activity. Or, the assistance of 2 or more helpers is required for the patient to complete the activity. If activity was not attempted, code reason: 7-Patient Refused. 9-Not Applicable-not attempted and the patient did not perform the activity before the current illness, exacerbation or injury. 10-Not Attempted due to Environmental Limitations-(lack of equipment, weather restraints, etc.). 88-Not Attempted due to Medical Conditions or Safety Concerns. Roll Left to Right (QC): 6 Sit to Lying (QC): 3 Sit to Stand (QC): 4 Chair/Vyh-cp-Qfdxz Xfer(QC): 4 Car Transfer (QC): 3 (Mod A) Gait Training Does the Patient Walk?: Yes Distance: 120', 60'x2 Walk 10 feet (QC): 4 Walk 50 ft with 2 Turns(QC): 4 Walk 150 ft (QC): 4 Walking 10ft/uneven surface-QC: 4 Gait Persons Needed: 1 Gait Assistive Device: FWW Wheelchair Training Does the Pt Use a Wheelchair?: Yes Distance: 150' Wheel 50 ft with 2 turns (QC): 4 (SBA) Wheel 150 ft (QC): 4 (SBA) Type of Wheelchair: Manual Stair Training #of Steps: 1 1 Step (curb) (QC): 4 4 Steps (QC): 88 12 Steps (QC): 88 Balance Picking up an Object (QC): 4 ADL-Treatment Eating (QC): 6 Oral Hygiene (QC): 6 Shower/Bathe Self (QC): 3 (Min A required to wash buttocks for thoroughness. Pt completed shower 100% seated on SC.) Upper Body Dressing (QC): 4 (Min VCs with back brace) Lower Body Dressing (QC): 3 (Min A with donning/doffing shorts) On/Off Footwear (QC): 2 (Max A with RLE prosthesis and L sock/shoe) Toileting Hygiene (QC): 3 (Pt requires min A with pant hike.) Assessment/Plan Assessment and Plan Assess & Plan/Chief Complaint Assessment: s/p lumbar spine surgery due to spinal stenosis with myelopathy CKD Stage IV with worsening on 01/20/2022 with creatinine 4.7 nonoliguric due to poor intake and now much improved after IV fluids with nephrology consult DM Obesity Post op constipation HTN HLP Psoriasis h/o pancreatitis Gout h/o left BKA Acute urinary retention 01/19/22 requiring Gabriel catheter Metabolic acidosis placed on bicarb per nephrology Anemia Plan: PT OT Monitor creat Pain control 01/18/2022: Aggressive bowel regimen Monitor creatinine 01/19/2022: In/out caths prn Urecholine and Flomax 01/20/2022: Start gentle IV fluids Catheterization required 01/21/2022: Nephrology consult Urology consult 01/22/2022: HLIVF Monitor creat 01/23/2022: Bicarb Monitor 01/24/2022: Monitor hemoglobin Indwelling catheter to remain in discharge? (1) H/O lumbosacral spine surgery (2) Stage 3b chronic kidney disease Status: Chronic (3) Psoriasis Status: Chronic (4) Gout Status: Chronic (5) T2DM (type 2 diabetes mellitus) Status: Chronic (6) HTN (hypertension) Status: Chronic (7) Spinal stenosis of lumbar region Status: Chronic KATINA MORAN DO Jan 24, 2022 06:03
[2022-01-24 06:18] LABS: BASOPHILS % (AUTO) 1 % (0-10); EOSINOPHILS # (AUTO) 0.1 10^3/uL (0.0-0.3); EOSINOPHILS % (AUTO) 2 % (0-10); HEMATOCRIT 21 % (40-54); LYMPHOCYTES # (AUTO) 1.3 10^3/uL (1.0-4.0); LYMPHOCYTES % (AUTO) 17 % (12-44); MEAN CORPUSCULAR HEMOGLOBIN 31 pg (25-34); MEAN CORPUSCULAR HGB CONC 33 g/dL (32-36); MEAN CORPUSCULAR VOLUME 95 fL (80-99); MEAN PLATELET VOLUME 9.1 fL (9.0-12.2); MONOCYTES # (AUTO) 0.8 10^3/uL (0.0-1.0); MONOCYTES % (AUTO) 10 % (0-12); NEUTROPHILS # (AUTO) 5.2 10^3/uL (1.8-7.8); NEUTROPHILS % (AUTO) 68 % (42-75); PLATELET COUNT 387 10^3/uL (130-400); WHITE BLOOD COUNT 7.6 10^3/uL (4.3-11.0)
[2022-01-24 06:30] LABS: POTASSIUM 4.5 MMOL/L (3.6-5.0)
[2022-01-24 06:32] LABS: CALCIUM 9.4 MG/DL (8.5-10.1)
[2022-01-24 06:33] LABS: TOTAL PROTEIN 6.4 GM/DL (6.4-8.2)
[2022-01-24 06:35] LABS: BILIRUBIN,TOTAL 0.2 MG/DL (0.1-1.0)
[2022-01-24 06:36] LABS: CREATININE SERUM 2.25 MG/DL (0.60-1.30)
[2022-01-24] MEDS: CATHETER FLUSH 10 ML SYR IVP SCH ×3 (06:45→22:16)
[2022-01-24] MEDS: BETHANECHOL 25 MG (URECHOLINE) TAB PO SCH ×4 (06:45→21:47)
[2022-01-24] MEDS: guaiFENesin/DM (ROBITUSSIN DM) 10 ML UDC PO SCH ×2 (06:45→17:20)
[2022-01-24 07:48] VITALS: BP 135/89
[2022-01-24] MEDS: DOCUSATE SODIUM 100 MG (COLACE) CAP PO SCH ×2 (07:49→21:46)
[2022-01-24] MEDS: SODIUM BICARBONATE 650 MG TABLET PO SCH ×2 (07:49→21:47)
[2022-01-24] MEDS: PANTOPRAZOLE 40 MG (PROTONIX) TAB PO SCH (07:49)
[2022-01-24] MEDS: SENNA W/DOCUSATE (SENOKOT S) TABLET PO SCH ×2 (07:49→21:47)
[2022-01-24] MEDS: GABAPENTIN 300 MG (NEURONTIN) CAP PO SCH ×3 (07:49→21:46)
[2022-01-24] MEDS: LACTOBACILLUS ACIDOPHILUS (PROBIOTIC) CAPSULE PO SCH (07:49)
[2022-01-24] MEDS: ALLOPURINOL 100 MG (ZYLOPRIM) TAB PO SCH (07:49)
[2022-01-24] MEDS: MONTELUKAST 10 MG (SINGULAIR) TAB PO SCH (07:50)
[2022-01-24] MEDS: IRON POLYSAC 150 MG CAP (NIFEREX) PO SCH ×2 (07:50→21:47)
[2022-01-24] MEDS: ASCORBIC ACID (VIT C) 500 MG TABLET PO SCH (07:54)
[2022-01-24] MEDS: GEMFIBROZIL 600 MG (LOPID) TAB PO SCH ×2 (07:54→21:46)
[2022-01-24] MEDS: ICOSAPENT ETHYL 1 GM PO SCH ×2 (08:09→17:20)
[2022-01-24] MEDS: TAMSULOSIN 0.4 MG (FLOMAX) CAP PO SCH ×2 (08:09→21:46)
[2022-01-24] MEDS: polyethylene glycoL POWDER 17 GM (MIRALAX) PACK PO SCH ×2 (08:37→21:46)
--- NOTE | 2022-01-24 09:28 | Physical Therapy Daily Note ---
PT Daily Note-Current Subjective Pt. and Mom in room. Pt agrees to Rx, c/o pain in low back at 4/10. Pain Section J - Health Conditions 1. Rarely or not at all 2. Occasionally 3. Frequently 4. Almost constantly 8. Unable to answer Pain Effect on Sleep: 1 Pain Interference with Therapy: 2 Pain Interference w/Day-to-Day: 1 Mental Status Patient Orientation: Normal For Age Attachments: Gabriel Catheter, Other-See Comments (prosthesis and mask) Transfers SCALE: Activities may be completed with or without assistive devices. 2-Wsoobabhvx-jodrenl completes the activity by him/herself with no assistance from a helper. 5-Set-up or Clean-up Assistance-helper sets up or cleans up; patient completes activity. [place] assists only prior to or following the activity. 4-Supervision or Touching Assistance-helper provides verbal cues and/or touching/steadying and/or contact guard assistance as patient completes activity. Assistance may be provided throughout the activity or intermittently. 3-Partial/Moderate Assistance-helper does LESS THAN HALF the effort. [place] lifts, holds or supports trunk or limbs, but provides less than half the effort. 2-Substantial/Maximal Assistance-helper does MORE THAN HALF the effort. [place] lifts or holds trunk or limbs and provides more than half the effort. 3-Vevupvong-znlefw does ALL the effort. Patient does none of the effort to complete the activity. Or, the assistance of 2 or more helpers is required for the patient to complete the activity. If activity was not attempted, code reason: 7-Patient Refused. 9-Not Applicable-not attempted and the patient did not perform the activity before the current illness, exacerbation or injury. 10-Not Attempted due to Environmental Limitations-(lack of equipment, weather restraints, etc.). 88-Not Attempted due to Medical Conditions or Safety Concerns. Roll Left & Right (QC): 6 Sit to Lying (QC): 6 Lying to Sitting/Side of Bed(Q: 6 Sit to Stand (QC): 6 Chair/Xvh-ni-Oqklc Xfer(QC): 6 pt. demonstrated indep log roll with good technique, all sit to stands indep as well from high enough surface Weight Bearing Right Lower Extremity: Right Full Weight Bearing Left Lower Extremity: Left Full Weight Bearing Gait Training Does the Patient Walk?: Yes Walk 10 feet (QC): 6 Walk 50 ft with 2 Turns(QC): 6 Walk 150 ft (QC): 6 Gait Persons Needed: 1 Gait Assistive Device: FWW 165ft x2, 50 ft x 1 FWW, no LOB, good safe technique noted Exercises Supine Ex: Quad Set, Rolling, Heel Slides, Straight leg raise, Hip abd/add Supine Reps: 12 Seated Therapy Exercises: Sit to stand Seated Reps: 10 Treatments continued education for pts Mom who will assist pt at home paul with donning of prosthesis and back brace, TRFs log rolling sit to sup to sit and gait wth FWW 165 ft x 2 no LOB, LE exs as above Assessment Current Status: Good Progress good progress in all areas PT Short Term Goals Short Term Goals Time Frame: Jan 24, 2022 Sit to lyin (SBA) Sit to stand: 4 (SBA) Chair/apf-oj-vmkll transfer: 4 (SBA) Toilet transfer: 4 (SBA) Car transfer: 4 (SBA) Walk 10 feet: 4 (SBA) Walk 50 feet with two turns: 4 (SBA) Walk 150 feet: 4 (SBA) Walking 10ft on uneven surface: 4 (SBA) 1 step (curb): 4 (SBA) 4 steps: 4 (CGA) Picking up objects: 4 (SBA with mechanical research engineer) PT Lubrication Worker Goals Lubrication Worker Goals PT Chcf Goals Time Frame: Feb 07, 2022 Roll Left & Right (QC): 6 Sit to Lying (QC): 6 Lying-Sitting on Side/Bed(QC): 6 Sit to Stand (QC): 6 Chair/Qvr-od-Afauw Xfer(QC): 6 Toilet Transfer (QC): 6 Car Transfer (QC): 6 Does the Patient Walk: No and Walking Goal IS indicated Walk 10 feet (QC): 6 Walk 50ft with 2 Turns (QC): 6 Walk 150 ft (QC): 6 Walking 10ft on Uneven Surface: 6 1 Step (curb) (QC): 6 4 Steps (QC): 6 12 Steps (QC): 4 (SBA-CGA) Picking up an Object (QC): 6 (independent with mechanical research engineer) Wheel 50 feet with 2 turns (QC: 6 Wheel 150 feet: 6 Type: Manual PT Plan Treatment/Plan Treatment Plan: Continue Plan of Care Treatment Plan: Bed Mobility, Education, Functional Activity Jane, Functional Strength, Group Therapy, Gait, Safety, Therapeutic Exercise, Transfers Treatment Duration: Feb 07, 2022 Frequency: At least 5 of 7 days/Wk (IRF) Estimated Hrs Per Day: 1.5 hours per day Patient and/or Family Agrees t: Yes Safety Risks/Education Patient Education: Gait Training, Transfer Techniques, Correct Positioning, Reviewed Don/Doff Brace, Disease Process, Safety Issues Teaching Recipient: Patient, Family Teaching Methods: Demonstration, Discussion Response to Teaching: Verbalize Understanding, Return Demonstration, Reinforcement Needed Time Time In: 800 Time Out: 900 DATE: Jan 24, 2022 Total Billed Treatment Time: 60 Total Billed Treatment 1,FA30m,GT15m,EX15m JIGAR ELIZABETH VAT WASHER Jan 24, 2022 09:28
--- NOTE | 2022-01-24 09:38 | Occupational Ther Daily Note ---
OT Current Status-Daily Note Subjective Pt in bed, agreeable to OT Tx. ADL-Treatment Therapy Code Descriptions/Definitions Functional [place] Measure: 0=Not Assessed/NA 4=Minimal Assistance 1=Total Assistance 5=Supervision or Setup 2=Maximal Assistance 6=Modified [place] 3=Moderate Assistance 7=Complete IndependenceSCALE: Activities may be completed with or without assistive devices. 3-Mfaiizpmbr-flfveaa completes the activity by him/herself with no assistance from a helper. 5-Set-up or Clean-up Assistance-helper sets up or cleans up; patient completes activity. [place] assists only prior to or following the activity. 4-Supervision or Touching Assistance-helper provides verbal cues and/or touching/steadying and/or contact guard assistance as patient completes activity. Assistance may be provided throughout the activity or intermittently. 3-Partial/Moderate Assistance-helper does LESS THAN HALF the effort. [place] lifts, holds or supports trunk or limbs, but provides less than half the effort. 2-Substantial/Maximal Assistance-helper does MORE THAN HALF the effort. [place] lifts or holds trunk or limbs and provides more than half the effort. 5-Yqvnexhgg-clogmb does ALL the effort. Patient does none of the effort to complete the activity. Or, the assistance of 2 or more helpers is required for the patient to complete the activity. If activity was not attempted, code reason: 7-Patient Refused. 9-Not Applicable-not attempted and the patient did not perform the activity befo re the current illness, exacerbation or injury. 10-Not Attempted due to Environmental Limitations-(lack of equipment, weather re straints, etc.). 88-Not Attempted due to Medical Conditions or Safety Concerns. Eating (QC): 6 Oral Hygiene (QC): 6 On/Off Footwear: 2 Other Treatment Pt in bed, transferred supine to sit EOB independently. Pt donned footwear and back brace, then used FWW to transfer to w/c, [facility]. Pt sat at sink to complete grooming tasks, independently. Pt propelled w/c to therapy gym independently. OT tx focused on increasing BUE Strength and activity tolerance. PT completed pegboard reaching task, 1lb wrist weights BUEs. Pt able to place/remove x100 pegs from foam pegboard, alternating hands. Pt completed functional fine motor task, "tic tac toe" with 1lb wrist weights bilaterally, this required pt to apple picking supervisor and place small objects onto game board, while strengthening UEs with wrist weights. Pt performed functional/community mobility in w/c, navigating hallways, elevators, ramps, etc, taking rest breaks as needed. Pt returned to his room, transferring to recliner using FWW, SBA. Post tx, pt in recliner, call light in reach and all needs met. Education OT Patient Education: Correct positioning, Energy conservation, Modified ADL techniques, Progress toward Goal/Update tx plan, Purpose of tx/functional activities, Rehab process Teaching Recipient: Patient Teaching Methods: Discussion Response to Teaching: Verbalize Understanding OT Short Term Goals Short Term Goals Time Frame: Jan 24, 2022 Toileting hygiene: 4 Shower/bathe self: 4 Upper body dressin Lower body dressin Putting on/taking off footwear: 4 OT Reclamation Kettle Tender Goals Usp Goals Time Frame: Feb 07, 2022 Acute change in mental status: 0 Inattention: 0 Disorganized thinkin Altered level of consciousness: 0 Eating (QC): 6 Oral Hygiene (QC): 6 Toileting Hygiene (QC): 6 Shower/Bathe Self (QC): 5 Upper Body Dressing (QC): 6 Lower Body Dressing (QC): 6 On/Off Footwear (QC): 6 Additional Goals: 1-Demonstrate ADL Tasks, 2-Verbalize Understanding, 3- ImproveStrength/Jane 1=Demonstrate adherence to instructed precautions during ADL tasks. 2=Patient will verbalize/demonstrate understanding of assistive devices/modifications for ADL. 3=Patient will improve strength/tolerance for activity to enable patient to perform ADL's. OT Education/Plan Problem List/Assessment Assessment: Decreased Activ Tolerance, Decreased UE Strength, Impaired Funct Balance, Impaired I ADL's, Impaired Self-Care Skills Discharge Recommendations Plan/Recommendations: Continue POC Treatment Plan/Plan of Care Patient would benefit from OT for education, treatment and training to promote independence in ADL's, mobility, safety and/or upper extremity function for ADL's. Plan of Care: ADL Retraining, Functional Mobility, Group Exercise/Act as Ind, UE Funct Exercise/Act Treatment Duration: Feb 07, 2022 Frequency: At least 5 of 7 days/Wk (IRF) Estimated Hrs Per Day: 1.5 hours per day Agreement: Yes Rehab Potential: Good Time Start Time: 09:00 Stop Time: 10:30 DATE: Jan 24, 2022 Total Time Billed (hr/min): 90 Billed Treatment Time 1, ADL (15'), FA 5 (75') DANIEL HERNANDEZ OT Jan 24, 2022 09:38
--- NOTE | 2022-01-24 13:54 | Physical Therapy Daily Note ---
PT Daily Note-Current Subjective Pt. agrees to Rx. Pts Mom in room again and observes. Pt. c/o repeatedly this morning and this Rx that the back brace slips down as soon as he stands and the front edge of it hits the exact area where the saldana catheter enters his penis and is very uncomfortable. Pt. requested to remove brace during gait, precautions were reviewed and brace was removed . Pt. then had no c/o about gait except fatigue. Pt. rates back pain at 3/10 Pain Numeric Pain Scale: 3 Location: Medial Location Body Site: Back Pain Description: Ache Section J - Health Conditions 1. Rarely or not at all 2. Occasionally 3. Frequently 4. Almost constantly 8. Unable to answer Pain Effect on Sleep: 1 Pain Interference with Therapy: 2 Pain Interference w/Day-to-Day: 1 Mental Status Patient Orientation: Normal For Age Attachments: Saldaan Catheter Transfers SCALE: Activities may be completed with or without assistive devices. 6-Qabkcpfxcx-fofqayd completes the activity by him/herself with no assistance from a helper. 5-Set-up or Clean-up Assistance-helper sets up or cleans up; patient completes activity. [place] assists only prior to or following the activity. 4-Supervision or Touching Assistance-helper provides verbal cues and/or touching/steadying and/or contact guard assistance as patient completes activity. Assistance may be provided throughout the activity or intermittently. 3-Partial/Moderate Assistance-helper does LESS THAN HALF the effort. [place] lifts, holds or supports trunk or limbs, but provides less than half the effort. 2-Substantial/Maximal Assistance-helper does MORE THAN HALF the effort. [place] lifts or holds trunk or limbs and provides more than half the effort. 1-Asvxgupjn-nzffpe does ALL the effort. Patient does none of the effort to complete the activity. Or, the assistance of 2 or more helpers is required for the patient to complete the activity. If activity was not attempted, code reason: 7-Patient Refused. 9-Not Applicable-not attempted and the patient did not perform the activity before the current illness, exacerbation or injury. 10-Not Attempted due to Environmental Limitations-(lack of equipment, weather restraints, etc.). 88-Not Attempted due to Medical Conditions or Safety Concerns. Sit to Stand (QC): 4 Weight Bearing Right Lower Extremity: Right Full Weight Bearing Left Lower Extremity: Left Full Weight Bearing Gait Training Does the Patient Walk?: Yes Walk 10 feet (QC): 4 Walk 50 ft with 2 Turns(QC): 4 Walk 150 ft (QC): 4 Gait Persons Needed: 1 Gait Assistive Device: FWW several standing stops were made as pts back brace slid off even after tightening in stance . gait 150 ft x 2 no LOB but pt requests rest and sitting at 100 to 150 ft. Treatments pt. with large abdomen and much thinner hips and buttocks is unable to keep brace on tight in appropriate position. see above explanation. pt. was mindful of all back precautions and did better walking and was more comfortable. sit to stand TRF training reviewed. pt. back in room up in recliner negin at hand Assessment Current Status: Good Progress fatigues with gait, Mom is well trained and follows pts lead with donning and doffing brace and prosth PT Short Term Goals Short Term Goals Time Frame: Jan 24, 2022 Sit to lyin (SBA) Sit to stand: 4 (SBA) Chair/tuh-pg-cqpew transfer: 4 (SBA) Toilet transfer: 4 (SBA) Car transfer: 4 (SBA) Walk 10 feet: 4 (SBA) Walk 50 feet with two turns: 4 (SBA) Walk 150 feet: 4 (SBA) Walking 10ft on uneven surface: 4 (SBA) 1 step (curb): 4 (SBA) 4 steps: 4 (CGA) Picking up objects: 4 (SBA with intelligence senior sergeant) PT Retirement Goals Veneer Glue Jointer Feedback Goals PT Retirement Goals Time Frame: Feb 07, 2022 Roll Left & Right (QC): 6 Sit to Lying (QC): 6 Lying-Sitting on Side/Bed(QC): 6 Sit to Stand (QC): 6 Chair/Srk-oj-Zqgtq Xfer(QC): 6 Toilet Transfer (QC): 6 Car Transfer (QC): 6 Does the Patient Walk: No and Walking Goal IS indicated Walk 10 feet (QC): 6 Walk 50ft with 2 Turns (QC): 6 Walk 150 ft (QC): 6 Walking 10ft on Uneven Surface: 6 1 Step (curb) (QC): 6 4 Steps (QC): 6 12 Steps (QC): 4 (SBA-CGA) Picking up an Object (QC): 6 (independent with intelligence senior sergeant) Wheel 50 feet with 2 turns (QC: 6 Wheel 150 feet: 6 Type: Manual PT Plan Treatment/Plan Treatment Plan: Continue Plan of Care Treatment Plan: Bed Mobility, Education, Functional Activity Jane, Functional Strength, Group Therapy, Gait, Safety, Therapeutic Exercise, Transfers Treatment Duration: Feb 07, 2022 Frequency: At least 5 of 7 days/Wk (IRF) Estimated Hrs Per Day: 1.5 hours per day Patient and/or Family Agrees t: Yes Safety Risks/Education Patient Education: Gait Training, Transfer Techniques, Correct Positioning, Reviewed Don/Doff Brace, Safety Issues Teaching Recipient: Patient Teaching Methods: Demonstration, Discussion Response to Teaching: Verbalize Understanding, Return Demonstration, Reinforcement Needed Time Time In: 1130 Time Out: 1200 DATE: Jan 24, 2022 Total Billed Treatment Time: 30 Total Billed Treatment 1,GT30m JIGAR ELIZABETH APPAREL MERCHANDISER Jan 24, 2022 13:53
[2022-01-24 20:18] VITALS: BP 148/78
[2022-01-24] MEDS: CYCLOBENZAPRINE 10 MG (FLEXERIL) TAB PO SCH (21:46)
[2022-01-25] MEDS: inSUlin (REGULAR) HUMAN 1 UNIT/0.01 ML (CHARGE PER UNIT) SC SCH ×4 (06:18→20:41)
[2022-01-25] MEDS: CATHETER FLUSH 10 ML SYR IVP SCH ×3 (06:18→20:29)
[2022-01-25] MEDS: guaiFENesin/DM (ROBITUSSIN DM) 10 ML UDC PO SCH ×2 (06:18→16:55)
[2022-01-25] MEDS: BETHANECHOL 25 MG (URECHOLINE) TAB PO SCH ×4 (06:18→20:28)
--- NOTE | 2022-01-25 06:37 | PM&R Progress Note ---
Subjective HPI/CC On Admission Date Seen by Provider: Jan 25, 2022 Time Seen by Provider: 12:00 Subjective/Events-last exam 01/25/2022: Doing much better Mother at the bedside and very pleased with his progression We will plan on going home with a catheter and obtaining appoint with Dr. Nobles on Thursday No other concerns Bowels are slow 01/24/2022: Patient doing a lot better Talked to patient and mother and answered their list of questions May need to ultimately go home with catheter Creatinine is much better and hemoglobin stable at 7.0 01/23/2022: Patient doing well Much improved Gabriel catheter still in place Creatinine improved Blood sugars improved Pain is improved 01/22/2022: Slower participation with therapy noted Patient began to have more difficulty with tasks when mother arrived 2 days ago Urinary retention managed with Gabriel catheter in order to monitor output Creat improved so will DC IVF 01/21/2022: Complications have occurred Urinary retention will require Gabriel catheter per nephrology Urology will see him also Pain is an issue Kidney function is slightly improved with IV fluid 01/20/2022: Patient having urinary retention Became drowsy over the afternoon check labs creatinine increased to 4.7 Patient requiring catheterizations and thus he is limiting his fluid intake Will reach out to nephrology in the morning Urology will see him in the morning 01/19/2022: Cant urinate Retention was noted last time he was in the hospital when he had pancreatitis Urecholine and Flomax and in/out caths ordered along with UA in case this is UTI Pain an issue Very weak at times Minimal BM 01/18/2022: Patient doing really well Settling into rehab Therapy had a good session with him Slept really well last night Pain is controlled Creatinine 3.4 Review of Systems General: Fatigue Genitourinary: Retention Musculoskeletal: back pain Objective Exam Vital Signs Vital Signs Date Time Temp Pulse Resp B/P (MAP) Pulse Ox O2 Delivery O2 Flow Rate FiO2 01/25/22 20:33 36.6 82 16 136/74 (94) 99 Room Air Capillary Refill : General Appearance: No Apparent Distress, WD/WN, Chronically ill, Obese HEENT: PERRL/EOMI, Normal ENT Inspection, Pharynx Normal Neck: Full Range of Motion, Normal Inspection, Non Tender, Supple, Carotid Bruit Respiratory: Chest Non Tender, Lungs Clear, Normal Breath Sounds, No Accessory Muscle Use, No Respiratory Distress Cardiovascular: Regular Rate, Rhythm, No Edema, No Gallop, No JVD, No Murmur, Normal Peripheral Pulses Gastrointestinal: Normal Bowel Sounds, No Organomegaly, No Pulsatile Mass, Non Tender, Soft Back: Normal Inspection, Decreased Range of Motion, Muscle Spasm, Vertebral Tenderness Extremity: Normal Capillary Refill, Normal Inspection, Normal Range of Motion, Non Tender, No Calf Tenderness, No Pedal Edema, Other (left BKA) Neurologic/Psychiatric: Alert, Oriented x3, No Motor/Sensory Deficits, Normal Mood/Affect Skin: Normal Color, Warm/Dry Lymphatic: No Adenopathy Results/Procedures Lab Laboratory Tests 01/26/22 05:18 Patient resulted labs reviewed. FIM Transfers Therapy Code Descriptions/Definitions Functional [place] Measure: 0=Not Assessed/NA 4=Minimal Assistance 1=Total Assistance 5=Supervision or Setup 2=Maximal Assistance 6=Modified [place] 3=Moderate Assistance 7=Complete IndependenceSCALE: Activities may be completed with or without assistive devices. 2-Bxwfyhkkbb-fwiekti completes the activity by him/herself with no assistance from a helper. 5-Set-up or Clean-up Assistance-helper sets up or cleans up; patient completes activity. [place] assists only prior to or following the activity. 4-Supervision or Touching Assistance-helper provides verbal cues and/or touching/steadying and/or contact guard assistance as patient completes act ivity. Assistance may be provided throughout the activity or intermittently. 3-Partial/Moderate Assistance-helper does LESS THAN HALF the effort. [place] lifts, holds or supports trunk or limbs, but provides less than half the effort. 2-Substantial/Maximal Assistance-helper does MORE THAN HALF the effort. [place] lifts or holds trunk or limbs and provides more than half the effort. 8-Bukjcgofu-qpfxaa does ALL the effort. Patient does none of the effort to complete the activity. Or, the assistance of 2 or more helpers is required for the patient to complete the activity. If activity was not attempted, code reason: 7-Patient Refused. 9-Not Applicable-not attempted and the patient did not perform the activity before the current illness, exacerbation or injury. 10-Not Attempted due to Environmental Limitations-(lack of equipment, weather restraints, etc.). 88-Not Attempted due to Medical Conditions or Safety Concerns. Roll Left to Right (QC): 6 Sit to Lying (QC): 6 Sit to Stand (QC): 4 Chair/Yed-jp-Xalif Xfer(QC): 6 Car Transfer (QC): 3 (Mod A) Gait Training Does the Patient Walk?: Yes Distance: 120', 60'x2 Walk 10 feet (QC): 4 Walk 50 ft with 2 Turns(QC): 4 Walk 150 ft (QC): 4 Walking 10ft/uneven surface-QC: 4 Gait Persons Needed: 1 Gait Assistive Device: FWW Wheelchair Training Does the Pt Use a Wheelchair?: Yes Distance: 150' Wheel 50 ft with 2 turns (QC): 4 (SBA) Wheel 150 ft (QC): 4 (SBA) Type of Wheelchair: Manual Stair Training #of Steps: 1 1 Step (curb) (QC): 4 4 Steps (QC): 88 12 Steps (QC): 88 Balance Picking up an Object (QC): 4 ADL-Treatment Eating (QC): 6 Oral Hygiene (QC): 6 Shower/Bathe Self (QC): 3 (Min A required to wash buttocks for thoroughness. Pt completed shower 100% seated on SC.) Upper Body Dressing (QC): 4 (Min VCs with back brace) Lower Body Dressing (QC): 3 (Min A with donning/doffing shorts) On/Off Footwear (QC): 2 Toileting Hygiene (QC): 3 (Pt requires min A with pant hike.) Assessment/Plan Assessment and Plan Assess & Plan/Chief Complaint Assessment: s/p lumbar spine surgery due to spinal stenosis with myelopathy CKD Stage IV with worsening on 01/20/2022 with creatinine 4.7 nonoliguric due to poor intake and now much improved after IV fluids with nephrology consult DM Obesity Post op constipation HTN HLP Psoriasis h/o pancreatitis Gout h/o left BKA Acute urinary retention 01/19/22 requiring Gabriel catheter Metabolic acidosis placed on bicarb per nephrology Anemia Plan: PT OT Monitor creat Pain control 01/18/2022: Aggressive bowel regimen Monitor creatinine 01/19/2022: In/out caths prn Urecholine and Flomax 01/20/2022: Start gentle IV fluids Catheterization required 01/21/2022: Nephrology consult Urology consult 01/22/2022: HLIVF Monitor creat 01/23/2022: Bicarb Monitor 01/24/2022: Monitor hemoglobin Indwelling catheter to remain in discharge? 01/25/2022: Supportive care Check labs in the morning in case he needs a transfusion (1) H/O lumbosacral spine surgery (2) Stage 3b chronic kidney disease Status: Chronic (3) Psoriasis Status: Chronic (4) Gout Status: Chronic (5) T2DM (type 2 diabetes mellitus) Status: Chronic (6) HTN (hypertension) Status: Chronic (7) Spinal stenosis of lumbar region Status: Chronic KATINA MORAN DO Jan 25, 2022 06:37
[2022-01-25 07:30] VITALS: BP 159/83
[2022-01-25] MEDS: MONTELUKAST 10 MG (SINGULAIR) TAB PO SCH (08:38)
[2022-01-25] MEDS: PANTOPRAZOLE 40 MG (PROTONIX) TAB PO SCH (08:38)
[2022-01-25] MEDS: IRON POLYSAC 150 MG CAP (NIFEREX) PO SCH ×2 (08:38→20:29)
[2022-01-25] MEDS: GABAPENTIN 300 MG (NEURONTIN) CAP PO SCH ×3 (08:38→20:29)
[2022-01-25] MEDS: ALLOPURINOL 100 MG (ZYLOPRIM) TAB PO SCH (08:38)
[2022-01-25] MEDS: SENNA W/DOCUSATE (SENOKOT S) TABLET PO SCH ×2 (08:38→20:30)
[2022-01-25] MEDS: TAMSULOSIN 0.4 MG (FLOMAX) CAP PO SCH ×2 (08:38→20:29)
[2022-01-25] MEDS: SODIUM BICARBONATE 650 MG TABLET PO SCH ×2 (08:38→20:28)
[2022-01-25] MEDS: LACTOBACILLUS ACIDOPHILUS (PROBIOTIC) CAPSULE PO SCH (08:38)
[2022-01-25] MEDS: DOCUSATE SODIUM 100 MG (COLACE) CAP PO SCH ×2 (08:38→20:30)
[2022-01-25] MEDS: GEMFIBROZIL 600 MG (LOPID) TAB PO SCH ×2 (08:39→20:29)
[2022-01-25] MEDS: ASCORBIC ACID (VIT C) 500 MG TABLET PO SCH (08:39)
[2022-01-25] MEDS: polyethylene glycoL POWDER 17 GM (MIRALAX) PACK PO SCH ×2 (08:45→19:50)
[2022-01-25] MEDS: ICOSAPENT ETHYL 1 GM PO SCH ×2 (08:45→18:30)
[2022-01-25] MEDS: IRON SUCROSE 200 MG/10 ML (VENOFER) VIAL IV SCH (08:47)
--- NOTE | 2022-01-25 10:42 | Physical Therapy Daily Note ---
PT Daily Note-Current Subjective Pt laying Supine in bed upon arrival. Pt agrees to PT. Pain Location Body Site: Back Pain Description: Ache Comment: Reported little but not rated Section J - Health Conditions 1. Rarely or not at all 2. Occasionally 3. Frequently 4. Almost constantly 8. Unable to answer Pain Effect on Sleep: 1 Pain Interference with Therapy: 2 Pain Interference w/Day-to-Day: 1 Mental Status Patient Orientation: Person, Place, Time, Situation Attachments: Other-See Comments (TLSO Brace, Prosthetic) Transfers SCALE: Activities may be completed with or without assistive devices. 9-Unccntszov-kllwmye completes the activity by him/herself with no assistance from a helper. 5-Set-up or Clean-up Assistance-helper sets up or cleans up; patient completes activity. [place] assists only prior to or following the activity. 4-Supervision or Touching Assistance-helper provides verbal cues and/or touching/steadying and/or contact guard assistance as patient completes acti vity. Assistance may be provided throughout the activity or intermittently. 3-Partial/Moderate Assistance-helper does LESS THAN HALF the effort. [place] lifts, holds or supports trunk or limbs, but provides less than half the effort. 2-Substantial/Maximal Assistance-helper does MORE THAN HALF the effort. [place] lifts or holds trunk or limbs and provides more than half the effort. 6-Jlwyhtdym-uzcvlp does ALL the effort. Patient does none of the effort to complete the activity. Or, the assistance of 2 or more helpers is required for the patient to complete the activity. If activity was not attempted, code reason: 7-Patient Refused. 9-Not Applicable-not attempted and the patient did not perform the activity before the current illness, exacerbation or injury. 10-Not Attempted due to Environmental Limitations-(lack of equipment, weather restraints, etc.). 88-Not Attempted due to Medical Conditions or Safety Concerns. Roll Left & Right (QC): 6 Sit to Lying (QC): 6 Lying to Sitting/Side of Bed(Q: 6 Sit to Stand (QC): 6 Chair/Ser-dm-Yxyji Xfer(QC): 6 Toilet Transfer (QC): 6 Car Transfer (QC): 6 Weight Bearing Right Lower Extremity: Right Full Weight Bearing Left Lower Extremity: Left Full Weight Bearing Gait Training Does the Patient Walk?: Yes Distance: 150' Walk 10 feet (QC): 6 Walk 50 ft with 2 Turns(QC): 6 Walk 150 ft (QC): 6 Walking 10ft/uneven surface-QC: 6 Gait Assistive Device: FWW Wheelchair Training Does the Pt Use a Wheelchair?: No Stair Training Stair Training: Handrails/: 2 handrails #of Steps: 12 1 Step (curb) (QC): 6 4 Steps (QC): 5 12 Steps (QC): 5 Stairs: Pattern: Step to Balance Picking up an Object (QC): 6 Special Test Comments Using oil field tester due to back precautions Treatments Pt completed QC scoring items listed above before returning to room to rest in recliner. All needs met, call light in hand. Assessment Current Status: Good Progress Pt is much improved over last several days as pt's medical situation as improved. Pt is still concerned with saldana at d/c on Thursday and TLSO not staying tight even after repeated adjustments during multiple tx. SPORTS PHYSIOLOGIST instructs how to self adjust brace if feeling loose. PT Short Term Goals Short Term Goals Time Frame: Jan 24, 2022 Sit to lyin (SBA) Sit to stand: 4 (SBA) Chair/rds-xi-ydiib transfer: 4 (SBA) Toilet transfer: 4 (SBA) Car transfer: 4 (SBA) Walk 10 feet: 4 (SBA) Walk 50 feet with two turns: 4 (SBA) Walk 150 feet: 4 (SBA) Walking 10ft on uneven surface: 4 (SBA) 1 step (curb): 4 (SBA) 4 steps: 4 (CGA) Picking up objects: 4 (SBA with oil field tester) PT News Agent Goals News Agent Goals PT Half-Way Goals Time Frame: Feb 07, 2022 Roll Left & Right (QC): 6 Sit to Lying (QC): 6 Lying-Sitting on Side/Bed(QC): 6 Sit to Stand (QC): 6 Chair/Prw-th-Iobvv Xfer(QC): 6 Toilet Transfer (QC): 6 Car Transfer (QC): 6 Does the Patient Walk: No and Walking Goal IS indicated Walk 10 feet (QC): 6 Walk 50ft with 2 Turns (QC): 6 Walk 150 ft (QC): 6 Walking 10ft on Uneven Surface: 6 1 Step (curb) (QC): 6 4 Steps (QC): 6 12 Steps (QC): 4 (SBA-CGA) Picking up an Object (QC): 6 (independent with oil field tester) Wheel 50 feet with 2 turns (QC: 6 Wheel 150 feet: 6 Type: Manual PT Plan Problem List Problem List: Activity Tolerance Treatment/Plan Treatment Plan: Continue Plan of Care Treatment Plan: Bed Mobility, Education, Functional Activity Jane, Functional Strength, Group Therapy, Gait, Safety, Therapeutic Exercise, Transfers Treatment Duration: Feb 07, 2022 Frequency: At least 5 of 7 days/Wk (IRF) Estimated Hrs Per Day: 1.5 hours per day Patient and/or Family Agrees t: Yes Safety Risks/Education Patient Education: Reviewed Don/Doff Brace Teaching Recipient: Patient, Family Teaching Methods: Demonstration, Discussion Response to Teaching: Verbalize Understanding, Return Demonstration Time Time In: 930 Time Out: 957 DATE: Jan 25, 2022 Total Billed Treatment Time: 27 Total Billed Treatment 1, FA x2 (27m) JESÚS MCCARTHY PTA Jan 25, 2022 10:42
[2022-01-25] MEDS: BISACODYL 10 MG SUPP (DULCOLAX) PR PRN (16:50)
[2022-01-25 18:29] VITALS: BP 140/66
[2022-01-25] MEDS: CYCLOBENZAPRINE 10 MG (FLEXERIL) TAB PO SCH (20:29)
[2022-01-25 20:33] VITALS: BP 136/74
[2022-01-26 05:34] LABS: BASOPHILS % (AUTO) 0 % (0-10); EOSINOPHILS # (AUTO) 0.1 10^3/uL (0.0-0.3); EOSINOPHILS % (AUTO) 2 % (0-10); HEMATOCRIT 27 % (40-54); HEMOGLOBIN 9.1 g/dL (13.3-17.7); LYMPHOCYTES # (AUTO) 1.2 10^3/uL (1.0-4.0); LYMPHOCYTES % (AUTO) 18 % (12-44); MEAN CORPUSCULAR HEMOGLOBIN 31 pg (25-34); MEAN CORPUSCULAR HGB CONC 33 g/dL (32-36); MEAN CORPUSCULAR VOLUME 94 fL (80-99); MONOCYTES # (AUTO) 0.6 10^3/uL (0.0-1.0); MONOCYTES % (AUTO) 9 % (0-12); NEUTROPHILS # (AUTO) 4.7 10^3/uL (1.8-7.8); NEUTROPHILS % (AUTO) 69 % (42-75); PLATELET COUNT 392 10^3/uL (130-400); WHITE BLOOD COUNT 6.9 10^3/uL (4.3-11.0)
[2022-01-26 05:53] LABS: ALBUMIN 3.1 GM/DL (3.2-4.5); POTASSIUM 4.8 MMOL/L (3.6-5.0)
[2022-01-26 05:55] LABS: CALCIUM 9.7 MG/DL (8.5-10.1)
[2022-01-26 05:56] LABS: TOTAL PROTEIN 6.6 GM/DL (6.4-8.2)
[2022-01-26 05:58] LABS: BILIRUBIN,TOTAL 0.2 MG/DL (0.1-1.0)
[2022-01-26 05:59] LABS: CREATININE SERUM 1.65 MG/DL (0.60-1.30)
[2022-01-26] MEDS: CATHETER FLUSH 10 ML SYR IVP SCH ×3 (06:34→21:13)
[2022-01-26] MEDS: inSUlin (REGULAR) HUMAN 1 UNIT/0.01 ML (CHARGE PER UNIT) SC SCH ×4 (06:34→21:13)
[2022-01-26] MEDS: guaiFENesin/DM (ROBITUSSIN DM) 10 ML UDC PO SCH ×2 (06:34→17:14)
[2022-01-26] MEDS: BETHANECHOL 25 MG (URECHOLINE) TAB PO SCH ×4 (06:34→21:10)
--- NOTE | 2022-01-26 06:48 | PM&R Progress Note ---
Subjective HPI/CC On Admission Date Seen by Provider: Jan 26, 2022 Time Seen by Provider: 12:00 Subjective/Events-last exam 01/26/2022: Patient doing well No pain is reported Doing a trial void since discontinuing the catheter Hemoglobin much improved and kidney function much improved 01/25/2022: Doing much better Mother at the bedside and very pleased with his progression We will plan on going home with a catheter and obtaining appoint with Dr. Nobles on Thursday No other concerns Bowels are slow 01/24/2022: Patient doing a lot better Talked to patient and mother and answered their list of questions May need to ultimately go home with catheter Creatinine is much better and hemoglobin stable at 7.0 01/23/2022: Patient doing well Much improved Gabriel catheter still in place Creatinine improved Blood sugars improved Pain is improved 01/22/2022: Slower participation with therapy noted Patient began to have more difficulty with tasks when mother arrived 2 days ago Urinary retention managed with Gabriel catheter in order to monitor output Creat improved so will DC IVF 01/21/2022: Complications have occurred Urinary retention will require Gabriel catheter per nephrology Urology will see him also Pain is an issue Kidney function is slightly improved with IV fluid 01/20/2022: Patient having urinary retention Became drowsy over the afternoon check labs creatinine increased to 4.7 Patient requiring catheterizations and thus he is limiting his fluid intake Will reach out to nephrology in the morning Urology will see him in the morning 01/19/2022: Cant urinate Retention was noted last time he was in the hospital when he had pancreatitis Urecholine and Flomax and in/out caths ordered along with UA in case this is UTI Pain an issue Very weak at times Minimal BM 01/18/2022: Patient doing really well Settling into rehab Therapy had a good session with him Slept really well last night Pain is controlled Creatinine 3.4 Review of Systems General: Fatigue, Malaise Genitourinary: Retention Musculoskeletal: back pain Objective Exam Vital Signs Vital Signs Date Time Temp Pulse Resp B/P (MAP) Pulse Ox O2 Delivery O2 Flow Rate FiO2 01/26/22 17:42 84 164/74 (104) 01/26/22 09:00 Room Air 01/26/22 07:33 36.8 16 97 Capillary Refill : General Appearance: No Apparent Distress, WD/WN, Chronically ill, Obese HEENT: PERRL/EOMI, Normal ENT Inspection, Pharynx Normal Neck: Full Range of Motion, Normal Inspection, Non Tender, Supple, Carotid Bruit Respiratory: Chest Non Tender, Lungs Clear, Normal Breath Sounds, No Accessory Muscle Use, No Respiratory Distress Cardiovascular: Regular Rate, Rhythm, No Edema, No Gallop, No JVD, No Murmur, Normal Peripheral Pulses Gastrointestinal: Normal Bowel Sounds, No Organomegaly, No Pulsatile Mass, Non Tender, Soft Back: Normal Inspection, Decreased Range of Motion, Muscle Spasm, Vertebral Tenderness Extremity: Normal Capillary Refill, Normal Inspection, Normal Range of Motion, Non Tender, No Calf Tenderness, No Pedal Edema, Other (left BKA) Neurologic/Psychiatric: Alert, Oriented x3, No Motor/Sensory Deficits, Normal Mood/Affect Skin: Normal Color, Warm/Dry Lymphatic: No Adenopathy Results/Procedures Lab Laboratory Tests 01/26/22 05:18 Patient resulted labs reviewed. FIM Transfers Therapy Code Descriptions/Definitions Functional [place] Measure: 0=Not Assessed/NA 4=Minimal Assistance 1=Total Assistance 5=Supervision or Setup 2=Maximal Assistance 6=Modified [place] 3=Moderate Assistance 7=Complete IndependenceSCALE: Activities may be completed with or without assistive devices. 3-Chgxynruzs-hdasvjj completes the activity by him/herself with no assistance from a helper. 5-Set-up or Clean-up Assistance-helper sets up or cleans up; patient completes activity. [place] assists only prior to or following the activity. 4-Supervision or Touching Assistance-helper provides verbal cues and/or touching/steadying and/or contact guard assistance as patient completes activity. Assistance may be provided throughout the activity or intermittently. 3-Partial/Moderate Assistance-helper does LESS THAN HALF the effort. [place] lifts, holds or supports trunk or limbs, but provides less than half the effort. 2-Substantial/Maximal Assistance-helper does MORE THAN HALF the effort. [place] lifts or holds trunk or limbs and provides more than half the effort. 0-Ognpixdez-qoermy does ALL the effort. Patient does none of the effort to complete the activity. Or, the assistance of 2 or more helpers is required for the patient to complete the activity. If activity was not attempted, code reason: 7-Patient Refused. 9-Not Applicable-not attempted and the patient did not perform the activity before the current illness, exacerbation or injury. 10-Not Attempted due to Environmental Limitations-(lack of equipment, weather restraints, etc.). 88-Not Attempted due to Medical Conditions or Safety Concerns. Roll Left to Right (QC): 6 Sit to Lying (QC): 6 Sit to Stand (QC): 6 Chair/Wqx-bd-Uzhnt Xfer(QC): 6 Car Transfer (QC): 6 Gait Training Does the Patient Walk?: Yes Distance: 150' Walk 10 feet (QC): 6 Walk 50 ft with 2 Turns(QC): 6 Walk 150 ft (QC): 6 Walking 10ft/uneven surface-QC: 6 Gait Persons Needed: 1 Gait Assistive Device: FWW Wheelchair Training Does the Pt Use a Wheelchair?: No Distance: 150' Wheel 50 ft with 2 turns (QC): 4 (SBA) Wheel 150 ft (QC): 4 (SBA) Type of Wheelchair: Manual Stair Training Stair Training: Handrails/: 2 handrails #of Steps: 12 1 Step (curb) (QC): 6 4 Steps (QC): 5 12 Steps (QC): 5 Stairs: Pattern: Step to Balance Picking up an Object (QC): 6 ADL-Treatment Eating (QC): 6 Oral Hygiene (QC): 6 Shower/Bathe Self (QC): 3 (Min A required to wash buttocks for thoroughness. Pt completed shower 100% seated on SC.) Upper Body Dressing (QC): 4 (Min VCs with back brace) Lower Body Dressing (QC): 3 (Min A with donning/doffing shorts) On/Off Footwear (QC): 2 Toileting Hygiene (QC): 3 (Pt requires min A with pant hike.) Assessment/Plan Assessment and Plan Assess & Plan/Chief Complaint Assessment: s/p lumbar spine surgery due to spinal stenosis with myelopathy CKD Stage IV with worsening on 01/20/2022 with creatinine 4.7 nonoliguric due to poor intake and now much improved after IV fluids with nephrology consult DM Obesity Post op constipation HTN HLP Psoriasis h/o pancreatitis Gout h/o left BKA Acute urinary retention 01/19/22 requiring Gabriel catheter Metabolic acidosis placed on bicarb per nephrology Anemia Plan: PT OT Monitor creat Pain control 01/18/2022: Aggressive bowel regimen Monitor creatinine 01/19/2022: In/out caths prn Urecholine and Flomax 01/20/2022: Start gentle IV fluids Catheterization required 01/21/2022: Nephrology consult Urology consult 01/22/2022: HLIVF Monitor creat 01/23/2022: Bicarb Monitor 01/24/2022: Monitor hemoglobin Indwelling catheter to remain in discharge? 01/25/2022: Supportive care Check labs in the morning in case he needs a transfusion 01/26/2022: Supportive care (1) H/O lumbosacral spine surgery (2) Stage 3b chronic kidney disease Status: Chronic (3) Psoriasis Status: Chronic (4) Gout Status: Chronic (5) T2DM (type 2 diabetes mellitus) Status: Chronic (6) HTN (hypertension) Status: Chronic (7) Spinal stenosis of lumbar region Status: Chronic KATINA MORAN DO Jan 26, 2022 06:48
[2022-01-26 07:33] VITALS: BP 154/83
[2022-01-26] MEDS: LACTOBACILLUS ACIDOPHILUS (PROBIOTIC) CAPSULE PO SCH (09:25)
[2022-01-26] MEDS: GABAPENTIN 300 MG (NEURONTIN) CAP PO SCH ×3 (09:25→21:10)
[2022-01-26] MEDS: SODIUM BICARBONATE 650 MG TABLET PO SCH ×2 (09:25→21:09)
[2022-01-26] MEDS: DOCUSATE SODIUM 100 MG (COLACE) CAP PO SCH ×2 (09:25→21:10)
[2022-01-26] MEDS: TAMSULOSIN 0.4 MG (FLOMAX) CAP PO SCH ×2 (09:26→21:10)
[2022-01-26] MEDS: PANTOPRAZOLE 40 MG (PROTONIX) TAB PO SCH (09:26)
[2022-01-26] MEDS: SENNA W/DOCUSATE (SENOKOT S) TABLET PO SCH ×2 (09:26→21:10)
[2022-01-26] MEDS: ASCORBIC ACID (VIT C) 500 MG TABLET PO SCH (09:26)
[2022-01-26] MEDS: IRON POLYSAC 150 MG CAP (NIFEREX) PO SCH ×2 (09:26→21:09)
[2022-01-26] MEDS: GEMFIBROZIL 600 MG (LOPID) TAB PO SCH ×2 (09:26→21:09)
[2022-01-26] MEDS: MONTELUKAST 10 MG (SINGULAIR) TAB PO SCH (09:26)
[2022-01-26] MEDS: ALLOPURINOL 100 MG (ZYLOPRIM) TAB PO SCH (09:26)
[2022-01-26] MEDS: ICOSAPENT ETHYL 1 GM PO SCH ×2 (09:31→17:45)
[2022-01-26] MEDS: polyethylene glycoL POWDER 17 GM (MIRALAX) PACK PO SCH ×2 (09:31→19:32)
[2022-01-26 17:42] VITALS: BP 164/74
[2022-01-26 19:48] VITALS: BP 173/79
[2022-01-26] MEDS: CYCLOBENZAPRINE 10 MG (FLEXERIL) TAB PO SCH (21:10)
[2022-01-27] MEDS ORDERED: BETH25TA2 PO ×2 (04:46→04:48)
[2022-01-27] MEDS ORDERED: TMSL.4C PO ×2 (04:46→04:48)
[2022-01-27] MEDS ORDERED: NF-SODBICA PO ×2 (04:46→04:48)
[2022-01-27] MEDS ORDERED: OXC5T PO (04:48)
--- NOTE | 2022-01-27 04:51 | Discharge Summary ---
Diagnosis/Chief Complaint Date of Admission Jan 17, 2022 at 10:35 Date of Discharge Discharge Date: Jan 27, 2022 Discharge Diagnosis Assessment: s/p lumbar spine surgery due to spinal stenosis with myelopathy CKD Stage IV with worsening on 01/20/2022 with creatinine 4.7 nonoliguric due to poor intake and now much improved after IV fluids with nephrology consult DM Obesity Post op constipation HTN HLP Psoriasis h/o pancreatitis Gout h/o left BKA Acute urinary retention 01/19/22 requiring Saldana catheter Metabolic acidosis placed on bicarb per nephrology Anemia Plan: PT OT Monitor creat Pain control 01/18/2022: Aggressive bowel regimen Monitor creatinine 01/19/2022: In/out caths prn Urecholine and Flomax 01/20/2022: Start gentle IV fluids Catheterization required 01/21/2022: Nephrology consult Urology consult 01/22/2022: HLIVF Monitor creat 01/23/2022: Bicarb Monitor 01/24/2022: Monitor hemoglobin Indwelling catheter to remain in discharge? 01/25/2022: Supportive care Check labs in the morning in case he needs a transfusion 01/26/2022: Supportive care (1) H/O lumbosacral spine surgery (2) Stage 3b chronic kidney disease Status: Chronic (3) Psoriasis Status: Chronic (4) Gout Status: Chronic (5) T2DM (type 2 diabetes mellitus) Status: Chronic (6) HTN (hypertension) Status: Chronic (7) Spinal stenosis of lumbar region Status: Chronic MORAN,KATINA DO Discharge Summary Discharge Physical Examination Allergies: Coded Allergies: bacitracin (Verified Allergy, Mild, Rash, 01/17/22) hydrocodone (Verified Allergy, Mild, UNKNOWN, 01/20/22) neomycin (Verified Allergy, Mild, Rash, 01/17/22) sulfamethoxazole (Verified Allergy, Mild, Rash, 01/17/22) trimethoprim (Verified Allergy, Mild, Rash, 01/17/22) Sulfa (Sulfonamide Antibiotics) (Verified Allergy, Unknown, 11/09/21) Uncoded Allergies: [id number] (Allergy, Mild, RASH, 01/20/22) Vitals & I&Os Vital Signs Date Time Temp Pulse Resp B/P (MAP) Pulse Ox O2 Delivery O2 Flow Rate FiO2 01/27/22 12:00 36.3 83 18 163/81 96 Room Air General Appearance: Alert, Oriented X3, Cooperative Respiratory: Clear to Auscultation Cardiovascular: Regular Rate Neuro: Normal Gait, Normal Speech, Strength at 5/5 X4 Ext Psych/Mental Status: Mental Status NL Hospital Course Was the Problem List Reviewed?: Yes Gerardo Vaca (Eddie) is a 51yo M admitted to ARU room 229 on 01/17/22, with an admitting diagnosis of spinal fusion, TILF/PSIF L4-5, on 01/15/22 at [facility]. He has a h/o diabetic neuropathy, and amputation (BKA) of left leg as well as DM, CKD, HTN and obesity. His treatment goals in rehab were to regain function with assistive devices and accommodating the left BKA and choices of assistive devices in order to prevent falls and increase stamina and increase independence in ADLs in order to return home with mother. He was started with physical therapy to work on activity tolerance, functional strength, gait, safety, balance, bed mobility, ROM and transfers for 1.5 hours per day 5 of 7 days per week. He also was started with occupational therapy for decreased activity tolerance, decreased upper extremity strength, impaired functional balance, impaired ADL's and impaired self-care skills for 1.5 hours per day 5 of 7 days per week. Patient was evaluated for speech therapy but was found not to need this service. At evaluation he was around a 3, needing partial assistance with the helper doing less than half the effort. Upon discharge he was averaging a 6, independent without assistance. OT noted the pt was independent with ADLs and functional mobility, using cane and w/c as needed. Patient was still requiring moderate assistance with LLE prosthesis due to back precautions. OT performed family training and the patient's mother reportedly felt comfortable assisting as needed. His stay was complicated by urinary retention and JONATHAN. He was seen by Dr. Farhana Torres, wire frame lampshade maker, and Dr. Contreras, urologist on 01/21. They recommended saldana placement and match intake with output as well as avoid NSAIDs. He was also started on Flomax and Urecholine. He also had a wound on his anterior right tibia for which Dr. Nicole in wound care was consulted. Plan was to cleanse with Vashe, apply medihoney and dressing changes daily. He will be discharged home with his mother. PAU PATEL Labs (last 24 hrs) Laboratory Tests 01/17/22 13:51: Glucometer 318H 01/17/22 17:12: Glucometer 299H 01/17/22 20:26: Glucometer 329H 01/18/22 05:51: White Blood Count 7.3, Red Blood Count 2.42L, Hemoglobin 7.6L, Hematocrit 23L, Mean Corpuscular Volume 95, Mean Corpuscular Hemoglobin 31, Mean Corpuscular Hemoglobin Concent 33, Red Cell Distribution Width 14.3, Platelet Count 204, Mean Platelet Volume 9.7, Immature Granulocyte % (Auto) 1, Neutrophils (%) (Auto) 73, Lymphocytes (%) (Auto) 14, Monocytes (%) (Auto) 11, Eosinophils (%) (Auto) 2, Basophils (%) (Auto) 0, Neutrophils # (Auto) 5.4, Lymphocytes # (Auto) 1.0, Monocytes # (Auto) 0.8, Eosinophils # (Auto) 0.1, Basophils # (Auto) 0.0, Immature Granulocyte # (Auto) 0.0, Sodium Level 133L, Potassium Level 3.9, Chloride Level 106, Carbon Dioxide Level 17L, Anion Gap 10, Blood Urea Nitrogen 47H, Creatinine 3.44H, Estimat Glomerular Filtration Rate 20, BUN/Creatinine Ratio 14, Glucose Level 250H, Calcium Level 9.1, Corrected Calcium 9.7, Iron Level 24L, Total Bilirubin 0.4, Aspartate Amino Transf (AST/SGOT) 12, Alanine Aminotransferase (ALT/SGPT) 13, Alkaline Phosphatase 62, Total Protein 6.1L, Albumin 3.2, Vitamin B12 Level 703 01/18/22 11:08: Glucometer 253H 01/18/22 15:35: Glucometer 197H 01/18/22 20:04: Glucometer 133H 01/19/22 05:31: Glucometer 106 01/19/22 11:10: Glucometer 101 01/19/22 14:30: Urine Color ORANGE, Urine Clarity SL CLOUDY, Urine pH 5.5, Urine Specific Gr [place] >=1.030, Urine Protein 1+H, Urine Glucose (UA) TRACEH, Urine Ketones NEGATIVE, Urine Nitrite NEGATIVE, Urine Bilirubin 1+H, Urine Urobilinogen 0.2, Urine Leukocyte Esterase NEGATIVE, Urine RBC (Auto) NEGATIVE, Urine RBC NONE, Urine WBC 0-2, Urine Squamous Epithelial Cells RARE, Urine Crystals PRESENTH, Urine Amorphous Sediment RARE NAVI URATESH, Urine Bacteria NEGATIVE, Urine Casts PRESENT, Urine Hyaline Casts 10-25H, Urine Mucus NEGATIVE, Urine Culture Indicated NO 01/19/22 16:21: Glucometer 106 01/19/22 20:50: Glucometer 131H 01/20/22 05:52: Glucometer 164H 01/20/22 08:25: Glucometer 153H 01/20/22 10:51: Glucometer 150H 01/20/22 12:35: Glucometer 134H 01/20/22 14:40: Glucometer 127H 01/20/22 15:24: White Blood Count 6.9, Red Blood Count 2.36L, Hemoglobin 7.5L, Hematocrit 22L, Mean Corpuscular Volume 95, Mean Corpuscular Hemoglobin 32, Mean Corpuscular Hemoglobin Concent 34, Red Cell Distribution Width 14.3, Platelet Count 300, Mean Platelet Volume 9.0, Immature Granulocyte % (Auto) 1, Neutrophils (%) (Auto) 75, Lymphocytes (%) (Auto) 11L, Monocytes (%) (Auto) 11, Eosinophils (%) (Auto) 2, Basophils (%) (Auto) 0, Neutrophils # (Auto) 5.1, Lymphocytes # (Auto) 0.8L, Monocytes # (Auto) 0.8, Eosinophils # (Auto) 0.1, Basophils # (Auto) 0.0, Immature Granulocyte # (Auto) 0.1, Sodium Level 133L, Potassium Level 4.5, Chloride Level 103, Carbon Dioxide Level 20L, Anion Gap 10, Blood Urea Nitrogen 74H, Creatinine 4.77#H, Estimat Glomerular Filtration Rate 14, BUN/Creatinine Ratio 16, Glucose Level 124H, Calcium Level 9.5, Corrected Calcium 10.1, Total Bilirubin 0.3, Aspartate Amino Transf (AST/SGOT) 23, Alanine Aminotransferase (ALT/SGPT) 25, Alkaline Phosphatase 74, Total Protein 6.7, Albumin 3.3 01/20/22 15:27: Blood Gas Puncture Site R RADIAL, Blood Gas Patient Temperature 37.0, Arterial Blood pH 7.28*L, Arterial Blood Partial Pressure CO2 42, Arterial Blood Partial Pressure O2 76L, Arterial Blood HCO3 19L, Arterial Blood Total CO2 20.4L, Arterial Blood Oxygen Saturation 94, Arterial Blood Base Excess -6.5L, Mike Te st YES-POS, Blood Gas Ventilator Setting NO, Blood Gas Inspired Oxygen ROOM AIR 01/20/22 15:56: Glucometer 121H 01/20/22 20:14: Glucometer 104 01/21/22 05:57: Glucometer 105 01/21/22 06:35: White Blood Count 6.1, Red Blood Count 2.24L, Hemoglobin 7.1L, Hematocrit 21L, Mean Corpuscular Volume 94, Mean Corpuscular Hemoglobin 32, Mean Corpuscular Hemoglobin Concent 34, Red Cell Distribution Width 14.2, Platelet Count 267, Mean Platelet Volume 9.2, Immature Granulocyte % (Auto) 1, Neutrophils (%) (Auto) 65, Lymphocytes (%) (Auto) 19, Monocytes (%) (Auto) 12, Eosinophils (%) (Auto) 2, Basophils (%) (Auto) 0, Neutrophils # (Auto) 4.0, Lymphocytes # (Auto) 1.2, Monocytes # (Auto) 0.8, Eosinophils # (Auto) 0.1, Basophils # (Auto) 0.0, Immature Granulocyte # (Auto) 0.1, Sodium Level 131L, Potassium Level 4.2, Chloride Level 103, Carbon Dioxide Level 17L, Anion Gap 11, Blood Urea Nitrogen 76H, Creatinine 4.28#H, Estimat Glomerular Filtration Rate 16, BUN/Creatinine Ratio 18, Glucose Level 113H, Uric Acid 10.0H, Calcium Level 9.0, Corrected Calcium 9.9, Total Bilirubin 0.2, Aspartate Amino Transf (AST/SGOT) 19, Alanine Aminotransferase (ALT/SGPT) 22, Alkaline Phosphatase 70, Total Protein 5.9L, Albumin 2.9L 01/21/22 10:47: Glucometer 155H 01/21/22 15:27: Glucometer 125H 01/21/22 20:21: Glucometer 158H 01/22/22 05:47: Glucometer 104 01/22/22 05:55: White Blood Count 6.6, Red Blood Count 2.37L, Hemoglobin 7.4L, Hematocrit 22L, Mean Corpuscular Volume 94, Mean Corpuscular Hemoglobin 31, Mean Corpuscular Hemoglobin Concent 33, Red Cell Distribution Width 14.3, Platelet Count 321, Mean Platelet Volume 9.4, Immature Granulocyte % (Auto) 1, Neutrophils (%) ( Auto) 73, Lymphocytes (%) (Auto) 13, Monocytes (%) (Auto) 11, Eosinophils (%) (Auto) 2, Basophils (%) (Auto) 0, Neutrophils # (Auto) 4.8, Lymphocytes # (Auto) 0.8L, Monocytes # (Auto) 0.7, Eosinophils # (Auto) 0.1, Basophils # (Auto) 0.0, Immature Granulocyte # (Auto) 0.1, Sodium Level 132L, Potassium Level 4.5, Chloride Level 106, Carbon Dioxide Level 15L, Anion Gap 11, Blood Urea Nitrogen 78H, Creatinine 3.64#H, Estimat Glomerular Filtration Rate 19, BUN/Creatinine Ratio 21, Glucose Level 109H, Calcium Level 9.2, Corrected Calcium 9.9, Total Bilirubin 0.3, Aspartate Amino Transf (AST/SGOT) 16, Alanine Aminotransferase (ALT/SGPT) 21, Alkaline Phosphatase 77, Total Protein 6.4, Albumin 3.1L 01/22/22 10:54: Glucometer 165H 01/22/22 15:08: Glucometer 187H 01/22/22 20:07: Glucometer 130H 01/23/22 05:35: Glucometer 133H 01/23/22 05:45: Sodium Level 135, Potassium Level 4.6, Chloride Level 107, Carbon Dioxide Level 17L, Anion Gap 11, Blood Urea Nitrogen 69H, Creatinine 2.89#H, Estimat Glomerular Filtration Rate 25, BUN/Creatinine Ratio 24, Glucose Level 145H, Calcium Level 9.1, Phosphorus Level 3.7, Albumin 2.9L 01/23/22 10:51: Glucometer 248H 01/23/22 15:16: Glucometer 177H 01/23/22 20:30: Glucometer 148H 01/24/22 05:27: Glucometer 129H 01/24/22 06:05: White Blood Count 7.6, Red Blood Count 2.24L, Hemoglobin 7.0L, Hematocrit 21L, Mean Corpuscular Volume 95, Mean Corpuscular Hemoglobin 31, Mean Corpuscular Hemoglobin Concent 33, Red Cell Distribution Width 14.1, Platelet Count 387, Mean Platelet Volume 9.1, Immature Granulocyte % (Auto) 2, Neutrophils (%) (Auto) 68, Lymphocytes (%) (Auto) 17, Monocytes (%) (Auto) 10, Eosinophils (%) (Auto) 2, Basophils (%) (Auto) 1, Neutrophils # (Auto) 5.2, Lymphocytes # (Auto) 1.3, Monocytes # (Auto) 0.8, Eosinophils # (Auto) 0.1, Basophils # (Auto) 0.0, Immature Granulocyte # (Auto) 0.1, Sodium Level 137, Potassium Level 4.5, Chloride Level 108H, Carbon Dioxide Level 19L, Anion Gap 10, Blood Urea Nitrogen 54H, Creatinine 2.25H, Estimat Glomerular Filtration Rate 34, BUN/Creatinine Ratio 24, Glucose Level 135H, Calcium Level 9.4, Corrected Calcium 10.2H, Total Bilirubin 0.2, Aspartate Amino Transf (AST/SGOT) 14, Alanine Aminotransferase (ALT/SGPT) 17, Alkaline Phosphatase 86, Total Protein 6.4, Albumin 3.0L 01/24/22 10:49: Glucometer 251H 01/24/22 15:21: Glucometer 130H 01/24/22 20:20: Glucometer 160H 01/25/22 06:17: Glucometer 121H 01/25/22 11:00: Glucometer 224H 01/25/22 15:24: Glucometer 201H 01/26/22 05:18: White Blood Count 6.9, Red Blood Count 2.91L, Hemoglobin 9.1#L, Hematocrit 27L, Mean Corpuscular Volume 94, Mean Corpuscular Hemoglobin 31, Mean Corpuscular Hemoglobin Concent 33, Red Cell Distribution Width 14.3, Platelet Count 392, Mean Platelet Volume 9.0, Immature Granulocyte % (Auto) 2, Neutrophils (%) (Auto ) 69, Lymphocytes (%) (Auto) 18, Monocytes (%) (Auto) 9, Eosinophils (%) (Auto) 2, Basophils (%) (Auto) 0, Neutrophils # (Auto) 4.7, Lymphocytes # (Auto) 1.2, Monocytes # (Auto) 0.6, Eosinophils # (Auto) 0.1, Basophils # (Auto) 0.0, Immature Granulocyte # (Auto) 0.1, Sodium Level 138, Potassium Level 4.8, Chloride Level 105, Carbon Dioxide Level 21, Anion Gap 12, Blood Urea Nitrogen 30H, Creatinine 1.65H, Estimat Glomerular Filtration Rate 49, BUN/Creatinine Ratio 18, Glucose Level 159H, Calcium Level 9.7, Corrected Calcium 10.4H, Total Bilirubin 0.2, Aspartate Amino Transf (AST/SGOT) 12, Alanine Aminotransferase (ALT/SGPT) 14, Alkaline Phosphatase 85, Total Protein 6.6, Albumin 3.1L 01/26/22 10:52: Glucometer 169H 01/26/22 15:14: Glucometer 179H 01/26/22 20:05: Glucometer 171H 01/27/22 06:20: Glucometer 106 01/27/22 10:44: Glucometer 240H Pending Labs Laboratory Tests 01/17/22 13:51: Glucometer 318 01/17/22 17:12: Glucometer 299 01/17/22 20:26: Glucometer 329 01/18/22 05:51: White Blood Count 7.3, Red Blood Count 2.42, Hemoglobin 7.6, Hematocrit 23, Mean Corpuscular Volume 95, Mean Corpuscular Hemoglobin 31, Mean Corpuscular Hemoglobin Concent 33, Red Cell Distribution Width 14.3, Platelet Count 204, Mean Platelet Volume 9.7, Immature Granulocyte % (Auto) 1, Neutrophils (%) (Auto) 73, Lymphocytes (%) (Auto) 14, Monocytes (%) (Auto) 11, Eosinophils (%) (Auto) 2, Basophils (%) (Auto) 0, Neutrophils # (Auto) 5.4, Lymphocytes # (Auto) 1.0, Monocytes # (Auto) 0.8, Eosinophils # (Auto) 0.1, Basophils # (Auto) 0.0, Immature Granulocyte # (Auto) 0.0, Sodium Level 133, Potassium Level 3.9, Chloride Level 106, Carbon Dioxide Level 17, Anion Gap 10, Blood Urea Nitrogen 47, Creatinine 3.44, Estimat Glomerular Filtration Rate 20, BUN/Creatinine Ratio 14, Glucose Level 250, Calcium Level 9.1, Corrected Calcium 9.7, Iron Level 24, Total Bilirubin 0.4, Aspartate Amino Transf (AST/SGOT) 12, Alanine Aminotransferase (ALT/SGPT) 13, Alkaline Phosphatase 62, Total Protein 6.1, Albumin 3.2, Vitamin B12 Level 703 01/18/22 11:08: Glucometer 253 01/18/22 15:35: Glucometer 197 01/18/22 20:04: Glucometer 133 01/19/22 05:31: Glucometer 106 01/19/22 11:10: Glucometer 101 01/19/22 14:30: Urine Color ORANGE, Urine Clarity SL CLOUDY, Urine pH 5.5, Urine Specific [place] >=1.030, Urine Protein 1+, Urine Glucose (UA) TRACE, Urine Ketones NEGATIVE, Urine Nitrite NEGATIVE, Urine Bilirubin 1+, Urine Urobilinogen 0.2, Urine Leukocyte Esterase NEGATIVE, Urine RBC (Auto) NEGATIVE, Urine RBC NONE, Urine WBC 0-2, Urine Squamous Epithelial Cells RARE, Urine Crystals PRESENT, Urine Amorphous Sediment RARE NAVI URATES, Urine Bacteria NEGATIVE, Urine Casts PRESENT, Urine Hyaline Casts 10-25, Urine Mucus NEGATIVE, Urine Culture Indicated NO 01/19/22 16:21: Glucometer 106 01/19/22 20:50: Glucometer 131 01/20/22 05:52: Glucometer 164 01/20/22 08:25: Glucometer 153 01/20/22 10:51: Glucometer 150 01/20/22 12:35: Glucometer 134 01/20/22 14:40: Glucometer 127 01/20/22 15:24: White Blood Count 6.9, Red Blood Count 2.36, Hemoglobin 7.5, Hematocrit 22, Mean Corpuscular Volume 95, Mean Corpuscular Hemoglobin 32, Mean Corpuscular Hemoglobin Concent 34, Red Cell Distribution Width 14.3, Platelet Count 300, Mean Platelet Volume 9.0, Immature Granulocyte % (Auto) 1, Neutrophils (%) (Auto) 75, Lymphocytes (%) (Auto) 11, Monocytes (%) (Auto) 11, Eosinophils (%) (Auto) 2, Basophils (%) (Auto) 0, Neutrophils # (Auto) 5.1, Lymphocytes # (Auto) 0.8, Monocytes # (Auto) 0.8, Eosinophils # (Auto) 0.1, Basophils # (Auto) 0.0, Immature Granulocyte # (Auto) 0.1, Sodium Level 133, Potassium Level 4.5, Chloride Level 103, Carbon Dioxide Level 20, Anion Gap 10, Blood Urea Nitrogen 74, Creatinine 4.77, Estimat Glomerular Filtration Rate 14, BUN/Creatinine Ratio 16, Glucose Level 124, Calcium Level 9.5, Corrected Calcium 10.1, Total Bilirubin 0.3, Aspartate Amino Transf (AST/SGOT) 23, Alanine Aminotransferase (ALT/SGPT) 25, Alkaline Phosphatase 74, Total Protein 6.7, Albumin 3.3 01/20/22 15:27: Blood Gas Puncture Site R RADIAL, Blood Gas Patient Temperature 37.0, Arterial Blood pH 7.28, Arterial Blood Partial Pressure CO2 42, Arterial Blood Partial Pressure O2 76, Arterial Blood HCO3 19, Arterial Blood Total CO2 20.4, Arterial Blood Oxygen Saturation 94, Arterial Blood Base Excess -6.5, Mike Test YES-POS, Blood Gas Ventilator Setting NO, Blood Gas Inspired Oxygen ROOM AIR 01/20/22 15:56: Glucometer 121 01/20/22 20:14: Glucometer 104 01/21/22 05:57: Glucometer 105 01/21/22 06:35: White Blood Count 6.1, Red Blood Count 2.24, Hemoglobin 7.1, Hematocrit 21, Mean Corpuscular Volume 94, Mean Corpuscular Hemoglobin 32, Mean Corpuscular Hemoglobin Concent 34, Red Cell Distribution Width 14.2, Platelet Count 267, Mean Platelet Volume 9.2, Immature Granulocyte % (Auto) 1, Neutrophils (%) (Auto) 65, Lymphocytes (%) (Auto) 19, Monocytes (%) (Auto) 12, Eosinophils (%) (Auto) 2, Basophils (%) (Auto) 0, Neutrophils # (Auto) 4.0, Lymphocytes # (Auto) 1.2, Monocytes # (Auto) 0.8, Eosinophils # (Auto) 0.1, Basophils # (Auto) 0.0, Immature Granulocyte # (Auto) 0.1, Sodium Level 131, Potassium Level 4.2, Chloride Level 103, Carbon Dioxide Level 17, Anion Gap 11, Blood Urea Nitrogen 76, Creatinine 4.28, Estimat Glomerular Filtration Rate 16, BUN/Creatinine Ratio 18, Glucose Level 113, Uric Acid 10.0, Calcium Level 9.0, Corrected Calcium 9.9, Total Bilirubin 0.2, Aspartate Amino Transf (AST/SGOT) 19, Alanine Aminotransferase (ALT/SGPT) 22, Alkaline Phosphatase 70, Total Protein 5.9, Albumin 2.9 01/21/22 10:47: Glucometer 155 01/21/22 15:27: Glucometer 125 01/21/22 20:21: Glucometer 158 01/22/22 05:47: Glucometer 104 01/22/22 05:55: White Blood Count 6.6, Red Blood Count 2.37, Hemoglobin 7.4, Hematocrit 22, Mean Corpuscular Volume 94, Mean Corpuscular Hemoglobin 31, Mean Corpuscular Hemoglobin Concent 33, Red Cell Distribution Width 14.3, Platelet Count 321, Mean Platelet Volume 9.4, Immature Granulocyte % (Auto) 1, Neutrophils (%) (Auto) 73, Lymphocytes (%) (Auto) 13, Monocytes (%) (Auto) 11, Eosinophils (%) (Auto) 2, Basophils (%) (Auto) 0, Neutrophils # (Auto) 4.8, Lymphocytes # (Auto) 0.8, Monocytes # (Auto) 0.7, Eosinophils # (Auto) 0.1, Basophils # (Auto) 0.0, Immature Granulocyte # (Auto) 0.1, Sodium Level 132, Potassium Level 4.5, Chloride Level 106, Carbon Dioxide Level 15, Anion Gap 11, Blood Urea Nitrogen 78, Creatinine 3.64, Estimat Glomerular Filtration Rate 19, BUN/Creatinine Ratio 21, Glucose Level 109, Calcium Level 9.2, Corrected Calcium 9.9, Total Bilirubin 0.3, Aspartate Amino Transf (AST/SGOT) 16, Alanine Aminotransferase (ALT/SGPT) 21, Alkaline Phosphatase 77, Total Protein 6.4, Albumin 3.1 01/22/22 10:54: Glucometer 165 01/22/22 15:08: Glucometer 187 01/22/22 20:07: Glucometer 130 01/23/22 05:35: Glucometer 133 01/23/22 05:45: Sodium Level 135, Potassium Level 4.6, Chloride Level 107, Carbon Dioxide Level 17, Anion Gap 11, Blood Urea Nitrogen 69, Creatinine 2.89, Estimat Glomerular Filtration Rate 25, BUN/Creatinine Ratio 24, Glucose Level 145, Calcium Level 9.1, Phosphorus Level 3.7, Albumin 2.9 01/23/22 10:51: Glucometer 248 01/23/22 15:16: Glucometer 177 01/23/22 20:30: Glucometer 148 01/24/22 05:27: Glucometer 129 01/24/22 06:05: White Blood Count 7.6, Red Blood Count 2.24, Hemoglobin 7.0, Hematocrit 21, Mean Corpuscular Volume 95, Mean Corpuscular Hemoglobin 31, Mean Corpuscular Hemoglobin Concent 33, Red Cell Distribution Width 14.1, Platelet Count 387, Mean Platelet Volume 9.1, Immature Granulocyte % (Auto) 2, Neutrophils (%) (Auto) 68, Lymphocytes (%) (Auto) 17, Monocytes (%) (Auto) 10, Eosinophils (%) (Auto) 2, Basophils (%) (Auto) 1, Neutrophils # (Auto) 5.2, Lymphocytes # (Auto) 1.3, Monocytes # (Auto) 0.8, Eosinophils # (Auto) 0.1, Basophils # (Auto) 0.0, Immature Granulocyte # (Auto) 0.1, Sodium Level 137, Potassium Level 4.5, Chloride Level 108, Carbon Dioxide Level 19, Anion Gap 10, Blood Urea Nitrogen 54, Creatinine 2.25, Estimat Glomerular Filtration Rate 34, BUN/Creatinine Ratio 24, Glucose Level 135, Calcium Level 9.4, Corrected Calcium 10.2, Total Bilirubin 0.2, Aspartate Amino Transf (AST/SGOT) 14, Alanine Aminotransferase (ALT/SGPT) 17, Alkaline Phosphatase 86, Total Protein 6.4, Albumin 3.0 01/24/22 10:49: Glucometer 251 01/24/22 15:21: Glucometer 130 01/24/22 20:20: Glucometer 160 01/25/22 06:17: Glucometer 121 01/25/22 11:00: Glucometer 224 01/25/22 15:24: Glucometer 201 01/26/22 05:18: White Blood Count 6.9, Red Blood Count 2.91, Hemoglobin 9.1, Hematocrit 27, Mean Corpuscular Volume 94, Mean Corpuscular Hemoglobin 31, Mean Corpuscular Hemoglobin Concent 33, Red Cell Distribution Width 14.3, Platelet Count 392, Ronna n Platelet Volume 9.0, Immature Granulocyte % (Auto) 2, Neutrophils (%) (Auto) 69, Lymphocytes (%) (Auto) 18, Monocytes (%) (Auto) 9, Eosinophils (%) (Auto) 2, Basophils (%) (Auto) 0, Neutrophils # (Auto) 4.7, Lymphocytes # (Auto) 1.2, Monocytes # (Auto) 0.6, Eosinophils # (Auto) 0.1, Basophils # (Auto) 0.0, Immature Granulocyte # (Auto) 0.1, Sodium Level 138, Potassium Level 4.8, Chloride Level 105, Carbon Dioxide Level 21, Anion Gap 12, Blood Urea Nitrogen 30, Creatinine 1.65, Estimat Glomerular Filtration Rate 49, BUN/Creatinine Ratio 18, Glucose Level 159, Calcium Level 9.7, Corrected Calcium 10.4, Total Bilirubin 0.2, Aspartate Amino Transf (AST/SGOT) 12, Alanine Aminotransferase (ALT/SGPT) 14, Alkaline Phosphatase 85, Total Protein 6.6, Albumin 3.1 01/26/22 10:52: Glucometer 169 01/26/22 15:14: Glucometer 179 01/26/22 20:05: Glucometer 171 01/27/22 06:20: Glucometer 106 01/27/22 10:44: Glucometer 240 Discharge Home Medications: Active Scripts Active Sodium Bicarbonate 650 Mg Tablet 1,300 Mg PO BID Flomax (Tamsulosin HCl) 0.4 Mg Cap 0.4 Mg PO BID Bethanechol Chloride 25 Mg Tablet 25 Mg PO ACHS Oxyir Tablet (Oxycodone HCl) 5 Mg Tab 5 Mg PO Q8H PRN MDD 30MG Reported Vascepa (Icosapent Ethyl) 1 Gram Capsule 2 Gm PO BID WITH MEALS TAKES 2 (1GM) CAPS Triamcinolone Acetonide 0.1% Cream (Triamcinolone Acet) 0.1 % Cr 1 Applic TOP BID PRN MERCY DISCAHRGE DOES NOT LIST SPECIFC NEEDED USE Promethazine Tablet (Promethazine HCl) 25 Mg Tablet 25 Mg PO Q6H PRN Probiotic (L.acidoph & Paracasei,B.lactis) 10 Billion Cell Capsule 1 Each PO DAILY Ferrex 150 (Iron Polysaccharide Complex) 150 Mg Iron Capsule 150 Mg PO BID Omeprazole 40 Mg Capsule.dr 40 Mg PO DAILY Hydroxychloroquine Sulfate 200 Mg Tablet 200 Mg PO BID Humulin R U-500 Kwikpen (Insulin Regular, Human) 500/Ml (3) Insuln.pen Units SC ACHS USE PER SLIDING SCALE Gemfibrozil 600 Mg Tablet 600 Mg PO BID Neurontin (Gabapentin) 300 Mg Capsule 300 Mg PO TID Furosemide 40 Mg Tablet 20 Mg PO BID TAKES OF A 40MG Fosinopril Sodium 40 Mg Tablet 40 Mg PO DAILY Colace (Docusate Sodium) 100 Mg Capsule 100 Mg PO BID PRN Mucinex Dm ER 600-30 mg Tablet (Guaifenesin/Dextromethorphan) 600 Mg-30 Mg Tab.er.12h 1 Each PO Q12H Cyclobenzaprine HCl 10 Mg Tablet 10 Mg PO HS Vitamin C (Ascorbate Calcium) 500 Mg Tablet 500 Mg PO DAILY Allopurinol 100 Mg Tablet 100 Mg PO DAILY Montelukast Sodium 10 Mg Tablet 10 Mg PO DAILY Carvedilol 25 Mg Tablet 25 Mg PO BID WITH MEALS Atorvastatin Calcium 20 Mg Tablet 20 Mg PO DAILY Instructions to patient/family Please see electronic discharge instructions given to patient. Diagnosis/Problems Diagnosis/Problems (1) H/O lumbosacral spine surgery (2) Stage 3b chronic kidney disease Status: Chronic (3) Psoriasis Status: Chronic (4) Gout Status: Chronic (5) T2DM (type 2 diabetes mellitus) Status: Chronic (6) HTN (hypertension) Status: Chronic (7) Spinal stenosis of lumbar region Status: Chronic KATINA MORAN DO Jan 27, 2022 04:51
--- NOTE | 2022-01-27 04:51 | D/C HH Face to Face Order ---
D/C Face to Face Orders Reconcile Patient Problems Problems Reviewed?: Yes Instructions for Patient Via [facility], Patient Instructions/FollowUp: PCP 1 week Urology as scheduled Physician to follow Patient: PCP Discharge Diet for Home: ADA Diet Patient Problems: Back surgery JONATHAN Patient Data-Allergies,Ht & Wt Patient Allergies: Coded Allergies: bacitracin (Verified Allergy, Mild, Rash, 01/17/22) hydrocodone (Verified Allergy, Mild, UNKNOWN, 01/20/22) neomycin (Verified Allergy, Mild, Rash, 01/17/22) sulfamethoxazole (Verified Allergy, Mild, Rash, 01/17/22) trimethoprim (Verified Allergy, Mild, Rash, 01/17/22) Sulfa (Sulfonamide Antibiotics) (Verified Allergy, Unknown, 11/09/21) Uncoded Allergies: [id number] (Allergy, Mild, RASH, 01/20/22) Height (Feet): 5 Height (Inches): 9.00 Weight (Pounds): 252 Home Health Need/Face to Face Date of Face to Face: Jan 27, 2022 Clinical Findings: Generalized weakness and fatigue, Instability, Muscle weakness, Pain with ambulation I have seen Pt qwfp-io-ynae: Yes Discharged To: Home Diagnosis/Conditions: Back surgery Patient is Homebound due to: Muscle weakness, Pain w/ambulation Homebound Status Due to the above stated illness, injury or surgical procedure (medical condition or diagnosis) and associated clinical findings, the patient is homebound because of his/her inability to leave home except with aid of a supportive device and/or person AND leaving the home requires a considerable and taxing effort or is medically contraindicated. Pt req the following assistanc: Walker Home Health Nursing Orders Home Health Services Order: Nursing Services, Utility Forester-Evaluate & Treat, Physical Therapy-Evaluate & Treat Certify Stmt I certify that this patient is under my care and that I, a nurse practitioner or a physician; a clinic office assistant working with me, had a face to face encounter that - meets the physician face to face encounter requirements with this patient as tamiko ed. KATINA MORAN DO Jan 27, 2022 04:51
[2022-01-27] MEDS: inSUlin (REGULAR) HUMAN 1 UNIT/0.01 ML (CHARGE PER UNIT) SC SCH (06:21)
[2022-01-27] MEDS: BETHANECHOL 25 MG (URECHOLINE) TAB PO SCH (06:36)
[2022-01-27] MEDS: CATHETER FLUSH 10 ML SYR IVP SCH (06:36)
[2022-01-27] MEDS: guaiFENesin/DM (ROBITUSSIN DM) 10 ML UDC PO SCH (06:36)
[2022-01-27 07:38] VITALS: BP 163/81
--- NOTE | 2022-01-27 08:03 | Occupational Ther Daily Note ---
OT Current Status-Daily Note Subjective Pt in bed, states he is ready to discharge today. ADL-Treatment Therapy Code Descriptions/Definitions Functional [place] Measure: 0=Not Assessed/NA 4=Minimal Assistance 1=Total Assistance 5=Supervision or Setup 2=Maximal Assistance 6=Modified [place] 3=Moderate Assistance 7=Complete IndependenceSCALE: Activities may be completed with or without assistive devices. 2-Iewmltljtc-fwnmhlv completes the activity by him/herself with no assistance f rom a helper. 5-Set-up or Clean-up Assistance-helper sets up or cleans up; patient completes activity. Standard assists only prior to or following the activity. 4-Supervision or Touching Assistance-helper provides verbal cues and/or touching/steadying and/or contact guard assistance as patient completes activity. Assistance may be provided throughout the activity or intermittently. 3-Partial/Moderate Assistance-helper does LESS THAN HALF the effort. Standard lifts, holds or supports trunk or limbs, but provides less than half the effort. 2-Substantial/Maximal Assistance-helper does MORE THAN HALF the effort. Standard lifts or holds trunk or limbs and provides more than half the effort. 1-Kpwegbtzp-fvfnma does ALL the effort. Patient does none of the effort to complete the activity. Or, the assistance of 2 or more helpers is required for the patient to complete the activity. If activity was not attempted, code reason: 7-Patient Refused. 9-Not Applicable-not attempted and the patient did not perform the activity before the current illness, exacerbation or injury. 10-Not Attempted due to Environmental Limitations-(lack of equipment, weather restraints, etc.). 88-Not Attempted due to Medical Conditions or Safety Concerns. Eating (QC): 6 Oral Hygiene (QC): 6 Shower/Bathe Self (QC): 5 Upper Body Dressing (QC): 5 Lower Body Dressing (QC): 5 On/Off Footwear: 3 (Mod A) Toileting Hygiene (QC): 4 (SBA) Other Treatment Pt in bed, transferred supine to EOB independently. SPT to w/c, SBA (no LLE prosthesis). Pt propelled w/c to bathroom, sat at sink for grooming tasks, then transferred to IA, SBA using GBs. Pt doffed clothes, completed shower, then donned clothes. OT set up pt for shower, covering dressings/IVs prior to task. Pt transferred from IA to w/c, SBA. Pt required mod A with footwear, assistance with LLE prosthesis, pt able to complete R footwear. Post tx, pt up in w/c, all needs met, call light in reach. Education OT Patient Education: Correct positioning, Energy conservation, Modified ADL techniques, Progress toward Goal/Update tx plan, Purpose of tx/functional activities Teaching Recipient: Patient Teaching Methods: Discussion Response to Teaching: Verbalize Understanding BIMS CAM BIMS Expression of Ideas and Wants: Without Difficulty Understanding Verbal Content: Understands Brief Interview/Mental Status: Yes IRF SINDHU BIMS: IRF SINDHU BIMS Response (Comments) Value Repitition of Three Words Three 3 Recalls Socks Yes, No Cue Required 2 Recalls Blue Yes, No Cue Required 2 Recalls Bed Yes, No Cue Required 2 Year Correct 3 Month Accurate Within 5 Days 2 Day Correct 1 Total 15 CAM Mental Status Change/Baseline: 0 Inattention: 0 Disorganized thinkin Altered level of consciousness: 0 OT Short Term Goals Short Term Goals Time Frame: Jan 24, 2022 Toileting hygiene: 4 Shower/bathe self: 4 Upper body dressin Lower body dressin Putting on/taking off footwear: 4 OT Jail Goals Cd Reactor Operator Head Goals Time Frame: Feb 07, 2022 Acute change in mental status: 0 Inattention: 0 Disorganized thinkin Altered level of consciousness: 0 Eating (QC): 6 (met) Oral Hygiene (QC): 6 (mt) Toileting Hygiene (QC): 6 (not met) Shower/Bathe Self (QC): 5 (met) Upper Body Dressing (QC): 6 (not met) Lower Body Dressing (QC): 6 (not met) On/Off Footwear (QC): 6 (not met) Additional Goals: 1-Demonstrate ADL Tasks, 2-Verbalize Understanding, 3- ImproveStrength/Jane 1=Demonstrate adherence to instructed precautions during ADL tasks. 2=Patient will verbalize/demonstrate understanding of assistive devices/modifications for ADL. 3=Patient will improve strength/tolerance for activity to enable patient to perform ADL's. OT Education/Plan Problem List/Assessment Assessment: Decreased Activ Tolerance, Decreased UE Strength, Impaired Funct Balance, Impaired I ADL's, Impaired Self-Care Skills Discharge Recommendations Plan/Recommendations: Continue POC Treatment Plan/Plan of Care Patient would benefit from OT for education, treatment and training to promote independence in ADL's, mobility, safety and/or upper extremity function for ADL's. Plan of Care: ADL Retraining, Functional Mobility, Group Exercise/Act as Ind, UE Funct Exercise/Act Treatment Duration: Feb 07, 2022 Frequency: At least 5 of 7 days/Wk (IRF) Estimated Hrs Per Day: 1.5 hours per day Agreement: Yes Rehab Potential: Good Time Start Time: 07:45 Stop Time: 08:40 DATE: Jan 27, 2022 Total Time Billed (hr/min): 55 Billed Treatment Time 1, ADL 4 DANIEL HERNANDEZ OT Jan 27, 2022 08:03
--- NOTE | 2022-01-27 09:07 | Therapy Team Discharge Summary ---
Therapy Discharge Summary Discharge Recommendations Date of Discharge Therapy D/C Recommendations: Occupational Therapy Home Care Physical Therapy Roll Left to Right (QC): 6 Sit to Lying (QC): 6 Lying to Sitting/Side of Bed(Q: 6 Sit to Stand (QC): 6 Chair/Onw-dp-Uumnz Xfer(QC): 6 Toilet Transfer (QC): 4 Car Transfer (QC): 6 Does the Patient Walk: Yes Mode of Locomotion: Walk Anticipated Mode of Locomotion: Walk Walk 10 feet (QC): 6 Walk 50 ft with 2 Turns(QC): 6 Walk 150 ft (QC): 6 Walking 10ft on uneven surface: 6 Distance: 100' Gait Assistive Device: FWW Does the Pt Use a Wheelchair: No Wheelchair Distance: 150' Wheel 50 ft with 2 turns (QC): 4 (SBA) Wheel 150 ft (QC): 4 (SBA) Type of Wheelchair: Manual #of Steps: 12 1 Step (curb) (QC): 6 4 Steps (QC): 5 12 Steps (QC): 5 Walking Assistive Device: Walker Balance Sitting Static: Normal Balance Sitting Dynamic: Normal Balance-Standing Static: Normal Picking up an Object (QC): 6 Occupational Therapy Pt admitted to ARU s/p L4-5 TLIF. At OF, pt was independent with ADLs and functional mobility, using cane and w/c as needed. Upon initial evaluation, pt was independent with eating and oral care, required min A with UE/LE dressing and toileting, and max A footwear. OT tx focused on increasing BUE Strength and activity tolerance, and increasing safety and independence with ADLs. Pt made good functional progress towards goals, but only attained goals for eating, oral care and showering. Pt still requires mod A with LLE prosthesis due to back precautions, family training performed and pt's mother feels comfortable assisting pt as needed. Pt discharging home with mother, discharge from OT. Decreased Activ Tolerance, Decreased UE Strength, Impaired Funct Balance, Impaired I ADL's, Impaired Self-Care Skills Eating (QC): 6 Oral Hygiene (QC): 6 Shower/Bathe Self (QC): 5 Upper Body Dressing (QC): 5 Lower Body Dressing (QC): 5 On/Off Footwear (QC): 3 (Mod A) Toileting Hygiene (QC): 4 (SBA) PT Nursing Home Goals Nursing Home Goals PT Nursing Home Goals Time Frame: Feb 07, 2022 Roll Left to Right (QC): 6 Sit to Lying (QC): 6 Lying-Sitting on Side/Bed(QC): 6 Sit to Stand (QC): 6 Chair/Fuj-kb-Slszr Xfer(QC): 6 Toilet/Commode Transfer (QC): 6 Car Transfer (QC): 6 Does the Patient Walk: No and Walking Goal IS indicated Walk 10 feet (QC): 6 Walk 10ft-Uneven Surface(QC): 6 Walk 50ft with 2 Turns (QC): 6 Walk 150 ft (QC): 6 Wheel 50 feet with 2 turns (QC: 6 Wheel 150 feet: 6 Type: Manual 1 Step (curb) (QC): 6 4 Steps (QC): 6 12 Steps (QC): 4 (SBA-CGA) Picking up an Object (QC): 6 (independent with human factors engineer) OT Nursing Home Goals Capacity Planning Analyst Goals Time Frame: Feb 07, 2022 Acute change in mental status: 0 Inattention: 0 Disorganized thinkin Altered level of consciousness: 0 Eating (QC): 6 (met) Oral Hygiene (QC): 6 (mt) Toileting Hygiene (QC): 6 (not met) Shower/Bathe Self (QC): 5 (met) Upper Body Dressing (QC): 6 (not met) Lower Body Dressing (QC): 6 (not met) On/Off Footwear (QC): 6 (not met) Additional Goals: 1-Demonstrate ADL Tasks, 2-Verbalize Understanding, 3-ImproveStrength/Jane 1=Demonstrate adherence to instructed precautions during ADL tasks. 2=Patient will verbalize/demonstrate understanding of assistive devices/modifications for ADL. 3=Patient will improve strength/tolerance for activity to enable patient to perform ADL's. DANIEL HERNANDEZ OT Jan 27, 2022 09:07
[2022-01-27] MEDS: DOCUSATE SODIUM 100 MG (COLACE) CAP PO SCH (09:47)
[2022-01-27] MEDS: TAMSULOSIN 0.4 MG (FLOMAX) CAP PO SCH (09:47)
[2022-01-27] MEDS: LACTOBACILLUS ACIDOPHILUS (PROBIOTIC) CAPSULE PO SCH (09:47)
[2022-01-27] MEDS: SODIUM BICARBONATE 650 MG TABLET PO SCH (09:48)
[2022-01-27] MEDS: GABAPENTIN 300 MG (NEURONTIN) CAP PO SCH (09:48)
[2022-01-27] MEDS: PANTOPRAZOLE 40 MG (PROTONIX) TAB PO SCH (09:48)
[2022-01-27] MEDS: SENNA W/DOCUSATE (SENOKOT S) TABLET PO SCH (09:48)
[2022-01-27] MEDS: GEMFIBROZIL 600 MG (LOPID) TAB PO SCH (09:48)
[2022-01-27] MEDS: IRON SUCROSE 200 MG/10 ML (VENOFER) VIAL IV SCH (09:48)
[2022-01-27] MEDS: IRON POLYSAC 150 MG CAP (NIFEREX) PO SCH (09:48)
[2022-01-27] MEDS: ALLOPURINOL 100 MG (ZYLOPRIM) TAB PO SCH (09:48)
[2022-01-27] MEDS: MONTELUKAST 10 MG (SINGULAIR) TAB PO SCH (09:48)
[2022-01-27] MEDS: ASCORBIC ACID (VIT C) 500 MG TABLET PO SCH (09:48)
[2022-01-27] MEDS: ICOSAPENT ETHYL 1 GM PO SCH (09:53)
[2022-01-27] MEDS: polyethylene glycoL POWDER 17 GM (MIRALAX) PACK PO SCH (09:54)
--- NOTE | 2022-01-27 11:55 | Progress Note ---
PAU PATEL 01/27/22 1155: Progress Note Gerardo Vaca (Eddie) is a 51yo M admitted to ARU room 229 on 01/17/22, with an admitting diagnosis of spinal fusion, TILF/PSIF L4-5, on 01/15/22 at [facility]. He has a h/o diabetic neuropathy, and amputation (BKA) of left leg as well as DM, CKD, HTN and obesity. His treatment goals in rehab were to regain function with assistive devices and accommodating the left BKA and choices of assistive devices in order to prevent falls and increase stamina and increase independence in ADLs in order to return home with mother. He was started with physical therapy to work on activity tolerance, functional strength, gait, safety, balance, bed mobility, ROM and transfers for 1.5 hours per day 5 of 7 days per week. He also was started with occupational therapy for decreased activity tolerance, decreased upper extremity strength, impaired functional balance, impaired ADL's and impaired self-care skills for 1.5 hours per day 5 of 7 days per week. Patient was evaluated for speech therapy but was found not to need this service. At evaluation he was around a 3, needing partial assistance with the helper doing less than half the effort. Upon discharge he was averaging a 6, independent without assistance. OT noted the pt was independent with ADLs and functional mobility, using cane and w/c as needed. Patient was still requiring moderate assistance with LLE prosthesis due to back precautions. OT performed family training and the patient's mother reportedly felt comfortable assisting as needed. His stay was complicated by urinary retention and JONATHAN. He was seen by Dr. Camacho, business librarian, and Dr. Contreras, urologist on 01/21. They recommended saldana placement and match intake with output as well as avoid NSAIDs. He was also started on Flomax and Urecholine. He also had a wound on his anterior right tibia for which Dr. Nicole in wound care was consulted. Plan was to cleanse with Vashe, apply medihoney and dressing changes daily. He will be discharged home with his mother. ANAHI MORAN DO 01/28/22 7747: Supervisory-Addendum Brief Verification & Attestation Participated in pt care: history, MDM, physical Personally performed: exam, history, MDM, supervision of care Care discussed with: Medical Student Procedures: n/a Results interpretation: Verified all documentation Verification and Attestation of Medical Student E/M Service A medical student performed and documented this service in my presence. I reviewed and verified all information documented by the medical student and made modifications to such information, when appropriate. I personally performed the physical exam and medical decision making. Anahi Moran, Jan 28, 2022,05:07 PAU PATEL Jan 27, 2022 11:55 ANAHI MORAN DO Jan 28, 2022 05:07
[2022-01-27 12:00] VITALS: BP 163/81
--- NOTE | 2022-01-27 13:21 | Therapy Team Discharge Summary ---
Therapy Discharge Summary Discharge Recommendations Date of Discharge Therapy D/C Recommendations: Occupational Therapy Home Care Physical Therapy Patient came to rehab S/P L4,L5, TLIF. Upon evaluation patient performed rolling with SBA, supine to sit SBA, sit to supine min assist, sit <-> stand mod assist, transfers CGA, car transfer mod assist, ambulated 100' with a rolling walker with CGA (including 50' with at least 2 turns of 90 degrees and 10' over an uneven surface), propelled a manual WC 150' with SBA, went up and down 1 step using a rolling walker with CGA, and picked up an object from the floor using a reading efficiency course director with CGA/SBA. Patient has been performing bed mobility and transfer training, balance and endurance training, functional strengthening, stair training, gait training, and education. Patient has made good progress and has met all of his intermediate card tender goals except for stairs. Now, patient performs rolling and supine <-> sit with independence, sit <-> stand and transfers with independence, car transfer independent, ambulates 150' with a rolling walker with independence (including 50' with at least 2 turns of 90 degrees and 10' over an uneven surface), went up and down 12 steps using 2 handrails with SBA, and picked up an object from the floor using a reading efficiency course director with independence. Patient is being discharged from this facility today and will be discharged from PT at this time. Roll Left to Right (QC): 6 Sit to Lying (QC): 6 Lying to Sitting/Side of Bed(Q: 6 Sit to Stand (QC): 6 Chair/Eyz-hv-Mtbwi Xfer(QC): 6 Toilet Transfer (QC): 4 Car Transfer (QC): 6 Does the Patient Walk: Yes Mode of Locomotion: Walk Anticipated Mode of Locomotion: Walk Walk 10 feet (QC): 6 Walk 50 ft with 2 Turns(QC): 6 Walk 150 ft (QC): 6 Walking 10ft on uneven surface: 6 Distance: 100' Gait Assistive Device: FWW Does the Pt Use a Wheelchair: No Wheelchair Distance: 150' Wheel 50 ft with 2 turns (QC): 4 (SBA) Wheel 150 ft (QC): 4 (SBA) Type of Wheelchair: Manual #of Steps: 12 1 Step (curb) (QC): 6 4 Steps (QC): 5 12 Steps (QC): 5 Walking Assistive Device: Walker Balance Sitting Static: Normal Balance Sitting Dynamic: Normal Balance-Standing Static: Normal Picking up an Object (QC): 6 Occupational Therapy Decreased Activ Tolerance, Decreased UE Strength, Impaired Funct Balance, I mpaired I ADL's, Impaired Self-Care Skills Eating (QC): 6 Oral Hygiene (QC): 6 Shower/Bathe Self (QC): 5 Upper Body Dressing (QC): 5 Lower Body Dressing (QC): 5 On/Off Footwear (QC): 3 (Mod A) Toileting Hygiene (QC): 4 (SBA) PT Half-Way Goals Winding Inspector And Tester Goals PT Half-Way Goals Time Frame: Feb 07, 2022 Roll Left to Right (QC): 6 Sit to Lying (QC): 6 Lying-Sitting on Side/Bed(QC): 6 Sit to Stand (QC): 6 Chair/Xwl-fw-Mofvm Xfer(QC): 6 Toilet/Commode Transfer (QC): 6 Car Transfer (QC): 6 Does the Patient Walk: No and Walking Goal IS indicated Walk 10 feet (QC): 6 Walk 10ft-Uneven Surface(QC): 6 Walk 50ft with 2 Turns (QC): 6 Walk 150 ft (QC): 6 Wheel 50 feet with 2 turns (QC: 6 Wheel 150 feet: 6 Type: Manual 1 Step (curb) (QC): 6 4 Steps (QC): 6 12 Steps (QC): 4 (SBA-CGA) Picking up an Object (QC): 6 (independent with reading efficiency course director) OT Half-Way Goals Winding Inspector And Tester Goals Time Frame: Feb 07, 2022 Acute change in mental status: 0 Inattention: 0 Disorganized thinkin Altered level of consciousness: 0 Eating (QC): 6 (met) Oral Hygiene (QC): 6 (mt) Toileting Hygiene (QC): 6 (not met) Shower/Bathe Self (QC): 5 (met) Upper Body Dressing (QC): 6 (not met) Lower Body Dressing (QC): 6 (not met) On/Off Footwear (QC): 6 (not met) Additional Goals: 1-Demonstrate ADL Tasks, 2-Verbalize Understanding, 3- ImproveStrength/Jane 1=Demonstrate adherence to instructed precautions during ADL tasks. 2=Patient will verbalize/demonstrate understanding of assistive devices/modifications for ADL. 3=Patient will improve strength/tolerance for activity to enable patient to perform ADL's. JOSTIN GUTIÉRREZ PT Jan 27, 2022 13:21
== END 2022-01-27 11:30 | disposition home health service (06) | DRG 560 ==
PROVIDERS: ADMIT Internal Medicine; ATTEND Internal Medicine
DX: Z47.89 Encounter for other orthopedic aftercare (principal); E87.20 Acidosis, unspecified; N18.4 Chronic kidney disease, stage 4 (severe); N17.9 Acute kidney failure, unspecified; L97.819 Non-pressure chronic ulcer of other part of right lower leg with unspecified severity; E11.40 Type 2 diabetes mellitus with diabetic neuropathy, unspecified; E11.319 Type 2 diabetes mellitus with unspecified diabetic retinopathy without macular edema; I12.9 Hypertensive chronic kidney disease with stage 1 through stage 4 chronic kidney disease, or unspecified chronic kidney disease; E11.22 Type 2 diabetes mellitus with diabetic chronic kidney disease; R33.9 Retention of urine, unspecified; E78.00 Pure hypercholesterolemia, unspecified; M10.9 Gout, unspecified; E66.9 Obesity, unspecified; L40.50 Arthropathic psoriasis, unspecified; D50.9 Iron deficiency anemia, unspecified; K59.09 Other constipation; Z68.38 Body mass index [BMI] 38.0-38.9, adult; Z79.4 Long term (current) use of insulin
CPT/HCPCS: 36415; 36600; 80053; 80069; 81000; 82607; 82805; 82947; 83540; 84550; 85025

== ENCOUNTER 2022-08-13 12:43 | Outpatient (CLI) | payer MEDICARE, MEDICAID ==
[~2022-08-13 12:43] MED LIST changes: +ASCO-262 PO; +BETH25TA2 PO; +CYCL10TA25 PO; +DOCU-143 PO; +FOSI40TA65 PO; +FURO40TA4 PO; +GABA300C PO; +GUAI-367 PO; +HYDR200T46 PO; +ICOS1CAP PO; +INSU500I SC; +IRON150C3 PO; +L.AC1CAP6 PO; +NF-SODBICA PO; +OMEP40CA6 PO; +PROM25TA14 PO; +TMSL.4C PO; +TR1C15 TOP
[2022-08-13 12:55] VITALS: BP 132/64
[2022-08-13] MEDS ORDERED: NS IV 1000 ML 1,500 ML IV ONE (13:00)
== END 2022-08-13 14:59 | disposition home or self-care (01) ==
LOC: SDC 12:43
PROVIDERS: ATTEND Internal Medicine Hematology & Oncology
DX: D47.2 Monoclonal gammopathy (principal)
CPT/HCPCS: 96360

== ENCOUNTER 2022-12-07 20:08 | Emergency (ER) | payer MEDICARE, MEDICAID ==
[~2022-12-07] VITALS: Ht 175.3 cm; Wt 120.0 kg
[~2022-12-07 20:08] MED LIST changes: -HYDR200T46 PO; +HYDR200T71 PO
[2022-12-07] MEDS ORDERED: ONDANSETRON INJECTION 4 MG/2 ML (SDV) IVP ONE ×2 (20:30→21:15)
[2022-12-07] MEDS ORDERED: LACTATED RINGERS 1,000 ML 1,000 ML IV ONE (20:30)
[2022-12-07 20:35] LABS: BASOPHILS % (AUTO) 0 % (0-10); EOSINOPHILS # (AUTO) 0.1 10^3/uL (0.0-0.3); EOSINOPHILS % (AUTO) 1 % (0-10); HEMATOCRIT 35 % (40-54); HEMOGLOBIN 11.1 g/dL (13.3-17.7); LYMPHOCYTES # (AUTO) 0.4 10^3/uL (1.0-4.0); LYMPHOCYTES % (AUTO) 3 % (12-44); MEAN CORPUSCULAR HEMOGLOBIN 32 pg (25-34); MEAN CORPUSCULAR HGB CONC 31 g/dL (32-36); MEAN CORPUSCULAR VOLUME 102 fL (80-99); MEAN PLATELET VOLUME 9.9 fL (9.0-12.2); MONOCYTES # (AUTO) 0.8 10^3/uL (0.0-1.0); MONOCYTES % (AUTO) 7 % (0-12); NEUTROPHILS # (AUTO) 9.9 10^3/uL (1.8-7.8); NEUTROPHILS % (AUTO) 89 % (42-75); PLATELET COUNT 172 10^3/uL (130-400); WHITE BLOOD COUNT 11.1 10^3/uL (4.3-11.0)
--- NOTE | 2022-12-07 20:40 | Diagnostic Imaging Report ---
EXAM: CHEST 1 VIEW, AP/PA ONLY INDICATION: Chest pain. Vomiting. COMPARISON: 11/09/2021. FINDINGS: Normal heart size and central pulmonary vascularity. Lungs are clear. No pleural effusion or pneumothorax. No acute osseous lesions. No significant change. IMPRESSION: No acute cardiopulmonary findings. Dictated by: Dictated on workstation # [id number]
--- NOTE | 2022-12-07 20:42 | ED GI ---
General Chief Complaint: Abdominal/GI Problems Stated Complaint: VOMITING Nursing Triage Note: PT TO RM 9 W C/O VOMITING AND DIARRHEA SX THIS AM. CURRENTLY RECEIVING CANCER TX AT , A&OX4, DENIES PAIN. Source of Information: Patient History of Present Illness Date Seen by Provider: Dec 07, 2022 Time Seen by Provider: 20:15 Initial Comments PT ARRIVES VIA POV FROM HOME PT C/O NAUSEA/VOMITING/DIARRHEA SINCE THIS AM HE HAS VOMITED ABOUT 6 TIMES TODAY--TOOK 1 ZOFRAN THIS MORNING WITHOUT RELIEF. PT STATES IT NORMALLY WORKS WELL FOR HIM HE HAS HAD DIARRHEA ABOUT 5-6 TIMES. TOOK OTC IMMODIUM EARLIER AND HAS NOT HAD A BM SINCE THEN NO ABDOMINAL PAIN NO KNOWN FEVER, BUT HAS HAD CHILLS ALL DAY NO URINARY SYMPTOMS, BUT HAS HAD DECREASED URINE OUTPUT TODAY HE HAS ONLY HAD A SMALL AMOUNT OF WATER TODAY, AND THREW IT UP. 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 HE CURRENTLY IS BEING TREATED AT , WITH WEEKLY TREATMENTS FOR THE LAST 4 WEEKS. HIS NEXT TREATMENT ( 5TH TREATMENT) IS SCHEDULED FOR 0845 IN THE MORNING ( THURSDAY MORNING ). HE HAD BEEN WITH [facility] AND WAS ON A DIFFERENT TREATMENT A FEW MONTHS AGO. HE HAS SINCE SWITCHED HOSPITAL SYSTEMS. ADDITIONALLY, PT HAS OTHER EXTENSIVE MEDICAL PROBLEMS INCLUDING DIABETES, HTN, CHRONIC KIDNEY DISEASE ( NO DIALYSIS), NEUROPATHY, CHRONIC BACK PAIN, FREQUENT PANCREATITIS. HE HAS HAD PRIOR LEFT BKA DUE TO INFECTION PCP: [facility] IN [place] Allergies and Home Medications Allergies Coded Allergies: bacitracin (Verified Allergy, Mild, Rash, 01/17/22) hydrocodone (Verified Allergy, Mild, UNKNOWN, 01/20/22) neomycin (Verified Allergy, Mild, Rash, 01/17/22) sulfamethoxazole (Verified Allergy, Mild, Rash, 01/17/22) trimethoprim (Verified Allergy, Mild, Rash, 01/17/22) Sulfa (Sulfonamide Antibiotics) (Verified Allergy, Unknown, 11/09/21) Uncoded Allergies: PAVKM-TOPAH-LIDROFU-PRAMOXINE (Allergy, Mild, RASH, 01/20/22) Patient Home Medication List Home Medication List Reviewed: Yes Allopurinol (Allopurinol) 100 Mg Tablet, 100 MG PO DAILY, (Reported) Entered as Reported by: TODD OSBORN on 09/11/18 1616 Ascorbate Calcium (Vitamin C) 500 Mg Tablet, 500 MG PO DAILY, (Reported) Entered as Reported by: SMITH MÁRQUEZ on 01/17/22943 Atorvastatin Calcium (Atorvastatin Calcium) 20 Mg Tablet, 20 MG PO DAILY, (Reported) Entered as Reported by: TODD OSBORN on 09/11/18 161 Bethanechol Chloride (Bethanechol Chloride) 25 Mg Tablet, 25 MG PO ACHS Prescribed by: KATINA MORAN on 01/27/22 0448 Carvedilol (Carvedilol) 25 Mg Tablet, 25 MG PO BID WITH MEALS, (Reported) Entered as Reported by: TODD OSBORN on 09/11/18 161 Cyclobenzaprine HCl (Cyclobenzaprine HCl) 10 Mg Tablet, 10 MG PO HS, (Reported) Entered as Reported by: SMITH MÁRQUEZ on 01/17/22943 Docusate Sodium (Colace) 100 Mg Capsule, 100 MG PO BID PRN for CONSTIPATION-1ST LINE, (Reported) Entered as Reported by: SMITH MÁRQUEZ on 01/17/22943 Fosinopril Sodium (Fosinopril Sodium) 40 Mg Tablet, 40 MG PO DAILY, (Reported) Entered as Reported by: SMITH MÁRQUEZ on 01/17/22943 Furosemide (Furosemide) 40 Mg Tablet, 20 MG PO BID, (Reported) Entered as Reported by: SMITH MÁRQUEZ on 01/17/22943 Gabapentin (Neurontin) 300 Mg Capsule, 300 MG PO TID, (Reported) Entered as Reported by: SMITH MÁRQUEZ on 01/17/22943 Gemfibrozil (Gemfibrozil) 600 Mg Tablet, 600 MG PO BID, (Reported) Entered as Reported by: SMITH MÁRQUEZ on 01/17/22943 Guaifenesin/Dextromethorphan (Mucinex Dm ER 600-30 mg Tablet) 600 Mg-30 Mg Tab.er.12h, 1 EACH PO Q12H, (Reported) Entered as Reported by: SMITH MÁRQUEZ on 01/17/22943 Hydroxychloroquine Sulfate (Hydroxychloroquine Sulfate) 200 Mg Tablet, 200 MG PO BID, (Reported) Entered as Reported by: SMITH MÁRQUEZ on 01/17/22943 Icosapent Ethyl (Vascepa) 1 Gram Capsule, 2 GM PO BID WITH MEALS, (Reported) Entered as Reported by: SMITH MÁRQUEZ on 01/17/22943 Insulin Regular, Human (Humulin R U-500 Kwikpen) 500/Ml (3) Insuln.pen, UNITS SC ACHS, (Reported) Entered as Reported by: SMITH MÁRQUEZ on 01/17/22943 Iron Polysaccharide Complex (Ferrex 150) 150 Mg Iron Capsule, 150 MG PO BID, (Reported) Entered as Reported by: SMITH MÁRQUEZ on 01/17/22943 L.acidoph & Paracasei,B.lactis (Probiotic) 10 Billion Cell Capsule, 1 EACH PO DAILY, (Reported) Entered as Reported by: SMITH MÁRQUEZ on 01/17/22943 Montelukast Sodium (Montelukast Sodium) 10 Mg Tablet, 10 MG PO DAILY, (Reported) Entered as Reported by: TODD OSBORN on 09/11/18 161 Omeprazole (Omeprazole) 40 Mg Capsule.dr, 40 MG PO DAILY, (Reported) Entered as Reported by: SMITH MÁRQUEZ on 01/17/22943 Ondansetron (Ondansetron Odt) 8 Mg Tab.rapdis, 8 MG PO Q6H Prescribed by: SUDHA LOCKWOOD on 12/07/22 2313 Oxycodone Hcl (Oxyir Tablet) 5 Mg Tab, 5 MG PO Q8H PRN for PAIN-SEVERE (8-10) Prescribed by: KATINA MORAN on 01/27/22448 Promethazine HCl (Promethazine Tablet) 25 Mg Tablet, 25 MG PO Q6H PRN for NAUSEA/VOMITING-2ND LINE, (Reported) Entered as Reported by: SMITH MÁRQUEZ on 01/17/22943 Sodium Bicarbonate (Sodium Bicarbonate) 650 Mg Tablet, 1,300 MG PO BID Prescribed by: KATINA MORAN on 01/27/22447 Tamsulosin HCl (Flomax) 0.4 Mg Cap, 0.4 MG PO BID Prescribed by: KATINA MORAN on 01/27/22447 Triamcinolone Acet (Triamcinolone Acetonide 0.1% Cream) 0.1 % Cr, 1 APPLIC TOP BID PRN for SKIN CONDITION, (Reported) Entered as Reported by: SMITH MÁRQUEZ on 01/17/22 0944 Review of Systems Review of Systems Constitutional: see HPI, chills EENTM: No Symptoms Reported Respiratory: No Symptoms Reported; Denies Cough, Denies Shortness of Air Cardiovascular: No Symptoms Reported Gastrointestinal: See HPI; Denies Abdominal Pain; Diarrhea, Nausea, Vomiting Genitourinary: No Symptoms Reported Musculoskeletal: no symptoms reported Skin: no symptoms reported Psychiatric/Neurological: No Symptoms Reported Endocrine: No Symptoms Reported Hematologic/Lymphatic: See HPI Past Xndiqvv-Znfsyy-Tqonyw Hx Patient Social History Tobacco Use?: No Use of E-Cig and/or Vaping dev: No Substance use?: No Alcohol Use?: No Seasonal Allergies Seasonal Allergies: Yes Past Medical History Surgeries: Yes (left wjzan-syl-vlyq amputation ) Adenoidectomy, Amputation, Eye Surgery, Gallbladder, Orthopedic Respiratory: No Cardiac: Yes High Cholesterol, Hypertension Neurological: Yes (NEUROPATHY HANDS AND FEET) Neuropathy Genitourinary: Yes (NO DIALYSIS) Renal Failure Gastrointestinal: Yes Pancreatitis Musculoskeletal: Yes (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; MULTIPLE ORTHO SURGERIES) Amputee, Degenerate Disk Disease, Arthritis, Chronic Back Pain, Gout Endocrine: Yes (OBESITY) Diabetes, Insulin dep, Diabetes, Non-Insulin dep HEENT: Yes (Diabetic retinopathy WITH LASER SURGERY; CATARACT SURGERY) Cataract Cancer: Yes Did You Recieve Any Treatments: Yes What Type of Treatment Did You: Chemotherapy MULTIPLE MYELOMA AND LIGHT CHAIN DEPOSITION DISEASE DX 11/03/2022 Psychosocial: No Integumentary: Yes (Psoriatic arthritis) Blood Disorders: Yes (MULTIPLE MYELOMA;LIGHT CHAIN DEPOSITION DISEASE; SPECIFIC ANTIBODY DISORDER) Adverse Reaction/Blood Tranf: No Family Medical History No Pertinent Family Hx SOCIAL HISTORY: -NO SMOKING -NO ETOH -NO DRUGS PAST SURGICAL HISTORY: -ADENOIDECTOMY AGE 3 -SLIPPED CAPITAL FEMORAL EPITHESIS WITH ORIF AGE 12 -HARDWARE REMOVAL AGE 13 -FOOT FRACTURE ORIF AGE 39 -LEFT TOTAL HIP REPLACEMENT 04/28/2016 -PARTIAL TOE AMPUTATION 09/03/2016; REMAINDER OF TOE REMOVED 10/01/2016 -ANOTHER TOE REMOVED 10/05/2016 -REMAINDER OF TOES REMOVED 10/07/2016 -PARTIAL FOOT AMPUTATION 10/10/2016 -LEFT BELOW KNEE AMPUTATION 10/12/2016--FOR INFECTION/OSTEOMYELITIS -REVISION OF LEFT BKA STUMP 11/19/2016 -CHOLECYSTECTOMY 11/24/2016 -LEFT EYE LASER SURGERY 02/10/2017, 05/08/2017 -RIGHT EYE LASER SURGERY 02/17/2017, 04/13/2017 -MRI OF LEFT BKA STUMP 02/17/2017 -IV IG THERAPY 02/19/2017 -REPEAT REVISION OF LEFT BKA STUMP 02/22/2017 -CATARACT SURGERY 03/22/19 AND 04/05/19 -CARPAL / CUBITAL TUNNEL SURGERY LEFT HAND AND ELBOW 04/14/2019 -CARPAL TUNNEL RIGHT HAND 04/28/2019 -LUMBAR FUSION 08/15/2021 -BONE MARROW BIOPSY 03/10/2022 -LEFT RENAL BIOPSY 10/06/22 WITH BLEEDING INTO KIDNEY Physical Exam Vital Signs Vital Signs - First Documented 12/07/22 20:13 Temp 37.3 Pulse 117 Resp 20 B/P (MAP) 134/69 (90) Pulse Ox 98 O2 Delivery Room Air Capillary Refill : Less Than 3 Seconds Height/Weight/BMI Height: 5'9.00" Weight: 252lbs. oz. 114.311387lb; 39.00 BMI Method:Stated General Appearance: WD/WN, no apparent distress HEENT: PERRL/EOMI, other (RIGHT EYE WITH SUBCONJUNCTIVAL HEMORRHAGE TO LATERAL ASPECT) Neck: normal inspection Respiratory: normal breath sounds, no respiratory distress, no accessory muscle use Cardiovascular: regular rate, rhythm, no murmur Gastrointestinal: normal bowel sounds, non tender, soft Extremities: other (LEFT BKA; RIGHT LEG APPEARS NORMAL) Back: no CVA tenderness Neurologic/Psychiatric: program management analyst II-XII nml as tested, no motor/sensory deficits (WITH HX OF NEUROPATHY IN HANDS AND FEET), alert, normal mood/affect, oriented x 3 Skin: normal color, warm/dry; No rash Focused Exam Sepsis Stage: Ruled Out Possible Source: GI Tract/Intra-Abdominal Lactate Level 12/07/22 20:17: Lactic Acid Level 0.88 Time of Focused Exam: 23:45 Respiratory: Normal Breath Sounds, No Accessory Muscle Use, No Respiratory Distress Cardiovascular: Regular Rate, Rhythm, No Murmur Capillary Refill: Less Than 3 Seconds Skin: normal color, warm/dry Lactic Acid Level Laboratory Tests Test 12/07/22 20:17 Lactic Acid Level 0.88 MMOL/L (0.50-2.00) Within 3hrs of presentation: Admin fluids, Admin ABX, Blood cultures prior to ABX's, Focus exam, Lactate level Progress/Results/Core Measures Results/Orders Lab Results Laboratory Tests Test 12/07/22 20:14 12/07/22 20:17 12/07/22 22:44 Range/Units White Blood Count 11.1 H 4.3-11.0 10^3/uL Red Blood Count 3.47 L 4.30-5.52 10^6/uL Hemoglobin 11.1 L 13.3-17.7 g/dL Hematocrit 35 L 40-54 % Mean Corpuscular Volume 102 H 80-99 fL Mean Corpuscular Hemoglobin 32 25-34 pg Mean Corpuscular Hemoglobin Concent 31 L 32-36 g/dL Red Cell Distribution Width 15.8 H 10.0-14.5 % Platelet Count 172 130-400 10^3/uL Mean Platelet Volume 9.9 9.0-12.2 fL Immature Granulocyte % (Auto) 0 % Neutrophils (%) (Auto) 89 H 42-75 % Lymphocytes (%) (Auto) 3 L 12-44 % Monocytes (%) (Auto) 7 0-12 % Eosinophils (%) (Auto) 1 0-10 % Basophils (%) (Auto) 0 0-10 % Neutrophils # (Auto) 9.9 H 1.8-7.8 10^3/uL Lymphocytes # (Auto) 0.4 L 1.0-4.0 10^3/uL Monocytes # (Auto) 0.8 0.0-1.0 10^3/uL Eosinophils # (Auto) 0.1 0.0-0.3 10^3/uL Basophils # (Auto) 0.0 0.0-0.1 10^3/uL Immature Granulocyte # (Auto) 0.0 0.0-0.1 10^3/uL Neutrophils % (Manual) 90 % Lymphocytes % (Manual) 5 % Monocytes % (Manual) 5 % Platelet Estimate ADEQUATE Poikilocytosis SLIGHT Sodium Level 138 135-145 MMOL/L Potassium Level 4.5 3.6-5.0 MMOL/L Chloride Level 106 98-107 MMOL/L Carbon Dioxide Level 17 L 21-32 MMOL/L Anion Gap 15 H 5-14 MMOL/L Blood Urea Nitrogen 52 H 7-18 MG/DL Creatinine 2.20 H 0.60-1.30 MG/DL Estimat Glomerular Filtration Rate 35 BUN/Creatinine Ratio 24 Glucose Level 210 H 70-105 MG/DL Calcium Level 9.1 8.5-10.1 MG/DL Corrected Calcium 8.9 8.5-10.1 MG/DL Magnesium Level 1.8 1.6-2.4 MG/DL Total Bilirubin 0.4 0.1-1.0 MG/DL Aspartate Amino Transf (AST/SGOT) 10 5-34 U/L Alanine Aminotransferase (ALT/SGPT) 10 0-55 U/L Alkaline Phosphatase 124 40-136 U/L Troponin I < 0.028 <0.028 NG/ML Total Protein 7.0 6.4-8.2 GM/DL Albumin 4.2 3.2-4.5 GM/DL Amylase Level 42 25-125 U/L Lipase 10 8-78 U/L Prothrombin Time 14.6 12.2-14.7 SEC INR Comment 1.1 0.8-1.4 Activated Partial Thromboplast Time 30 24-35 SEC Lactic Acid Level 0.88 0.50-2.00 MMOL/L Influenza Type A (RT-PCR) Not Detected Not Detecte Influenza Type B (RT-PCR) Not Detected Not Detecte SARS-CoV-2 RNA (RT-PCR) Not Detected Not Detecte Urine Color YELLOW Urine Clarity CLEAR Urine pH 5.5 5-9 Urine Specific [place] 1.025 H 1.016-1.022 Urine Protein 3+ H NEGATIVE Urine Glucose (UA) NEGATIVE NEGATIVE Urine Ketones TRACE H NEGATIVE Urine Nitrite NEGATIVE NEGATIVE Urine Bilirubin NEGATIVE NEGATIVE Urine Urobilinogen 0.2 < = 1.0 MG/DL Urine Leukocyte Esterase NEGATIVE NEGATIVE Urine RBC (Auto) NEGATIVE NEGATIVE Urine RBC 0-2 /HPF Urine WBC NONE /HPF Urine Squamous Epithelial Cells NONE /HPF Urine Crystals PRESENT H /LPF Urine Amorphous Sediment RARE NAVI URATES H /LPF Urine Bacteria NEGATIVE /HPF Urine Casts NONE /LPF Urine Mucus SMALL H /LPF Urine Culture Indicated NO My Orders Orders - SUDHA LOCKWOOD DO Ed Iv/Invasive Line Start (12/07/22 20:17) Ekg Tracing (12/07/22 20:17) Monitor-Rhythm Ecg Trace Only (12/07/22 20:17) Chest 1 View, Ap/Pa Only (12/07/22 20:17) Amylase (12/07/22 20:17) Cbc And Automated Diff (12/07/22 20:17) Comprehensive Metabolic Panel (12/07/22 20:17) Lipase (12/07/22 20:17) Magnesium (12/07/22 20:17) Troponin I [place] (12/07/22 20:17) Covid 19 Inhouse Test (12/07/22 20:17) Ed Iv/Invasive Line Start (12/07/22 20:17) Lactated Ringers 1,000 Ml (Lactated Ring (12/07/22 20:30) Ondansetron Injection (Ondansetron Inj (12/07/22 20:30) Influenza A And B By Pcr (12/07/22 20:17) Blood Culture (12/07/22 20:31) Sputum Culture (12/07/22 20:31) Urinalysis (12/07/22 20:31) Urine Culture (12/07/22 20:31) Protime With Inr (12/07/22 20:31) Partial Thromboplastin Time (12/07/22 20:31) Acetaminophen Tablet (Acetaminophen Ta (12/07/22 20:45) Ed Iv/Invasive Line Start (12/07/22 20:31) Vital Signs Adult Sepsis Patie Q15M (12/07/22 20:31) O2 (12/07/22 20:31) Remove Rings In Anticipation O (12/07/22 20:31) Lactic Acid Analyzer (12/07/22 20:31) Ns Iv 1000 Ml (Ns Iv 1000 Ml) (12/07/22 20:45) Cefepime Injection (Cefepime Injection) (12/07/22 20:45) Manual Differential (12/07/22 20:14) Ct Chest/Abdomen/Pelvis Wo (12/07/22 20:47) Ondansetron Injection (Ondansetron Inj (12/07/22 21:15) Medications Given in ED Current Medications Medications Dose Ordered Sig/Ynes Route Start Time Stop Time Status Last Admin Dose Admin Acetaminophen 1,000 mg ONCE PRN PO 12/07/22 20:45 12/07/22 20:45 DC 12/07/22 20:39 1,000 MG Cefepime HCl 1000 mg/Sodium Chloride 50 ml @ 100 mls/hr ONCE ONCE IV 12/07/22 20:45 12/07/22 21:14 DC 12/07/22 21:18 100 MLS/HR Lactated Ringer's 1,000 ml @ 0 mls/hr Q0M ONCE IV 12/07/22 20:30 12/07/22 20:31 DC 12/07/22 20:35 0 MLS/HR Ondansetron HCl 4 mg ONCE ONCE IVP 12/07/22 20:30 12/07/22 20:31 DC 12/07/22 20:35 4 MG Ondansetron HCl 4 mg ONCE ONCE IVP 12/07/22 21:15 12/07/22 21:16 DC 12/07/22 21:16 4 MG Vital Signs/I&O 12/07/22 12/07/22 12/07/22 20:13 20:39 23:35 Temp 37.3 37.3 Pulse 117 108 Resp 20 19 B/P (MAP) 134/69 (90) 177/90 Pulse Ox 98 97 O2 Delivery Room Air Room Air Blood Pressure Mean: 90 Progress Progress Note : Progress Note VITALS ON ARRIVAL: TEMP 37.3=99.2, HR 117, RR 20, BP 134/69, O2 SAT 98% ON ROOM AIR SEPSIS PROTOCOL INITIATED GIVEN: -IV FLUIDS -ZOFRAN -CEFEPIME -TYLENOL LABS: -CBC WITH WBC 11.1, HGB 11.1, PLT 172,000 -CMP WITH NA 138, K 4.5, BUN 52, CR 2.20, GLU 210, LFT'S NORMAL---PT STATES HIS CREATININE LAST THURSDAY WAS 2.8. -AMYLASE/LIPASE NORMAL -MG NORMAL -TROPONIN NEGATIVE -LACTIC ACID 0.88 -UA 3+ PROTEIN, NO GLUCOSE, TRACE KETONES -COVID/FLU NEGATIVE BLOOD CULTURES PENDING EKG NORMAL CXR UNREMARKABLE CT SHOWS NO ACUTE PROCESS, BUT WITH POSSIBLE MASS TO LEFT KIDNEY DISCUSSED CT FINDINGS, WITH POSSIBLE MASS TO LEFT KIDNEY. PT STATES HE HAD A LEFT RENAL BIOPSY IN SEPTEMBER AND IT BLED INTO THE CAPSULE OF THE KIDNEY-FOR CHRONIC KIDNEY DISEASE, NOT FOR A MASS--NO REPORT OF A MASS AT THAT TIME. NAUSEA RESOLVED WITH ZOFRAN PT TOLERATING ICE CHIPS NO VOMITING OR DIARRHEA DURING ER STAY PT STATES HE FEELS SIGNIFICANTLY BETTER AT TIME OF DISMISSAL TEMP AND HR DOWN AT DISMISSAL VITALS STABLE. DISCUSSED TEST RESULTS, SYMPTOMATIC TREATMENT, DIET, MEDICATIONS, NEED FOR FOLLOW UP AND RETURN PRECAUTIONS. Initial ECG Impression Date: Dec 07, 2022 Initial ECG Impression Time: 20:38 Initial ECG Rate: 111 Initial ECG Rhythm: S.Tach Initial ECG Intervals NC 151 QRS 86 QT/QTC 324/389 Initial ECG Impression: Normal Initial ECG Comparisson: Unchanged (NO CHANGE FROM 2019) Diagnostic Imaging Comments CXR--PER RADIOLOGIST REPORT AT 2045 FINDINGS: Normal heart size and central pulmonary vascularity. Lungs are clear. No pleural effusion or pneumothorax. No acute osseous lesions. No significant change. IMPRESSION: No acute cardiopulmonary findings. CT CHEST/ABDOMEN/PELVIS--PER RADIOLOGIST REPORT AT 2130 FINDINGS: CT CHEST: Calcified granuloma in the left lower lobe. Lungs are otherwise clear. No pleural effusion or pneumothorax. Normal heart size. No pericardial effusion. No mediastinal, hilar or axillary lymphadenopathy. Gynecomastia. Calcified nodule in the left thyroid measuring up to 1.6 cm. No acute osseous findings. CT abdomen and pelvis: Cholecystectomy. The liver, pancreas, spleen, right kidney, adrenals, collecting systems and bladder are negative. No free intraperitoneal air or fluid. Normal appendix. No lymphadenopathy. No evidence of bowel obstruction. Enlargement of the left kidney appears to be due to a possible mass in the mid and lower left kidney measuring up to 9 cm. Left TERRANCE. Posterior instrumentation L4-L5 with interbody device. No acute osseous findings. IMPRESSION: 1. Enlargement of the left kidney appears to be due to a mass lesion in the mid and lower pole of the left kidney. Recommend follow-up with multiphase contrast-enhanced dedicated CT or MRI for further evaluation. No lymphadenopathy. 2. No acute CT findings in the chest. 3. Calcified nodule in the left thyroid measuring up 1.6 cm. Recommend nonemergent follow-up with dedicated ultrasound. Reviewed: Reviewed by Me Departure Impression Primary Impression: Gastroenteritis Additional Impressions: Dehydration Chronic kidney disease (CKD) T2DM (type 2 diabetes mellitus) HTN (hypertension) Multiple myeloma Disposition: 01 HOME, SELF-CARE Condition: Improved Departure-Patient Inst. Decision time for Depature: 23:12 Referrals: SERENITY LAMAR MD (PCP/Family) Primary Care Physician Patient Instructions: Dehydration, Adult ED, [id number] Add. Discharge Instructions: CLEAR LIQUIDS, SIPS AT A TIME. WATER, BROTH, JELLO, GATORADE WHEN YOUR NAUSEA IS GONE, ADD BRATS DIET TO CLEAR LIQUIDS--BANANAS, RICE, APPLES AUCE, TOAST, SALTINES FOLLOW UP WITH YOUR DR IN 1-2 DAYS IF NO BETTER, RETURN TO ER IF WORSE All discharge instructions reviewed with patient and/or family. Voiced understanding. Scripts Ondansetron (Ondansetron Odt) 8 Mg Tab.rapdis 8 MG PO Q6H, #10 TAB Prov: SUDHA LOCKWOOD DO 12/07/22 SUDHA LOCKWOOD DO Dec 07, 2022 20:42
[2022-12-07] MEDS ORDERED: ACETAMINOPHEN 500 MG TABLET PO PRN (20:45)
[2022-12-07] MEDS ORDERED: NS IV 1000 ML 1,000 ML IV SCH (20:45)
[2022-12-07] MEDS ORDERED: CEFEPIME INJECTION 1,000 MG in NS (IVPB) 50 ML 50 ML IV ONE (20:45)
[2022-12-07 20:49] LABS: INR 1.1 (0.8-1.4); PROTHROMBIN TIME PATIENT 14.6 SEC (12.2-14.7)
[2022-12-07 20:50] LABS: ALANINE AMINOTRANSFERASE 10 U/L (0-55); ALBUMIN 4.2 GM/DL (3.2-4.5); ALKALINE PHOSPHATASE 124 U/L (40-136); AMYLASE 42 U/L (25-125); BILIRUBIN,TOTAL 0.4 MG/DL (0.1-1.0); BUN/CREATININE RATIO 24; CALCIUM 9.1 MG/DL (8.5-10.1); CARBON DIOXIDE 17 MMOL/L (21-32); CHLORIDE 106 MMOL/L (98-107); GFR ESTIMATED 35; GLUCOSE 210 MG/DL (70-105); LIPASE 10 U/L (8-78); MAGNESIUM 1.8 MG/DL (1.6-2.4); POTASSIUM 4.5 MMOL/L (3.6-5.0); SODIUM 138 MMOL/L (135-145)
--- NOTE | 2022-12-07 21:27 | Diagnostic Imaging Report ---
PROCEDURE: CT chest, abdomen, and pelvis without contrast. TECHNIQUE: Multiple contiguous axial images were obtained through the chest, abdomen, and pelvis without the use of intravenous contrast. Auto Exposure Controls were utilized during the CT exam to meet ALARA standards for radiation dose reduction. INDICATION: Multiple myeloma. Fever. Nausea and vomiting. Diarrhea. COMPARISON: Chest radiograph 12/07/2022. CT abdomen and pelvis without contrast 12/06/2021. FINDINGS: CT CHEST: Calcified granuloma in the left lower lobe. Lungs are otherwise clear. No pleural effusion or pneumothorax. Normal heart size. No pericardial effusion. No mediastinal, hilar or axillary lymphadenopathy. Gynecomastia. Calcified nodule in the left thyroid measuring up to 1.6 cm. No acute osseous findings. CT abdomen and pelvis: Cholecystectomy. The liver, pancreas, spleen, right kidney, adrenals, collecting systems and bladder are negative. No free intraperitoneal air or fluid. Normal appendix. No lymphadenopathy. No evidence of bowel obstruction. Enlargement of the left kidney appears to be due to a possible mass in the mid and lower left kidney measuring up to 9 cm. Left TERRANCE. Posterior instrumentation L4-L5 with interbody device. No acute osseous findings. IMPRESSION: 1. Enlargement of the left kidney appears to be due to a mass lesion in the mid and lower pole of the left kidney. Recommend follow-up with multiphase contrast-enhanced dedicated CT or MRI for further evaluation. No lymphadenopathy. 2. No acute CT findings in the chest. 3. Calcified nodule in the left thyroid measuring up 1.6 cm. Recommend nonemergent follow-up with dedicated ultrasound. Dictated by: Dictated on workstation # [id number]
[2022-12-07 21:31] LABS: LYMPHOCYTES % (MANUAL) 5 %; MONOCYTES % (MANUAL) 5 %; NEUTROPHILS % (MANUAL) 90 %; PLATELET ESTIMATE ADEQUATE; POIKILOCYTOSIS SLIGHT
[2022-12-07 23:01] LABS: BILIRUBIN,URINE NEGATIVE (NEGATIVE); CLARITY,URINE CLEAR; COLOR,URINE YELLOW; GLUCOSE, URINE (UA) NEGATIVE (NEGATIVE); KETONES,URINE TRACE (NEGATIVE); LEUKOCYTE ESTERASE ,URINE NEGATIVE (NEGATIVE); NITRITE,URINE NEGATIVE (NEGATIVE); PH,URINE 5.5 (5-9); PROTEIN,URINE 3+ (NEGATIVE)
[2022-12-07 23:02] LABS: AMORPHOUS SEDIMENT,UR RARE AMOR URATES /LPF; BACTERIA,URINE NEGATIVE /HPF; RBC,URINE 0-2 /HPF
[2022-12-07] MEDS ORDERED: ONDA8TAB13 PO (23:13)
[2022-12-07 23:35] VITALS: BP 177/90
== END 2022-12-07 23:35 | disposition home or self-care (01) ==
LOC: EDUNIT# 20:08 → ER 20:10
DX: K52.9 Noninfective gastroenteritis and colitis, unspecified (principal); E86.0 Dehydration; E11.22 Type 2 diabetes mellitus with diabetic chronic kidney disease; I12.9 Hypertensive chronic kidney disease with stage 1 through stage 4 chronic kidney disease, or unspecified chronic kidney disease; N18.9 Chronic kidney disease, unspecified; C90.00 Multiple myeloma not having achieved remission; E66.9 Obesity, unspecified; Z68.39 Body mass index [BMI] 39.0-39.9, adult; Z88.2 Allergy status to sulfonamides; Z92.21 Personal history of antineoplastic chemotherapy
CPT/HCPCS: 36415; 71045; 71250; 74176; 80053; 81000; 82150; 83605; 83690; 83735; 84484; 85007; 85027; 85610; 85730; 87040; 87088; 87636; 93005; 93041; 96361; 96365; 96375; 96376